=== PATIENT | male | born 1975 | race Caucasian/White ===

== ENCOUNTER 2021-09-03 16:16 | Emergency (ER) | payer OTHER, SELFPAY ==
--- NOTE | ~2021-09-03 | XR_ITS ---
EXAMINATION: XR CHEST CLINICAL INFORMATION: Chest pain COMPARISON: None TECHNIQUE: Frontal view of the chest was obtained. FINDINGS: No significant abnormality is noted involving the heart, lungs, mediastinum, bony thorax or soft tissues. XR/XR chest 1V IMPRESSION: Unremarkable examination.
--- NOTE | ~2021-09-03 | XR_ITS ---
EXAMINATION: XR BILATERAL HIPS WITH AP PELVIS CLINICAL INFORMATION: Pain. COMPARISON: Radiograph of the pelvis dated from 02/10/2016. TECHNIQUE: AP view of the pelvis and single views of each hip were obtained. FINDINGS: Severe bilateral degenerative osteoarthritis with extensive subcortical cystic changes, deformity of the femoral heads and osteophytes. These findings are significantly progressed since 2016. Within a background of advanced osteoarthritis evaluation of subtle fractures is limited. However, no definite acutely displaced fractures are identified. Sacroiliac joints and pubic symphysis are maintained. XR/XR hips GRIFFIN min 3V IMPRESSION: Severe degenerative osteoarthritis in both hips, progressed since 2016 without definite fractures. Although as above, this background limits evaluation of subtle injuries for which correlation with an MR or CT could be obtained if indicated.
--- NOTE | ~2021-09-03 | CT_ITS ---
EXAMINATION: CT ANGIOGRAM OF THE CHEST WITH AND WITHOUT CONTRAST (CT PULMONARY ANGIOGRAM FOR PE) CLINICAL INFORMATION: Reason for Exam cp, sob, r/o pe COMPARISON: 01/23/2016 TECHNIQUE: Prior to contrast administration, noncontrast localization images were obtained. Subsequently, multidetector volumetric imaging was performed from the thoracic inlet to below the diaphragms following the administration of 75 mL Omnipaque 350 intravenous contrast. No contrast reaction reported Sagittal, coronal, and MIP oblique sagittal reformatted images were obtained on the CT workstation, uploaded to PACS, and reviewed. This CT examination was performed using dose optimization techniques as appropriate, variously including the following: *Automated exposure control *Adjustment of mA and/or kV according to patient size (this includes techniques or standardized protocols for targeted exams where dose is matched to indication/reason for exam; i.e. extremities or head) *Use of iterative reconstruction technique Total exam dose-length product 443 mGy-cm FINDINGS: QUALITY OF STUDY/CONTRAST BOLUS: Satisfactory. PULMONARY ARTERIES: No central or segmental pulmonary emboli. THORACIC AORTA: No aneurysm or dissection. LUNG: There is a 1.3 cm mean diameter subpleural opacity within the anterior segment of the right upper lobe inferiorly which may represent pleural parenchymal scarring, subsegmental atelectasis or a small focus of organizing pneumonia given the ring shaped morphology (i.e. atoll sign ). A previously seen nodule within left upper lobe has resolved. Mild diffuse bronchial wall thickening without bronchiectasis. PLEURA: No pleural effusion or pneumothorax. MEDIASTINUM: Normal heart size. No pericardial effusion. No hilar or mediastinal lymphadenopathy. No evidence of septal bowing or right heart strain. CHEST WALL/AXILLA: No axillary or internal mammary lymphadenopathy. OSSEOUS STRUCTURES: No acute or suspicious osseous abnormality. UPPER ABDOMEN: Hepatic steatosis. CT/CT angio chest PE protocol IMPRESSION: * No pulmonary embolism. * Nonspecific 1.3 cm mean diameter ring-shaped subpleural opacity within the anterior segment of the right upper lobe with diagnostic considerations as above. As precaution, consider follow-up CT chest in 3-6 months. * Mild diffuse bronchial wall thickening could reflect mild bronchitis or asthma. * Hepatic steatosis. VTE: negative
[2021-09-03 16:22] VITALS: BP 173/98; PULSE 125; RESP 18; TEMP 36.7; O2SAT 98; BMI 48.6
--- NOTE | 2021-09-03 16:26 | ECG_ITS ---
Test Reason : CHEST PAIN Blood Pressure : / mmHG Vent. Rate : 122 BPM Atrial Rate : 122 BPM P-R Int : 152 ms QRS Dur : 076 ms QT Int : 320 ms P-R-T Axes : 041 -26 101 degrees QTc Int : 456 ms Sinus tachycardia with occasional Premature ventricular complexes Nonspecific T wave abnormality Abnormal ECG When compared with ECG of 24-JAN-2016 01:43, Premature ventricular complexes are now Present Referred By: Generic ED Physician Electronically Signed By:YRIS LOPEZ MD
[2021-09-03 16:48] LABS: MANUAL DIFF FLAG NO
[2021-09-03 16:50] LABS: Basophils Absolute Auto 0.1 X10*3/uL (0.0-0.2); Basophils Percent Auto 0.5 % (0-2); Eosinophils Absolute Auto 0.2 X10*3/uL (0.0-0.4); Eosinophils Percent Auto 1.6 % (0-4); Hematocrit 43.3 % (42.0-52.0); Hemoglobin 15.4 g/dl (14.0-18.0); Imm Gran Abs Auto 0.02 X10*3/uL (0.00-0.03); Imm Gran Pct Auto 0.2 % (0.0-0.4); Lymphocytes Absolute Auto 1.9 X10*3/uL (1.2-4.9); Lymphocytes Percent Auto 20.1 % (20-40); Mean Corpuscular HGB Conc 35.6 g/dl (31.0-36.0); Mean Corpuscular Hemoglobin 29.7 pg (27.0-33.0); Mean Corpuscular Volume 83.4 fL (80.0-98.0); Mean Platelet Volume 11.7 fL (9.4-12.4); Monocytes Absolute Auto 0.5 X10*3/uL (0.1-1.2); Monocytes Percent Auto 4.9 % (2-11); Neutrophils Absolute Auto 6.9 x10*3/uL (2.0-8.3); Neutrophils Percent Auto 72.7 % (45-73); Platelet Count 170 X10*3/uL (160-400); Red Blood Count 5.19 X10*6/uL (4.60-5.80); Red Cell Distribution Width 12.9 % (11.0-16.0); White Blood Count 9.5 X10*3/uL (4.8-10.8)
[2021-09-03 17:04] LABS: COVID-19 Test Negative (Negative)
[2021-09-03 17:06] LABS: Anion Gap 12 (12-20); Blood Urea Nitrogen 15 mg/dL (9-16); Calcium 9.2 mg/dL (8.4-10.2); Carbon Dioxide 27 mmol/L (22-29); Chloride 98 mmol/L (96-108); Creatinine Clr Calc Pharmacy 82.8; Estimated Glomerular Filt Rate 51; Glucose Random 471 mg/dL (60-115); Potassium 4.2 mmol/L (3.3-5.1); Sodium 133 mmol/L (135-145)
[2021-09-03 21:58] LABS: Lipase 50 U/L (8-78)
[2021-09-03 22:09] LABS: B Type Natriuretic Peptide < 10 pg/mL (<100)
--- NOTE | 2021-09-03 22:25 | ED_ITS ---
HPI - Chest Pain General Chief Complaint: Chest Pain Stated Complaint: head ache Time Seen by Provider: 09/03/21 21:31 Source: patient and family Mode of arrival: wheelchair Limitations: no limitations History of Present Illness HPI narrative: 46 yo male with history of hypertension, insulin-dependent diabetes, bilateral hip arthritis, high cholesterol here with reports of chest burning for the last 3 days. Patient reports is constant. It is worsened if he lays flat. Denies vomiting or abdominal pain. He does report nausea. No associated diaphoresis. He has been feeling lightheaded last few days. He denies any volume loss. He has been eating and drinking normally. Does report when he lays flat he feels short of breath. No leg swelling or pain. No fevers, chills, cough. Patient also reporting bilateral chronic hip pain with no known injury or trauma. Patient has underlying arthritis and takes diclofenac and ibuprofen daily for pain. Patient denies any black or bloody stools Related Data Previous Rx's Medication Instructions Recorded diclofenac sodium 50 mg 50 mg PO ONCE #30 tab 08/12/21 tablet,delayed release insulin lispro 100 unit/mL 20 unit (0.2 mL) SUBCUT BID #15 ml 08/12/21 subcutaneous pen (Humalog KwikPen (U-100) Insulin) losartan 50 mg tablet 50 mg PO DAILY #30 tab 08/12/21 metformin 1,000 mg tablet 1,000 mg PO BID #60 tab 08/12/21 pen needle, diabetic 32 gauge x #100 ea 08/12/21 (BD Ultra-Fine Vania Pen Needle) azithromycin 250 mg tablet 250 mg PO DAILY 4 Days #4 tab 09/04/21 Allergies Allergy/AdvReac Type Severity Reaction Status Date / Time No Known Allergies Allergy Verified 09/03/21 16:22 [No Known Allergies*] Review of Systems Review of Systems: Yes all other systems are reviewed and are negative Constitutional: Constitutional: Reports no additional constitutional complaints, Denies body ache(s), Denies chills, Denies fever(s), Denies headache(s) and Denies weakness Eyes: Eyes: Reports no additional eye complaints and Denies change in vision ENT: Reports system reviewed and no additional complaints, except as documented, Denies dizziness, Denies headache(s), Denies nasal congestion, Denies nasal discharge and Denies neck pain Cardiovascular: Cardiovascular: Reports no additional cardiovascular complaints, Reports chest pain, Denies leg edema, Reports lightheadedness and Reports dyspnea (w/ laying flat ) Respiratory: Respiratory: Reports no additional respiratory complaints, Denies cough and Reports dyspnea (w/ laying flat ) Gastrointestinal: Gastrointestinal: Reports no additional gastrointestinal complaints, Denies abdominal pain, Denies diarrhea, Reports nausea and Denies vomiting Genitourinary: Genitourinary: Denies urinary incontinence Musculoskeletal: Musculoskeletal: Reports no additional musculoskeletal compla ints, Denies back pain, Reports arthralgias, Denies joint swelling, Denies neck pain, Denies numbness and Denies tingling Integumentary/Breasts: Skin/Breast: Reports system reviewed and no additional complaints, except as docu and Denies rash Neurologic: Reports system reviewed and no additional complaints, except as documented, Denies dizziness, Denies headache(s), Denies numbness, Denies tingling and Denies weakness PMFSH Past Medical History Attestation statement: The following information was validated with the patient. Source: old records reviewed and nursing notes reviewed Medical History Arthritis of both hips DM type 2 (diabetes mellitus, type 2) Hypertension Long-term insulin use Surgical History No pertinent past surgical history Social History Social History Housing: Apartment Alcohol intake: never Patient Tobacco Use Status: Never used Tobacco Second Hand Smoke Exposure: No Advance Directives: No Advance Directives Information Provided: Yes service: No Current occupational status: disabled Physical Exam Vital Signs: Vital Signs: Last Vital Signs Temp 98.7 F 09/03/21 23:05 Pulse 108 H 09/04/21 00:35 Resp 17 09/04/21 00:35 BP 143/92 H 09/04/21 00:35 Pulse Ox 97 09/04/21 00:35 BMI result Body Mass Index 48.6 Const: General: cooperative, healthy appearing, comfortable and no acute distress Orientation/consciousness: patient oriented x3 Limitations: no l imitations HENMT: Head: Yes normal to inspection Ears: hearing grossly normal bilaterally and TM's normal bilaterally General nose exam: Normal external nose present Face and sinus: Yes normal facial exam Mouth: Normal oral and palatal mucosa present Throat: Yes posterior oropharynx normal and Yes tonsils normal Eyes: General: appearance normal, both eyes and all related structures Pupils: Equal, round and reactive pupils present Neck: Neck: Yes normal visual inspection, Yes full ROM and Yes no lymphadenopathy Chest: Chest palpation & inspection: normal inspection of the chest Resp: Effort & Inspection: normal respiratory effort Auscultation: clear to auscultation bilaterally Cardio: Rate: tachycardic Peripheral pulses: Peripheral pulses 2+ throughou t GI: Inspection: Yes normal to inspection Palpation (GI): Soft to palpation and nontender : General: Yes no CVA tenderness Back/Spine/Pelvis: Back: no CVA tenderness Skin: General skin exam: no rashes or lesions noted Neuro: General: patient oriented x3 Cranial nerves: Yes CN's II-XII intact bilaterally, Yes Equal, round and reactive pupils present, Yes Bilaterally intac t EOM present, Yes Nystagmus not present, Yes Normal facial strength present and Yes Midline tongue present Gait exam (Neuro): Normal gait present Motor exam (neuro): 5/5 motor strength present throughout Sensory Exam: Normal double simultaneous stimulation for sensation Extrem: General: Yes normal to inspection, Yes no pedal edema and Yes no calf tenderness Course Course Course Narrative: 46-year-old male here with multiple complaints. Patient reports 3 days of chest burning, feeling nauseous, lightheaded. Symptoms are worsened with lying flat with shortness of breath lying flat. No abdominal pain, vomiting. On arrival the patient is alert oriented. He is mildly tachycardic with a heart rate of 115-120. His abdomen is soft and nontender. His neurological exam is normal. Will need labs, EKG, chest x-ray, COVID screen Also complaining acute on chronic bilateral hip pain. Requesting x-rays. 2345-troponin times do lab. EKG shows no ischemic changes. Chest x-ray is negative. COVID screen is negative. Reviewed labs. Labs show an elevated D- dimer, elevated creatinine with preserved BUN, elevated glucose with no evidence of DKA. Will check CTA to rule out PE. Patient is having persistent tachycardia so will check orthostatic vital signs. Will give fluids, insulin and reassess 0145-CTA of the chest is negative for PE. It does show it appears to be a right-sided pneumonia. The patient has no tachypnea or hypoxia. Will treat with course of antibiotics, give albuterol MDI for home. Blood sugar trending down. Heart rate now 102. Patient tells me his pain in the chest is improved. X-ray show bilateral hip osteoarthritis. Patient has diclofenac and ibuprofen at home for pain. He can follow-up with his primary care doctor in regards to this additionally Will discharge home with PCP follow-up. Reviewed worrisome signs and symptoms of when to return to the emergency department. Comfortable discharge home. MDM - Chest Pain MDM Narrative Medical decision making narrative: ACS, orthostatic hypotension, PE, viral syndrome Medical Records Data Attestation: I reviewed the patient's medical records. Lab Data Attestation: I reviewed the patient's lab results. Result diagrams: 09/03/21 16:42 09/03/21 16:42 Labs: Lab Results 09/03/21 09/03/21 09/03/21 Range/Units 16:37 16:42 16:42 WBC 9.5 (4.8-10.8) X10*3/uL RBC 5.19 (4.60-5.80) X10*6/uL Hgb 15.4 (14.0-18.0) g/dl Hct 43.3 (42.0-52.0) % MCV 83.4 (80.0-98.0) fL MCH 29.7 (27.0-33.0) pg MCHC 35.6 (31.0-36.0) g/dl RDW 12.9 (11.0-16.0) % Plt Count 170 (160-400) X10*3/uL MPV 11.7 (9.4-12.4) fL Immature Gran % (Auto) 0.2 (0.0-0.4) % Neut % (Auto) 72.7 (45-73) % Lymph % (Auto) 20.1 (20-40) % Churchill % (Auto) 4.9 (2-11) % Eos % (Auto) 1.6 (0-4) % Baso % (Auto) 0.5 (0-2) % Lymph # (Auto) 1.9 (1.2-4.9) X10*3/uL Churchill # (Auto) 0.5 (0.1-1.2) X10*3/uL Eos # (Auto) 0.2 (0.0-0.4) X10*3/uL Baso # (Auto) 0.1 (0.0-0.2) X10*3/uL Abs Immat Gran (auto) 0.02 (0.00-0.03) X10*3/uL Absolute Neuts (auto) 6.9 (2.0-8.3) x10*3/uL Absolute Nucleated RBC 0.000 (0.0-0.012) X10*3/uL Nucleated RBC % (auto) 0.0 (0.0-0.2) /100WBC PT (9.9-13.0) SEC INR (0.9-1.1) D-Dimer High Sensitivty NG/ML VBG pH (7.32-7.43) VBG pCO2 mmHg VBG pO2 mmHg VBG HCO3 (22-26) mmol/L VBG O2 Saturation % VBG Base Excess mmol/L Sodium 133 L (135-145) mmol/L Potassium 4.2 (3.3-5.1) mmol/L Chloride 98 (96-108) mmol/L Carbon Dioxide 27 (22-29) mmol/L Anion Gap 12 (12-20) BUN 15 (9-16) mg/dL Creatinine 1.48 H (0.5-1.4) mg/dL Estim Creat Clear Calc 82.8 Estimated GFR 51 POC Glucose (60-115) mg/dL Random Glucose 471 H* (60-115) mg/dL Calcium 9.2 (8.4-10.2) mg/dL Magnesium (1.6-2.6) mg/dL Total Bilirubin (0.0-1.0) mg/dL Direct Bilirubin (0.0-0.5) mg/dL AST (5-37) U/L ALT (0-40) U/L Alkaline Phosphatase (39-117) U/L Troponin I High Sens (<3.5-35.0) ng/L B-Natriuretic Peptide (<100) pg/mL Total Protein (6.5-8.0) g/dL Albumin (3.5-5.0) g/dL Lipase 50 (8-78) U/L TSH (0.32-4.0) uIU/mL Acetone, Qual (Negative) COVID-19 (ROCHELLE) Negative (Negative) COVID-19 Clin Com See Note 09/03/21 09/03/21 09/03/21 Range/Units 16:42 22:52 23:02 WBC (4.8-10.8) X10*3/uL RBC (4.60-5.80) X10*6/uL Hgb (14.0-18.0) g/dl Hct (42.0-52.0) % MCV (80.0-98.0) fL MCH (27.0-33.0) pg MCHC (31.0-36.0) g/dl RDW (11.0-16.0) % Plt Count (160-400) X10*3/uL MPV (9.4-12.4) fL Immature Gran % (Auto) (0.0-0.4) % Neut % (Auto) (45-73) % Lymph % (Auto) (20-40) % Churchill % (Auto) (2-11) % Eos % (Auto) (0-4) % Baso % (Auto) (0-2) % Lymph # (Auto) (1.2-4.9) X10*3/uL Churchill # (Auto) (0.1-1.2) X10*3/uL Eos # (Auto) (0.0-0.4) X10*3/uL Baso # (Auto) (0.0-0.2) X10*3/uL Abs Immat Gran (auto) (0.00-0.03) X10*3/uL Absolute Neuts (auto) (2.0-8.3) x10*3/uL Absolute Nucleated RBC (0.0-0.012) X10*3/uL Nucleated RBC % (auto) (0.0-0.2) /100WBC PT 12.4 (9.9-13.0) SEC INR 1.1 (0.9-1.1) D-Dimer High Sensitivty 185 NG/ML VBG pH (7.32-7.43) VBG pCO2 mmHg VBG pO2 mmHg VBG HCO3 (22-26) mmol/L VBG O2 Saturation % VBG Base Excess mmol/L Sodium (135-145) mmol/L Potassium (3.3-5.1) mmol/L Chloride (96-108) mmol/L Carbon Dioxide (22-29) mmol/L Anion Gap (12-20) BUN (9-16) mg/dL Creatinine (0.5-1.4) mg/dL Estim Creat Clear Calc Estimated GFR POC Glucose 375 H* (60-115) mg/dL Random Glucose (60-115) mg/dL Calcium (8.4-10.2) mg/dL Magnesium (1.6-2.6) mg/dL Total Bilirubin (0.0-1.0) mg/dL Direct Bilirubin (0.0-0.5) mg/dL AST (5-37) U/L ALT (0-40) U/L Alkaline Phosphatase (39-117) U/L Troponin I High Sens 14.0 (<3.5-35.0) ng/L B-Natriuretic Peptide < 10 (<100) pg/mL Total Protein (6.5-8.0) g/dL Albumin (3.5-5.0) g/dL Lipase (8-78) U/L TSH (0.32-4.0) uIU/mL Acetone, Qual (Negative) COVID-19 ([facility]HELLE) (Negative) COVID-19 Clin Com 09/03/21 09/03/21 09/03/21 Range/Units 23:02 23:02 23:02 WBC (4.8-10.8) X10*3/uL RBC (4.60-5.80) X10*6/uL Hgb (14.0-18.0) g/dl Hct (42.0-52.0) % MCV (80.0-98.0) fL MCH (27.0-33.0) pg MCHC (31.0-36.0) g/dl RDW (11.0-16.0) % Plt Count (160-400) X10*3/uL MPV (9.4-12.4) fL Immature Gran % (Auto) (0.0-0.4) % Neut % (Auto) (45-73) % Lymph % (Auto) (20-40) % Churchill % (Auto) (2-11) % Eos % (Auto) (0-4) % Baso % (Auto) (0-2) % Lymph # (Auto) (1.2-4.9) X10*3/uL Churchill # (Auto) (0.1-1.2) X10*3/uL Eos # (Auto) (0.0-0.4) X10*3/uL Baso # (Auto) (0.0-0.2) X10*3/uL Abs Immat Gran (auto) (0.00-0.03) X10*3/uL Absolute Neuts (auto) (2.0-8.3) x10*3/uL Absolute Nucleated RBC (0.0-0.012) X10*3/uL Nucleated RBC % (auto) (0.0-0.2) /100WBC PT (9.9-13.0) SEC INR (0.9-1.1) D-Dimer High Sensitivty NG/ML VBG pH (7.32-7.43) VBG pCO2 mmHg VBG pO2 mmHg VBG HCO3 (22-26) mmol/L VBG O2 Saturation % VBG Base Excess mmol/L Sodium (135-145) mmol/L Potassium (3.3-5.1) mmol/L Chloride (96-108) mmol/L Carbon Dioxide (22-29) mmol/L Anion Gap (12-20) BUN (9-16) mg/dL Creatinine (0.5-1.4) mg/dL Estim Creat Clear Calc Estimated GFR POC Glucose (60-115) mg/dL Random Glucose (60-115) mg/dL Calcium (8.4-10.2) mg/dL Magnesium 1.9 (1.6-2.6) mg/dL Total Bilirubin 0.6 (0.0-1.0) mg/dL Direct Bilirubin 0.2 (0.0-0.5) mg/dL AST 12 (5-37) U/L ALT 13 (0-40) U/L Alkaline Phosphatase 75 (39-117) U/L Troponin I High Sens 17.6 (<3.5-35.0) ng/L B-Natriuretic Peptide (<100) pg/mL Total Protein 8.2 H (6.5-8.0) g/dL Albumin 3.9 (3.5-5.0) g/dL Lipase (8-78) U/L TSH 3.79 (0.32-4.0) uIU/mL Acetone, Qual Negative (Negative) COVID-19 ([facility]HELLE) (Negative) COVID-19 Clin Com 09/03/21 09/04/21 Range/Units 23:04 00:30 WBC (4.8-10.8) X10*3/uL RBC (4.60-5.80) X10*6/uL Hgb (14.0-18.0) g/dl Hct (42.0-52.0) % MCV (80.0-98.0) fL MCH (27.0-33.0) pg MCHC (31.0-36.0) g/dl RDW (11.0-16.0) % Plt Count (160-400) X10*3/uL MPV (9.4-12.4) fL Immature Gran % (Auto) (0.0-0.4) % Neut % (Auto) (45-73) % Lymph % (Auto) (20-40) % Churchill % (Auto) (2-11) % Eos % (Auto) (0-4) % Baso % (Auto) (0-2) % Lymph # (Auto) (1.2-4.9) X10*3/uL Churchill # (Auto) (0.1-1.2) X10*3/uL Eos # (Auto) (0.0-0.4) X10*3/uL Baso # (Auto) (0.0-0.2) X10*3/uL Abs Immat Gran (auto) (0.00-0.03) X10*3/uL Absolute Neuts (auto) (2.0-8.3) x10*3/uL Absolute Nucleated RBC (0.0-0.012) X10*3/uL Nucleated RBC % (auto) (0.0-0.2) /100WBC PT (9.9-13.0) SEC INR (0.9-1.1) D-Dimer High Sensitivty NG/ML VBG pH 7.35 (7.32-7.43) VBG pCO2 50 mmHg VBG pO2 37 mmHg VBG HCO3 28 H (22-26) mmol/L VBG O2 Saturation 51.0 % VBG Base Excess 1.5 mmol/L Sodium (135-145) mmol/L Potassium (3.3-5.1) mmol/L Chloride (96-108) mmol/L Carbon Dioxide (22-29) mmol/L Anion Gap (12-20) BUN (9-16) mg/dL Creatinine (0.5-1.4) mg/dL Estim Creat Clear Calc Estimated GFR POC Glucose 274 H (60-115) mg/dL Random Glucose (60-115) mg/dL Calcium (8.4-10.2) mg/dL Magnesium (1.6-2.6) mg/dL Total Bilirubin (0.0-1.0) mg/dL Direct Bilirubin (0.0-0.5) mg/dL AST (5-37) U/L ALT (0-40) U/L Alkaline Phosphatase (39-117) U/L Troponin I High Sens (<3.5-35.0) ng/L B-Natriuretic Peptide (<100) pg/mL Total Protein (6.5-8.0) g/dL Albumin (3.5-5.0) g/dL Lipase (8-78) U/L TSH (0.32-4.0) uIU/mL Acetone, Qual (Negative) COVID-19 ([facility]HELLE) (Negative) COVID-19 Clin Com Imaging Data Chest x-ray: Attestation: I personally reviewed and interpreted this imaging study as follows: Radiologist's impression: [place] [id number] XRay Report Signed Patient: Miguel A Aparicio MR#: [id number] : 1975 Acct:[id number] Age/Sex: 46 / M ADM Date: 09/03/21 Loc: .ED Attending Dr: Ordering Physician: Generic ED Physician Date of Service: 09/03/21 Procedure(s): XR chest 1V Accession Number(s): [id number] cc: Generic ED Physician~ EXAMINATION: XR CHEST CLINICAL INFORMATION: Chest pain COMPARISON: None TECHNIQUE: Frontal view of the chest was obtained. FINDINGS: No significant abnormality is noted involving the heart, lungs, mediastinum, bony thorax or soft tissues. XR/XR chest 1V IMPRESSION: Unremarkable examination. ? hips xray: Attestation: I personally reviewed and interpreted this imaging study as follows: Radiologist's impression: FINDINGS: Severe bilateral degenerative osteoarthritis with extensive subcortical cystic changes, deformity of the femoral heads and osteophytes. These findings are significantly progressed since 2016. Within a background of advanced osteoarthritis evaluation of subtle fractures is limited. However, no definite acutely displaced fractures are identified. Sacroiliac joints and pubic symphysis are maintained. XR/XR hips GRIFFIN min 3V IMPRESSION: Severe degenerative osteoarthritis in both hips, progressed since 2016 without definite fractures. Although as above, this background limits evaluation of subtle injuries for which correlation with an MR or CT could be obtained if indicated. CT scan - chest: Attestation: I personally reviewed and interpreted this imaging study as follows: Radiologist's impression: [place] [id number] CT Scan Report Signed Patient: Miguel A Aparicio MR#: [id number] : 1975 Acct:[id number] Age/Sex: 46 / M ADM Date: 09/03/21 Loc: HO.ED Attending Dr: Ordering Physician: Rhoda David NP Date of Service: 09/04/21 Procedure(s): CT angio chest PE protocol Accession Number(s): [id number] cc: Rhoda David NP~ EXAMINATION: CT ANGIOGRAM OF THE CHEST WITH AND WITHOUT CONTRAST (CT PULMONARY ANGIOGRAM FOR PE) CLINICAL INFORMATION: Reason for Exam cp, sob, r/o pe COMPARISON: 01/23/2016? TECHNIQUE: Prior to contrast administration, noncontrast localization images were obtained. ? Subsequently, multidetector volumetric imaging was performed from the thoracic inlet to below the diaphragms following the administration of 75 mL Omnipaque 350 intravenous contrast. No contrast reaction reported Sagittal, coronal, and MIP oblique sagittal reformatted images were obtained on the CT workstation, uploaded to PACS, and reviewed. This CT examination was performed using dose optimization techniques as appropriate, variously including the following: *Automated exposure control *Adjustment of mA and/or kV according to patient size (this includes techniques or standardized protocols for targeted exams where dose is matched to indication/reason for exam; i.e. extremities or head) *Use of iterative reconstruction technique Total exam dose-length product 443 mGy-cm FINDINGS: QUALITY OF STUDY/CONTRAST BOLUS: Satisfactory. PULMONARY ARTERIES: No central or segmental pulmonary emboli.? THORACIC AORTA: No aneurysm or dissection. LUNG: There is a 1.3 cm mean diameter subpleural opacity within the anterior segment of the right upper lobe inferiorly which may represent pleural parenchymal scarring, subsegmental atelectasis or a small focus of organizing pneumonia given the ring shaped morphology (i.e. atoll sign ). A previously seen nodule within left upper lobe has resolved. Mild diffuse bronchial wall thickening without bronchiectasis. PLEURA: No pleural effusion or pneumothorax. MEDIASTINUM: Normal heart size.? No pericardial effusion.? No hilar or mediastinal lymphadenopathy.? No evidence of septal bowing or right heart strain. CHEST WALL/AXILLA: No axillary or internal mammary lymphadenopathy. OSSEOUS STRUCTURES: No acute or suspicious osseous abnormality.? UPPER ABDOMEN: Hepatic steatosis. CT/CT angio chest PE protocol IMPRESSION: *? No pulmonary embolism. *? Nonspecific 1.3 cm mean diameter ring-shaped subpleural opacity within the anterior segment of the right upper lobe with diagnostic considerations as above. As precaution, consider follow-up CT chest in 3-6 months. *? Mild diffuse bronchial wall thickening could reflect mild bronchitis or asthma. *? Hepatic steatosis. ECG Data ECG #1: Attestation: I personally reviewed and interpreted this ECG as follows: ECG interpretation date: 09/03/21 ECG interpretation time: 16:26 Interpretation: Sinus tachycardia with a rate of 122, normal OH, normal QRS, normal QT Discharge Plan Discharge Clinical Impression: Atypical chest pain, Pneumonia, Osteoarthritis of both hips, Hyperglycemia Patient Disposition: Home, Self-Care Instructions: Osteoarthritis (DC), Pneumonia (ED), Diabetic Hyperglycemia (ED), Chest Wall Pain (ED) Additional Instructions: Your CT scan of your chest shows pneumonia After you complete your antibiotics follow-up with your primary care doctor to make sure that the pneumonia has resolved Use the inhaler as needed Increase fluids, rest Your blood sugar was elevated today. This may be from having an infection. Make sure that you follow your blood sugars closely at home and discussed if your blood sugars continue to be elevated with her primary care doctor Your x-rays of your hip show bilateral arthritis. Continue your home medications. Discuss this with her primary care doctor Prescriptions: New azithromycin 250 mg tablet 250 mg PO DAILY 4 Days Qty: 4 0RF Rx Instructions: start on day 2 of therapy No Action losartan 50 mg tablet 50 mg PO DAILY Qty: 30 1RF metformin 1,000 mg tablet 1,000 mg PO BID Qty: 60 1RF (DME) pen needle, diabetic [BD Ultra-Fine Vania Pen Needle] 32 gauge x 5/32 needle See Rx Instructions .Route Qty: 100 0RF Rx Instructions: As directed insulin lispro [Humalog KwikPen Insulin] 100 unit/mL insulin pen 20 unit subcut BID Qty: 15 0RF diclofenac sodium 50 mg tablet,delayed release (DR/EC) 50 mg PO ONCE Qty: 30 0RF Referrals: Miguel Nguyen MD [Primary Care Provider] - 1 week Print Language: Portuguese
[2021-09-03] MEDS: Lidocaine HCl Viscous 2 % 15 ML SOLUTION MUCOUS MEM (22:56)
[2021-09-03] MEDS: Magnesium Hydrox/Alum Hydrox 30 ML ORAL.SUSP PO (22:56)
[2021-09-03] MEDS: 0.9 % Sodium Chloride 1,000 ML 999 ML IV (22:56)
[2021-09-03 22:57] LABS: Glucose, Whole Blood 375 mg/dL (60-115)
[2021-09-03 23:05] VITALS: BP 140/86; PULSE 114; RESP 12; TEMP 37.1; O2SAT 96
--- NOTE | 2021-09-03 23:07 | PC.NURSE ---
IV placed to RAC, labs drawn to lab. NS up and running w/o, site intact. pt medicated as per emar. will continue to monitor pt.
[2021-09-03 23:09] LABS: Venous Blood Gas Refer to POC result
[2021-09-03 23:11] LABS: VBG Base Excess 1.5 mmol/L; VBG HCO3 28 mmol/L (22-26); VBG pCO2 50 mmHg; VBG pH 7.35 (7.32-7.43); VBG pO2 37 mmHg
[2021-09-03 23:16] LABS: INTERNATIONAL NORM RATIO 1.1 (0.9-1.1); Prothrombin Time 12.4 SEC (9.9-13.0)
[2021-09-03 23:18] LABS: D Dimer High Sensitivity 185 NG/ML
[2021-09-03 23:23] LABS: Acetone, serum QL Negative (Negative); Alanine Aminotransferase 13 U/L (0-40); Albumin Level 3.9 g/dL (3.5-5.0); Alkaline Phosphatase 75 U/L (39-117); Aspartate Amino Transferase 12 U/L (5-37); Bilirubin Direct 0.2 mg/dL (0.0-0.5); Bilirubin Total 0.6 mg/dL (0.0-1.0); Magnesium 1.9 mg/dL (1.6-2.6); Total Protein 8.2 g/dL (6.5-8.0)
[2021-09-03 23:30] LABS: Troponin-I High Sensitivity 17.6 ng/L (<3.5-35.0)
[2021-09-03 23:46] LABS: Thyroid Stimulating Hormone 3.79 uIU/mL (0.32-4.0)
[2021-09-03] MEDS: Insulin Regular, Human 100 UNIT/ML 3 ML VIAL IVPUSH (23:53)
--- NOTE | 2021-09-03 23:56 | PC.NURSE ---
pt medicated with insulin as per emar for bs -375
[2021-09-04] VITALS: BP 148/86; PULSE 113
[2021-09-04 00:01] VITALS: BP 137/105; PULSE 113
[2021-09-04 00:03] VITALS: BP 142/94; PULSE 115
[2021-09-04 00:05] VITALS: BP 142/94; PULSE 113; RESP 18; O2SAT 98
--- NOTE | 2021-09-04 00:33 | PC.NURSE ---
BS 274 - PA aware. NS infused w/o difficulty, site intact. VS obtained. pt states my cp is much better . Pt in CT in stretcher in NAD.
[2021-09-04 00:35] VITALS: BP 143/92; PULSE 108; RESP 17; O2SAT 97
[2021-09-04 00:35] LABS: Glucose, Whole Blood 274 mg/dL (60-115)
[2021-09-04] MEDS: iohexoL 350 MG/ML 100 ML INFUS..BTL 75 ML IV (00:54)
[2021-09-04] MEDS: Azithromycin 500 MG TABLET PO (01:59)
[2021-09-04] MEDS: Albuterol Sulfate 90 MCG 8 GM INHALER 2 PUFF INHALE (02:02)
== END 2021-09-04 02:21 | disposition home or self-care (01) ==
PROVIDERS: Nurse Practitioner Family; Student in an Organized Health Care Education/Training Program; Emergency Provider Emergency Medicine; PCP Internal Medicine
DX: J18.9 Pneumonia, unspecified organism (principal); R07.9 Chest pain, unspecified; E11.65 Type 2 diabetes mellitus with hyperglycemia; M16.0 Bilateral primary osteoarthritis of hip; M25.552 Pain in left hip; M25.551 Pain in right hip; R06.02 Shortness of breath; Z20.822 Contact with and (suspected) exposure to COVID-19; Z79.899 Other long term (current) drug therapy; Z79.4 Long term (current) use of insulin
CPT/HCPCS: 36415; 71045; 71275; 73522; 80048; 80076; 82009; 82803; 82947; 83690; 83735; 83880; 84443; 84484; 85025; 85379; 85610; 87635; 93005; 96361; 96374; 99284; Q9967

== ENCOUNTER 2021-09-21 16:37 | Outpatient (REF) | payer OTHER, SELFPAY ==
[2021-09-21 18:21] LABS: Amphetamine Screen Urine Not Detected (Not Detect); Barbiturates, Urine Not Detected (Not Detect); Benzodiazepines Screen Urine Not Detected (Not Detect); Cannabinoid Screen Urine Not Detected (Not Detect); Cocaine Screen Urine Not Detected (Not Detect); Fentanyl, urine Not Detected (Not Detect); Opiate Screen Urine Not Detected (Not Detect); Phencyclidine Screen Urine Not Detected (Not Detect)
[2021-09-28 09:59] LABS: Codeine, Ur NEGATIVE
[2021-09-28 10:00] LABS: Hydrocodone, Ur NEGATIVE; Oxycodone, Ur NEGATIVE
[2021-09-28 10:01] LABS: Hydromorphone, Ur NEGATIVE; Morphine, Ur NEGATIVE
[2021-09-28 10:02] LABS: Norhydrocodone, Ur NEGATIVE; Oxymorphone, Ur NEGATIVE
[2021-09-28 10:03] LABS: Alprazolam, GCMS Urine NEGATIVE; Noroxycodone, Ur NEGATIVE
[2021-09-28 10:04] LABS: Aminoclonazepam, GCMS Urine NEGATIVE; Nordiazepam, GCMS Urine NEGATIVE; Oxazepam, GCMS Urine NEGATIVE
[2021-09-28 10:05] LABS: Alphahydroxymidazolam,GCMS Ur NEGATIVE; Alphahydroxytriazolam, GCMS Ur NEGATIVE; Flurazepam Metabolite,GCMS Ur NEGATIVE; Lorazepam GCMS Urine NEGATIVE; Temazepam, GCMS Urine NEGATIVE
== END 2021-09-21 16:38 | disposition home or self-care (01) ==
LOC: HO.LAB 16:37
PROVIDERS: Visit Provider Nurse Practitioner Acute Care
DX: F11.90 Opioid use, unspecified, uncomplicated (principal)
CPT/HCPCS: 80307; 80346; 80364; 80365

== ENCOUNTER → 2021-11-26 10:35 | Outpatient (BNVA) | payer OTHER, SELFPAY | PROVIDERS: PCP Nurse Practitioner Acute Care; Visit Provider Orthopaedic Surgery | DX: M16.0 Bilateral primary osteoarthritis of hip (principal); E66.01 Morbid (severe) obesity due to excess calories; E11.65 Type 2 diabetes mellitus with hyperglycemia; Z68.42 Body mass index [BMI] 45.0-49.9, adult | CPT/HCPCS: 99202 ==

== ENCOUNTER → 2021-12-29 13:34 | Outpatient (BNVA) | payer OTHER, SELFPAY | PROVIDERS: PCP Nurse Practitioner Acute Care; Visit Provider Nurse Practitioner Family | DX: M16.0 Bilateral primary osteoarthritis of hip (principal); M25.551 Pain in right hip; M25.552 Pain in left hip; G89.29 Other chronic pain | CPT/HCPCS: 99202 ==

== ENCOUNTER 2022-07-21 16:12 | Emergency (ER) | payer OTHER, SELFPAY ==
--- NOTE | 2022-07-21 16:51 | ED.LOWEXIN ---
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 He states the pain has been getting progressively worse over the last several years. He denies any new injury or trauma. He states he was recently at family's house for the holidays and needed to go up and down stairs which exacerbated his pain. He denies any falls or twisting motions, no pops or snaps. He states both of his hips hurt equally and have hurt for many years now. He states his primary care doctor's not giving him referrals physical therapy like he would want. He states his diclofenac is not getting refilled and it was controlling his pain somewhat. He states he tried to get in with pain management but no one called him back. He states orthopedics rescheduled his appointment several times. <CLARISSE Powell - Last Filed: 07/21/22 18:37> MD complaint: hip injury <CLARISSE Powell Last Filed: 07/21/22 18:37> Onset (ago): month(s) <CLARISSE Powell - Last Filed: 07/21/22 18:37> Injury: Bilateral: hip <CLARISSE Powell Last Filed: 07/21/22 18:37> Type of Injury: unknown <CLARISSE Powell Last Filed: 07/21/22 18:37> Severity: similar to previous episodes <CLARISSE Powell - Last Filed: 07/21/22 18:37> Severity scale (1-10): 10 <CLARISSE Powell - Last Filed: 07/21/22 18:37> Relieving factors: nothing <CLARISSE Powell Last Filed: 07/21/22 18:37> Exacerbating factors: weight bearing, movement and palpation <CLARISSE Powell - Last Filed: 07/21/22 18:37> Associated symptoms: able to partially bear weight <CLARISSE Powell - Last Filed: 07/21/22 18:37> Other symptoms: none <CLARISSE Powell - Last Filed: 07/21/22 18:37> Related Data Home Medications: Previous Rx's Medication Instructions Recorded pen needle, diabetic 32 gauge x #100 ea 08/12/21 (BD Ultra-Fine Vania Pen Needle) losartan 50 mg tablet 50 mg PO DAILY #90 tabs 11/23/21 metformin 1,000 mg tablet 1,000 mg PO BID #180 tabs 11/23/21 Shower Chair #1 ea 12/10/21 walker (Ultra-Light Rollator misc) #1 ea 12/10/21 celecoxib 100 mg capsule (Celebrex) 100 mg PO BID #60 caps 12/29/21 cane #1 ea 04/21/22 diclofenac sodium 1 % topical gel 4 g topical QID #100 grams 05/20/22 insulin glargine 100 unit/mL (3 30 unit (0.3 mL) subcut BID #15 mL 06/19/22 mL) subcutaneous pen (Lantus Solostar U-100 Insulin) diclofenac potassium 50 mg tablet 50 mg PO BID PRN pain #30 tabs 06/29/22 cyclobenzaprine 10 mg tablet 10 mg PO Q8H PRN muscle spasm #14 07/21/22 tabs diclofenac sodium 75 mg 75 mg PO BID #60 tabs 07/21/22 tablet,delayed release lidocaine 5 % topical patch 1 patch topical DAILY #30 ea 07/21/22 prednisone 20 mg tablet 40 mg PO DAILY #10 tabs 07/21/22 <CLARISSE Salazar Last Filed: 07/21/22 16:58> Allergies/Adverse Reactions: Allergies Allergy/AdvReac Type Severity Reaction Status Date / Time No Known Allergies Allergy Verified 02/26/22 13:56 [No Known Allergies*] <CLARISSE Salazar - Last Filed: 07/21/22 16:58> Review of Systems Review of Systems: Yes all other systems are reviewed and are negative <CLARISSE Powell - Last Filed: 07/21/22 18:37> [facility] Past Medical History Medical History: Medical History Arthritis of both hips DM type 2 (diabetes mellitus, type 2) Encounter to establish care Hypertension Long-term insulin use <CLARISSE Salazar - Last Filed: 07/21/22 16:58> Surgical History: Surgical History No pertinent past surgical history <CLARISSE Salazar - Last Filed: 07/21/22 16:58> Social History Social History: Social History Housing: Apartment Alcohol intake: never Patient Tobacco Use Status: Never used Tobacco e-Cigarette/Vaping Use: Never Used Second Hand Smoke Exposure: No Advance Directives: No Advance Directives Information Provided: No service: No Current occupational status: disabled Current occupational exposures/hazards: No Cognitive needs: Yes (cane) Hearing needs: No Vision needs: Yes (glasses) <CLARISSE Salazar - Last Filed: 07/21/22 16:58> Physical Exam Vital Signs: Vital Signs: Last Vital Signs Temp 98.3 F 07/21/22 16:52 Pulse 108 H 07/21/22 16:52 Resp 20 07/21/22 16:52 BP 159/96 H 07/21/22 16:52 Pulse Ox 99 07/21/22 16:52 O2 Del Method 07/21/22 16:52 BMI result Body Mass Index 43.4 <CLARISSE Salazar - Last Filed: 07/21/22 16:58> Vital Signs: Last Vital Signs Temp 98.3 F 07/21/22 16:52 Pulse 108 H 07/21/22 16:52 Resp 20 07/21/22 16:52 BP 159/96 H 07/21/22 16:52 Pulse Ox 99 07/21/22 16:52 O2 Del Method 07/21/22 16:52 BMI result Body Mass Index 43.4 <CLARISSE Powell - Last Filed: 07/21/22 18:37> Appearance: Alert. Oriented X3. No acute distress. HEENT: normal inspection CVS: Normal heart rate and rhythm. Pulses normal. Respiratory: No respiratory distress. Skin: Skin warm and dry. Normal skin color. Normal skin turgor. No rashes. Extremities: Normal inspection of bilateral hips, diffuse tenderness bilaterally with no point tenderness. Antalgic gait noted. Normal active range of motion, pain with full extension or full flexion. Neuro: Oriented X 3. No motor deficit. No sensory deficit. <CLARISSE Powell - Last Filed: 07/21/22 18:37> Course Course Course Narrative: RME--47-year-old male with a past medical history of arthritis, diabetes, HTN, presenting to the ED complaining of acute on chronic b/l hip pain x years. Per chart review patient follows with Orthopedics and Pain Management, recommended weight loss prior to bilateral hip replacements. This was brought up to patient however became offended. Patient admits to using diclofenac at present, denies other meds. Denies new or more recent fall/injury or trauma Patient ambulating with limping/painful gait. In wheelchair in the ED. Will send patient back to ED for full eval. <CLARISSE Salazar - Last Filed: 07/21/22 16:58> Reevaluation(s) Reevaluation #1: Chart reviewed. Patient was seen by Physical therapy, pain management and Orthopedics of which he states he has not seen. His BMI is now 43 from 47 in december. stripper cutter machine was used to discuss the importance of ongoing weight loss, diabetes management and following up with Orthopedics. He understands he is recommended to get bilateral hip replacements. Will prescribe NSAID, muscle relaxer, Tylenol and short course of steroids for acute exacerbation of pain. We discussed the importance of dietary modification and management of his diabetes. We discussed the effects of prednisone on his diabetes. He is stable for discharge home. Patient agrees with plan. stripper cutter machine used to discuss all plan at questions. <CLARISSE Powell Last Filed: 07/21/22 18:37> Medical Decision Making Differential Diagnosis Differential Diagnoses: The differential diagnosis associated with the presentation includes <CLARISSE Powell Last Filed: 07/21/22 18:37> Severe osteoarthritis, AVN, occult fracture, muscle spasm, muscle strain, <CLARISSE Powell - Last Filed: 07/21/22 18:37> External Record Review External record reviewed: Office record <CLARISSE Powell - Last Filed: 07/21/22 18:37> outpatient orthopedic recommends that the patient gets bilateral hip replacements, he was recommended to lose 40-50 lb and get his diabetes under control prior to surgery. <CLARISSE Powell Last Filed: 07/21/22 18:37> Tests considered The following testing was considered but not selected: X-ray not performed given no new trauma. He is ambulatory. <CLARISSE Powell Last Filed: 07/21/22 18:37> Prescription Management I considered prescription management with: Pain Medication <CLARISSE Powell Last Filed: 07/21/22 18:37> One dose of oxycodone ordered here, will not start him on narcotics. Referred to pain management. <CLARISSE Powell Last Filed: 07/21/22 18:37> Chronic Conditions Patient?s care impacted by: Diabetes and Other (obesity) <CLARISSE Powell Last Filed: 07/21/22 18:37> Limiting his surgical options <CLARISSE Powell Last Filed: 07/21/22 18:37> Discharge Plan Discharge Clinical Impression: Osteoarthritis of both hips <CLARISSE Salazar Last Filed: 07/21/22 16:58> Patient Disposition: Home, Self-Care <CLARISSE Salazar Last Filed: 07/21/22 16:58> Instructions: Osteoarthritis (ED) <CLARISSE Salazar Last Filed: 07/21/22 16:58> Additional Instructions: Your last x-ray showed severe osteoarthritis in both hips. Take the prescribed medications as directed to help with your pain. Recommend following up with Pain Management, name and number below. Recommend following up with orthopedics for re-evaluation and possible surgical options. Per documentation from the orthopedic doctor in November of last year, they recommended that you lose 40-50 lb and get your diabetes under control. They are recommending bilateral hip replacements. [place] ?ltima radiograf?a mostr? artrosis severa en ambas caderas. [place] los medicamentos recetados seg?n las indicaciones para ayudar con hairston dolor. Recomiende el seguimiento con [place] dolor, nombre y n?pietro a continuaci?n. Recomendar seguimiento con ortopedia para reevaluaci?n y posibles opciones quir?rgicas. Seg?n la documentaci?n del m?dico ortop?dico en mejia del a?o pasado, recomendaron que perdiera entre 40 y 50 libras y controlara hairston diabetes. Est?n recomendando reemplazos de cadera bilaterales. <CLARISSE Salazar - Last Filed: 07/21/22 16:58> Prescriptions: New diclofenac sodium 75 mg tablet,delayed release (DR/EC) 75 mg PO BID Qty: 60 0RF cyclobenzaprine 10 mg tablet 10 mg PO Q8H PRN (Reason: muscle spasm) Qty: 14 0RF lidocaine 5 % adhesive patch,medicated 1 patch topical DAILY Qty: 30 0RF Rx Instructions: leave on most painful area for up to 12 hrs prednisone 20 mg tablet 40 mg PO DAILY Qty: 10 0RF No Action (DME) Ultra-Light Rollator Misc See Rx Instructions .Route Qty: 1 0RF Rx Instructions: As directed (DME) Shower Chair Misc See Rx Instructions .Route Qty: 1 0RF Rx Instructions: As directed (DME) cane Device See Rx Instructions .Route Qty: 1 0RF Rx Instructions: As directed diclofenac sodium 1 % gel 4 g topical QID Qty: 100 0RF insulin glargine [Lantus Solostar U-100 Insulin] 100 unit/mL (3 mL) insulin pen 30 unit subcut BID Qty: 15 3RF diclofenac potassium 50 mg tablet 50 mg PO BID PRN (Reason: pain) Qty: 30 0RF (DME) pen needle, diabetic [BD Ultra-Fine Vania Pen Needle] 32 gauge x 5/32 needle See Rx Instructions .Route Qty: 100 0RF Rx Instructions: As directed metformin 1,000 mg tablet 1,000 mg PO BID Qty: 180 3RF losartan 50 mg tablet 50 mg PO DAILY Qty: 90 3RF celecoxib [Celebrex] 100 mg capsule 100 mg PO BID Qty: 60 3RF <CLARISSE Salazar - Last Filed: 07/21/22 16:58> [place] [facility] [place] Group] [facility] [place]Provider Group] <CLARISSE Salazar - Last Filed: 07/21/22 16:58> Print Language: Guamanian <CLARISSE Salazar - Last Filed: 07/21/22 16:58>
[2022-07-21 16:52] VITALS: BP 159/96; PULSE 108; RESP 20; TEMP 36.8; O2SAT 99; BMI 43.4
[2022-07-21] MEDS: Ibuprofen 600 MG TABLET PO (18:32)
[2022-07-21] MEDS: Acetaminophen 325 MG TABLET 975 MG PO (18:33)
[2022-07-21] MEDS: oxyCODONE HCl Immed Release 5 MG TABLET PO (18:33)
== END 2022-07-21 18:38 | disposition home or self-care (01) ==
PROVIDERS: Emergency Provider Student in an Organized Health Care Education/Training Program
DX: M16.0 Bilateral primary osteoarthritis of hip (principal); E11.9 Type 2 diabetes mellitus without complications; I10 Essential (primary) hypertension; E66.9 Obesity, unspecified; Z68.41 Body mass index [BMI] 40.0-44.9, adult; Z79.4 Long term (current) use of insulin; Z79.899 Other long term (current) drug therapy
CPT/HCPCS: 99283

== ENCOUNTER 2022-09-11 20:32 | Emergency (ER) | payer OTHER, SELFPAY ==
--- NOTE | 2022-09-11 | ECG_ITS ---
Test Reason : cp Blood Pressure : / mmHG Vent. Rate : 119 BPM Atrial Rate : 119 BPM P-R Int : 156 ms QRS Dur : 076 ms QT Int : 310 ms P-R-T Axes : 045 -27 090 degrees QTc Int : 436 ms Sinus tachycardia Poor R wave progression Abnormal ECG When compared with ECG of 03-SEP-2021 16:26, Premature ventricular complexes are no longer Present Referred By: Generic ED Physician Electronically Signed By:YRIS LOPEZ MD
--- NOTE | ~2022-09-11 | XR_ITS ---
EXAMINATION: XR CHEST CLINICAL INFORMATION: Chest pain. COMPARISON: Chest done on 09/03/2021. TECHNIQUE: Frontal view of the chest was obtained. FINDINGS: No significant abnormality is noted involving the heart, lungs, mediastinum, bony thorax or soft tissues. XR/XR chest 1V IMPRESSION: Unremarkable examination. No significant change since 09/03/2021.
[2022-09-11 20:49] VITALS: BP 128/97; PULSE 125; RESP 16; TEMP 36.3; O2SAT 98; BMI 49.4
[2022-09-11 21:00] LABS: Hematocrit 40.8 % (42.0-52.0); Hemoglobin 14.3 g/dl (14.0-18.0); Mean Corpuscular Hemoglobin 29.5 pg (27.0-33.0); Mean Corpuscular Volume 84.1 fL (80.0-98.0); Mean Platelet Volume 11.7 fL (9.4-12.4); Platelet Count 167 X10*3/uL (160-400); Red Blood Count 4.85 X10*6/uL (4.60-5.80); Red Cell Distribution Width 13.7 % (11.0-16.0); White Blood Count 9.3 X10*3/uL (4.8-10.8)
[2022-09-11 21:23] LABS: Alanine Aminotransferase 28 U/L (0-40); Albumin Level 3.9 g/dL (3.5-5.0); Alkaline Phosphatase 75 U/L (39-117); Anion Gap 16 (12-20); Aspartate Amino Transferase 20 U/L (5-37); Bilirubin Total 0.5 mg/dL (0.0-1.0); Blood Urea Nitrogen 24 mg/dL (9-16); Calcium 8.8 mg/dL (8.4-10.2); Carbon Dioxide 25 mmol/L (22-29); Chloride 101 mmol/L (96-108); Creatinine Clr Calc Pharmacy 66.9; Estimated Glomerular Filt Rate 40; Glucose Random 253 mg/dL (60-115); Sodium 138 mmol/L (135-145); Total Protein 7.5 g/dL (6.5-8.0)
[2022-09-11 21:31] LABS: Troponin-I High Sensitivity 15.1 ng/L (<3.5-35.0)
--- NOTE | 2022-09-11 21:33 | ED_ITS ---
HPI - Chest Pain General Chief Complaint: Chest Pain Stated Complaint: dizziness/ hip pain Time Seen by Provider: 09/11/22 21:17 Source: patient Mode of arrival: ambulatory Limitations: no limitations History of Present Illness HPI narrative: 47-year-old male with pmh of DM, HTN, arthrisitis of both hips presents to the ED for multiple complaints. patient presents to the ED for chronic bilateral hip pain, chest pain since yesterday described as pleurisy, painful to touch, and dizziness. Patient denies any leg swelling, calf pain, coughing up blood, recent long travel, recent surgery, hisotry of blood clots, or estrogen use Related Data Previous Rx's Medication Instructions Recorded losartan 50 mg tablet 50 mg PO DAILY #90 tabs 11/23/21 metformin 1,000 mg tablet 1,000 mg PO BID #180 tabs 11/23/21 Shower Chair #1 ea 12/10/21 walker (Ultra-Light Rollator misc) #1 ea 12/10/21 cane #1 ea 04/21/22 diclofenac sodium 1 % topical gel 4 g topical QID #100 grams 05/20/22 cyclobenzaprine 10 mg tablet 10 mg PO Q8H PRN muscle spasm #14 07/21/22 tabs lidocaine 5 % topical patch 1 patch topical DAILY #30 ea 07/21/22 blood pressure kit-extra large #1 ea 08/12/22 blood sugar diagnostic (FreeStyle #100 ea 08/12/22 Lite Strips) blood-glucose meter (FreeStyle #1 ea 08/12/22 Lite Meter kit) diclofenac sodium 75 mg 75 mg PO BID #60 tabs 08/12/22 tablet,delayed release insulin glargine 100 unit/mL (3 30 unit (0.3 mL) subcut BID #15 mL 08/12/22 mL) subcutaneous pen (Lantus Solostar U-100 Insulin) lancets 28 gauge (FreeStyle #100 ea 08/12/22 Lancets) pen needle, diabetic 32 gauge x #100 ea 08/12/22 (BD Ultra-Fine Vania Pen Needle) acetaminophen 325 mg tablet 650 mg PO Q6H PRN pain 7 days #28 09/12/22 (Tylenol) tabs Allergies Allergy/AdvReac Type Severity Reaction Status Date / Time No Known Allergies Allergy Verified 08/12/22 16:49 [No Known Allergies*] Review of Systems Review of Systems: bilateral hip pain, chest pain, dizziness, pleurisy Yes all other systems are reviewed and are negative [facility] Past Medical History Medical History Arthritis of both hips DM type 2 (diabetes mellitus, type 2) Encounter to establish care Hypertension Long-term insulin use Surgical History No pertinent past surgical history Social History Social History Housing: Apartment Alcohol intake: never Patient Tobacco Use Status: Never used Tobacco Smoked in Last 30 Days: No e-Cigarette/Vaping Use: Never Used Second Hand Smoke Exposure: No Use of substances other than those prescribed or required for medical reasons: No Advance Directives: No Advance Directives Information Provided: Yes service: No Current occupational status: disabled Current occupational exposures/hazards: No Cognitive needs: Yes (cane) Hearing needs: No Vision needs: Yes (glasses) Physical Exam Vital Signs: Vital Signs: Last Vital Signs Temp 97.4 F 09/11/22 20:49 Pulse 106 H 09/12/22 00:13 Resp 15 09/11/22 22:21 BP 128/86 09/12/22 00:13 Pulse Ox 96 09/11/22 22:21 O2 Del Method 09/11/22 22:21 BMI result Body Mass Index 49.4 Const: General: cooperative, healthy appearing, comfortable, no acute distress, well developed, alert, awake and Physically active Orientation/consciousness: oriented to person, oriented to place, oriented to time and patient oriented x3 HEENT: Head: Yes normal to inspection, Yes No palpable skull fracture present, Yes normocephalic, Yes atraumatic and No abrasion Eyes: General: appearance normal, both eyes and all related structures Neck: Neck: Yes normal visual inspection, Yes full ROM, Yes no lymphad enopathy, Yes no meningeal signs, Yes trachea midline, Yes supple, No anterior neck swelling and No tender Chest: Chest palpation & inspection: normal inspection of the chest and normal palpation of entire chest wall Chest/axillae images: 1. positive for reproducible chest pain on palpation Resp: Effort & Inspection: normal respiratory effort and able to speak in complete sentences Auscultation: clear to auscultation bilaterally Cardio: Jugular venous distension: no JVD Heart sounds: S1 normal heart sound present and S2 normal heart sound present GI: Inspection: Yes normal to inspection and No abdominal wall ecchymosis Palpation (GI): Soft to palpation, not firm, nontender, no guarding and not rigid : General: No CVA tenderness and Yes no CVA tenderness Back/Spine/Pelvis: Back: no CVA tenderness, No CVA tenderness and No back tenderness Skin: General skin exam: no rashes or lesions noted and elasticity normal Neuro: Other: Negative facial droop. Negative slurred speech. All extremities equal strength 5+. [id number] and rapid hand movement intact. Negative pronator drift. Negative Romberg. Negative for any neuro deficits. NIH score 0 General: oriented to person, oriented to place, oriented to time, patient oriented x3, gait normal, tone normal, moves all extremities, Normal light touch and pain sensation, no meningeal signs, no focal motor deficits, CN's II-XI intact bilate rally, normal sensation to monofilament, decrease sensation to monofilament, absent sensation to monofilament and deep tendon reflexes 2+ bilaterally Extrem: Other: Bilateral lower extremities negative for swelling, pitting edema, calf tenderness, ecchymosis, crepitus, or deformities. Bilateral hips positive for pain on range of motion negative for crepitus or bony tenderness on palpation. Femoral pulses intact. Negative for any external/internal rotation of feet Psych: Appearance: grossly normal, well kempt and not disheveled Course Course Course Narrative: Due to the age we will do cardiac workup and also D-dimer. Will do chest x-ray. Patient has complete range of motion of bilateral lower extremities no internal or external rotation of hips. No need for repeat imaging of x-rays. Not suspect any fracture patient has history of chronic bilateral arthritis is supposed to have hip replacement. EKG chest x-ray ordered. Reevaluation(s) Reevaluation #1: EKG is negative. D-dimer negative. Perc score 1. Chest x-ray negative for pneumonia or cardiomegaly. Two troponins negative. Patient refused repeat chemistry to check for kidney function. Seems as if patient developing chronic kidney disease and patient informed to follow-up with primary care provider. Patient states he has not followed up with his PCP in 3 years for labs. Negative for signs of stroke no need for head CT scan. Patient baseline ambulation with his cane which is normal. Patient refused repeat chemistry to check for kidney function and refuse repeat BNP. No need for x-ray of hips patient has known history of arthritis and supposed to have a scheduled hip replacement in the future. Patient did not have any head trauma and has normal gait at baseline with his cane. Not suspect any fracture. Patient did not have any trauma. Lower extremities negative for any signs of DVT. Time: 00:50 Medications Administered Discontinued Medications Generic Name Dose Route Start Last Admin Trade Name Freq PRN Reason Stop Dose Admin Acetaminophen 650 mg 09/11/22 23:54 09/12/22 00:11 Acetaminophen 325 Mg Tablet PO 09/11/22 23:55 650 mg ONCE ONE Administration Sodium Chloride 1,000 mls @ 999 mls/hr 09/11/22 21:58 09/11/22 22:46 Ns IV 09/11/22 22:58 999 mls/hr .Q1H1M STA Administration Sodium Chloride 1,000 mls @ 999 mls/hr 09/11/22 21:59 09/11/22 22:58 Ns IV 09/11/22 22:59 999 mls/hr .Q1H1M STA Administration Oxycodone HCl 5 mg 09/11/22 23:54 09/12/22 00:11 Oxycodone Hcl Immed Release 5 Mg Tablet PO 09/11/22 23:55 5 mg ONCE ONE Administration Medical Decision Making Medical Decision Making [facility] Narrative: 47-year-old male with history of diabetes, hypertension, bilateral hip arthritis, presents to the ED for multiple complaints. Patient presents to ED for bilateral chronic hip pain due to arthritis, patient also presents to the ED for chest pain with slight pleurisy for 1 day and is reproducible, and also dizziness described as fatigue. Workup was negative. Differential Diagnosis Differential Diagnoses: The differential diagnosis associated with the presentation includes (Vertigo, myocardial infarction, PE, pneumonia,) Admission/Observation Consideration of admission/observation: Escalation of care including admission/observation considered Lab Data [facility] Lab Attestation statement: I reviewed the patient's lab results. 09/11/22 20:54 09/11/22 20:54 Labs: Lab Results 09/11/22 09/11/22 09/11/22 Range/Units 20:54 20:54 20:54 WBC 9.3 (4.8-10.8) X10*3/uL RBC 4.85 (4.60-5.80) X10*6/uL Hgb 14.3 (14.0-18.0) g/dl Hct 40.8 L (42.0-52.0) % MCV 84.1 (80.0-98.0) fL MCH 29.5 (27.0-33.0) pg MCHC 35.0 (31.0-36.0) g/dl RDW 13.7 (11.0-16.0) % Plt Count 167 (160-400) X10*3/uL MPV 11.7 (9.4-12.4) fL Absolute Nucleated RBC 0.000 (0.0-0.012) X10*3/uL Nucleated RBC % (auto) 0.0 (0.0-0.2) /100WBC PT (10.0-13.1) SEC INR (0.9-1.1) APTT (26.0-36.4) SEC D-Dimer High Sensitivty NG/ML Sodium 138 (135-145) mmol/L Potassium 4.0 (3.3-5.1) mmol/L Chloride 101 (96-108) mmol/L Carbon Dioxide 25 (22-29) mmol/L Anion Gap 16 (12-20) BUN 24 H (9-16) mg/dL Creatinine 1.83 H (0.5-1.4) mg/dL Estim Creat Clear Calc 66.9 Estimated GFR 40 Random Glucose 253 H (60-115) mg/dL Calcium 8.8 (8.4-10.2) mg/dL Total Bilirubin 0.5 (0.0-1.0) mg/dL AST 20 (5-37) U/L ALT 28 (0-40) U/L Alkaline Phosphatase 75 (39-117) U/L Troponin I High Sens 15.1 (<3.5-35.0) ng/L B-Natriuretic Peptide Total Protein 7.5 (6.5-8.0) g/dL Albumin 3.9 (3.5-5.0) g/dL 09/11/22 09/11/22 09/11/22 Range/Units 23:25 23:25 23:25 WBC (4.8-10.8) X10*3/uL RBC (4.60-5.80) X10*6/uL Hgb (14.0-18.0) g/dl Hct (42.0-52.0) % MCV (80.0-98.0) fL MCH (27.0-33.0) pg MCHC (31.0-36.0) g/dl RDW (11.0-16.0) % Plt Count (160-400) X10*3/uL MPV (9.4-12.4) fL Absolute Nucleated RBC (0.0-0.012) X10*3/uL Nucleated RBC % (auto) (0.0-0.2) /100WBC PT 10.6 (10.0-13.1) SEC INR 0.9 (0.9-1.1) APTT 27.1 (26.0-36.4) SEC D-Dimer High Sensitivty 177 NG/ML Sodium (135-145) mmol/L Potassium (3.3-5.1) mmol/L Chloride (96-108) mmol/L Carbon Dioxide (22-29) mmol/L Anion Gap (12-20) BUN (9-16) mg/dL Creatinine (0.5-1.4) mg/dL Estim Creat Clear Calc Estimated GFR Random Glucose (60-115) mg/dL Calcium (8.4-10.2) mg/dL Total Bilirubin (0.0-1.0) mg/dL AST (5-37) U/L ALT (0-40) U/L Alkaline Phosphatase (39-117) U/L Troponin I High Sens 12.7 (<3.5-35.0) ng/L B-Natriuretic Peptide TNP Total Protein (6.5-8.0) g/dL Albumin (3.5-5.0) g/dL Independent Interpretation I performed an independent interpretation of an: EKG and Plain X-Ray Interpretation: Sinsy tachycardia with PVC> Ventrate 122. DE 152, QRS 76, QTC 456. negative STEMI Discharge Plan Discharge Clinical Impression: Bilateral hip joint arthritis, Chest pain, atypical, Dizziness, Costal chondrit is Patient Disposition: Home, Self-Care Instructions: Chest Pain (ED), Chronic Kidney Disease (ED), Dizziness (ED), Chest Wall Pain (ED), Arthritis (ED) Additional Instructions: Enamorado an?lisis de gregory y electrocardiograma resultaron negativos para un ataque al coraz?n. Enamorado radiograf?a de t?rax result? negativa para signos de insuficiencia card?zane o neumon?a. Enamorado an?lisis de gregory muestra que est? desarrollando angelica enfermedad renal cr?nicole. Dolor tor?cico reproducible muy probablemente debido a la inflamaci?n del cart?josé miguel de la pared tor?cica. Enamorado dolor de cadera debido a la artritis cr?nicole. Necesita seguimiento con enamorado proveedor de atenci?n primaria para el seguimiento. Regrese al servicio de urgencias de inmediato por cualquier dificultad para hablar, ca?da facial, par?lisis de las extremidades, p?rdida de la visi?n, dolor en el pecho, dificultad para respirar, hinchaz?n de las piernas, dolor en la pantorrilla, tos con gregory, fiebre, escalofr?os, aumento de la frecuencia urinaria, gregory en la orina, mareos, o cualquier otro s?ntoma preocupante. Prescriptions: New acetaminophen [Tylenol] 325 mg tablet 650 mg PO Q6H PRN (Reason: pain) 7 Days Qty: 28 0RF No Action (DME) Ultra-Light Rollator Misc See Rx Instructions .Route Qty: 1 0RF Rx Instructions: As directed (DME) Shower Chair Misc See Rx Instructions .Route Qty: 1 0RF Rx Instructions: As directed (DME) cane Device See Rx Instructions .Route Qty: 1 0RF Rx Instructions: As directed diclofenac sodium 1 % gel 4 g topical QID Qty: 100 0RF cyclobenzaprine 10 mg tablet 10 mg PO Q8H PRN (Reason: muscle spasm) Qty: 14 0RF lidocaine 5 % adhesive patch,medicated 1 patch topical DAILY Qty: 30 0RF Rx Instructions: leave on most painful area for up to 12 hrs insulin glargine [Lantus Solostar U-100 Insulin] 100 unit/mL (3 mL) insulin pen 30 unit subcut BID Qty: 15 3RF (DME) lancets [FreeStyle Lancets] 28 gauge misc See Rx Instructions .MEDSUPPLY Qty: 100 11RF Rx Instructions: 2x day (DME) blood-glucose meter [FreeStyle Lite Meter] Kit See Rx Instructions .MEDSUPPLY Qty: 1 0RF Rx Instructions: 2x day (DME) FreeStyle Lite Strips Strip See Rx Instructions .MEDSUPPLY Qty: 100 11RF Rx Instructions: 2x day (DME) pen needle, diabetic [BD Ultra-Fine Vania Pen Needle] 32 gauge x 5/32 needle See Rx Instructions .Route Qty: 100 11RF Rx Instructions: As directed diclofenac sodium 75 mg tablet,delayed release (DR/EC) 75 mg PO BID Qty: 60 0RF (DME) blood pressure kit-extra large Kit See Rx Instructions .Route Qty: 1 0RF Rx Instructions: As directed metformin 1,000 mg tablet 1,000 mg PO BID Qty: 180 3RF losartan 50 mg tablet 50 mg PO DAILY Qty: 90 3RF Stand Alone Forms: Work/School Release Interventions: ED Discharge Assessment Last Done: 09/12/22 01:27 Discharge Date/Time: 09/12/22 01:28 Print Language: Latvian
[2022-09-11 22:21] VITALS: BP 133/85; PULSE 115; RESP 15; O2SAT 96
[2022-09-11] MEDS: 0.9 % Sodium Chloride 1,000 ML 999 ML IV ×2 (22:46→22:58)
[2022-09-11 23:41] LABS: INTERNATIONAL NORM RATIO 0.9 (0.9-1.1); Prothrombin Time 10.6 SEC (10.0-13.1)
[2022-09-11 23:43] LABS: D Dimer High Sensitivity 177 NG/ML; Partial Thromboplastin Time 27.1 SEC (26.0-36.4)
[2022-09-11 23:55] LABS: Troponin-I High Sensitivity 12.7 ng/L (<3.5-35.0)
--- NOTE | 2022-09-11 23:56 | PC.NURSE ---
Pt a&o, no sob, pt complaining of chest discomfort, provider aware. Will medicated per order. Pt on bedside monitor. Will continue montior.
[2022-09-12] MEDS: oxyCODONE HCl Immed Release 5 MG TABLET PO (00:11)
[2022-09-12] MEDS: Acetaminophen 325 MG TABLET 650 MG PO (00:11)
[2022-09-12 00:13] VITALS: BP 128/86; PULSE 106
--- NOTE | 2022-09-12 00:14 | PC.NURSE ---
Medicated per mar for pain. will continue to monitor
--- NOTE | 2022-09-12 00:52 | PC.NURSE ---
Lab called, BMP was unable to be analyzed. Pt refusing CMP drawn, provider CLARISSE Carlson. Plan is for pt to be discharged home. pt currently is resting in bed, no sob or chest pain at this time.
--- NOTE | 2022-09-12 00:53 | MHC.EDTECH ---
this pct went in to draw patients labs and patient stated he didn't want anymore labs drawn, patient states the needles hurt too much. RN AWARE.
--- NOTE | 2022-09-12 01:24 | PC.NURSE ---
Reviewed discharge instructions. pt verbalized understanding.
== END 2022-09-12 01:28 | disposition home or self-care (01) ==
PROVIDERS: Physician Assistant; Emergency Provider Emergency Medicine Emergency Medical Services; PCP Internal Medicine
DX: R07.89 Other chest pain (principal); M94.0 Chondrocostal junction syndrome [Tietze]; R42 Dizziness and giddiness; M16.0 Bilateral primary osteoarthritis of hip; R00.0 Tachycardia, unspecified; E11.9 Type 2 diabetes mellitus without complications; I10 Essential (primary) hypertension; Z79.899 Other long term (current) drug therapy; Z79.4 Long term (current) use of insulin
CPT/HCPCS: 36415; 71045; 80053; 83880; 84484; 85027; 85379; 85610; 85730; 93005; 99283; 99285

== ENCOUNTER 2022-10-05 08:15 | Outpatient (REF) | payer OTHER, SELFPAY | END 2022-10-05 08:16 | disposition home or self-care (01) | LOC: HO.LAB 08:15 | PROVIDERS: Visit Provider Internal Medicine | DX: Z13.89 Encounter for screening for other disorder (principal) ==

== ENCOUNTER 2023-04-01 16:25 | Outpatient (AMB) | payer OTHER, SELFPAY ==
--- NOTE | 2023-04-01 16:28 | A.OFFPC_ITS ---
Vital Signs 04/01/23 16:29 04/01/23 17:10 Height 5 ft 6 in Weight 275 lb BMI 44.4 BP 142/98 H Blood Pressure Location Lt brachial Position Sitting Pulse 120 H 102 H Pulse Source Pulse Oximeter Palpation Temp Source Skin Pulse Oximetry (%) 98 Oxygen Delivery Method Room Air Intake Visit Reasons: Hip Pain/DM Animal Caretaker Required: Yes Animal Caretaker Language: Liberian Allergies No Known Allergies [No Known Allergies*] Allergy (Verified 04/01/23 16:46) Medication List - Last Reconciled 04/01/23 by ZABRINA Joseph acetaminophen (Tylenol) 650 mg (2 x 325 mg) PO Q6H PRN 7 days blood pressure kit-extra large As directed blood sugar diagnostic (FreeStyle Lite Strips) 2x day blood-glucose meter (FreeStyle Lite Meter kit) 2x day cane As directed cyclobenzaprine 10 mg PO Q8H PRN diclofenac sodium 75 mg PO BID insulin glargine (Lantus Solostar U-100 Insulin) 30 units (0.3 mL) subcut BID lancets (FreeStyle Lancets) 2x day losartan 50 mg PO DAILY metformin 1,000 mg PO BID pen needle, diabetic (BD Ultra-Fine Vania Pen Needle) As directed Shower Chair As directed walker (Ultra-Light Rollator misc) As directed Tobacco use date assessed: 04/01/23 Dental Screening Dental Screen Date: 04/01/23 Did you have a dental visit in the last 12 months?: No Did you have a dental problem in the last 6 months where you did not have access to dental care?: No HPI Hip Pain/DM HPI Details Patient is a 48-year-old male who presents today for a routine follow- up.? Medical history significant for arthritis of both hips, morbid obesity, uncontrolled diabetes type 2, and hypertension. Patient reports that he has ran out on his blood pressure medication 4 days ago and pharmacy would not give him medication. He reports compliance with other medications and insulin. Patient was encouraged to complete his blood work. Patient did not see ophthalmology for diabetic eye exam, will follow-up on this referral. Reports blood sugars at home between 230 and 275. Patient denies shortness of breath or chest pain.? Patient is a Liberian-speaking and Letitia was helping with interpretation. ? [facility] Medical History Encounter to establish care Arthritis of both hips Long-term insulin use DM type 2 (diabetes mellitus, type 2) Hypertension Surgical History No pertinent past surgical history Social History Housing: Apartment Alcohol intake: never Patient Tobacco Use Status: Never used Tobacco e-Cigarette/Vaping Use: Never Used Second Hand Smoke Exposure: No service: No Current occupational status: disabled Current occupational exposures/hazards: No Cognitive needs: Yes (cane) Hearing needs: No Vision needs: Yes (glasses) Questionnaire Thrive Questionnaire Date Thrive assessed: 02/26/22 AUDIT C Alcohol Use Questionnaire (AUDIT-C) 1. How often do you have a drink containing alcohol?: Never 3. How often do you have six or more drinks on one occasion?: Never Total Score: 0 Score Reviewed/Action Taken: No RYANNE-7 AMB Questionnaire RYANNE-7 Date RYANNE - 7 assessed: 08/12/22 Source: Developed by Drs. Gilberto Camp, Cheyenne Howe, Gumaro Ruelas and colleagues, with an educational patito from [employer]. Review of Systems Const Denies body aches, Denies chills, Denies fever(s) and Denies headache(s) Eyes Denies change in vision ENT Denies dizziness, Denies otalgia, Denies headache(s), Denies nasal discharge, Denies sinus pain and Denies sore throat Card Denies chest pain, Denies edema, Denies lightheadedness and Denies dyspnea Resp Denies chest congestion, Denies cough and Denies dyspnea GI Denies abdominal pain, Denies constipation, Denies diarrhea, Denies nausea and Denies vomiting Denies difficulty urinating and Denies dysuria Musc Details: Neuropathy in hands and feet Denies myalgias, Reports arthralgias and Denies joint swelling Skin/Breast Denies lesions and Denies rash Neuro Denies dizziness and Denies headache(s) Physical exam (Primary Care) Vital Signs: Last Vital Signs Pulse 102 H 04/01/23 17:10 BP 142/98 H 04/01/23 16:29 Pulse Ox 98 09/15/23 16:29 Oxygen Delivery Method Room Air 04/01/23 16:29 BMI result Body Mass Index 44.4 Tobacco/Smoking Status: Tobacco use Status Tobacco use date assessed 04/01/23 04/01/23 16:29 Patient Tobacco Use Status Never used Tobacco 04/01/23 16:29 e-Cigarette/Vaping Use Never Used 04/01/23 16:29 Thrive Assessment: Date of Thrive Assessment Date Thrive assessed 02/26/22 04/01/23 16:29 Const General: cooperative and no acute distress Orientation/consciousness: patient oriented x3 HENMT Head: Yes normocephalic and Yes atraumatic Face and sinus: Yes sinuses nontender Mouth: oropharynx normal and moist mucous membranes Throat: Yes posterior oropharynx normal Eyes General: appearance normal, both eyes and all related structures Pupils: Equal, round and reactive pupils present EOM: EOMs intact bilaterally Neck Neck: Yes normal visual inspection, Yes full ROM and Yes no lymphadenopathy Thyroid: Thyroid normal Resp Effort & Inspection: normal respiratory effort and able to speak in complete sentences Auscultation: clear to auscultation bilaterally, no crackles, no rales, no rhonchi and no wheezes Cardio Rate: regular rate Rhythm: regular rhythm Heart sounds: S1 normal heart sound present and S2 normal heart sound present GI Auscultation: normal bowel sounds Skin General skin exam: no rashes or lesions noted Neuro General: patient oriented x3 Cranial nerves: Yes Equal, round and reactive pupils present Extrem General: Yes full ROM and No edema Results AMB Hemoglobin A1c AMB Hemoglobin A1c 9.2 % Last Edit by DEE Kong on 04/01/23 16:45 Results Reviewed Results Reviewed: Laboratory Last Values Hgb A1c (Clinic) 9.2 % (4.0-6.0) H 04/01/23 16:28 Assessment and Plan Assessment & Plan (1) Bilateral hip pain: Code(s): M25.551 - Pain in right hip; M25.552 - Pain in left hip Plan: Orthopedics referral for an evaluation and treatment Continue diclofenac 75 mg b.i.d. p.r.n. and cyclobenzaprine p.r.n.-educated about drowsiness (2) Uncontrolled type 2 diabetes mellitus: Code(s): E11.65 - Type 2 diabetes mellitus with hyperglycemia Qualifiers: Glycemic state: with hyperglycemia Qualified Code(s): E11.65 - Type 2 diabetes mellitus with hyperglycemia Plan: A1c 9.2 today, previous A1c 13.3 Continue metformin 1000 mg b.i.d. Increase Lantus to 34 units b.i.d. Low-carbohydrate diet Continue to monitor blood sugars at home Ophthalmology referral - will follow-up on this Patient was encouraged to complete his blood work (3) Hypertension: Code(s): I10 - Essential (primary) hypertension Qualifiers: Hypertension type: primary hypertension Qualified Code(s): I10 - Essential (primary) hypertension Plan: Losartan 50 mg daily - patient out of medication for the past 4 days, refill sent Low-sodium diet and exercise as tolerated Goal BP equal or less than 140/90 (4) Morbid obesity with BMI of 40.0-44.9, adult: Code(s): E66.01 - Morbid (severe) obesity due to excess calories; Z68.41 - Body mass index [BMI] 40.0-44.9, adult Plan: Healthy food choices and exercise as tolerated Patient congratulated on weight loss Plan Follow-up in 3 months or sooner as needed Orders: Orders AMB Hemoglobin A1c 04/01/23 E11.65 - Type 2 diabetes mellitus with hyperglycemia Referrals Orthopedics Referral M25.551 - Pain in right hip, M25.552 - Pain in left hip Medications: Changed From insulin glargine (Lantus Solostar U-100 Insulin) 30 units (0.3 mL) subcut BID 15 mL 3RF E11.65 - Type 2 diabetes mellitus with hyperglycemia To insulin glargine (Lantus Solostar U-100 Insulin) 34 units (0.34 mL) subcut BID 15 mL 3RF E11.65 - Type 2 diabetes mellitus with hyperglycemia Refilled lancets (FreeStyle Lancets) 2x day 100 ea 11RF E11.9 - Type 2 diabetes mellitus without complications, Z79.4 - joint terminal attack controller (current) use of insulin blood sugar diagnostic (FreeStyle Lite Strips) 2x day 100 ea 11RF E11.9 - Type 2 diabetes mellitus without complications, Z79.4 - joint terminal attack controller (current) use of insulin cyclobenzaprine 10 mg PO Q8H PRN 30 tabs 0RF muscle spasm M25.551 - Pain in right hip, M25.552 - Pain in left hip diclofenac sodium 75 mg PO BID 60 tabs 0RF metformin 1,000 mg PO BID 180 tabs 3RF E11.9 - Type 2 diabetes mellitus without complications acetaminophen (Tylenol) 650 mg (2 x 325 mg) PO Q6H 7 days PRN 28 tabs 0RF pain losartan 50 mg PO DAILY 90 tabs 3RF I10 - Essential (primary) hypertension pen needle, diabetic (BD Ultra-Fine Vania Pen Needle) As directed 100 ea 11RF Z79.4 - joint terminal attack controller (current) use of insulin Coding Level of Care Code Est Pt Level 4 (54316) Diagnoses Bilateral hip pain M25.551; M25.552 Uncontrolled type 2 diabetes mellitus with hyperglycemia E11.65 Glycemic state: with hyperglycemia Primary hypertension I10 Hypertension type: primary hypertension Morbid obesity with BMI of 40.0-44.9, adult E66.01; Z68.41
[2023-04-01 16:29] VITALS: BP 142/98; PULSE 120; O2SAT 98; BMI 44.4
[2023-04-01 17:10] VITALS: PULSE 102
== END 2023-04-01 17:18 | disposition home or self-care (01) ==
PROVIDERS: PCP Internal Medicine; Visit Provider Nurse Practitioner Family
DX: E11.65 Type 2 diabetes mellitus with hyperglycemia (principal); I10 Essential (primary) hypertension; E66.01 Morbid (severe) obesity due to excess calories; Z68.41 Body mass index [BMI] 40.0-44.9, adult; M25.551 Pain in right hip; M25.552 Pain in left hip
CPT/HCPCS: 83036; 99214

== ENCOUNTER 2023-04-18 13:50 | Outpatient (AMB) | payer OTHER, SELFPAY ==
[2023-04-18 13:54] VITALS: BMI 43.7
--- NOTE | 2023-04-18 13:54 | MHC.OFFVIS ---
Intake Vital Signs 04/18/23 13:54 Height 5 ft 6 in Weight 271 lb BMI 43.7 Intake Visit Reasons: Bilateral Hip OA Intake Note: Miguel A is a 48 year old male who presents today as a new patient with complaints of bilateral hip pain. At his last visit ANALILIA was discussed but his diabetes must be better controlled prior to surgery. 04/01/23 A1C 9.2 Allergies No Known Allergies [No Known Allergies*] Allergy (Verified 04/01/23 16:46) HPI Bilateral Hip OA HPI Details Miguel A is a 48 year old diabetic man here to discuss his bilateral hip OA. His hip pain began ~10 years ago and it is constant. He walks with extreme difficulty and uses a cane. This has been ongoing for years. He is losing weight and has lost >50 lbs over the past year, mostly through portion control. He would like to discuss surgery. [facility] Medical History Encounter to establish care Arthritis of both hips Long-term insulin use DM type 2 (diabetes mellitus, type 2) Hypertension Surgical History No pertinent past surgical history Social History Housing: Apartment Alcohol intake: never Patient Tobacco Use Status: Never used Tobacco e-Cigarette/Vaping Use: Never Used Second Hand Smoke Exposure: No service: No Current occupational status: disabled Current occupational exposures/hazards: No Cognitive needs: Yes (cane) Hearing needs: No Vision needs: Yes (glasses) Review of Systems Const All systems reviewed & are unremarkable except as noted in HPI and below Physical Exam Vital Signs: BMI result Body Mass Index 43.7 Const General: no acute distress, alert and awake Orientation/consciousness: patient oriented x3 HEENT Head: Yes normocephalic and Yes atraumatic Eyes EOM: EOMs intact bilaterally Resp Effort & Inspection: normal respiratory effort and able to speak in complete sentences Cardio Jugular venous distension: no JVD Skin General skin exam: turgor normal Rashes: no rashes Neuro General: patient oriented x3 Extrem Other: Bilateral hips: Antalgic gait min rotation bilateral hips Psych Appearance: grossly normal Affect: normal affect Attitude: cooperative Results Reviewed Results Reviewed: I personally reviewed relevant radiographs. 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 He has constant pain bilaterally and has difficulty with daily activity. He has difficulty ambulating and has to use a cane. He manages his pain with Voltaren gel and Nabumetone. He has been working on losing weight and managing his Diabetes since his last appointment, and has brought his BMI down to 43.7. His HgA1c is 9.2% on 04/01/23. I discussed his diagnosis and treatment options. He needs arthroplasty but is still working on weight loss and glycemic control. He is committed to losing weight. I will heave our nurse navigator reach out and see if we can be of assistance. His goal is to have surgery in November which I think is reasonable but his HgA1c need to start coming down and I wonder if would benefit from more aggressive medical management. (2) Uncontrolled type 2 diabetes mellitus: Code(s): E11.65 - Type 2 diabetes mellitus with hyperglycemia Qualifiers: Glycemic state: with hyperglycemia Qualified Code(s): E11.65 - Type 2 diabetes mellitus with hyperglycemia Plan: His most recent HgA1c was 9.2% on 04/01/23 (3) BMI 40.0-44.9, adult: Code(s): Z68.41 - Body mass index [BMI] 40.0-44.9, adult Plan: Current BMI today is 43.7. Plan Scribed for Jose Hines MD by Isidro Thapa, medical office manager, on 04/18/23 at 2:15 PM, EST. Medications: Refilled diclofenac sodium 75 mg PO BID 60 tabs 0RF Coding Level of Care Code Est Pt Level 4 (18766) Diagnoses Arthritis of both hips M16.0 Uncontrolled type 2 diabetes mellitus with hyperglycemia E11.65 Glycemic state: with hyperglycemia BMI 40.0-44.9, adult Z68.41
== END 2023-04-18 14:18 | disposition home or self-care (01) ==
PROVIDERS: PCP Internal Medicine; Visit Provider Orthopaedic Surgery
DX: M16.0 Bilateral primary osteoarthritis of hip (principal)
CPT/HCPCS: 99214

== ENCOUNTER → 2023-04-18 13:50 | Outpatient (BNVA) | payer OTHER, SELFPAY | PROVIDERS: PCP Internal Medicine; Visit Provider Orthopaedic Surgery | DX: M16.0 Bilateral primary osteoarthritis of hip (principal); E11.65 Type 2 diabetes mellitus with hyperglycemia; Z68.41 Body mass index [BMI] 40.0-44.9, adult | CPT/HCPCS: 99212 ==

== ENCOUNTER 2023-07-21 12:56 | Outpatient (AMB) | payer OTHER, SELFPAY ==
--- NOTE | 2023-07-21 13:37 | MHC.OFFVIS ---
Intake Intake Visit Reasons: ov- Bilateral Hip OA Intake Note: Miguel A is a 48 year old male who presents today as a new patient with complaints of bilateral hip pain. He is here today to discuss ANALILIA, but he has struggled with high A1C. Last A1C in system is from march and was 9.2 Allergies No Known Allergies [No Known Allergies*] Allergy (Verified 04/01/23 16:46) HPI ov- Bilateral Hip OA HPI Details Miguel A is a 48 year old diabetic man here to discuss his bilateral hip OA. He walks with extreme difficulty, constant pain, and uses a cane. This has been ongoing for many years. He continues to work on weight management and controlling his Diabetes as he hopes to undergo a ANALILIA soon. He has been losing weight buyt his last Hgb A1c was 9.2 in March. [facility] Medical History Encounter to establish care Arthritis of both hips Long-term insulin use DM type 2 (diabetes mellitus, type 2) Hypertension Surgical History No pertinent past surgical history Social History Housing: Apartment Alcohol intake: never Patient Tobacco Use Status: Never used Tobacco e-Cigarette/Vaping Use: Never Used Second Hand Smoke Exposure: No service: No Current occupational status: disabled Current occupational exposures/hazards: No Cognitive needs: Yes (cane) Hearing needs: No Vision needs: Yes (glasses) Review of Systems Const All systems reviewed & are unremarkable except as noted in HPI and below Physical Exam Const General: no acute distress, alert and awake Orientation/consciousness: patient oriented x3 HEENT Head: Yes normocephalic and Yes atraumatic Eyes EOM: EOMs intact bilaterally Resp Effort & Inspection: normal respiratory effort and able to speak in complete sentences Cardio Jugular venous distension: no JVD Skin General skin exam: turgor normal Rashes: no rashes Neuro General: patient oriented x3 Extrem Other: severe gait antalgia R.L Minimal rotation and flexion to 70 deg on right Psych Appearance: grossly normal Affect: normal affect Attitude: cooperative Assessment & Plan Assessment & Plan (1) Arthritis of both hips: Code(s): M16.0 - Bilateral primary osteoarthritis of hip Plan: Severe OA bilateral hips but right > left. There is proximal migration and joint destruction. He is only 48 and his BMI and HgbA1c are bnoth heading in the right direction. I recommend ANALILIA on the the right. Our goal will be 4-5 months unless his HgBA1c is < 8 now. We will check this and work with our nurse navigator to begin the pre operative clearance process. I discussed the surgery with Miguel A and I discussed the risks benefits and alternatives including but not limited to the risk of pain, infection, stiffness, need for further surgery as well as potential medical complications such as blood clots, pulmonary embolism and cardiac complications. He expressed understanding. (2) DM type 2 (diabetes mellitus, type 2): Code(s): E11.9 - Type 2 diabetes mellitus without complications Plan Scribed for Jose Hines MD by Isidro Thapa, medical reviewer, on 07/21/23 at 2:00 PM, EST. Orders: Orders AMB Hemoglobin A1c Today Z13.9 - Encounter for screening, unspecified Coding Level of Care Code Est Pt Level 4 (38192) Diagnoses Arthritis of both hips M16.0 DM type 2 (diabetes mellitus, type 2) E11.9
== END 2023-07-21 15:08 | disposition home or self-care (01) ==
PROVIDERS: PCP Internal Medicine; Visit Provider Orthopaedic Surgery
DX: M16.0 Bilateral primary osteoarthritis of hip (principal); E11.9 Type 2 diabetes mellitus without complications
CPT/HCPCS: 99214

== ENCOUNTER → 2023-07-21 12:56 | Outpatient (BNVA) | payer OTHER, SELFPAY | PROVIDERS: PCP Internal Medicine; Visit Provider Orthopaedic Surgery | DX: M16.0 Bilateral primary osteoarthritis of hip (principal); E11.9 Type 2 diabetes mellitus without complications | CPT/HCPCS: 99212 ==

== ENCOUNTER 2023-07-30 16:53 | Emergency (ER) | payer OTHER, SELFPAY ==
--- NOTE | ~2023-07-30 | XR_ITS ---
EXAMINATION: XR CHEST CLINICAL INFORMATION: Chest pain COMPARISON: Chest radiograph 09/11/2022. TECHNIQUE: 2 views of the chest were obtained. FINDINGS: Clear lungs. No pleural effusion or pneumothorax. Cardiomediastinal silhouette is unchanged. XR/XR chest 2V IMPRESSION: No acute cardiopulmonary abnormality.
--- NOTE | 2023-07-30 17:20 | ED_ITS ---
HPI - General Adult General Chief complaint: Chest Pain Stated complaint: Feels dizzy, achy body, lft leg rash Related Data Previous Rx's Medication Instructions Recorded Shower Chair #1 ea 12/10/21 walker (Ultra-Light Rollator misc) #1 ea 12/10/21 cane #1 ea 04/21/22 blood pressure kit-extra large #1 ea 08/12/22 blood-glucose meter (FreeStyle #1 ea 08/12/22 Lite Meter kit) acetaminophen 325 mg tablet 650 mg (2 x 325 mg) PO Q6H PRN 04/01/23 (Tylenol) pain 7 days #28 tabs blood sugar diagnostic (FreeStyle #100 ea 04/01/23 Lite Strips) cyclobenzaprine 10 mg tablet 10 mg PO Q8H PRN muscle spasm #30 04/01/23 tabs lancets 28 gauge (FreeStyle #100 ea 04/01/23 Lancets) losartan 50 mg tablet 50 mg PO DAILY #90 tabs 04/01/23 metformin 1,000 mg tablet 1,000 mg PO BID #180 tabs 04/01/23 pen needle, diabetic 32 gauge x #100 ea 04/01/23/32 (BD Ultra-Fine Vania Pen Needle) insulin glargine 100 unit/mL (3 34 unit (0.34 mL) subcut BID #15 mL 06/29/23 mL) subcutaneous pen (Lantus Solostar U-100 Insulin) diclofenac sodium 75 mg 75 mg PO BID PRN pain 30 days #60 07/20/23 tablet,delayed release tabs Allergies Allergy/AdvReac Type Severity Reaction Status Date / Time No Known Allergies Allergy Verified 07/30/23 17:20 [No Known Allergies*] [facility] Past Medical History Onset Date is defined in the Problem List Problems that require an onset date and time if occurred within 24 hrs of arrival to the ED Aortic Dissection and Rupture; Neurologic impairment; Cardiopulmonary Arrest; Endotracheal Intubation; Insertion or Replacement of Mechanical Circulatory Assist Device Medical History Encounter to establish care Arthritis of both hips Long-term insulin use DM type 2 (diabetes mellitus, type 2) Hypertension Surgical History No pertinent past surgical history Social History Social History Housing: Apartment Alcohol intake: never Patient Tobacco Use Status: Never used Tobacco e-Cigarette/Vaping Use: Never Used Second Hand Smoke Exposure: No Advance Directives: No Advance Directives Information Provided: No service: No Current occupational status: disabled Current occupational exposures/hazards: No Cognitive needs: Yes (cane) Hearing needs: No Vision needs: Yes (glasses) Physical Exam ED Vital Signs: BMI result Body Mass Index 48.3 Course Course Course Narrative: This is an RME: Additional HPI, ROS, PE not included below will be deferred to primary provider. This is a 48 year old male, with a history of morbid obesity, chronic severe osteoarthritis of the bilateral hips, uncontrolled diabetes, hypertension who presents to the ER for evaluation of chest pain, dizziness, and left groin rash x 3 days. Unable to fully visualize rash in triage. Plan: Labs, EKG, CXR Reevaluation(s) Reevaluation #1: Patient left prior to completing treatment Medical Decision Making Lab Data 07/30/23 17:36 07/30/23 17:36 Labs: Lab Results 07/30/23 Range/Units 17:36 WBC 12.4 H (4.8-10.8) X10*3/uL RBC 5.12 (4.60-5.80) X10*6/uL Hgb 14.6 (14.0-18.0) g/dl Hct 42.9 (42.0-52.0) % MCV 83.8 (80.0-98.0) fL MCH 28.5 (27.0-33.0) pg MCHC 34.0 (31.0-36.0) g/dl RDW 12.3 (11.0-16.0) % Plt Count 169 (160-400) X10*3/uL MPV 12.0 (9.4-12.4) fL Immature Gran % (Auto) 0.3 (0.0-0.4) % Neut % (Auto) 77.2 H (45-73) % Lymph % (Auto) 14.7 L (20-40) % [place] % (Auto) 4.5 (2-11) % Eos % (Auto) 2.9 (0-4) % Baso % (Auto) 0.4 (0-2) % Lymph # (Auto) 1.8 (1.2-4.9) X10*3/uL [place] # (Auto) 0.6 (0.1-1.2) X10*3/uL Eos # (Auto) 0.4 (0.0-0.4) X10*3/uL Baso # (Auto) 0.1 (0.0-0.2) X10*3/uL Abs Immat Gran (auto) 0.04 H (0.00-0.03) X10*3/uL Absolute Neuts (auto) 9.6 H (2.0-8.3) x10*3/uL Absolute Nucleated RBC 0.000 (0.0-0.012) X10*3/uL Nucleated RBC % (auto) 0.0 (0.0-0.2) /100WBC Sodium 138 (135-145) mmol/L Potassium 4.8 (3.3-5.1) mmol/L Chloride 103 (96-108) mmol/L Carbon Dioxide 26 (22-29) mmol/L Anion Gap 14 (12-20) BUN 14 (9-16) mg/dL Creatinine 1.45 H (0.5-1.4) mg/dL Estim Creat Clear Calc 82.4 Estimated GFR 52 Random Glucose 387 H* (60-115) mg/dL Calcium 9.6 D (8.4-10.2) mg/dL Magnesium 1.7 (1.6-2.6) mg/dL Total Bilirubin 0.3 (0.0-1.0) mg/dL AST 12 (5-37) U/L ALT 16 (0-40) U/L Alkaline Phosphatase 85 (39-117) U/L Troponin I High Sens 12.6 (<3.5-35.0) ng/L Total Protein 8.6 H (6.5-8.0) g/dL Albumin 3.6 (3.5-5.0) g/dL Discharge Plan Discharge Clinical Impression: Chest pain Patient Disposition: Left W/O Completing Treatment Prescriptions: No Action (DME) Ultra-Light Rollator Misc See Rx Instructions .Route Qty: 1 0RF Rx Instructions: As directed (DME) Shower Chair Misc See Rx Instructions .Route Qty: 1 0RF Rx Instructions: As directed (DME) cane Device See Rx Instructions .Route Qty: 1 0RF Rx Instructions: As directed insulin glargine [Lantus Solostar U-100 Insulin] 100 unit/mL (3 mL) insulin pen 34 unit subcut BID Qty: 15 3RF diclofenac sodium 75 mg tablet,delayed release (DR/EC) 75 mg PO BID PRN (Reason: pain) 30 Days Qty: 60 0RF Rx Instructions: Take with food and only as needed for pain (DME) blood-glucose meter [FreeStyle Lite Meter] Kit See Rx Instructions .MEDSUPPLY Qty: 1 0RF Rx Instructions: 2x day (DME) blood pressure kit-extra large Kit See Rx Instructions .Route Qty: 1 0RF Rx Instructions: As directed (DME) lancets [FreeStyle Lancets] 28 gauge misc See Rx Instructions .MEDSUPPLY Qty: 100 11RF Rx Instructions: 2x day cyclobenzaprine 10 mg tablet 10 mg PO Q8H PRN (Reason: muscle spasm) Qty: 30 0RF (DME) FreeStyle Lite Strips Strip See Rx Instructions .MEDSUPPLY Qty: 100 11RF Rx Instructions: 2x day acetaminophen [Tylenol] 325 mg tablet 650 mg PO Q6H PRN (Reason: pain) 7 Days Qty: 28 0RF losartan 50 mg tablet 50 mg PO DAILY Qty: 90 3RF metformin 1,000 mg tablet 1,000 mg PO BID Qty: 180 3RF (DME) pen needle, diabetic [BD Ultra-Fine Vania Pen Needle] 32 gauge x 5/32 needle See Rx Instructions .Route Qty: 100 11RF Rx Instructions: As directed Discharge Date/Time: 07/30/23 22:20
[2023-07-30 17:21] VITALS: BP 164/110; PULSE 126; RESP 18; TEMP 37.1; O2SAT 96; BMI 48.3
--- NOTE | 2023-07-30 17:24 | ECG_ITS ---
Test Reason : CP Blood Pressure : / mmHG Vent. Rate : 121 BPM Atrial Rate : 121 BPM P-R Int : 156 ms QRS Dur : 088 ms QT Int : 326 ms P-R-T Axes : 044 -33 087 degrees QTc Int : 462 ms Sinus tachycardia Left axis deviation Abnormal ECG When compared with ECG of 11-SEP-2022 20:44, No significant change was found Referred By: Cindy Aguilar Electronically Signed By:YRIS LOPEZ MD
[2023-07-30 17:41] LABS: MANUAL DIFF FLAG NO
[2023-07-30 17:43] LABS: Basophils Absolute Auto 0.1 X10*3/uL (0.0-0.2); Basophils Percent Auto 0.4 % (0-2); Eosinophils Absolute Auto 0.4 X10*3/uL (0.0-0.4); Eosinophils Percent Auto 2.9 % (0-4); Hematocrit 42.9 % (42.0-52.0); Hemoglobin 14.6 g/dl (14.0-18.0); Imm Gran Abs Auto 0.04 X10*3/uL (0.00-0.03); Imm Gran Pct Auto 0.3 % (0.0-0.4); Lymphocytes Absolute Auto 1.8 X10*3/uL (1.2-4.9); Lymphocytes Percent Auto 14.7 % (20-40); Mean Corpuscular Hemoglobin 28.5 pg (27.0-33.0); Mean Corpuscular Volume 83.8 fL (80.0-98.0); Monocytes Absolute Auto 0.6 X10*3/uL (0.1-1.2); Monocytes Percent Auto 4.5 % (2-11); Neutrophils Absolute Auto 9.6 x10*3/uL (2.0-8.3); Neutrophils Percent Auto 77.2 % (45-73); Platelet Count 169 X10*3/uL (160-400); Red Blood Count 5.12 X10*6/uL (4.60-5.80); Red Cell Distribution Width 12.3 % (11.0-16.0); White Blood Count 12.4 X10*3/uL (4.8-10.8)
[2023-07-30 18:00] LABS: Alanine Aminotransferase 16 U/L (0-40); Albumin Level 3.6 g/dL (3.5-5.0); Alkaline Phosphatase 85 U/L (39-117); Anion Gap 14 (12-20); Aspartate Amino Transferase 12 U/L (5-37); Bilirubin Total 0.3 mg/dL (0.0-1.0); Blood Urea Nitrogen 14 mg/dL (9-16); Calcium 9.6 mg/dL (8.4-10.2); Carbon Dioxide 26 mmol/L (22-29); Chloride 103 mmol/L (96-108); Creatinine Clr Calc Pharmacy 82.4; Estimated Glomerular Filt Rate 52; Glucose Random 387 mg/dL (60-115); Magnesium 1.7 mg/dL (1.6-2.6); Potassium 4.8 mmol/L (3.3-5.1); Sodium 138 mmol/L (135-145); Total Protein 8.6 g/dL (6.5-8.0)
[2023-07-30 18:06] LABS: Troponin-I High Sensitivity 12.6 ng/L (<3.5-35.0)
--- NOTE | 2023-07-30 22:19 | PC.NURSE ---
Pt not visualized in ED WR when called.
== END 2023-07-30 22:20 | disposition left against medical advice (07) ==
PROVIDERS: Physician Assistant Medical; Emergency Provider Emergency Medicine; PCP Internal Medicine
DX: R07.9 Chest pain, unspecified (principal); E11.9 Type 2 diabetes mellitus without complications; I10 Essential (primary) hypertension; Z79.4 Long term (current) use of insulin; Z79.899 Other long term (current) drug therapy
CPT/HCPCS: 36415; 71046; 80053; 83735; 84484; 85025; 93005; 99283

== ENCOUNTER → 2023-07-30 17:24 | Outpatient (BNV) | payer OTHER, SELFPAY | PROVIDERS: Emergency Provider Emergency Medicine; PCP Internal Medicine; Visit Provider Internal Medicine Cardiovascular Disease | DX: R07.9 Chest pain, unspecified (principal) | CPT/HCPCS: 93010 ==

== ENCOUNTER 2023-11-04 21:28 | Inpatient (IN) | payer OTHER, SELFPAY ==
[2023-11-04 22:06] VITALS: BP 96/79; PULSE 118; RESP 18; TEMP 36.8; O2SAT 99; BMI 48.3
--- NOTE | 2023-11-04 22:34 | MHC.EDTECH ---
Patient brought to triage area,labs obtained and sent to lab.
[2023-11-04 22:36] LABS: MANUAL DIFF FLAG NO
[2023-11-04 22:38] LABS: Basophils Absolute Auto 0.1 X10*3/uL (0.0-0.2); Basophils Percent Auto 0.5 % (0-2); Eosinophils Absolute Auto 0.3 X10*3/uL (0.0-0.4); Eosinophils Percent Auto 3.3 % (0-4); Hematocrit 39.4 % (42.0-52.0); Hemoglobin 13.8 g/dl (14.0-18.0); Imm Gran Abs Auto 0.03 X10*3/uL (0.00-0.03); Imm Gran Pct Auto 0.3 % (0.0-0.4); Lymphocytes Absolute Auto 1.9 X10*3/uL (1.2-4.9); Lymphocytes Percent Auto 20.3 % (20-40); Mean Corpuscular Hemoglobin 29.7 pg (27.0-33.0); Mean Corpuscular Volume 84.9 fL (80.0-98.0); Mean Platelet Volume 11.7 fL (9.4-12.4); Monocytes Absolute Auto 0.5 X10*3/uL (0.1-1.2); Monocytes Percent Auto 5.6 % (2-11); Neutrophils Absolute Auto 6.6 x10*3/uL (2.0-8.3); Platelet Count 180 X10*3/uL (160-400); Red Blood Count 4.64 X10*6/uL (4.60-5.80); Red Cell Distribution Width 13.3 % (11.0-16.0); White Blood Count 9.5 X10*3/uL (4.8-10.8)
[2023-11-04 22:58] LABS: Alanine Aminotransferase 19 U/L (0-40); Albumin Level 3.8 g/dL (3.5-5.0); Alkaline Phosphatase 89 U/L (39-117); Anion Gap 14 (12-20); Aspartate Amino Transferase 13 U/L (5-37); Bilirubin Total 0.3 mg/dL (0.0-1.0); Blood Urea Nitrogen 19 mg/dL (9-16); Calcium 9.2 mg/dL (8.4-10.2); Carbon Dioxide 27 mmol/L (22-29); Chloride 100 mmol/L (96-108); Creatinine Clr Calc Pharmacy 73.7; Estimated Glomerular Filt Rate 46; Glucose Random 445 mg/dL (60-115); Potassium 4.8 mmol/L (3.3-5.1); Sodium 136 mmol/L (135-145); Total Protein 8.7 g/dL (6.5-8.0)
--- NOTE | 2023-11-04 23:54 | ED_ITS ---
HPI - Wound/Laceration General Chief Complaint: Wound/Laceration Stated Complaint: rash up leg, bleeding Time Seen by Provider: 11/04/23 23:53 Source: patient Mode of arrival: ambulatory Limitations: no limitations History of Present Illness HPI narrative: 48 yo [place]an speaking male with history of morbid obesity, poorly controlled DM on insulin, HTN, chronic hip pain due to arthritis who presents to the ER for evaluation of bilateral lower extremity wounds that have been worsening for the last one week. Patient states he had several raised small, subcentimeter lesions on his lower legs that were itchy. He scratched them and they became much larger. They traveled proximally. He used topical alcohol to the areas and the skin turned black. He was using [place]pano soap that he thought would kill all bacteria. He was very afraid of infection, and went to seek help from his mother. His mother has been performing wound care with iodine, antiseptic washes, triamcinolone cream. He reports the pain in his bilateral legs associated with the wounds is about a 9/10. Denies any purulent drainage from the wounds. They ooze a clear liquid. He is a poorly-controlled diabetic, his insulin . He adamantly denies any intravenous drug use. He denies any recent travel. No lesions anywhere else on his body. No fever or chills. Onset (ago): week(s) (1) Extremity Location: left: thigh and knee and bilateral: lower leg and ankle Place: home Associated symptoms: pain Related Data Previous Rx's ?Medication ?Instructions ?Recorded Shower Chair #1 ea 12/10/21 walker (Ultra-Light Rollator [facility] [place]) #1 ea 12/10/21 cane #1 ea 04/21/22 blood pressure kit-extra large #1 08/12/22 blood-glucose meter (FreeStyle #1 ea 08/12/22 Lite Meter kit) acetaminophen 325 mg tablet 650 mg (2 x 325 mg) PO Q6H PRN 04/01/23 (Tylenol) pain 7 days #28 tabs blood sugar diagnostic (FreeStyle #100 ea 04/01/23 Lite Strips) cyclobenzaprine 10 mg tablet 10 mg PO Q8H PRN muscle spasm #30 04/01/23 tabs lancets 28 gauge (FreeStyle #100 ea 04/01/23 Lancets) losartan 50 mg tablet 50 mg PO DAILY #90 tabs 04/01/23 metformin 1,000 mg tablet 1,000 mg PO BID #180 tabs 04/01/23 insulin glargine 100 unit/mL (3 34 unit (0.34 mL) subcut BID #15 mL 06/29/23 mL) subcutaneous pen (Lantus Solostar U-100 Insulin) diclofenac sodium 75 mg 75 mg PO BID PRN pain 30 days #60 07/20/23 tablet,delayed release tabs pen needle, diabetic 32 gauge x #100 ea 08/30/23 (BD Ultra-Fine Vania Pen Needle) Allergies Allergy/AdvReac Type Severity Reaction Status Date / Time No Known Allergies Allergy Verified 11/04/23 22:13 [No Known Allergies*] Review of Systems 2 Review of Systems: Yes all other systems are reviewed and are negative [facility] Past Medical History Medical History Encounter to establish care Arthritis of both hips Long-term insulin use DM type 2 (diabetes mellitus, type 2) Hypertension Surgical History No pertinent past surgical history Social History Social History Housing: Apartment Alcohol intake: never Patient Tobacco Use Status: Never used Tobacco e-Cigarette/Vaping Use: Never Used Second Hand Smoke Exposure: No Advance Directives: No Advance Directives Information Provided: Yes service: No Current occupational status: disabled Current occupational exposures/hazards: No Cognitive needs: Yes (cane) Hearing needs: No Vision needs: Yes (glasses) Physical Exam 2 Vital Signs: Vital Signs: Last Vital Signs Temp 98.1 F 11/05/23 00:28 Pulse 124 H 11/05/23 00:28 Resp 16 11/05/23 00:28 BP 151/96 H 11/05/23 00:28 Pulse Ox 98 11/05/23 00:28 O2 Del Method Room Air 11/05/23 00:28 BMI result Body Mass Index 48.3 Appearance: Alert. Oriented X3. No acute distress. Head: normocephalic, atraumatic. Eyes: Pupils equal, round and reactive to light. ENT: Pharynx normal. No tonsillar swelling or exudate. Neck: Normal inspection. Neck supple. CVS: Normal heart rate and rhythm. Pulses normal. Respiratory: No respiratory distress. Breath sounds normal. Abdomen: Obese Soft and nontender. +BS x4 Skin: Skin warm and dry. Normal skin color. Normal skin turgor. No rashes. Extremities: multiple well demarkated irregularly shaped wounds with black eschar and erythematous base to the bilateral shins. purpura type rash to the left inguinal area and medial knee. see photos Neuro/psych: Oriented X 3. No motor deficit. No sensory deficit. CN II-XII intact. Normal speech and cognition. Medications Administered Generic Name Dose Route Start Last Admin Trade Name Freq PRN Reason Stop Dose Admin Sodium Chloride 1,000 mls @ 999 mls/hr 11/05/23 01:00 11/05/23 01:21 Ns IVCONT 11/05/23 02:00 999 mls/hr .Q1H1M CONNIE Administration Medical Decision Making Medical Decision Making [facility] Narrative: 48-year-old morbidly obese male with poorly controlled diabetes presents to the ER for evaluation of a painful purpuric type rash with blackened eschar on bilateral lower extremities. Examination is consistent with vasculitis. Patient has significant hyperglycemia with glucose 445. Has chronic kidney disease. He has no anion gap metabolic acidosis. He is tachycardic on arrival, most likely due to pain. He is afebrile. The wounds do not appear to be infected. No purulent discharge or drainage. Case d/w Dr. Marina and Dr. Pop. Dr. Mason consulted. Will plan to admit the patient for further management, pain control, possible biopsy. Differential Diagnosis Differential Diagnoses: The differential diagnosis associated with the presentation includes Vasculitis, infected diabetic wounds, DIC, erythema nodosum, thrombotic thrombocytopenic purpura Admission/Observation Consideration of admission/observation: Escalation of care including admission/observation considered Consult Healthcare Provider Management of the patient was discussed with: Hospitalist and [employer] Machine Operator Dr. Mason gen surgery - recommending topical steroids Lab Data [facility] Lab Attestation statement: I reviewed the patient's lab results. CKD, hyperglycemia 11/04/23 22:31 11/04/23 22:31 Labs: Lab Results 11/04/23 Range/Units 22:31 WBC 9.5 (4.8-10.8) X10*3/uL RBC 4.64 (4.60-5.80) X10*6/uL Hgb 13.8 L (14.0-18.0) g/dl Hct 39.4 L (42.0-52.0) % MCV 84.9 (80.0-98.0) fL MCH 29.7 (27.0-33.0) pg MCHC 35.0 (31.0-36.0) g/dl RDW 13.3 (11.0-16.0) % Plt Count 180 (160-400) X10*3/uL MPV 11.7 (9.4-12.4) fL Immature Gran % (Auto) 0.3 (0.0-0.4) % Neut % (Auto) 70.0 (45-73) % Lymph % (Auto) 20.3 (20-40) % [place] % (Auto) 5.6 (2-11) % Eos % (Auto) 3.3 (0-4) % Baso % (Auto) 0.5 (0-2) % Lymph # (Auto) 1.9 (1.2-4.9) X10*3/uL [place] # (Auto) 0.5 (0.1-1.2) X10*3/uL Eos # (Auto) 0.3 (0.0-0.4) X10*3/uL Baso # (Auto) 0.1 (0.0-0.2) X10*3/uL Abs Immat Gran (auto) 0.03 (0.00-0.03) X10*3/uL Absolute Neuts (auto) 6.6 (2.0-8.3) x10*3/uL Absolute Nucleated RBC 0.000 (0.0-0.012) X10*3/uL Nucleated RBC % (auto) 0.0 (0.0-0.2) /100WBC ESR 45 H (0-15) MM/HR Sodium 136 (135-145) mmol/L Potassium 4.8 (3.3-5.1) mmol/L Chloride 100 (96-108) mmol/L Carbon Dioxide 27 (22-29) mmol/L Anion Gap 14 (12-20) BUN 19 H (9-16) mg/dL Creatinine 1.62 H (0.5-1.4) mg/dL Estim Creat Clear Calc 73.7 Estimated GFR 46 Random Glucose 445 H* (60-115) mg/dL Calcium 9.2 (8.4-10.2) mg/dL Total Bilirubin 0.3 (0.0-1.0) mg/dL AST 13 (5-37) U/L ALT 19 (0-40) U/L Alkaline Phosphatase 89 (39-117) U/L C-Reactive Protein 2.69 H (< or = 0.50) mg/dL Total Protein 8.7 H (6.5-8.0) g/dL Albumin 3.8 (3.5-5.0) g/dL Independent Interpretation I performed an independent interpretation of an: EKG Interpretation: Sinus tachycardia, ventricular rate 119 beats per minute, normal TN interval, normal QTC, no ST segment elevations or depressions. Independent Historian Clinical information obtained from an independent historian. History obtained from or confirmed by: Parent External Record Review External record reviewed: Office record, Outpatient record, Prior outpatient labs and Prior outpatient radiology Tests considered The following testing was considered but not selected: Ultrasound lower extremity Dopplers considered however low suspicion for DVT Prescription Management I considered prescription management with: Pain Medication and Antibiotic Chronic Conditions Patient?s care impacted by: Diabetes and Hypertension Social Determinants Patient?s care significantly limited by Social Determinants of Health including: Other Social Determinant of Health Critical Care Time Critical Care Time Critical Care Time: Yes Total Critical Care Time: 38 Attestation: I have personally provided critical care time exclusive of time spent on separately billable procedures. Time includes review of lab data, radiology results, discussion with consultants, and monitoring for potential decompensation. Intervention performed as documented. Discharge Plan Discharge Clinical Impression: Vasculitis, Wounds, multiple open, lower extremity, Uncontrolled type 2 diabetes mellitus Patient Disposition: Admitted As Inpatient Print Language: Zimbabwean
[2023-11-05] VITALS (9 sets, daily range): BP systolic 126–161; BP diastolic 79–100; PULSE 107–124; RESP 16–23; TEMP 36.2–36.9; O2SAT 95–98
[2023-11-05 00:24] LABS: C Reactive Protein 2.69 mg/dL (< or = 0.50)
--- NOTE | 2023-11-05 00:45 | ECG_ITS ---
Test Reason : TACHYCARDIA Blood Pressure : / mmHG Vent. Rate : 119 BPM Atrial Rate : 119 BPM P-R Int : 158 ms QRS Dur : 082 ms QT Int : 330 ms P-R-T Axes : 057 -22 062 degrees QTc Int : 464 ms Sinus tachycardia Nonspecific T wave abnormality Abnormal ECG When compared with ECG of 30-JUL-2023 17:31, No significant change was found Referred By: Yashira Oden Electronically Signed By:DIRK SOTO
[2023-11-05 01:04] LABS: Erythrocyte Sedimentation Rate 45 MM/HR (0-15)
[2023-11-05] MEDS: 0.9 % Sodium Chloride 1,000 ML 999 ML IVCONT (01:21)
[2023-11-05] MEDS: Morphine Sulfate 4 MG/ML CARTRIDGE IVPUSH ×2 (02:17→06:21)
[2023-11-05 05:54] LABS: Amphetamine Screen Urine Not Detected (Not Detect); Barbiturates, Urine Not Detected (Not Detect); Benzodiazepines Screen Urine Not Detected (Not Detect); Buprenorphine Scr Not Detected (Not Detect); Cannabinoid Screen Urine Not Detected (Not Detect); Cocaine Screen Urine Not Detected (Not Detect); Fentanyl, urine Not Detected (Not Detect); Methadone Screen, Urine Not Detected (Not Detect); Opiate Screen Urine Not Detected (Not Detect); Oxycodone Screen Urine Not Detected (Not Detect); Phencyclidine Screen Urine Not Detected (Not Detect)
--- NOTE | 2023-11-05 06:07 | PC.NURSE ---
pt requesting pain meds for 10 out of 10 bilateral lower extremity pain. explained that I would let the MD know in order to obtain an order. this RN notified the MD, within a 2min after asking MD, pt rang again requesting meds. states I've been asking for over 30min what is taking so long attempted to speak to patient however he continued to yell at this RN. RN left the room, pt rang again, nurse charge rn answered the call saavedra. pt made statements that he has been asking for a prolonged period of time for meds, that all he can hear is people talking, and not doing their job. nurse charge rn attempting to de-escalate the situation.
--- NOTE | 2023-11-05 09:27 | PHA.MEDREC ---
Pharmacy Consult ? Medication Reconciliation Pharmacy has completed the medication reconciliation. Utilized receiving tank operator services. Per patient, stopped taking atorvastatin because it gave them blurry vision. Pt has yet to take alternative agent.
--- NOTE | 2023-11-05 10:02 | PC.NURSE ---
Dr. Rodas is at the pt's bedside at this time. Will follow up.
--- NOTE | 2023-11-05 10:50 | P.HPHOSP_ITS ---
History of Present Illness Date of Service: 11/05/23 Chief Complaint: Leg wounds A 48 years old male with PMH of morbid obesity, Type 2 DM on Insulin, HTN among others who presents to the hospital complaining of worsening bilateral LE wounds for almost 1 week. He reports that he noticed small raised reddish lesions on his legs that were itchy forcing him to scratching them but they continued to get larger in size and increasing in number moving proximally. He tried local measures as anti- fungal cream, alcohol swaps, steroid cream with continous worsening of the lesion and increasing pain. denies any drainage or bleeding. he noticed the wounds are turning blackish with neves edges. no fever, chills, No chest pain, palpitations, SOB, nausea, vomiting, diarrhea or urinary symptoms. In ED found to have elevated CRP and ESR. discussed with surgical team who were willing to do skin biopsy for the area for concerns over possible vasculitis. Review of Systems 2 Review of Systems: No fever, chills or weakness No chest pain, palpitation No shortness of breath or coughing No abdominal pain, nausea or vomiting No urinary symptoms multiple lower extremities open wounds PMFSH Medical History Encounter to establish care Arthritis of both hips Long-term insulin use DM type 2 (diabetes mellitus, type 2) Hypertension Surgical History No pertinent past surgical history Social History Housing: Apartment Alcohol intake: never Patient Tobacco Use Status: Never used Tobacco e-Cigarette/Vaping Use: Never Used Second Hand Smoke Exposure: No Advance Directives: No Advance Directives Information Provided: Yes Nutrition Risks: No Nutritional Risk service: No Current occupational status: disabled Current occupational exposures/hazards: No Cognitive needs: Yes (cane) Hearing needs: No Vision needs: Yes (glasses) Meds Allergies Allergy/AdvReac Type Severity Reaction Status Date / Time No Known Allergies Allergy Verified 11/04/23 22:13 [No Known Allergies*] Active Medications: Current Medications Acetaminophen (Acetaminophen 325 Mg Tablet) 650 mg PO Q6H PRN PRN Reason: Pain, Mild (Pain Scale 1-3) Enoxaparin Sodium (Enoxaparin Sodium 40 Mg/0.4 Ml Syringe) 40 mg SUBCUT Q24H [facility] Insulin Glargine (Insulin Glargine,Hum.Rec.Anlog 100 Unit/Ml 10 Ml Vial) 50 unit SUBCUT BID [facility] Insulin Human Lispro (Insulin Lispro 100 Unit/Ml 3 Ml Vial) 0 unit SUBCUT QIDACHS [facility]; Protocol Losartan Potassium (Losartan Potassium 50 Mg Tablet) 50 mg PO DAILY [facility]; Protocol Magnesium Hydroxide (Milk Of Magnesia 30 Ml Oral.Susp) 30 ml PO DAILY PRN PRN Reason: Constipation Metformin HCl (Metformin Hcl 1,000 Mg Tablet) 1,000 mg PO BID [facility] Methylprednisolone Sodium Succinate (Methylprednisolone Sod Succ 40 Mg/Ml Vial) 40 mg IVPUSH Q12H [facility] Morphine Sulfate (Morphine Sulfate 4 Mg/Ml Cartridge) 2 mg IVPUSH Q4H PRN; Protocol PRN Reason: Pain, Severe (Pain Scale 7-10) Ondansetron HCl (Ondansetron Hcl 4 Mg/2 Ml Vial) 4 mg IVPUSH Q8H PRN PRN Reason: Nausea and Vomiting Sodium Chloride (0.9 % Sodium Chloride Flush 3 Ml Syringe) 3 ml IVFLUSH QSHIFT [facility] Home Medications ?Medication ?Instructions ?Recorded ?Confirmed ?Last Taken ?Type insulin glargine 100 unit/mL (3 35 unit subcut BID 11/05/23 11/05/23 11/04/23 History mL) subcutaneous pen (Lantus Solostar U-100 Insulin) Physical Exam 2 Vital Signs and Narrative: Vital Signs: Last Vital Signs Temp 97.8 F 11/05/23 05:24 Pulse 108 H 11/05/23 08:31 Resp 16 11/05/23 08:31 BP 133/79 11/05/23 08:31 Pulse Ox 95 11/05/23 08:31 O2 Del Method Room Air 11/05/23 08:31 BMI result Body Mass Index 48.3 Const: Other: Constitutional : Awake, interactive, not in distress Neck : Normal inspection, Supple Cardiovascular : RRR, no JVP, no lower extremity edema Respiratory : good bilateral air entry, no crackles, wheezes or rhonchi Gastrointestinal: soft, lax, Normal bowel sounds, Non tender Skin : Warm, Dry, multiple wounds ranging from 0.5 - 5 cm in diameter more in RLE than left. ischar surface with greyish edges and tenderness on touch. no significant or continous erythema Neurological : Alert & oriented x3, No focal deficit Results Labs 11/04/23 22:31 11/04/23 22:31 Labs: Laboratory Results - last 24 hr 11/04/23 11/05/23 22:31 05:33 MCV 84.9 MCH 29.7 MCHC 35.0 RDW 13.3 Plt Count 180 MPV 11.7 Immature Gran % (Auto) 0.3 Neut % (Auto) 70.0 Lymph % (Auto) 20.3 [place]ink % (Auto) 5.6 Eos % (Auto) 3.3 Baso % (Auto) 0.5 Lymph # (Auto) 1.9 [place] # (Auto) 0.5 Eos # (Auto) 0.3 Baso # (Auto) 0.1 Abs Immat Gran (auto) 0.03 Absolute Neuts (auto) 6.6 Absolute Nucleated RBC 0.000 Nucleated RBC % (auto) 0.0 ESR 45 H Anion Gap 14 Estim Creat Clear Calc 73.7 Estimated GFR 46 Random Glucose 445 H* Calcium 9.2 Total Bilirubin 0.3 AST 13 ALT 19 Alkaline Phosphatase 89 C-Reactive Protein 2.69 H Total Protein 8.7 H Albumin 3.8 Urine Opiates Screen Not Detected Ur Buprenorphine Scrn Not Detected Ur Oxycodone Screen Not Detected Urine Methadone Screen Not Detected Urine Fentanyl Screen Not Detected Ur Barbiturates Screen Not Detected Ur Phencyclidine Scrn Not Detected Ur Amphetamines Screen Not Detected U Benzodiazepines Scrn Not Detected Urine Cocaine Screen Not Detected U Marijuana (THC) Screen Not Detected Assessment and Plan (1) Wounds, multiple open, lower extremity: Qualifiers: Encounter type: initial encounter Laterality: unspecified laterality Q ualified Code(s): S81.809A - Unspecified open wound, unspecified lower leg, initial encounter Status: Acute (2) Morbid obesity with BMI of 40.0-44.9, adult: Status: Acute Plan A 48 years old male with PMH of morbid obesity, Type 2 DM on Insulin, HTN among others who presents to the hospital complaining of worsening bilateral LE wounds for almost 1 week. Multiple open wounds in LEs 2/2 suspected Vasculitis Not septic Worsening, increasing in size and number surgery for skin biopsy Send SARAH, ANCA, C3,C4, Igs, RF, CCP Start Steroids Wound care assessment High total protein:Albumin ration check Immunofixation and serum electropheresis Hyperglycemia 2/2 DM II Increase Lantus to 40 units BID continue Metformin SSI HTN Continue Losartan DVT PPx Lovenox The patient will need inpatient stay for at least 2 nights for monitoring and treatment of multiple wounds with concern of vasculitis pending biopsy result and clinical improvement Quality Stroke Does the patient have a stroke diagnosis?: No VTE Prior VTE?: No VTE Risk Level:: Medical - moderate - high VTE Device Contraindication: Treatment Not Indicated VTE Drug Contraindication: N/A - Med Ordered
--- NOTE | 2023-11-05 11:00 | PC.NURSE ---
Addendum entered by Anthnoy Henry RN 11/05/23 11:09: Dr. Vicente aware. Original Note: Phlebotomy went to the pt's room to draw the labs that were ordered by the hospitalist, the pt refused to have his labs done I was poked five times today already .
[2023-11-05 11:09] LABS: Glucose, Whole Blood 319 mg/dL (60-115)
[2023-11-05 11:09] LABS: Rheumatoid Factor < 13.0 IU/mL (<15.0)
[2023-11-05] MEDS: Insulin Glargine,Hum.rec.anlog 100 UNIT/ML 10 ML VIAL 50 UNIT SUBCUT ×2 (12:10→20:34)
[2023-11-05] MEDS: methylPREDNISolone Sod Succ 40 MG/ML VIAL IVPUSH ×2 (12:11→23:27)
[2023-11-05] MEDS: Losartan Potassium 50 MG TABLET PO (12:11)
[2023-11-05] MEDS: Lidocaine HCl 2%/Epi 1:100,000 20 ML VIAL INFILTRATI (13:15)
[2023-11-05 13:20] LABS: Glucose, Whole Blood 393 mg/dL (60-115)
[2023-11-05] MEDS: Insulin Lispro 100 UNIT/ML 3 ML VIAL SUBCUT ×3 (13:23→18:09)
[2023-11-05] MEDS: Morphine Sulfate 4 MG/ML CARTRIDGE 2 MG IVPUSH ×2 (15:27→20:39)
[2023-11-05] MEDS: 0.9 % Sodium Chloride Flush 3 ML SYRINGE IVFLUSH ×2 (15:33→20:23)
--- NOTE | 2023-11-05 16:30 | PC.NURSE ---
LATE ENTRY: 1300. DR. LÓPEZ AT BEDSIDE. R LEG WOUND BIOPSY DONE AND SENT TO PATHOLOGY.
[2023-11-05 16:53] LABS: Appearance Urine Clear; Color Urine Yellow; Glucose Urine UA >=1000 mg/dL (Negative); Leukocyte Esterase Urine Negative (Negative); Nitrite Urine Negative (Negative); PH 5.5 (5.0-9.0); UMIC TRIGGER UA YES; Urine Blood Negative (Negative); Urine Ketones Negative (Negative); Urine Protein Negative (Neg-Trace)
[2023-11-05 16:55] LABS: Bacteria Urine None Seen (None Seen); Hyaline Casts Urine 0-2 /LPF (0-2); RBC Urine 0-2 /HPF (0-2); Squamous Epithelial Cell Urine 0-2 /HPF (0-2); WBC Urine 0-5 /HPF (0-5)
--- NOTE | 2023-11-05 17:26 | PM.CNGS ---
History of Present Illness Consult details Consult date: 11/05/23 Narrative: Pt has bilateral lower leg skin lesions that are painful - has had them for several months but worse now so coming into hospital. Has been using topical steroids without much help PMFSH Past Medical History Medical History Encounter to establish care Arthritis of both hips Long-term insulin use DM type 2 (diabetes mellitus, type 2) Hypertension Surgical History Surgical History No pertinent past surgical history Social History Social History Housing: Apartment Alcohol intake: never Patient Tobacco Use Status: Never used Tobacco e-Cigarette/Vaping Use: Never Used Second Hand Smoke Exposure: No Advance Directives: No Advance Directives Information Provided: Yes Nutrition Risks: No Nutritional Risk service: No Current occupational status: disabled Current occupational exposures/hazards: No Cognitive needs: Yes (cane) Hearing needs: No Vision needs: Yes (glasses) Meds Allergies Allergy/AdvReac Type Severity Reaction Status Date / Time No Known Allergies Allergy Verified 11/04/23 22:13 [No Known Allergies*] Active Medications: Current Medications Acetaminophen (Acetaminophen 325 Mg Tablet) 650 mg PO Q6H PRN PRN Reason: Pain, Mild (Pain Scale 1-3) Enoxaparin Sodium (Enoxaparin Sodium 40 Mg/0.4 Ml Syringe) 40 mg SUBCUT Q24H [facility] Insulin Glargine (Insulin Glargine,Hum.Rec.Anlog 100 Unit/Ml 10 Ml Vial) 50 unit SUBCUT BID [facility] Last Admin: 11/05/23 12:10 Dose: 50 unit Insulin Human Lispro (Insulin Lispro 100 Unit/Ml 3 Ml Vial) 0 unit SUBCUT QIDACHS [facility]; Protocol Last Admin: 11/05/23 13:23 Dose: 10 unit Losartan Potassium (Losartan Potassium 50 Mg Tablet) 50 mg PO DAILY [facility]; Protocol Last Admin: 11/05/23 12:11 Dose: 50 mg Magnesium Hydroxide (Milk Of Magnesia 30 Ml Oral.Susp) 30 ml PO DAILY PRN PRN Reason: Constipation Metformin HCl (Metformin Hcl 1,000 Mg Tablet) 1,000 mg PO BID [facility] Methylprednisolone Sodium Succinate (Methylprednisolone Sod Succ 40 Mg/Ml Vial) 40 mg IVPUSH Q12H [facility] Last Admin: 11/05/23 12:11 Dose: 40 mg Morphine Sulfate (Morphine Sulfate 4 Mg/Ml Cartridge) 2 mg IVPUSH Q4H PRN; Protocol PRN Reason: Pain, Severe (Pain Scale 7-10) Last Admin: 11/05/23 15:27 Dose: 2 mg Ondansetron HCl (Ondansetron Hcl 4 Mg/2 Ml Vial) 4 mg IVPUSH Q8H PRN PRN Reason: Nausea and Vomiting Sodium Chloride (0.9 % Sodium Chloride Flush 3 Ml Syringe) 3 ml IVFLUSH QSHIFT [facility] Last Admin: 11/05/23 15:33 Dose: 3 ml Home Medications ?Medication ?Instructions ?Recorded ?Confirmed ?Last Taken ?Type insulin glargine 100 unit/mL (3 35 unit subcut BID 11/05/23 11/05/23 11/04/23 History mL) subcutaneous pen (Lantus Solostar U-100 Insulin) Physical Exam Vital Signs: Vital Signs: Last Vital Signs Temp 98.4 F 11/05/23 14:00 Pulse 116 H 11/05/23 14:00 Resp 23 H 11/05/23 14:00 BP 137/100 H 11/05/23 14:00 Pulse Ox 96 11/05/23 14:00 O2 Del Method Room Air 11/05/23 14:00 BMI result Body Mass Index 48.3 Skin: Other: bilateral lower legs with dark ulcerated lesions with central aspects covered with dry eschar but just surrounding is a ring of ischemic compromised skin and then his skin - patches on anterior lower legs legs with some edema but not too bad Results Labs 11/04/23 22:31 11/04/23 22:31 Labs: Abnormal lab results 11/04/23 11/05/23 11/05/23 Range/Units 22:31 11:05 13:16 Hgb 13.8 L (14.0-18.0) g/dl Hct 39.4 L (42.0-52.0) % ESR 45 H (0-15) MM/HR BUN 19 H (9-16) mg/dL Creatinine 1.62 H (0.5-1.4) mg/dL POC Glucose 319 H 393 H* (60-115) mg/dL Random Glucose 445 H* (60-115) mg/dL C-Reactive Protein 2.69 H (< or = 0.50) mg/dL Total Protein 8.7 H (6.5-8.0) g/dL Urine Glucose (UA) (Negative) mg/dL 11/05/23 Range/Units 16:46 Hgb (14.0-18.0) g/dl Hct (42.0-52.0) % ESR (0-15) MM/HR BUN (9-16) mg/dL Creatinine (0.5-1.4) mg/dL POC Glucose (60-115) mg/dL Random Glucose (60-115) mg/dL C-Reactive Protein (< or = 0.50) mg/dL Total Protein (6.5-8.0) g/dL Urine Glucose (UA) >=1000 H (Negative) mg/dL Short CBC 11/04/23 Range/Units 22:31 WBC 9.5 (4.8-10.8) X10*3/uL Hgb 13.8 L (14.0-18.0) g/dl Hct 39.4 L (42.0-52.0) % Plt Count 180 (160-400) X10*3/uL BMP 11/04/23 22:31 Sodium 136 Potassium 4.8 Chloride 100 Carbon Dioxide 27 BUN 19 H Creatinine 1.62 H Calcium 9.2 Liver Function 11/04/23 Range/Units 22:31 Total Bilirubin 0.3 (0.0-1.0) mg/dL AST 13 (5-37) U/L ALT 19 (0-40) U/L Alkaline Phosphatase 89 (39-117) U/L Albumin 3.8 (3.5-5.0) g/dL Urine 11/05/23 Range/Units 16:46 Urine Color Yellow Urine Appearance Clear Urine pH 5.5 (5.0-9.0) Ur Specific [place] 1.020 (1.005-1.025) Urine Protein Negative (Neg-Trace) mg/dL Urine Glucose (UA) >=1000 H (Negative) mg/dL All other labs normal. Assessment and Plan (1) Vasculitis: Status: Acute Plan 48 yo male with signifiant lower leg wounds - ?vasculitis - med team will treat with iv steroids - will do skin bx for pathology right lower leg was prepped with betadine on one of the areas and pt consent obtained the area numbed with 2% lido with epi and then a small piece of the skin near the normal skin and ulcerated skin removed for path and placed in formalin pt tolerated it well and area dressed with gauze Procedures Date of Service Date of Service: 11/05/23
[2023-11-05 17:27] LABS: Glucose, Whole Blood 568 mg/dL (60-115)
[2023-11-05] MEDS: Insulin Lispro 100 UNIT/ML 3 ML VIAL 10 UNIT SUBCUT ×2 (18:09→23:26)
[2023-11-05] MEDS: Losartan Potassium 25 MG TABLET PO (18:10)
[2023-11-05] MEDS: Enoxaparin Sodium 40 MG/0.4 ML SYRINGE SUBCUT (18:10)
[2023-11-05] MEDS: cefTRIAXone sodium 1 GM in 0.9 % Sodium Chloride 50 ML IV (18:34)
[2023-11-05 20:11] LABS: Glucose, Whole Blood 465 mg/dL (60-115)
[2023-11-05] MEDS: metFORMIN HCl 1,000 MG TABLET 1000 MG PO (20:22)
[2023-11-05 22:59] LABS: Glucose, Whole Blood 438 mg/dL (60-115)
--- NOTE | 2023-11-06 01:21 | PC.NURSE ---
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 Agustin was notified, Lispro SS adjusted with additional 8 units to be given, Lantus 50units and Metformin, as per MD all to be given and POC to rechecked at 2300, pt was updated, pt refused to take his Lispro at this time, Dr. Agustin was made aware. At 2300 POC= 438, Dr. Agustin made aware, Lispro 10 untis ordered , pt complied this time, and Lispro was given.
[2023-11-06 03:43] VITALS: BP 129/73; PULSE 114; RESP 20; TEMP 36.2; O2SAT 96
[2023-11-06 07:08] LABS: Glucose, Whole Blood 462 mg/dL (60-115)
[2023-11-06 07:11] VITALS: BP 140/77; PULSE 115; RESP 22; TEMP 36.2; O2SAT 98
[2023-11-06 07:38] VITALS: BP 140/77
[2023-11-06] MEDS: Losartan Potassium 25 MG TABLET 75 MG PO (07:38)
[2023-11-06] MEDS: 0.9 % Sodium Chloride Flush 3 ML SYRINGE IVFLUSH ×2 (07:39→17:02)
[2023-11-06] MEDS: metFORMIN HCl 1,000 MG TABLET 1000 MG PO ×2 (07:39→21:09)
[2023-11-06] MEDS: Insulin Lispro 100 UNIT/ML 3 ML VIAL SUBCUT ×3 (07:39→17:02)
[2023-11-06] MEDS: Insulin Glargine,Hum.rec.anlog 100 UNIT/ML 10 ML VIAL 50 UNIT SUBCUT ×2 (07:41→22:56)
[2023-11-06] MEDS: Morphine Sulfate 4 MG/ML CARTRIDGE 2 MG IVPUSH ×5 (07:48→22:57)
--- NOTE | 2023-11-06 09:58 | P.PNIM_ITS ---
Subjective Subjective Date of Service: 11/06/23 Interval History: seen and evaluated this morning feels little better but still reporting pain in LEs Glu elevated as he refused last night Lantus dose pending biopsy result Review of Systems multiple lower extremities open wounds Review of Systems: Yes all other systems are reviewed and are negative Physical Exam 2 Vital Signs: Vital Signs: Last Vital Signs Temp 97.1 F 11/06/23 07:11 Pulse 115 H 11/06/23 07:11 Resp 22 H 11/06/23 07:11 BP 140/77 H 11/06/23 07:38 Pulse Ox 98 11/06/23 07:11 O2 Del Method Room Air 11/06/23 07:11 BMI result Body Mass Index 48.3 Const: Other: Constitutional : Awake, interactive, not in distress Neck : Normal inspection, Supple Cardiovascular : RRR, no JVP, no lower extremity edema Respiratory : good bilateral air entry, no crackles, wheezes or rhonchi Gastrointestinal: soft, lax, Normal bowel sounds, Non tender Skin : Warm, Dry, multiple wounds ranging from 0.5 - 5 cm in diameter more in RLE than left blakish surface with greyish edges and tenderness on touch. no significant or continous erythema Neurological : Alert & oriented x3, No focal deficit Objective Data Active Medications Acetaminophen (Acetaminophen 325 Mg Tablet) 650 mg PO Q6H PRN PRN Reason: Pain, Mild (Pain Scale 1-3) Enoxaparin Sodium (Enoxaparin Sodium 40 Mg/0.4 Ml Syringe) 40 mg SUBCUT Q24H [facility] Last Admin: 11/05/23 18:10 Dose: 40 mg Documented By: LINO Ceftriaxone Sodium 1 gm/ (Sodium Chloride) 50 mls @ 100 mls/hr IV Q24H [facility] Last Infusion: 11/05/23 19:19 Dose: Infused Documented By: CASTILNu Insulin Glargine (Insulin Glargine,Hum.Rec.Anlog 100 Unit/Ml 10 Ml Vial) 50 unit SUBCUT BID [facility] Last Admin: 11/06/23 07:41 Dose: 50 unit Documented By: LINO Insulin Human Lispro (Insulin Lispro 100 Unit/Ml 3 Ml Vial) 0 unit SUBCUT QIDACHS [facility]; Protocol Last Admin: 11/06/23 07:39 Dose: 12 unit Documented By: LINO Losartan Potassium (Losartan Potassium 25 Mg Tablet) 75 mg PO DAILY [facility]; Protocol Last Admin: 11/06/23 07:38 Dose: 75 mg Documented By: LINO Magnesium Hydroxide (Milk Of Magnesia 30 Ml Oral.Susp) 30 ml PO DAILY PRN PRN Reason: Constipation Metformin HCl (Metformin Hcl 1,000 Mg Tablet) 1,000 mg PO BID [facility] Last Admin: 11/06/23 07:39 Dose: 1,000 mg Documented By: LINO Methylprednisolone Sodium Succinate (Methylprednisolone Sod Succ 40 Mg/Ml Vial) 40 mg IVPUSH Q12H [facility] Last Admin: 11/05/23 23:27 Dose: 40 mg Documented By: CASTILM Morphine Sulfate (Morphine Sulfate 4 Mg/Ml Cartridge) 2 mg IVPUSH Q4H PRN; Protocol PRN Reason: Pain, Severe (Pain Scale 7-10) Last Admin: 11/06/23 07:48 Dose: 2 mg Documented By: LINO Ondansetron HCl (Ondansetron Hcl 4 Mg/2 Ml Vial) 4 mg IVPUSH Q8H PRN PRN Reason: Nausea and Vomiting Sodium Chloride (0.9 % Sodium Chloride Flush 3 Ml Syringe) 3 ml IVFLUSH QSHIFT [facility] Last Admin: 11/06/23 07:39 Dose: 3 ml Documented By: LINO Labs 11/04/23 22:31 11/04/23 22:31 Labs: Laboratory Results - last 24 hr 11/05/23 11/05/23 11/05/23 09:37 11:05 13:16 POC Glucose 319 H 393 H* Urine Color Urine Appearance Urine pH Ur Specific [place] Urine Protein Urine Glucose (UA) Urine Ketones Urine Blood Urine Nitrite Ur Leukocyte Esterase Urine RBC Urine WBC Ur Squamous Epith Cells Urine Bacteria Hyaline Casts Rheumatoid Factor < 13.0 11/05/23 11/05/23 11/05/23 16:46 17:23 19:49 POC Glucose 568 H* 465 H* Urine Color Yellow Urine Appearance Clear Urine pH 5.5 Ur Specific [place] 1.020 Urine Protein Negative Urine Glucose (UA) >=1000 H Urine Ketones Negative Urine Blood Negative Urine Nitrite Negative Ur Leukocyte Esterase Negative Urine RBC 0-2 Urine WBC 0-5 Ur Squamous Epith Cells 0-2 Urine Bacteria None Seen Hyaline Casts 0-2 Rheumatoid Factor 11/05/23 11/06/23 22:55 07:05 POC Glucose 438 H* 462 H* Urine Color Urine Appearance Urine pH Ur Specific [place] Urine Protein Urine Glucose (UA) Urine Ketones Urine Blood Urine Nitrite Ur Leukocyte Esterase Urine RBC Urine WBC Ur Squamous Epith Cells Urine Bacteria Hyaline Casts Rheumatoid Factor Assessment and Plan (1) Wounds, multiple open, lower extremity: Status: Acute (2) Vasculitis: Status: Acute (3) BMI 40.0-44.9, adult: Status: Acute (4) Uncontrolled type 2 diabetes mellitus: Status: Acute Plan A 48 years old male with PMH of morbid obesity, Type 2 DM on Insulin, HTN among others who presents to the hospital complaining of worsening bilateral LE wounds for almost 1 week. Multiple open wounds in LEs 2/2 suspected Vasculitis Worsening, increasing in size and number surgery did skin biopsy, pending result Pending SARAH, ANCA, C3,C4, Igs, RF, CCP Continue IV Steroids Empirical Ceftriaxone Pending ID eval Wound care assessment High total protein:Albumin ration check Immunofixation and serum electropheresis Hyperglycemia 2/2 DM II Increase Lantus to 50 units BID continue Metformin SSI HTN Continue Losartan Morbid obesity advised weight loss DVT PPx Lovenox The patient will need inpatient stay for overnight for monitoring and treatment of multiple wounds with concern of vasculitis pending biopsy result and clinical improvement Quality Stroke Does the patient have a stroke diagnosis?: No VTE Prior VTE?: No VTE Risk Level:: Medical - moderate - high VTE Device Contraindication: Treatment Not Indicated VTE Drug Contraindication: N/A - Med Ordered
[2023-11-06 11:04] LABS: Glucose, Whole Blood 501 mg/dL (60-115)
[2023-11-06] MEDS: methylPREDNISolone Sod Succ 40 MG/ML VIAL IVPUSH ×2 (12:12→22:57)
[2023-11-06] MEDS: Insulin Lispro 100 UNIT/ML 3 ML VIAL 10 UNIT SUBCUT (12:12)
[2023-11-06 15:17] VITALS: BP 133/85; PULSE 116; RESP 18; TEMP 36.4; O2SAT 97
[2023-11-06 16:20] LABS: Glucose, Whole Blood 314 mg/dL (60-115)
[2023-11-06 17:00] LABS: Hematocrit 40.3 % (42.0-52.0); Hemoglobin 13.9 g/dl (14.0-18.0); Mean Corpuscular HGB Conc 34.5 g/dl (31.0-36.0); Mean Corpuscular Hemoglobin 29.7 pg (27.0-33.0); Mean Corpuscular Volume 86.1 fL (80.0-98.0); Mean Platelet Volume 12.1 fL (9.4-12.4); Platelet Count 207 X10*3/uL (160-400); Red Blood Count 4.68 X10*6/uL (4.60-5.80); Red Cell Distribution Width 13.2 % (11.0-16.0); White Blood Count 18.4 X10*3/uL (4.8-10.8)
[2023-11-06 17:06] LABS: Anion Gap 14 (12-20); Blood Urea Nitrogen 36 mg/dL (9-16); Calcium 9.5 mg/dL (8.4-10.2); Carbon Dioxide 25 mmol/L (22-29); Chloride 101 mmol/L (96-108); Creatinine Clr Calc Pharmacy 58.8; Estimated Glomerular Filt Rate 35; Glucose Random 358 mg/dL (60-115); Potassium 5.2 mmol/L (3.3-5.1); Sodium 135 mmol/L (135-145)
[2023-11-06] MEDS: cefTRIAXone sodium 1 GM in 0.9 % Sodium Chloride 50 ML IV (19:19)
[2023-11-06 19:26] VITALS: BP 139/92; PULSE 118; RESP 20; TEMP 36.4; O2SAT 96
[2023-11-06 20:28] LABS: Glucose, Whole Blood 447 mg/dL (60-115)
[2023-11-06 22:44] LABS: Glucose, Whole Blood 363 mg/dL (60-115)
--- NOTE | 2023-11-07 01:06 | PC.NURSE ---
Pt was seen at start of the shift, pt c/o 10/10 leg pain, and too early to give prn Moprhine , Dr. Agustin made aware, said to give Morphine early, pt had relief after. At 2039, AXI=[id number], Dr. Agustin was notified, and said to give LIspro according to sliding scale, with the Lantus and Metformin, pt took Metformin, refused LAntus and Lispro at this time and prefer to take it at 2229, POC rechecked at [id number], Lantus and Lispro was offered, pt refused Lispro and took Lantus , Dr. Agustin was notified.
[2023-11-07 03:42] VITALS: BP 126/71; PULSE 114; RESP 18; TEMP 36.4; O2SAT 95
[2023-11-07] MEDS: Morphine Sulfate 4 MG/ML CARTRIDGE 2 MG IVPUSH ×4 (03:51→20:05)
[2023-11-07 07:14] VITALS: BP 134/78; PULSE 104; RESP 20; TEMP 36.2; O2SAT 96
[2023-11-07 07:19] LABS: Glucose, Whole Blood 396 mg/dL (60-115)
[2023-11-07] MEDS: metFORMIN HCl 1,000 MG TABLET 1000 MG PO ×2 (08:04→20:00)
[2023-11-07] MEDS: Losartan Potassium 25 MG TABLET 75 MG PO (08:04)
[2023-11-07] MEDS: 0.9 % Sodium Chloride Flush 3 ML SYRINGE IVFLUSH (08:05)
[2023-11-07] MEDS: Insulin Glargine,Hum.rec.anlog 100 UNIT/ML 10 ML VIAL 50 UNIT SUBCUT ×2 (08:09→20:00)
--- NOTE | 2023-11-07 08:32 | PC.NURSE ---
Security called at this time, allegedly pt was threatening to stab staff with needles over the weekend. Saying in French that he was going to tie staff to the bed.
--- NOTE | 2023-11-07 08:57 | PC.NURSE ---
In to see patient this morning at 8am to give him his medications. This nurse was accompanied by NAKUL Manriquez to be machine maintenance repairer. Pt blood sugar was 396. Orders were for Lispro insulin 12 units, Lantus insulin 50 units and metformin 1000mg. Pt would only take the metformin and lantus. Pt refused to take short acting Lispro. He said via local announcer that he would take the Lispro at 9am. This nurse went back into room at 9am with local announcer, and pt did allow nurse to give him his 12 units of Lispro.
[2023-11-07] MEDS: Insulin Lispro 100 UNIT/ML 3 ML VIAL SUBCUT ×5 (09:12→20:01)
--- NOTE | 2023-11-07 09:51 | MHC.CM.PN ---
Patient lives in apartment alone. Patient's mother assists w/ ADL's and sometimes stays w/ patient. Ambulates w/ cane. No services. PCP Jose C Campbell Patient completed HCP naming mother Maryellen Valles as HCP. [phone] DP: Pending ID consult. ? home w/ IV abx vs home w/ family support. Will need shuttle. CM will continue to follow.
[2023-11-07] MEDS: methylPREDNISolone Sod Succ 40 MG/ML VIAL IVPUSH ×2 (10:54→20:00)
[2023-11-07 11:10] LABS: Glucose, Whole Blood 433 mg/dL (60-115)
--- NOTE | 2023-11-07 12:20 | P.PNIM_ITS ---
Subjective Subjective Date of Service: 11/07/23 Interval History: seen and evaluated this morning improving pain in LEs. No new lesions Glu elevated as he refused last night Lantus dose pending biopsy result Review of Systems Review of Systems: Yes all other systems are reviewed and are negative Physical Exam 2 Vital Signs: Vital Signs: Last Vital Signs Temp 97.2 F 11/07/23 07:14 Pulse 104 H 11/07/23 07:14 Resp 20 11/07/23 07:14 BP 134/78 11/07/23 07:14 Pulse Ox 96 11/07/23 07:14 O2 Del Method Room Air 11/07/23 07:14 BMI result Body Mass Index 48.3 Const: Other: Constitutional : Awake, interactive, not in distress Neck : Normal inspection, Supple Cardiovascular : RRR, no JVP, no lower extremity edema Respiratory : good bilateral air entry, no crackles, wheezes or rhonchi Gastrointestinal: soft, lax, Normal bowel sounds, Non tender Skin : Warm, Dry, multiple wounds ranging from 0.5 - 5 cm in diameter more in RLE than left blakish surface with greyish edges and tenderness on touch. no significant or continous erythema Neurological : Alert & oriented x3, No focal deficit Objective Data Active Medications Acetaminophen (Acetaminophen 325 Mg Tablet) 650 mg PO Q6H PRN PRN Reason: Pain, Mild (Pain Scale 1-3) Enoxaparin Sodium (Enoxaparin Sodium 40 Mg/0.4 Ml Syringe) 40 mg SUBCUT Q24H COUNTS INCLUDE 234 BEDS AT THE [facility] Last Admin: 11/06/23 17:32 Dose: Not Given Documented By: LINO Non-Admin Reason: Pt refused Ceftriaxone Sodium 1 gm/ (Sodium Chloride) 50 mls @ 100 mls/hr IV Q24H COUNTS INCLUDE 234 BEDS AT THE [facility] Last Infusion: 11/06/23 20:05 Dose: Infused Documented By: CASTILNu Insulin Glargine (Insulin Glargine,Hum.Rec.Anlog 100 Unit/Ml 10 Ml Vial) 50 unit SUBCUT BID COUNTS INCLUDE 234 BEDS AT THE [facility] Last Admin: 11/07/23 08:09 Dose: 50 unit Documented By: MIGDALIA Insulin Human Lispro (Insulin Lispro 100 Unit/Ml 3 Ml Vial) 0 unit SUBCUT QIDACHS COUNTS INCLUDE 234 BEDS AT THE [facility]; Protocol Last Admin: 11/07/23 11:35 Dose: 12 unit Documented By: MIGDALIA Losartan Potassium (Losartan Potassium 25 Mg Tablet) 75 mg PO DAILY COUNTS INCLUDE 234 BEDS AT THE [facility]; Protocol Last Admin: 11/07/23 08:04 Dose: 75 mg Documented By: MIGDALIA Magnesium Hydroxide (Milk Of Magnesia 30 Ml Oral.Susp) 30 ml PO DAILY PRN PRN Reason: Constipation Metformin HCl (Metformin Hcl 1,000 Mg Tablet) 1,000 mg PO BID COUNTS INCLUDE 234 BEDS AT THE [facility] Last Admin: 11/07/23 08:04 Dose: 1,000 mg Documented By: MIGDALIA Methylprednisolone Sodium Succinate (Methylprednisolone Sod Succ 40 Mg/Ml Vial) 40 mg IVPUSH Q12H COUNTS INCLUDE 234 BEDS AT THE [facility] Last Admin: 11/07/23 10:54 Dose: 40 mg Documented By: MIGDALIA Morphine Sulfate (Morphine Sulfate 4 Mg/Ml Cartridge) 2 mg IVPUSH Q4H PRN; Protocol PRN Reason: Pain, Severe (Pain Scale 7-10) Last Admin: 11/07/23 08:15 Dose: 2 mg Documented By: MIGDALIA Ondansetron HCl (Ondansetron Hcl 4 Mg/2 Ml Vial) 4 mg IVPUSH Q8H PRN PRN Reason: Nausea and Vomiting Sodium Chloride (0.9 % Sodium Chloride Flush 3 Ml Syringe) 3 ml IVFLUSH QSHIFT COUNTS INCLUDE 234 BEDS AT THE [facility] Last Admin: 11/07/23 08:05 Dose: 3 ml Documented By: MIGDALIA Labs 11/06/23 16:21 11/06/23 16:21 Labs: Laboratory Results - last 24 hr 11/06/23 11/06/23 11/06/23 16:04 16:21 20:12 MCV 86.1 MCH 29.7 MCHC 34.5 RDW 13.2 Plt Count 207 MPV 12.1 Absolute Nucleated RBC 0.000 Nucleated RBC % (auto) 0.0 Anion Gap 14 Estim Creat Clear Calc 58.8 Estimated GFR 35 POC Glucose 314 H 447 H* Random Glucose 358 H* Calcium 9.5 11/06/23 11/07/23 11/07/23 22:40 07:16 11:01 MCV MCH MCHC RDW Plt Count MPV Absolute Nucleated RBC Nucleated RBC % (auto) Anion Gap Estim Creat Clear Calc Estimated GFR POC Glucose 363 H* 396 H* 433 H* Random Glucose Calcium Assessment and Plan (1) Wounds, multiple open, lower extremity: Status: Acute (2) Vasculitis: Status: Acute (3) BMI 40.0-44.9, adult: Status: Acute (4) Uncontrolled type 2 diabetes mellitus: Status: Acute Plan A 48 years old male with PMH of morbid obesity, Type 2 DM on Insulin, HTN among others who presents to the hospital complaining of worsening bilateral LE wounds for almost 1 week. Multiple open wounds in LEs 2/2 suspected Vasculitis Worsening, increasing in size and number surgery did skin biopsy, pending result Pending SARAH, ANCA, C3,C4, Igs, RF, CCP Continue IV Steroids Continue IV Ceftriaxone Pending ID eval Wound care assessment High total protein:Albumin ration check Immunofixation and serum electropheresis Hyperglycemia 2/2 DM II Increase Lantus to 50 units BID continue Metformin SSI HTN Continue Losartan Morbid obesity advised weight loss DVT PPx Lovenox The patient will need inpatient stay for overnight for monitoring and treatment of multiple wounds with concern of vasculitis pending biopsy result and clinical improvement Quality Stroke Does the patient have a stroke diagnosis?: No VTE Prior VTE?: No VTE Risk Level:: Medical - moderate - high VTE Device Contraindication: Treatment Not Indicated VTE Drug Contraindication: N/A - Med Ordered
--- NOTE | 2023-11-07 14:20 | HO.WOUND ---
Wound Consult: Initial 48yr old? male admitted to [facility] [place] [facility] on 11/05/23 - See progress notes and H&P for detailed history.? Wound consult placed for bilateral lower leg wounds.? Patient agreeable to assessment and photo documentation.? Patient has been seen by Dr Alejanrde / General Surgery and skin biopsy is pending results. Will defer to Dr. Alejandre once biopsy resulted. The Etiology remains unclear - concern for vasculitis vs PG. Topical treatment will remain moist topical care to prevent pathergy. Right knee - Small red maroon crusted dry macular papular clusters Right Leg Left Leg Etiology: ?Unknown Etiology Defer to Biopsy results - lesions ?Present on Admission Measurements: various lesions in size - largest measuring 6cm x 10cm patient reports wounds started at small red blisters and then coalesced into larger areas Wound Bed: violaceous light purple silver moist boarders with central dry necrotic eschar Drainage / Odor: serosang drainage from edge of some lesions - no odor noted Edges: ? irregular Tara wound: prink erythema, swelling throughout lower legs - +PP? No Induration, Fluctuance or Warmth noted Pain: pt reports pain in legs and numbness in toes bilateral feet he reports numbness is baseline Goals of Treatment: ? Moist dressing pending biopsy results Recommendations: 1. Provide adequate and supplemental nutrition.? 2. When applicable maintain blood glucose levels per Providers order. 3. Bilateral Lower Legs - Elevate Lower Legs - Cover with xeroform gauze, ABD Pad, gauze wrap. Do not attempt to debride wound bed at this time. Change Daily. Re-consult wound care Nurse for wound deterioration or wound changes.
[2023-11-07 14:59] LABS: Anti Nuclear Antibody Screen NEGATIVE (NEGATIVE)
[2023-11-07 15:06] VITALS: BP 110/74; PULSE 98; RESP 20; TEMP 36.2; O2SAT 96
[2023-11-07 16:09] LABS: Glucose, Whole Blood 280 mg/dL (60-115)
--- NOTE | 2023-11-07 16:21 | P.CNID_ITS ---
History of Present Illness Data of Consult Service Date: 11/07/23 Requesting physician: Myesha Vicente Primary Care Provider: Jose C Campbell MD [facility] Reason for consult: rash He presents with redness from feet up leg with bleeding. He has LE wounds increased in size. He has blood sugar 450. He has no fever or chills or leukocytosis. Symptoms present worsening last day. Review of Systems 2 Review of Systems: Yes all other systems are reviewed and are negative PMFSH Past Medical History Medical History Encounter to establish care Arthritis of both hips Long-term insulin use DM type 2 (diabetes mellitus, type 2) Hypertension Family History Family history: reviewed and not pertinent Surgical History Surgical History No pertinent past surgical history Social History Social History Household Members: None Housing: Apartment Do you presently have visiting nurse or other home services: No Alcohol intake: never Patient Tobacco Use Status: Never used Tobacco e-Cigarette/Vaping Use: Never Used Second Hand Smoke Exposure: No service: No Current occupational status: disabled Current occupational exposures/hazards: No Cognitive needs: Yes (cane) Hearing needs: No Vision needs: Yes (glasses) Meds Allergies Allergy/AdvReac Type Severity Reaction Status Date / Time No Known Allergies Allergy Verified 11/04/23 22:13 [No Known Allergies*] Active Medications: Current Medications Acetaminophen (Acetaminophen 325 Mg Tablet) 650 mg PO Q6H PRN PRN Reason: Pain, Mild (Pain Scale 1-3) Enoxaparin Sodium (Enoxaparin Sodium 40 Mg/0.4 Ml Syringe) 40 mg SUBCUT Q24H [facility] Last Admin: 11/07/23 16:16 Dose: Not Given Ceftriaxone Sodium 1 gm/ (Sodium Chloride) 50 mls @ 100 mls/hr IV Q24H [facility] Last Infusion: 11/06/23 20:05 Dose: Infused Insulin Glargine (Insulin Glargine,Hum.Rec.Anlog 100 Unit/Ml 10 Ml Vial) 50 unit SUBCUT BID [facility] Last Admin: 11/07/23 08:09 Dose: 50 unit Insulin Human Lispro (Insulin Lispro 100 Unit/Ml 3 Ml Vial) 0 unit SUBCUT QIDACHS [facility]; Protocol Last Admin: 11/07/23 16:17 Dose: 8 unit Losartan Potassium (Losartan Potassium 25 Mg Tablet) 75 mg PO DAILY [facility]; Protocol Last Admin: 11/07/23 08:04 Dose: 75 mg Magnesium Hydroxide (Milk Of Magnesia 30 Ml Oral.Susp) 30 ml PO DAILY PRN PRN Reason: Constipation Metformin HCl (Metformin Hcl 1,000 Mg Tablet) 1,000 mg PO BID [facility] Last Admin: 11/07/23 08:04 Dose: 1,000 mg Methylprednisolone Sodium Succinate (Methylprednisolone Sod Succ 40 Mg/Ml Vial) 40 mg IVPUSH Q12H [facility] Last Admin: 11/07/23 10:54 Dose: 40 mg Morphine Sulfate (Morphine Sulfate 4 Mg/Ml Cartridge) 2 mg IVPUSH Q4H PRN; Protocol PRN Reason: Pain, Severe (Pain Scale 7-10) Last Admin: 11/07/23 13:13 Dose: 2 mg Ondansetron HCl (Ondansetron Hcl 4 Mg/2 Ml Vial) 4 mg IVPUSH Q8H PRN PRN Reason: Nausea and Vomiting Sodium Chloride (0.9 % Sodium Chloride Flush 3 Ml Syringe) 3 ml IVFLUSH QSHIFT [facility] Last Admin: 11/07/23 16:18 Dose: Not Given Home Medications ?Medication ?Instructions ?Recorded ?Confirmed ?Last Taken ?Type insulin glargine 100 unit/mL (3 35 unit subcut BID 11/05/23 11/05/23 11/04/23 History mL) subcutaneous pen (Lantus Solostar U-100 Insulin) Physical Exam 2 Vital Signs: Vital Signs: Last Vital Signs Temp 97.1 F 11/07/23 15:06 Pulse 98 11/07/23 15:06 Resp 20 11/07/23 15:06 BP 110/74 11/07/23 15:06 Pulse Ox 96 11/07/23 15:06 O2 Del Method Room Air 11/07/23 15:06 BMI result Body Mass Index 48.3 Const: General: cooperative HEENT: Head: Yes normal to inspection Face and sinus: Yes normal facial exam Mouth: Normal oral and palatal mucosa present Teeth and gingiva: d entition normal Eyes: General: appearance normal, both eyes and all related structures P upils: Equal, round and reactive pupils present Resp: Effort & Inspection: normal respiratory effort Cardio: Rate: regular rate Rhythm: regular rhythm GI: Palpation (GI): Soft to palpation and nontender : General: Yes no CVA tenderness Back/Spine/Pelvis: Back: no CVA tenderness Skin: General skin exam: no rashes or lesions noted Neuro: General: moves all extremities Cranial nerves: Yes Equal, round and reactive pupils present Extrem: Other: purpuric areas up legs General: Yes normal to inspection Psych: Appearance: grossly normal Results Labs 11/06/23 16:21 11/06/23 16:21 Labs: Short CBC 11/06/23 Range/Units 16:21 WBC 18.4 H (4.8-10.8) X10*3/uL Hgb 13.9 L (14.0-18.0) g/dl Hct 40.3 L (42.0-52.0) % Plt Count 207 (160-400) X10*3/uL BMP 11/06/23 16:21 Sodium 135 Potassium 5.2 H Chloride 101 Carbon Dioxide 25 BUN 36 H Creatinine 2.03 H Calcium 9.5 Assessment and Plan (1) Vasculitis: Status: Acute Probably noninfectious vasculitis bu awaiting final blood cultures. Await biopsy. Continue Ceftriaxone for now. If bacterial cultures negative start high dose steroids pending pathology report monitoring blood sugar of course.
[2023-11-07 17:53] LABS: Cyclic Citrullinated Peptide <16 UNITS
[2023-11-07] MEDS: cefTRIAXone sodium 1 GM in 0.9 % Sodium Chloride 50 ML IV (17:55)
[2023-11-07 19:50] VITALS: BP 138/95; RESP 18; TEMP 36.6; O2SAT 97
[2023-11-07 19:57] LABS: Glucose, Whole Blood 390 mg/dL (60-115)
[2023-11-08] MEDS: 0.9 % Sodium Chloride Flush 3 ML SYRINGE IVFLUSH ×3 (00:27→17:21)
[2023-11-08] MEDS: Morphine Sulfate 4 MG/ML CARTRIDGE 2 MG IVPUSH ×3 (00:29→17:23)
[2023-11-08 03:17] VITALS: BP 123/76; PULSE 98; RESP 18; TEMP 36.5; O2SAT 98
[2023-11-08 07:50] VITALS: BP 142/97
[2023-11-08 07:50] LABS: Glucose, Whole Blood 330 mg/dL (60-115)
[2023-11-08] MEDS: Losartan Potassium 25 MG TABLET 75 MG PO (07:50)
[2023-11-08] MEDS: metFORMIN HCl 1,000 MG TABLET 1000 MG PO ×2 (07:50→21:50)
[2023-11-08 07:51] VITALS: BP 142/97; PULSE 110; RESP 20; TEMP 36.6; O2SAT 98
[2023-11-08] MEDS: Insulin Lispro 100 UNIT/ML 3 ML VIAL SUBCUT ×4 (07:51→21:48)
[2023-11-08 07:55] VITALS: RESP 18
[2023-11-08] MEDS: Insulin Glargine,Hum.rec.anlog 100 UNIT/ML 10 ML VIAL 50 UNIT SUBCUT ×2 (07:59→21:49)
[2023-11-08 08:03] LABS: Hematocrit 43.5 % (42.0-52.0); Hemoglobin 14.7 g/dl (14.0-18.0); Mean Corpuscular HGB Conc 33.8 g/dl (31.0-36.0); Mean Corpuscular Hemoglobin 29.5 pg (27.0-33.0); Mean Corpuscular Volume 87.2 fL (80.0-98.0); Mean Platelet Volume 11.5 fL (9.4-12.4); Platelet Count 238 X10*3/uL (160-400); Red Blood Count 4.99 X10*6/uL (4.60-5.80); Red Cell Distribution Width 13.4 % (11.0-16.0); White Blood Count 17.5 X10*3/uL (4.8-10.8)
[2023-11-08 08:19] LABS: Anion Gap 13 (12-20); Blood Urea Nitrogen 34 mg/dL (9-16); Calcium 9.5 mg/dL (8.4-10.2); Carbon Dioxide 27 mmol/L (22-29); Chloride 101 mmol/L (96-108); Creatinine Clr Calc Pharmacy 74.6; Estimated Glomerular Filt Rate 47; Glucose Random 343 mg/dL (60-115); Potassium 4.7 mmol/L (3.3-5.1); Sodium 136 mmol/L (135-145)
[2023-11-08 08:24] LABS: Estimated Average Glucose 278 mg/dL; Hemoglobin A1c % 11.3 % (<6.0)
--- NOTE | 2023-11-08 11:06 | HO.PM.IMPN ---
Subjective Subjective Date of Service: 11/08/23 Interval History: seen and evaluated this morning improving pain in LEs. covered with dressing reporting pain but no fever pending biopsy result Review of Systems multiple lower extremities open wounds Physical Exam Vital Signs: Vital Signs: Last Vital Signs Temp 97.8 F 11/08/23 07:51 Pulse 110 H 11/08/23 07:51 Resp 18 11/08/23 07:55 BP 142/97 H 11/08/23 07:51 Pulse Ox 98 11/08/23 07:51 O2 Del Method Room Air 11/08/23 07:51 O2 Flow Rate 113 11/07/23 19:50 BMI result Body Mass Index 48.3 Const: Other: Constitutional : Awake, interactive, not in distress Neck : Normal inspection, Supple Cardiovascular : RRR, no JVP, no lower extremity edema Respiratory : good bilateral air entry, no crackles, wheezes or rhonchi Gastrointestinal: soft, lax, Normal bowel sounds, Non tender Skin : Warm, Dry, multiple wounds ranging from 0.5 - 5 cm in diameter more in RLE than left blakish surface with greyish edges and tenderness on touch. no significant or continous erythema Neurological : Alert & oriented x3, No focal deficit Objective Data Active Medications Acetaminophen (Acetaminophen 325 Mg Tablet) 650 mg PO Q6H PRN PRN Reason: Pain, Mild (Pain Scale 1-3) Enoxaparin Sodium (Enoxaparin Sodium 40 Mg/0.4 Ml Syringe) 40 mg SUBCUT Q24H [facility] Last Admin: 11/07/23 16:16 Dose: Not Given Documented By: SUMMER Non-Admin Reason: Patient Refused Ceftriaxone Sodium 1 gm/ (Sodium Chloride) 50 mls @ 100 mls/hr IV Q24H [facility] Last Infusion: 11/07/23 18:53 Dose: Infused Documented By: SUMMER Insulin Glargine (Insulin Glargine,Hum.Rec.Anlog 100 Unit/Ml 10 Ml Vial) 50 unit SUBCUT BID [facility] Last Admin: 11/08/23 07:59 Dose: 50 unit Documented By: PEYTON Insulin Human Lispro (Insulin Lispro 100 Unit/Ml 3 Ml Vial) 0 unit SUBCUT QIDACHS [facility]; Protocol Last Admin: 11/08/23 07:51 Dose: 10 unit Documented By: PEYTON Losartan Potassium (Losartan Potassium 25 Mg Tablet) 75 mg PO DAILY [facility]; Protocol Last Admin: 11/08/23 07:50 Dose: 75 mg Documented By: PEYTON Magnesium Hydroxide (Milk Of Magnesia 30 Ml Oral.Susp) 30 ml PO DAILY PRN PRN Reason: Constipation Metformin HCl (Metformin Hcl 1,000 Mg Tablet) 1,000 mg PO BID [facility] Last Admin: 11/08/23 07:50 Dose: 1,000 mg Documented By: PEYTON Methylprednisolone Sodium Succinate (Methylprednisolone Sod Succ 40 Mg/Ml Vial) 40 mg IVPUSH Q12H [facility] Last Admin: 11/07/23 20:00 Dose: 40 mg Documented By: SUMMER Morphine Sulfate (Morphine Sulfate 4 Mg/Ml Cartridge) 2 mg IVPUSH Q4H PRN; Protocol PRN Reason: Pain, Severe (Pain Scale 7-10) Last Admin: 11/08/23 07:55 Dose: 2 mg Documented By: PEYTON Ondansetron HCl (Ondansetron Hcl 4 Mg/2 Ml Vial) 4 mg IVPUSH Q8H PRN PRN Reason: Nausea and Vomiting Sodium Chloride (0.9 % Sodium Chloride Flush 3 Ml Syringe) 3 ml IVFLUSH QSHIFT [facility] Last Admin: 11/08/23 07:50 Dose: 3 ml Documented By: PEYTON Labs 11/08/23 07:55 11/08/23 07:55 Labs: Laboratory Results - last 24 hr 11/05/23 11/07/23 11/07/23 09:38 11:01 16:00 MCV MCH MCHC RDW Plt Count MPV Absolute Nucleated RBC Nucleated RBC % (auto) Anion Gap Estim Creat Clear Calc Estimated GFR POC Glucose 433 H* 280 H Random Glucose Estimat Average Glucose Hemoglobin A1c % Calcium Cycl Citrul Peptide IgG <16 SARAH Screen NEGATIVE 11/07/23 11/08/23 11/08/23 19:52 07:46 07:55 MCV 87.2 MCH 29.5 MCHC 33.8 RDW 13.4 Plt Count 238 MPV 11.5 Absolute Nucleated RBC 0.000 Nucleated RBC % (auto) 0.0 Anion Gap 13 Estim Creat Clear Calc 74.6 Estimated GFR 47 POC Glucose 390 H* 330 H Random Glucose 343 H Estimat Average Glucose 278 Hemoglobin A1c % 11.3 H Calcium 9.5 Cycl Citrul Peptide IgG SARAH Screen Assessment and Plan (1) Wounds, multiple open, lower extremity: Status: Acute (2) Vasculitis: Status: Acute (3) Uncontrolled type 2 diabetes mellitus: Status: Acute Plan A 48 years old male with PMH of morbid obesity, Type 2 DM on Insulin, HTN among others who presents to the hospital complaining of worsening bilateral LE wounds for almost 1 week. Multiple open wounds in LEs 2/2 suspected Vasculitis Worsening, increasing in size and number surgery did skin biopsy, pending result Pending SARAH, ANCA, C3,C4, Igs, RF, CCP Continue IV Steroids Continue IV Ceftriaxone ID eval appreciated Wound care assessment High total protein:Albumin ration Pending Immunofixation and serum electropheresis Hyperglycemia 2/2 DM II HbA1c of 11.3 Increased Lantus to 50 units BID continue Metformin SSI CKD3 stable, Cr around 1.6 HTN Continue Losartan Morbid obesity advised weight loss DVT PPx Lovenox The patient will need inpatient stay for overnight for monitoring and treatment of multiple wounds with concern of vasculitis pending biopsy result and clinical improvement Quality Stroke Does the patient have a stroke diagnosis?: No VTE Prior VTE?: No VTE Risk Level:: Medical - moderate - high VTE Device Contraindication: Treatment Not Indicated VTE Drug Contraindication: N/A - Med Ordered
[2023-11-08] MEDS: methylPREDNISolone Sod Succ 40 MG/ML VIAL IVPUSH ×2 (11:14→21:45)
[2023-11-08 11:20] LABS: Glucose, Whole Blood 296 mg/dL (60-115)
--- NOTE | 2023-11-08 11:36 | P.CDIM_ITS ---
PROVIDER RESPONSE TEXT: To clarify, the appropriate diagnosis supported by the clinical indicators: CKD, please provide stage QUERY TEXT: PHYSICIAN'S DOCUMENTATION REQUEST Date of Query: 11/07/2023 07:55 AM EDT Patient Name: Miguel A Aparicio Admit Date: 11/05/2023 Dear Myesha Vicente, A review of the medical record indicates additional documentation may be needed. Please review below and update the documentation accordingly. Clinical Indicators: ED 11/03 - Patient has Chronic kidney disease CR: 1.62 2.03 GFR: 46 35 BUN: 19 36 Please clarify which of the following accurately represents the patient's renal status: Acute renal failure on Chronic Kidney Disease (CKD) Stage 1, 2, 3a, 3b etc CKD, please provide stage Other (explain) Clinically unable to determine (explain) Thank you, Isabel Cao, CCS, CDIS Use of terms such as suspected, likely, concern for, or probable (associated with a specific diagnosi s that is being evaluated, monitored, or treated as if it exists) are acceptable and can be coded in the inpatient se tting, when documented at the time of discharge. Please use your independent medical judgment in providing your response. THIS QUERY IS PART OF THE PERMANENT MEDICAL RECORD
--- NOTE | 2023-11-08 11:36 | P.CDIM_ITS ---
PROVIDER RESPONSE TEXT: To clarify, the appropriate diagnosis supported by the clinical indicators: Hyperkalemia: resolved QUERY TEXT: PHYSICIAN'S DOCUMENTATION REQUEST Date of Query: 11/08/2023 06:44 AM EDT Patient Name: Miguel A Aparicio Admit Date: 11/05/2023 Dear Myesha Vicente, A review of the medical record indicates additional documentation may be needed. Please review below and update the documentation accordingly. Clinical Indicators: LABS: 11/05 - potassium 5.2 H Based on the above, is there a diagnosis that correlates with the above lab findings: Hyperkalemia resolved, possible, suspected Labs indicate a diagnosis of (please specify) Other (explain) Clinically unable to determine (explain) Thank you, Isabel Cao, CCS, CDIS Use of terms such as suspected, likely, concern for, or probable (associated with a specific diagnosi s that is being evaluated, monitored, or treated as if it exists) are acceptable and can be coded in the inpatient se tting, when documented at the time of discharge. Please use your independent medical judgment in providing your response. THIS QUERY IS PART OF THE PERMANENT MEDICAL RECORD
[2023-11-08 16:00] VITALS: BP 135/80; PULSE 110; RESP 18; TEMP 36.4; O2SAT 97
[2023-11-08 16:03] LABS: Glucose, Whole Blood 256 mg/dL (60-115)
--- NOTE | 2023-11-08 17:09 | HO.WOUND ---
Wound Consult: Follow up 48yr old? male admitted to [facility] on 11/05/23 - See progress notes and H&P for detailed history.? Wound consult follow up for bilateral lower leg wounds - results still pending on skin biopsy.? Patient agreeable to assessment. The Etiology remains unclear - concern for vasculitis vs PG. Topical treatment will remain moist topical care to prevent pathergy. Etiology: ?Unknown Etiology Defer to Biopsy results - lesions ?Present on Admission Measurements: various lesions in size - largest measuring 6cm x 10cm patient reports wounds started at small red blisters and then coalesced into larger areas Wound Bed: violaceous light purple silver moist boarders with central dry necrotic eschar Drainage / Odor: serosang drainage from edge of some lesions - no odor noted Edges: ? irregular Tara wound: prink erythema, swelling throughout lower legs - +PP? No Induration, Fluctuance or Warmth noted Pain: pt reports improved comfort in legs Goals of Treatment: ? Moist dressing pending biopsy results No new topical recommendations made at this time. Recommendations: 1. Provide adequate and supplemental nutrition.? 2. When applicable maintain blood glucose levels per Providers order. 3. Bilateral Lower Legs - Elevate Lower Legs - Cover with xeroform gauze, ABD Pad, gauze wrap. Do not attempt to debride wound bed at this time. Change Daily. Re-consult wound care Nurse for wound deterioration or wound changes.
[2023-11-08] MEDS: Enoxaparin Sodium 40 MG/0.4 ML SYRINGE SUBCUT (17:14)
[2023-11-08 20:00] VITALS: BP 152/84; PULSE 123; RESP 20; TEMP 36; O2SAT 97
[2023-11-08 20:54] LABS: Myeloperoxidase Antibody <1.0 AI; Proteinase 3 PR3 Antibodies <1.0 AI
[2023-11-08 21:09] LABS: Glucose, Whole Blood 539 mg/dL (60-115)
--- NOTE | 2023-11-08 21:10 | PC.NURSE ---
BS 539,Dr. Agustin notified,patient is eating food from home
--- NOTE | 2023-11-08 21:17 | PC.NURSE ---
Patient is using bathroom for long time ,unable to administer antibiotic on time
[2023-11-08 21:24] LABS: Prot Elec - Albumin 4.1 g/dL (3.8-4.8); Prot Elec - Alpha1 0.3 g/dL (0.2-0.3); Prot Elec - Alpha2 0.7 g/dL (0.5-0.9); Prot Elec - Beta 1 0.6 g/dL (0.4-0.6); Prot Elec - Beta 2 0.8 g/dL (0.2-0.5); Prot Elec - Gamma 1.9 g/dL (0.8-1.7); Prot Elec - Total Protein 8.5 g/dL (6.1-8.1)
--- NOTE | 2023-11-08 21:26 | PC.NURSE ---
Patient refused BMP lab draw,Dr. Agustin notified
[2023-11-08] MEDS: cefTRIAXone sodium 1 GM in 0.9 % Sodium Chloride 50 ML IV (21:47)
--- NOTE | 2023-11-08 22:26 | PM.EVENT ---
Event Note Date of Service: 11/09/23 Event Note: I addressed this conversation in Mongolian which is Mr. Aparicio's resighini language. 9:40 PM - contacted by to notify that patient's BG is 539 and that he has scheduled Lantus 50 units, insulin lispro 12 unit per sliding scale and metformin. BMP stat to assess for acidosis and confirm degree of hyperglycemia but patient irefused this. I went to patient's room and spoke with him about the importance of obtaining blood workup to assess for acidosis and degree of hyperglycemia. He stated that he refused because his arm hurts (pointing the left antecubital fossa) and he was asking for a break. He was told that he is free to refuse treatment (couple of nights he was refusing extra insulin) or blood workup. I informed him about the consequences of not allowing us to assess for any complication of uncontrolled diabetes in the setting of IV steroids such as DKA. I also told him the importance of receiving additional insulin as needed for better glucose control as this could interfere with adequate healing of his wounds (lower extremities). He became upset and accused me about threatening him that if he does not get blood workup something bad is going to happened to him when I was simply telling him the consequences of refusing further investigation with blood workup. He also invalidated my advice because I am not a specialist and accusing the nurses of being liars. I tried to express my concern about his uncontrolled diabetes since admission. I will go ahead and order insulin with meals as well (of course if he agrees with it). Time Spent With Patient Time: Total time managing care of this patient today ____ minutes.
[2023-11-09] MEDS: 0.9 % Sodium Chloride Flush 3 ML SYRINGE IVFLUSH ×2 (00:46→07:58)
[2023-11-09] MEDS: Morphine Sulfate 4 MG/ML CARTRIDGE 2 MG IVPUSH ×2 (00:51→10:38)
[2023-11-09 03:51] VITALS: BP 117/67; PULSE 134; RESP 18; TEMP 35.6; O2SAT 97
[2023-11-09 07:18] VITALS: BP 140/82; PULSE 108; RESP 18; TEMP 36; O2SAT 97
[2023-11-09 07:44] LABS: Glucose, Whole Blood 364 mg/dL (60-115)
[2023-11-09] MEDS: metFORMIN HCl 1,000 MG TABLET 1000 MG PO (07:56)
[2023-11-09] MEDS: Losartan Potassium 25 MG TABLET 75 MG PO (07:56)
[2023-11-09] MEDS: Insulin Glargine,Hum.rec.anlog 100 UNIT/ML 10 ML VIAL 50 UNIT SUBCUT (07:58)
[2023-11-09] MEDS: Insulin Lispro 100 UNIT/ML 3 ML VIAL SUBCUT ×2 (07:59→11:50)
[2023-11-09] MEDS: Insulin Lispro 100 UNIT/ML 3 ML VIAL 7 UNIT SUBCUT ×2 (07:59→11:50)
[2023-11-09] MEDS: methylPREDNISolone Sod Succ 40 MG/ML VIAL IVPUSH (10:39)
[2023-11-09 11:15] LABS: Glucose, Whole Blood 237 mg/dL (60-115)
--- NOTE | 2023-11-09 12:28 | HO.WOUND ---
Wound Consult: Follow up 48yr old? male admitted to [facility] on 11/05/23 - See progress notes and H&P for detailed history.? Wound consult follow up for bilateral lower leg wounds - results for skin biopsy reveal Vasculitis per my conversation with Dr. Vicente. Discussed case with Dr. Mason as well given vasculitis diagnosis best treatment is to attempt to dry out the eschar and keep stable. Will switch topical treatment to Betadine daily and dry gauze wrap. Follow up with wound clinic outpatient. survey interviewer present for entire consultation today discharge instructions supplied things he can do to aid in healing - lower leg elevation, tight blood sugar control, taking medications as prescribed and proper wound care followup. Etiology: ?Vasculitis lesions ?Present on Admission Measurements: various lesions in size - largest measuring 6cm x 10cm patient reports wounds started at small red blisters and then coalesced into larger areas Wound Bed: violaceous light purple silver moist boarders with central dry necrotic eschar Drainage / Odor: small amount of serosang drainage from edge of some lesions - no odor noted Edges: ? irregular Tara wound: pink erythema, less swelling throughout lower legs - +PP? No Induration, Fluctuance or Warmth noted Pain: pt reports improved comfort in legs Goals of Treatment: ? Betadine to keep dry and stable Recommendations: 1. Provide adequate and supplemental nutrition.? 2. When applicable maintain blood glucose levels per Providers order. 3. Bilateral Lower Legs - Elevate Lower Legs - [place] with Betadine Daily, allow to dry cover with dry gauze and wrap. Do not attempt to debride wound bed at this time. Change Daily. Recommend follow up out patient Wound Clinic at [address] [place] [id number] and to call for an appointment at time of discharge. [phone].? Re-consult wound care Nurse for wound deterioration or wound changes.
--- NOTE | 2023-11-09 12:38 | MHC.CM.PN ---
Per MD patient is medically cleared for dc. Referred to [facility], per patient preference, for SN - wound care and disease management. Per [facility] - they are waiting to hear if PCP office will sign orders as patient did not show to last appt and the last provider he saw is no longer with the practice. aware. CM also faxed referral to Wound Clinic. CM reviewed with patient, who is aware the [facility] will provide services only if PCP office agrees to sign orders. Patient is being sent home w/ wound care supplies and patient's friend has been taught and will assist w/ daily dressing changes. Patient will follow up with Wound Clinic and PCP. Patient's friend to provide transportation home at 2pm. RN and aware.
--- NOTE | 2023-11-09 12:46 | PM.DS ---
DS: Providers Provider Date of Service: 11/09/23 Date of admission: 11/05/23 10:39 Primary care physician: Jose C Campbell MD Consults: 11/05/23 01:48 Consult to General Surgery Stat Consulting Provider: [facility] Reason for consultation: vasculitis 11/05/23 10:42 Consult to Wound Care Routine Reason for consultation: Bilateral LE wounds 11/05/23 17:46 Consult to Wound Care Routine Reason for consultation: wounds to [place] LE 11/06/23 07:46 Consult to Infectious Diseases Routine Consulting Provider: [facility] Infectious Disease Reason for consultation: Lower extremities enlarging wounds for eval and rec. DS: Diagnosis Discharge Diagnosis (1) Wounds, multiple open, lower extremity: Status: Acute (2) Vasculitis: Status: Acute (3) Uncontrolled type 2 diabetes mellitus: Status: Acute DS: Summary Hospital Course Hospital Course: Admission note A 48 years old male with PMH of morbid obesity, Type 2 DM on Insulin, HTN among others who presents to the hospital complaining of worsening bilateral LE wounds for almost 1 week. He reports that he noticed small raised reddish lesions on his legs that were itchy forcing him to scratching them but they continued to get larger in size and increasing in number moving proximally. He tried local measures as anti-fungal cream, alcohol swaps, steroid cream with continous worsening of the lesion and increasing pain. denies any drainage or bleeding. he noticed the wounds are turning blackish with neves edges. no fever, chills, No chest pain, palpitations, SOB, nausea, vomiting, diarrhea or urinary symptoms. In ED found to have elevated CRP and ESR. discussed with surgical team who were willing to do skin biopsy for the area for concerns over possible vasculitis. Hospital course Multiple open wounds in LEs secondary to likely Vasculitis based on wound biopsy. The patient was admitted and started on IV Steroids along with empirical Ceftriaxone as he was seen by ID who did not feel the wounds were infected so antibiotics discontinued prior to discharge. surgery did skin biopsy, the result showed be available below and pending update after some additional testing is done. Negative SARAH, ANCA, RF, CCP but still pending complement level and Igs Wound care assessment was done and recommendations for discharge below. Noticed to have High total protein:Albumin ration was investigated Pending Immunofixation as serum electropheresis showed mild elevated in Globulin which could be a result of infection itself as no protein noticed in urine analysis. results to follow. He will be discharged on tapering dose of steroids. follow with wound clinic and Primary care for rest of work up to come back For Hyperglycemia secondary to uncontrolled DM II with HbA1c of 11.3. He was very challenging as he refused insulin on many occasions with Glu level up to 500s on occasions but overall better controlled during the daytime. Increased Lantus to 50 units BID at home. To give SSI and start Jardiance along with MEtformon 1 gm bid. He was advised to lose weight and follow strict diabetic diet. Discharge Plan Topical Wound Care Recommendations: 1. Provide adequate and supplemental nutrition.? 2. When applicable maintain blood glucose levels per Providers order. 3. Bilateral Lower Legs - Elevate Lower Legs - [place] with Betadine Daily, allow to dry cover with dry gauze and wrap. Do not attempt to debride wound bed at this time. Change Daily. Recommend follow up out patient Wound Clinic at [address] [place] [address] and to call for an appointment at time of discharge. [phone].? Time Attestation Discharge Coordination Time (in mins): 42 Quality: Safe Use of Opioids Does Pt have an Active Cancer Diagnosis on the Problem List?: No Quality: Stroke Does the patient have a stroke diagnosis?: No Physical Exam Vital Signs: Vital Signs: Last Vital Signs Temp 96.8 F 11/09/23 07:18 Pulse 108 H 11/09/23 07:18 Resp 18 11/09/23 07:18 BP 140/82 H 11/09/23 07:18 Pulse Ox 97 11/09/23 07:18 O2 Del Method Room Air 11/09/23 07:18 O2 Flow Rate 113 11/07/23 19:50 BMI result Body Mass Index 48.3 Const: Other: Constitutional : Awake, interactive, not in distress Neck : Normal inspection, Supple Cardiovascular : RRR, no JVP, no lower extremity edema Respiratory : good bilateral air entry, no crackles, wheezes or rhonchi Gastrointestinal: soft, lax, Normal bowel sounds, Non tender Skin : Warm, Dry, multiple wounds ranging from 0.5 - 5 cm in diameter more in RLE than left with greyish edges and less tenderness on touch. covered with dressing. Neurological : Alert & oriented x3, No focal deficit DS: Data Data Completed and Pending Completed studies during hospitalization [Text1]: Pending at discharge 11/07/23 10:11 Surgical [PTH] Stat Labs on day of discharge: Laboratory Results - last 24 hr 11/05/23 11/06/23 11/08/23 09:38 16:21 15:59 POC Glucose 256 H Total Protein (PEP) 8.5 H Albumin (PEP) 4.1 Anvbc-9-Istbbaqhk 0.3 Vfenv-4-Ravxxjpeq 0.7 Ufxz-7-Sfenakrg 0.6 Hoox-1-Ypqsgzwz 0.8 H Gamma Globulins 1.9 H Abnorm Protein Band 1 SEE NOTE PEP Interpretation SEE NOTE SARAH Titer TNP SARAH Titer 2 TNP SARAH Titer 3 TNP SARAH Pattern TNP SARAH Pattern 2 TNP SARAH Pattern 3 TNP Proteinase 3 (PR3) Ab <1.0 Myeloperoxidase Ab <1.0 11/08/23 11/09/23 11/09/23 21:04 07:21 11:11 POC Glucose 539 H* 364 H* 237 H Total Protein (PEP) Albumin (PEP) Nmesi-4-Purnaqtvm Bpjaa-4-Emtwurtto Aaqi-9-Mqebozjp Bgeo-9-Nrgpdqjn Gamma Globulins Abnorm Protein Band 1 PEP Interpretation SARAH Titer SARAH Titer 2 SARAH Titer 3 SARAH Pattern SARAH Pattern 2 SARAH Pattern 3 Proteinase 3 (PR3) Ab Myeloperoxidase Ab Imaging Chest x-ray: My impression: Skin, right leg, excision: Ulcerated skin with marked dermal acute and chronic inflammation involving vessels and extravasated red blood cells. See description and comment. Comment: There are some vascular fibrinoid changes along with eosinophils; however, in the setting of ulcer it is impossible to determine if these are primary (e.g. vasculitis) or secondary/reactive changes. Nevertheless, recommend correlating with serologic studies to rule out polyarteritis nodosa or other immune-mediated processes. If calciphylaxis is a clinical consideration, consider a deeper biopsy with subcutaneous adipose tissue. Additional levels are pending as well as a PAS stain to rule out fungi - results will be addended Discharge Plan Discharge Anticipated Discharge Date/Time: 11/09/23 11:21 Patient Disposition: Home Health Service Discharge Diagnosis: Vasculitis lower extremities Uncontrolled diabetes Referrals: [facility] [Other] - 1 Week (Please call the wound clinic to schedule an appointment) [facility] - 3-5 Days ([facility] will call you to schedule an appointment, if your PCP agrees to sign orders. Please follow up with the wound clinic either way.) Jose C Campbell MD [Primary Care Provider] - 1 Week Discharge Medications: New losartan 25 mg Tablet 75 mg PO DAILY Qty: 90 2RF Protocol: Hold for SBP< HOLD for SBP < : 90 prednisone 20 mg tablet See Taper PO DAILY Qty: 40 0RF Taper: Prednisone 40 mg daily for 7 Days and 0 Hour 30 mg daily for 7 Days and 0 Hour 20 mg daily for 7 Days and 0 Hour 10 mg daily for 7 Days and 0 Hour Jardiance 25 mg tablet 25 mg PO QAM Qty: 90 0RF insulin lispro [Humalog KwikPen Insulin] 100 unit/mL insulin pen 1 sliding scale dose subcut USEASDIRECTD Qty: 15 2RF alcohol swabs Pads, Medicated 1 pad topical QIDACHS Qty: 100 2RF (DME) blood-glucose meter [FreeStyle Lite Meter] Kit See Rx Instructions .ROUTE .MEDSUPPLY Qty: 1 0RF Rx Instructions: As directed (DME) FreeStyle Lite Strips Strip See Rx Instructions .ROUTE .MEDSUPPLY Qty: 100 0RF Rx Instructions: QID (DME) pen needle, diabetic [Pen Needle] 31 gauge x 5/16 needle See Rx Instructions .ROUTE .MEDSUPPLY Qty: 1200 0RF Rx Instructions: As directed Continued (DME) Ultra-Light Rollator Misc See Rx Instructions .Route Qty: 1 0RF Rx Instructions: As directed (DME) Shower Chair Misc See Rx Instructions .Route Qty: 1 0RF Rx Instructions: As directed (DME) cane Device See Rx Instructions .Route Qty: 1 0RF Rx Instructions: As directed (DME) pen needle, diabetic [BD Ultra-Fine Vania Pen Needle] 32 gauge x 5/32 needle See Rx Instructions .Route Qty: 100 11RF Rx Instructions: As directed (DME) blood-glucose meter [FreeStyle Lite Meter] Kit See Rx Instructions .MEDSUPPLY Qty: 1 0RF Rx Instructions: 2x day (DME) blood pressure kit-extra large Kit See Rx Instructions .Route Qty: 1 0RF Rx Instructions: As directed (DME) lancets [FreeStyle Lancets] 28 gauge misc See Rx Instructions .MEDSUPPLY Qty: 100 11RF Rx Instructions: 2x day (DME) FreeStyle Lite Strips Strip See Rx Instructions .MEDSUPPLY Qty: 100 11RF Rx Instructions: 2x day metformin 1,000 mg tablet 1,000 mg PO BID Qty: 180 3RF Changed insulin glargine [Lantus Solostar U-100 Insulin] 100 unit/mL (3 mL) insulin pen 50 unit subcut BID Qty: 15 0RF Discontinued losartan 50 mg tablet 50 mg PO DAILY Qty: 90 3RF Discharge Orders: Discharge Order (Routine); Ordered 11/09/23 Ordered By: Myesha Vicente Diet: Diabetic diet Activity on Discharge: As tolerated Stand Alone Forms: Patient Portal Discharge page Print Language: Algerian Activity Restrictions/Additional Instructions: Topical Wound Care Recommendations: 1. Provide adequate and supplemental nutrition.? 2. When applicable maintain blood glucose levels per Providers order. 3. Bilateral Lower Legs - Elevate Lower Legs - [place] with Betadine Daily, allow to dry cover with dry gauze and wrap. Do not attempt to debride wound bed at this time. Change Daily. Recommend follow up out patient Wound Clinic at [address] [place] [id number] and to call for an appointment at time of discharge. [phone].? Care Plan Goals: Read below Health Concerns: Read below Plan of Treatment: Read below Assessment: Take Prednisone tapering dose starting with 40 mg daily and lower it by 10 mg every week Increase Lantus to 50 units twice daily for now Start short acting meal time insulin Follow with wound care as scheduled
--- NOTE | 2023-11-09 12:47 | W.MHC.F2F ---
Service Date Service Date: 11/09/23 Encounter Date of encounter: 11/09/23 Reasons for Services Signs and symptoms assessed: Vasculitis lower extremities Uncontrolled diabetes Reason for long-term: wound care, monitoring of unstable blood sugar, medication treatment and teach disease management Homebound: Leaving the home is medically contraindicated at this time without the asist of a device and/or another person due th the listed conditions above and below. Reason homebound: unable to drive Certification: Based on the above findings, I certify that this patient is confined to the home and needs intermittent long-term care, physical therapy and/or speech therapy, or continues to need occupational therapy. The patient is under my care, and I have initiated the establishment of the plan of care. The patient will be followed by a physician who will periodically review the plan of care. Time Spent With Patient Time: Total time managing care of this patient today ____ minutes.
[2023-11-09 16:19] LABS: Complement C3 105 mg/dL (82-185)
[2023-11-11 11:09] LABS: IgA 1007 mg/dL (47-310); IgG 2121 mg/dL (600-1640); IgM 97 mg/dL (50-300)
== END 2023-11-09 14:47 | disposition home health service (06) | DRG 346 ==
LOC: HO.ED 11-05 01:00 → HO.EDOVER 11-05 10:47 → HO.S3 11-05 15:43
PROVIDERS: Physician Assistant; Admitting Provider Student in an Organized Health Care Education/Training Program; Emergency Provider Emergency Medicine Emergency Medical Services; PCP Internal Medicine; Visit Provider Student in an Organized Health Care Education/Training Program
DX: I77.6 Arteritis, unspecified (principal); E11.22 Type 2 diabetes mellitus with diabetic chronic kidney disease; I12.9 Hypertensive chronic kidney disease with stage 1 through stage 4 chronic kidney disease, or unspecified chronic kidney disease; N18.30 Chronic kidney disease, stage 3 unspecified; E87.5 Hyperkalemia; E11.65 Type 2 diabetes mellitus with hyperglycemia; E66.01 Morbid (severe) obesity due to excess calories; Z71.3 Dietary counseling and surveillance; Z68.42 Body mass index [BMI] 45.0-49.9, adult; Z79.4 Long term (current) use of insulin; Z79.84 Long term (current) use of oral hypoglycemic drugs; Z79.899 Other long term (current) drug therapy
CPT/HCPCS: 36415; 80048; 80053; 80307; 81001; 82784; 82947; 83036; 84165; 85025; 85027; 85652; 86021; 86038; 86140; 86160; 86200; 86334; 86431; 88304; 88305; 88312; 93005; 99285; J0696; J1650; J2270; J2919

== ENCOUNTER → 2023-11-05 00:45 | Outpatient (BNV) | payer OTHER, SELFPAY | PROVIDERS: Admitting Provider Student in an Organized Health Care Education/Training Program; Emergency Provider Emergency Medicine Emergency Medical Services; PCP Internal Medicine; Visit Provider Internal Medicine | DX: R00.0 Tachycardia, unspecified (principal) | CPT/HCPCS: 93010 ==

== ENCOUNTER → 2023-11-05 10:39 | Outpatient (BNV) | payer OTHER, SELFPAY | PROVIDERS: Admitting Provider Student in an Organized Health Care Education/Training Program; Emergency Provider Emergency Medicine Emergency Medical Services; PCP Internal Medicine; Visit Provider Student in an Organized Health Care Education/Training Program | DX: I77.6 Arteritis, unspecified (principal); E11.622 Type 2 diabetes mellitus with other skin ulcer; L97.229 Non-pressure chronic ulcer of left calf with unspecified severity | CPT/HCPCS: 99223; 99232; 99239; 99499; G0180 ==

== ENCOUNTER → 2023-11-05 10:39 | Outpatient (BNV) | payer OTHER, SELFPAY | PROVIDERS: Admitting Provider Student in an Organized Health Care Education/Training Program; Emergency Provider Emergency Medicine Emergency Medical Services; PCP Internal Medicine; Visit Provider Surgery | DX: L95.9 Vasculitis limited to the skin, unspecified (principal) | CPT/HCPCS: 11102; 99222 ==

== ENCOUNTER → 2023-11-05 10:39 | Outpatient (BNV) | payer OTHER, SELFPAY | PROVIDERS: Admitting Provider Student in an Organized Health Care Education/Training Program; Emergency Provider Emergency Medicine Emergency Medical Services; PCP Internal Medicine; Visit Provider Internal Medicine | DX: I77.6 Arteritis, unspecified (principal) | CPT/HCPCS: 99222 ==

== ENCOUNTER 2023-12-01 09:21 | Outpatient (AMB) | payer OTHER, SELFPAY ==
--- NOTE | 2023-12-01 09:21 | A.OFFPC_ITS ---
Vital Signs 12/01/23 09:22 Height 5 ft 6 in Weight 286 lb BMI 46.2 BP 130/92 H Blood Pressure Location Lt brachial Position Sitting Pulse 75 Pulse Source Pulse Oximeter Pulse Oximetry (%) 98 Oxygen Delivery Method Room Air [place] [facility] [place] Intake Note: Patient is here for hospital discharge follow up. [place] was [place] [facility] [place] Barrel Scraper Required: Yes Barrel Scraper Language: Icelandic Allergies No Known Allergies [No Known Allergies*] Allergy (Verified 12/04/23 22:31) Medication List - Last Reconciled 12/04/23 by Jose C Campbell MD alcohol swabs 1 pad topical QIDACHS blood pressure kit-extra large As directed blood sugar diagnostic (FreeStyle Lite Strips) QID blood sugar diagnostic (FreeStyle Lite Strips) 2x day blood-glucose meter (FreeStyle Lite Meter kit) As directed blood-glucose meter (FreeStyle Lite Meter kit) 2x day cane As directed empagliflozin (Jardiance) 25 mg PO QAM insulin glargine (Lantus Solostar U-100 Insulin) 50 units (0.5 mL) subcut BID insulin lispro (Humalog KwikPen (U-100) Insulin) 1 sliding scale dose subcut USEASDIRECTD lancets (FreeStyle Lancets) 2x day losartan 75 mg See Protocol PO DAILY metformin 1,000 mg PO BID oxycodone 5 mg PO Q8H PRN pen needle, diabetic (Pen Needle) As directed pen needle, diabetic (BD Ultra-Fine Vania Pen Needle) As directed Shower Chair As directed walker (Ultra-Light Rollator misc) As directed Tobacco use date assessed: 12/01/23 Dental Screening Dental Screen Date: 04/01/23 [place] [facility] [place] HPI Details Patient comes in today for his [facility] follow-up visit He was [place] [facility] [place] few days last month when he presented to the ER with worsening bilateral lower extremity wounds He had wound biopsy done which revealed findings consistent with vasculitis He was started then on IV steroids along with empirical IV antibiotic treatment with ceftriaxone but after being evaluated by Infectious Disease, the antibiotics were discontinued He was referred to and evaluated by Wound Care and he was advised to continue following-up with with wound clinic regularly for continuing management of his lower extremity wounds but he has not seen anyone for his lower extremity wounds yet since his discharge home other than visiting nurses, who he states is currently managing his wounds He was discharged home about 3 weeks ago and he is still presently finishing up his oral prednisone taper He was advised to continue with his current medications, including his diabetes meds and was emphasized that he needs to get his diabetes under better control to help with his wound healing States that he feels okay otherwise He denies any headaches or dizziness Denies any fever Denies any chest pains, no shortness of breath No nausea / vomiting, no abdominal pain No change in bowel habits noted He needs his Lantus Rx refilled PFSH Medical History (Updated 12/04/23 @ 23:36 by Jose C Campbell MD) Chronic kidney disease (CKD), stage III (moderate) BMI 40.0-44.9, adult Morbid obesity with BMI of 40.0-44.9, adult Uncontrolled type 2 diabetes mellitus Encounter to establish care Arthritis of both hips Long-term insulin use DM type 2 (diabetes mellitus, type 2) Hypertension Surgical History No pertinent past surgical history Social History Household Members: None Housing: Apartment Do you presently have visiting nurse or other home services: No Alcohol intake: never Patient Tobacco Use Status: Never used Tobacco e-Cigarette/Vaping Use: Never Used Second Hand Smoke Exposure: No service: No Current occupational status: disabled Current occupational exposures/hazards: No Cognitive needs: Yes (cane) Hearing needs: No Vision needs: Yes (glasses) Questionnaire Thrive Questionnaire Date Thrive assessed: 11/07/23 AUDIT C Alcohol Use Questionnaire (AUDIT-C) 1. How often do you have a drink containing alcohol?: Never 3. How often do you have six or more drinks on one occasion?: Never Total Score: 0 Score Reviewed/Action Taken: Yes RYANNE-7 AMB Questionnaire RYANNE-7 Date RYANNE - 7 assessed: 08/12/22 Source: Developed by Drs. Gilberto Camp, Cheyenne Howe, Gumaro Ruelas and colleagues, with an educational patito from [email or web address]. Review of Systems Const Denies chills, Denies fatigue, Denies fever(s) and Denies headache(s) ENT Denies dysphagia, Denies dizziness, Denies otalgia, Denies headache(s), Denies neck pain, Denies odynophagia and Denies sore throat Card Denies chest pain, Denies palpitations and Denies dyspnea Resp Denies cough and Denies dyspnea GI Denies abdominal pain, Denies constipation, Denies dysphagia, Denies heartburn, Denies diarrhea, Denies nausea, Denies odynophagia and Denies vomiting Denies dysuria, Reports nocturia and Reports urinary frequency Musc Denies neck pain Skin/Breast Details: (+) multiple open wounds over his lower extremities bilaterally Neuro Denies dizziness and Denies headache(s) Endo Denies fatigue and Denies palpitations Physical exam (Primary Care) Vital Signs: Last Vital Signs Pulse 75 12/01/23 09:22 BP 130/92 H 12/01/23 09:22 Pulse Ox 98 12/01/23 09:22 Oxygen Delivery Method Room Air 12/01/23 09:22 BMI result Body Mass Index 46.2 Tobacco/Smoking Status: Tobacco use Status Tobacco use date assessed 12/01/23 12/01/23 09:23 Patient Tobacco Use Status Never used Tobacco 12/01/23 09:23 e-Cigarette/Vaping Use Never Used 12/01/23 09:23 Thrive Assessment: Date of Thrive Assessment Date Thrive assessed 11/07/23 12/01/23 09:23 Const General: no acute distress and alert HENMT Ears: TM's normal bilaterally and EAC's normal Throat: Yes posterior oropharynx normal and Yes tonsils normal (no TP congestion) Neck Neck: Yes no lymphadenopathy and Yes supple Thyroid: Thyroid normal Resp Auscultation: clear to auscultation bilaterally, no rales and no wheezes Cardio Rate: regular rate Rhythm: regular rhythm Heart sounds: no murmurs GI Palpation (GI): Soft to palpation and nontender Auscultation: normal bowel sounds General: Yes no CVA tenderness Back/Spine/Pelvis Back: no CVA tenderness Skin Other: (+) multiple open wounds over both lower legs Extrem General: Yes no clubbing, cyanosis or edema Assessment and Plan Assessment & Plan (1) Uncontrolled diabetes mellitus with hyperglycemia, with long-term current use of insulin: Code(s): E11.65 - Type 2 diabetes mellitus with hyperglycemia; Z79.4 - detention (current) use of insulin Plan: Patient's HgbA1c was most recently at 11.3% when checked a few weeks ago on 11/08/2023 - goal is <7.0% Reinforced diabetic diet Continue Lantus 50 units SQ BID, Humalog Kwikpen 2 to 10 units TID with meals per sliding scale, Metformin 1000 mg BID and Jardiance 25 mg Q AM Will refer him for diabetes teaching and nutritional counseling and also to endocrinology for further evaluation and management (2) Chronic kidney disease (CKD), stage III (moderate): Code(s): N18.30 - Chronic kidney disease, stage 3 unspecified Qualifiers: Chronic kidney disease stage 3 subtype: stage 3a (GFR 45-59) Qualified Code(s): N18.31 - Chronic kidney disease, stage 3a Plan: Patient is advised that he is currently in stage 3 CKD and should try to get his diabetes under control TADEO to help slow down the decline of his renal function He is currently on Losartan 50 mg QD and Jardiance 25 mg QD Will refer him as well to nephrology for further evaluation and management (3) Hypertension: Code(s): I10 - Essential (primary) hypertension Qualifiers: Hypertension type: primary hypertension Qualified Code(s): I10 - Essential (primary) hypertension Plan: Reinforced low-sodium diet - goal is systolic BP of at least 120 to 130 mm or less Continue Losartan 75 mg QD (4) Hyperproteinemia: Code(s): E88.09 - Other disorders of plasma-protein metabolism, not elsewhere classified Plan: His recent labs showed findings of significantly elevated IgG and IgA levels; serum electrophoresis showed (+) elevation of beta-2 globulins Serum immunofixation though revealed no monoclonal proteins detected Will refer him to hematology for further evaluation and management (5) 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: Code(s): L95.9 - Vasculitis limited to the skin, unspecified Plan: Continue oral Prednisone taper He is being referred to nephrology for further evaluation and management of his vasculitis (6) Bilateral leg ulcer: Code(s): L97.919 - Non-pressure chronic ulcer of unspecified part of right lower leg with unspecified severity; L97.929 - Non-pressure chronic ulcer of unspecified part of left lower leg with unspecified severity Qualifiers: Non-pressure ulcer stage: unspecified non-pressure ulcer stage Qualified Code(s): L97.919 - Non-pressure chronic ulcer of unspecified part of right lower leg with unspecified severity; L97.929 - Non-pressure chronic ulcer of unspecified part of left lower leg with unspecified severity Plan: Is most likely due to his vasculitis Will refer him to the wound clinic for continuing management of his bilateral lower extremity ulcers (7) Morbid obesity with BMI of 45.0-49.9, adult: Code(s): E66.01 - Morbid (severe) obesity due to excess calories; Z68.42 - Body mass ind ex [BMI] 45.0-49.9, adult Plan: Reinforced diet; exercise and weight loss are unrealistic due to patient's multiple comorbidities Plan Follow up in 2 months Orders: Orders Complete Blood Count Auto Diff 2 Months D64.9 - Anemia, unspecified Lipid Panel 2 Months E78.00 - Pure hypercholesterolemia, unspecified Comprehensive [place]. Panel Fast 2 Months E78.00 - Pure hypercholesterolemia, unspecified TSH reflex Free T4 2 Months E78.00 - Pure hypercholesterolemia, unspecified Vitamin D 25-OH Total 2 Months E55.9 - Vitamin D deficiency, unspecified Vitamin B12 and Folate 2 Months E53.8 - Deficiency of other specified B group vitamins Microalbumin, Random (w Creat) 2 Months E11.9 - Type 2 diabetes mellitus without complications UA CC w/rflx Micro + Cult 2 Months R30.0 - Dysuria Hemoglobin A1c 2 Months E11.9 - Type 2 diabetes mellitus without complications Referrals Hematology & Oncology Referral L95.9 - Vasculitis limited to the skin, unspecified, R77.1 - Abnormality of globulin Wound Care Referral L95.9 - Vasculitis limited to the skin, unspecified, L97.919 - Non-pressure chronic ulcer of unspecified part of right lower leg with unspecified severity, L97.929 - Non-pressure chronic ulcer of unspecified part of left lower leg with unspecified severity Nephrology Referral E11.65 - Type 2 diabetes mellitus with hyperglycemia, L95.9 - Vasculitis limited to the skin, unspecified, N18.31 - Chronic kidney disease, stage 3a, Z79.4 - detention (current) use of insulin Diabetes Education Referral E11.65 - Type 2 diabetes mellitus with hyperglycemia, N18.30 - Chronic kidney disease, stage 3 unspecified Endocrinology Referral E11.65 - Type 2 diabetes mellitus with hyperglycemia, L95.9 - Vasculitis limited to the skin, unspecified, N18.30 - Chronic kidney disease, stage 3 unspecified Medications: Refilled insulin glargine (Lantus Solostar U-100 Insulin) 50 units (0.5 mL) subcut BID 15 mL 3RF Coding Level of Care Code Est Pt Level 4 (79672) Diagnoses Uncontrolled diabetes mellitus with hyperglycemia, with long-term current use of insulin E11.65; Z79.4 Stage 3a chronic kidney disease N18.31 Chronic kidney disease stage 3 subtype: stage 3a (GFR 45-59) Primary hypertension I10 Hypertension type: primary hypertension Hyperproteinemia E88.09 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 L95.9 Ulcers of both lower extremities, unspecified ulcer stage L97.919; L97.929 Non-pressure ulcer stage: unspecified non-pressure ulcer stage Morbid obesity with BMI of 45.0-49.9, adult E66.01; Z68.42
[2023-12-01 09:22] VITALS: BP 130/92; PULSE 75; O2SAT 98; BMI 46.2
== END 2023-12-01 10:22 | disposition home or self-care (01) ==
LOC: HO.HMGH 09:21
PROVIDERS: PCP Internal Medicine; Visit Provider Internal Medicine
DX: I12.9 Hypertensive chronic kidney disease with stage 1 through stage 4 chronic kidney disease, or unspecified chronic kidney disease (principal); E11.65 Type 2 diabetes mellitus with hyperglycemia; Z79.4 Long term (current) use of insulin; N18.31 Chronic kidney disease, stage 3a; L97.919 Non-pressure chronic ulcer of unspecified part of right lower leg with unspecified severity; L97.929 Non-pressure chronic ulcer of unspecified part of left lower leg with unspecified severity; E66.01 Morbid (severe) obesity due to excess calories; Z68.42 Body mass index [BMI] 45.0-49.9, adult; E88.09 Other disorders of plasma-protein metabolism, not elsewhere classified; L95.9 Vasculitis limited to the skin, unspecified
CPT/HCPCS: 99214

== ENCOUNTER 2023-12-29 13:34 | Outpatient (AMB) | payer OTHER, SELFPAY ==
--- NOTE | 2023-12-29 14:24 | MHC.AMDMED ---
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: Yes Bridge Ironworker Helper Name: [facility] [place] Information Interpreted: non-clinical & clinical Accompanied by: Spouse Allergies No Known Allergies [No Known Allergies*] Allergy (Verified 12/04/23 22:31) HPI Comprehensive Diabetes Asmnt Most Recent Diabetes Results: Creatinine 1.60 mg/dL (0.5-1.4) H 11/08/23 Blood Urea Nitrogen 34 mg/dL (9-16) H 11/08/23 Sodium 136 mmol/L (135-145) 11/08/23 Potassium 4.7 mmol/L (3.3-5.1) 11/08/23 Chloride 101 mmol/L (96-108) 11/08/23 Carbon Dioxide 27 mmol/L (22-29) 11/08/23 Calcium 9.5 mg/dL (8.4-10.2) 11/08/23 AST 13 U/L (5-37) 11/04/23 ALT 19 U/L (0-40) 11/04/23 Total Protein 8.7 g/dL (6.5-8.0) H 11/04/23 Albumin 3.8 g/dL (3.5-5.0) 11/04/23 [facility] Medical History (Updated 12/04/23 @ 23:36 by Jose C Campbell MD) Chronic kidney disease (CKD), stage III (moderate) BMI 40.0-44.9, adult Morbid obesity with BMI of 40.0-44.9, adult Uncontrolled type 2 diabetes mellitus Encounter to establish care Arthritis of both hips Long-term insulin use DM type 2 (diabetes mellitus, type 2) Hypertension Surgical History No pertinent past surgical history Social History Household Members: None Housing: Apartment Do you presently have visiting nurse or other home services: No Alcohol intake: never Patient Tobacco Use Status: Never used Tobacco e-Cigarette/Vaping Use: Never Used Second Hand Smoke Exposure: No service: No Current occupational status: disabled Current occupational exposures/hazards: No Cognitive needs: Yes (cane) Hearing needs: No Vision needs: Yes (glasses) Assessment & Plan Assessment & Plan (1) Uncontrolled diabetes mellitus with hyperglycemia, with long-term current use of insulin: Code(s): E11.65 - Type 2 diabetes mellitus with hyperglycemia; Z79.4 - retirement (current) use of insulin Plan: Learning objectives: The patient was provided with verbal and written education on the following topics as outlined below. The patient met all learning objectives and was able to verbalize understanding and provide teach back of education topics discussed . The patient was provided with the opportunity to ask questions and all questions were answered. Patient Assessment Assess patient education level/literacy/barriers, patient stated he does not have his glasses so he cannot read any of the handouts. 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 List of eye doctors in the area given to patient. Recommended patient contact eye doctor to set up appointment, if he needs referral for appointment he can request one from Dr. Gaona at visit or he can request 1 from his PCP. Hand outs given to his spouse. Patient questions/concerns patient's last A1c on 11/08/2023 11.3%, patient has recently been hospitalized for vasculitis and nonhealing ulcers bilateral. Patient has had diabetes for approximately 5 years. At today's visit patient requested prescription for sensors, explained to patient he needs to be seen by provider before prescriptions can be written because in order to get approval from insurance for sensors we need visit note. Patient did have schedule appointment with Dr. Gaona on 12/15/2023 however patient did not show up for that appointment. During visit patient was argumentative, denying the hyperglycemia causes thirst, frequent urination or poor healing. Patient also denies he received Jardiance 25 mg or Humalog from his pharmacy, during visit called patient's pharmacy explained to pharmacist that he did not receive the last 3 shipment of his medications. Asked pharmacy to know for stacker driver that they need to get a a signature when they leave medications. Pharmacist agreed to note patient's account. Agreed to send new medication for 12/30/2023. Patient requested prescription for meter and strips to be sent to pharmacy, patient denied needing lancets What is Diabetes? Pathophysiology How the body produces and uses insulin Identify type of DM Risk factors Signs of Diabetes Brief overview of Diabetes Management Monitoring blood sugar Following a meal plan Regular exercise Maintaining a healthy weight Taking medication as needed Members of the care team (PCP, RN, MA, RD, CDE, real estate representative) Blood glucose monitoring When/how often to test Target blood sugar ranges Patient is not currently testing blood sugar Introduction to Nutrition Importance of healthy diet in managing DM Diet is personalized to individual preference Review patient?s regular diet/food preferences Who prepares meals/does food shopping/ Dining out?/ Barriers? How diet effects glucose Eating 3 balanced meals a day with small, healthy snacks between meals Review food groups Carbohydrates: What is a carbohydrate/Which food/food groups are considered carbohydrates Effect of carbohydrates on blood glucose Portion sizes Reading food labels Basic carb counting (if applicable per nursing assessment) Plate method Meal planning Recommendations: Follow plate method, consistent carbs and read nutritional labels. Smart Goal: Patient will reschedule appointment for Dr. Gaona Educational Materials: The patient was provided with the following written educational materials: Planning Healthy Meals Handout Patient Response to instructions: Comprehension of Instructions: poor Readiness to make changes: pre-contemplation How confident they feel about making changes: Poor Portions of this note were created using voice recognition software, please excuse any words or phrases that may have been misinterpreted. Patient Instructions: Incluir actividad diaria regular. ADA recomienda 30 minutos de ejercicio 5 d?as a la semana. P?rdida de peso, hable con el PCP o el cardi?logo antes de comenzar un nuevo plan. Mida el nivel de az?car en la gregory seg?n las indicaciones; Ayuno y comida m?s jesica de 2hpp. Observe las tendencias en los resultados. Utilice los resultados y eval?e c?mo los alimentos, la actividad f?norma y los medicamentos afectan los resultados de az?car en la gregory. Lleve el gluc?metro o CGM a la pr?xima visita. Conocer los medicamentos para la diabetes, enamorado acci?n, los efectos secundarios, la eficacia, la toxicidad, la dosis prescrita, el momento y la frecuencia de administraci?n apropiados, el efecto de las dosis olvidadas y retrasadas y las instrucciones de almacenamiento, viaje y seguridad. T?cnicas de resoluci?n de problemas para el seguimiento de episodios de hipo/hiperglucemia y tratamientos. Reducir los comportamientos de reducci?n de riesgos, dejar de fumar, ex?menes regulares de ojos, pies y dentales. Coding Level of Care Code Est Pt Level 1 (21502) Diagnoses Uncontrolled diabetes mellitus with hyperglycemia, with long-term current use of insulin E11.65; Z79.4
== END 2023-12-29 14:31 | disposition home or self-care (01) ==
LOC: HO.ENCR 13:34
PROVIDERS: PCP Internal Medicine; Visit Provider Registered Nurse Diabetes Educator
DX: E11.65 Type 2 diabetes mellitus with hyperglycemia (principal); Z79.4 Long term (current) use of insulin

== ENCOUNTER → 2023-12-29 13:34 | Outpatient (BNVA) | payer OTHER, SELFPAY | PROVIDERS: PCP Internal Medicine; Visit Provider Registered Nurse Diabetes Educator | DX: E11.65 Type 2 diabetes mellitus with hyperglycemia (principal); Z79.4 Long term (current) use of insulin | CPT/HCPCS: 99211 ==

== ENCOUNTER 2024-01-04 14:15 | Outpatient (RCR) | payer MEDICAID, OTHER, SELFPAY | END 2024-03-09 10:16 | disposition admitted as inpatient to this hospital (09) | LOC: HO.WCC 14:15 | PROVIDERS: PCP Internal Medicine; Visit Provider Surgery | DX: E11.621 Type 2 diabetes mellitus with foot ulcer (principal); L97.513 Non-pressure chronic ulcer of other part of right foot with necrosis of muscle; L97.313 Non-pressure chronic ulcer of right ankle with necrosis of muscle; L97.322 Non-pressure chronic ulcer of left ankle with fat layer exposed; L97.822 Non-pressure chronic ulcer of other part of left lower leg with fat layer exposed; E11.51 Type 2 diabetes mellitus with diabetic peripheral angiopathy without gangrene; E11.65 Type 2 diabetes mellitus with hyperglycemia; E11.22 Type 2 diabetes mellitus with diabetic chronic kidney disease; I12.9 Hypertensive chronic kidney disease with stage 1 through stage 4 chronic kidney disease, or unspecified chronic kidney disease; N18.30 Chronic kidney disease, stage 3 unspecified; L95.8 Other vasculitis limited to the skin | CPT/HCPCS: 11042; 11045; 99214; 99215 ==

== ENCOUNTER 2024-01-05 13:06 | Outpatient (AMB) | payer OTHER, SELFPAY ==
--- NOTE | 2024-01-05 13:06 | MHC.PC.OV ---
Vital Signs 01/05/24 13:12 Height 5 ft 6 in Weight 294 lb 1.546 oz BMI 47.5 BP 102/80 Blood Pressure Location Rt brachial Position Sitting Pulse 133 H Pulse Source Pulse Oximeter Temp Source Skin Pulse Oximetry (%) 100 Oxygen Delivery Method Room Air Intake Visit Reasons: [facility] Allergies No Known Allergies [No Known Allergies*] Allergy (Verified 01/05/24 13:41) Medication List - Last Reconciled 01/05/24 by Jose C Campbell MD alcohol swabs 1 pad topical QIDACHS blood pressure kit-extra large As directed blood sugar diagnostic (FreeStyle Lite Strips) QID blood sugar diagnostic (FreeStyle Lite Strips) 2x day blood-glucose meter (FreeStyle Lite Meter kit) 2x day blood-glucose meter (FreeStyle Lite Meter kit) As directed cane As directed empagliflozin (Jardiance) 25 mg PO QAM insulin glargine (Lantus Solostar U-100 Insulin) 50 units (0.5 mL) subcut BID insulin lispro (Humalog KwikPen (U-100) Insulin) 1 sliding scale dose subcut USEASDIRECTD lancets (FreeStyle Lancets) 2x day losartan 75 mg See Protocol PO DAILY metformin 1,000 mg PO BID oxycodone 5 mg PO Q8H PRN pen needle, diabetic (Pen Needle) As directed pen needle, diabetic (BD Ultra-Fine Vania Pen Needle) As directed Shower Chair As directed walker (Ultra-Light Rollator misc) As directed Tobacco use date assessed: 01/05/24 Dental Screening Dental Screen Date: 01/05/24 HPI [facility] HPI Details Patient comes in today for HDF follow up visit He supposedly went to the ER at [facility] a couple of weeks ago for his painful leg ulcers States that they did the full work up there and were able to diagnose the reason for his painful leg ulcers but advised him to speak with his PCP about getting some Rx for pain when he asked for Rx He was also seen by the wound clinic last month after his visit here and was told the same thing when he asked for something for pain He is currently very upset and was adamant that I did not do anything at all to help him when I saw him last month, which was his very first visit with me as I have never seen him in the past States that his plan was paying me to help him but all I did then was ask him some questions and sent him home and did not even bother to order any labs on him at the time or open up his bandages to look at his wound We pointed out to him that we made out a few referral to several specialists for him at his last visit based on what information was available to us (he likely has some form of vasculitis that was causing his ulcers) but it looks like he never showed up for any of his appointments other than the wound clinic (even though the nephrology appointment was marked confirmed and was scheduled twice; his endocrinology appointment was also rescheduled from 12/15/2023 to 01/17/2024) I have explained to him that as his wounds appear to be well-wrapped at the time and I was sending him to the wound clinic for an urgent referral anyway, I see no point in opening up his bandages then as we are also going to have a hard time redressing his wounds since we likely do not have some of the appropriate dressing materials here in the office as we are not a wound clinic or a surgical clinic He is now questioning why he even needed to see a kidney doctor when his main problem is his painful leg ulcers Patient continued with his tirade in Kiswahili and we had a medical certification specialist in the room to help translate for us and even the medical certification specialist had a hard time getting any word in as patient kept on ranting - the main issue is that he is supposedly in a lot of pain and that nobody will give him any medication to help with his pain I offered to send him for some labs if he agrees to them as I have not yet received any of his report from [facility] but patient refused - states that he is not a rabbit and does not need to keep getting poked and tested on States that [facility] already figured out the cause of his problem so he does not see why he needs to go and get some more labs done for me I asked him then what it is he expects me to do for him to help him at this time but he just kept on with his ranting and tirade and finally started pointing his finger in my face and calling me mentiroso (liar) repeatedly I then stood up and advised patient that in this case, I can no longer in good conscience work with him objectively in helping take care of his health and it would be in everybody's best interest for him to start looking for another PCP, and then left the room We did not even get past this stage so no physical exam was done during today's visit and patient refused offer for any labs or work ups Instructions were placed in his chart for the office to reschedule his next appointment with another PCP, likely someone else NOT in the same practice, as I am not willing to see him as a patient any longer after what just transpired [facility] Medical History Chronic kidney disease (CKD), stage III (moderate) BMI 40.0-44.9, adult Morbid obesity with BMI of 40.0-44.9, adult Uncontrolled type 2 diabetes mellitus Encounter to establish care Arthritis of both hips Long-term insulin use DM type 2 (diabetes mellitus, type 2) Hypertension Surgical History No pertinent past surgical history Social History Household Members: None Housing: Apartment Do you presently have visiting nurse or other home services: No Alcohol intake: never Patient Tobacco Use Status: Never used Tobacco e-Cigarette/Vaping Use: Never Used Second Hand Smoke Exposure: No service: No Current occupational status: disabled Current occupational exposures/hazards: No Cognitive needs: Yes (cane) Hearing needs: No Vision needs: Yes (glasses) Questionnaire Thrive Questionnaire Date Thrive assessed: 11/07/23 AUDIT C Alcohol Use Questionnaire (AUDIT-C) 1. How often do you have a drink containing alcohol?: Never 3. How often do you have six or more drinks on one occasion?: Never Total Score: 0 Score Reviewed/Action Taken: Yes RYANNE-7 AMB Questionnaire RYANNE-7 Date RYANNE - 7 assessed: 08/12/22 Source: Developed by Drs. Gilberto Camp, Cheyenne Howe, Gumaro Ruelas and colleagues, with an educational patito from [employer]. Physical exam (Primary Care) Vital Signs: Last Vital Signs Pulse 133 H 01/05/24 13:12 BP 102/80 01/05/24 13:12 Pulse Ox 100 01/05/24 13:12 Oxygen Delivery Method Room Air 01/05/24 13:12 BMI result Body Mass Index 47.5 Tobacco/Smoking Status: Tobacco use Status Tobacco use date assessed 01/05/24 01/05/24 13:15 Patient Tobacco Use Status Never used Tobacco 01/05/24 13:09 e-Cigarette/Vaping Use Never Used 01/05/24 13:09 Thrive Assessment: Date of Thrive Assessment Date Thrive assessed 11/07/23 01/05/24 13:09 Assessment and Plan Assessment & Plan (1) Uncontrolled diabetes mellitus with hyperglycemia, with long-term current use of insulin: Code(s): E11.65 - Type 2 diabetes mellitus with hyperglycemia; Z79.4 - custodial (current) use of insulin Plan: Patient's HgbA1c was at 11.3% when last checked on 11/08/2023 - goal is <7.0% Continue Lantus 50 units SQ BID, Humalog Kwikpen 2 to 10 units TID with meals per sliding scale, Metformin 1000 mg BID and Jardiance 25 mg Q AM He was referred for diabetes teaching and nutritional counseling and also to endocrinology for further evaluation and management (2) Chronic kidney disease (CKD), stage III (moderate): Code(s): N18.30 - Chronic kidney disease, stage 3 unspecified Qualifiers: Chronic kidney disease stage 3 subtype: stage 3a (GFR 45-59) Qualified Code(s): N18.31 - Chronic kidney disease, stage 3a Plan: He was advised that he is currently in stage 3 CKD and should try to get his diabetes under control TADEO to help slow down the decline of his renal function He is currently on Losartan 50 mg QD and Jardiance 25 mg QD He was referred to nephrology for further evaluation and management and appears to have been scheduled twice but he never showed up for any of his appointments (3) Hypertension: Code(s): I10 - Essential (primary) hypertension Qualifiers: Hypertension type: primary hypertension Qualified Code(s): I10 - Essential (primary) hypertension Plan: Continue Losartan 75 mg QD (4) Hyperproteinemia: Code(s): E88.09 - Other disorders of plasma-protein metabolism, not elsewhere classified Plan: His recent labs showed findings of significantly elevated IgG and IgA levels; serum electrophoresis showed (+) elevation of beta-2 globulins Serum immunofixation though revealed no monoclonal proteins detected He was referred to hematology for further evaluation and management but has not been scheduled for appointment yet (5) 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: Code(s): L95.9 - Vasculitis limited to the skin, unspecified Plan: S/P oral Prednisone taper recently He was referred to nephrology for further evaluation and management of his vasculitis but he never showed up for the 2 appointments that he was scheduled on (6) Bilateral leg ulcer: Code(s): L97.919 - Non-pressure chronic ulcer of unspecified part of right lower leg with unspecified severity; L97.929 - Non-pressure chronic ulcer of unspecified part of left lower leg with unspecified severity Qualifiers: Non-pressure ulcer stage: unspecified non-pressure ulcer stage Qualified Code(s): L97.919 - Non-pressure chronic ulcer of unspecified part of right lower leg with unspecified severity; L97.929 - Non-pressure chronic ulcer of unspecified part of left lower leg with unspecified severity Plan: Are most likely due to his vasculitis Follow up with the wound clinic as scheduled for continuing management of his bilateral lower extremity ulcers Plan Patient is instructed to find another PCP as I am not willing to continue seeing him as a patient Orders: Orders Immunofixation Pnl, Serum Today L95.9 - Vasculitis limited to the skin, unspecified, S81.809A - Unspecified open wound, unspecified lower leg, initial encounter SARAH Reflex Titer and Pattern Today S81.809A - Unspecified open wound, unspecified lower leg, initial encounter Rheumatoid Factor Today S81.809A - Unspecified open wound, unspecified lower leg, initial encounter C Reactive Protein Today S81.809A - Unspecified open wound, unspecified lower leg, initial encounter Erythrocyte Sedimentation Rate Today M79.7 - Fibromyalgia, S81.809A - Unspecified open wound, unspecified lower leg, initial encounter Coding Level of Care Code Est Pt Level 3 (65935) Diagnoses Uncontrolled diabetes mellitus with hyperglycemia, with long-term current use of insulin E11.65; Z79.4 Stage 3a chronic kidney disease N18.31 Chronic kidney disease stage 3 subtype: stage 3a (GFR 45-59) Primary hypertension I10 Hypertension type: primary hypertension Hyperproteinemia E88.09 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 L95.9 Ulcers of both lower extremities, unspecified ulcer stage L97.919; L97.929 Non-pressure ulcer stage: unspecified non-pressure ulcer stage
[2024-01-05 13:12] VITALS: BP 102/80; PULSE 133; O2SAT 100; BMI 47.5
== END 2024-01-05 14:02 | disposition home or self-care (01) ==
LOC: HO.HMGH 13:06
PROVIDERS: PCP Internal Medicine; Visit Provider Internal Medicine
DX: I12.9 Hypertensive chronic kidney disease with stage 1 through stage 4 chronic kidney disease, or unspecified chronic kidney disease (principal); E11.65 Type 2 diabetes mellitus with hyperglycemia; Z79.4 Long term (current) use of insulin; N18.31 Chronic kidney disease, stage 3a; L97.919 Non-pressure chronic ulcer of unspecified part of right lower leg with unspecified severity; L97.929 Non-pressure chronic ulcer of unspecified part of left lower leg with unspecified severity; E88.09 Other disorders of plasma-protein metabolism, not elsewhere classified; L95.9 Vasculitis limited to the skin, unspecified
CPT/HCPCS: 99213

== ENCOUNTER 2024-02-15 17:21 | Inpatient (IN) | payer MEDICAID, SELFPAY ==
--- NOTE | ~2024-02-15 | XR_ITS ---
EXAMINATION: XR tibia fibula RT 2V, XR foot RT min 3V, XR ankle RT min 3V, XR tibia fibula LT 2V INDICATION: overlying ulcer wounds COMPARISON: No pertinent prior studies are currently available for comparison. TECHNIQUE: 2 views of the left tibia and fibula, 2 views of the right tibia and fibula, 3 views of the right ankle, 3 views of the right foot obtained FINDINGS: Left tibia and fibula: Bones are normal anatomic alignment with no acute fracture or dislocation seen. No bony destructive lesions or periosteal reaction. There is a suggestion of soft tissue swelling and possible soft tissue gas anterior to the distal woody but no obvious tibiotalar joint effusion. Right tibia and fibula, right ankle, and right foot: Mild degenerative changes in the knee. No acute fracture dislocation seen in the knee or tibia. No bony destructive lesions or periosteal reaction. Diffuse soft tissue swelling about the distal calf and ankle with probable skin ulceration along the lateral distal calf but the underlying bony structures are grossly unremarkable. No radiopaque foreign body. Additional soft tissue defects seen along the dorsal lateral aspect of the forefoot near the fourth and fifth MTP joint spaces. There is a subtle lucency along the proximal aspect of the fifth proximal phalanx and focal osteomyelitis cannot be excluded with this appearance no radiopaque foreign body. No acute fracture or dislocation in the ankle or foot. XR/XR tibia fibula RT 2V IMPRESSION: Multiple soft tissue defects along the lateral aspect of the right forefoot. There is a subtle lucency along the proximal aspect of the fifth proximal phalanx. Osteomyelitis cannot be excluded. No radiopaque foreign body. No acute fracture or dislocation. Soft tissue swelling about the distal calf and ankle with possible soft tissue gas anterior to the distal woody as well.
--- NOTE | ~2024-02-15 | MR_ITS ---
EXAMINATION: MR FOOT WITHOUT CONTRAST, RIGHT CLINICAL INFORMATION: Osteomyelitis. Soft tissue ulceration. COMPARISON: Right foot and ankle radiographs dated 02/15/2024. TECHNIQUE: Multisequence MR imaging of the right foot was obtained without contrast. Localizer images as well as sagittal STIR and sagittal T1, axial STIR, and coronal STIR images were obtained. Examination was terminated prematurely due to patient discomfort. FINDINGS: Large soft tissue defect/ulceration along the dorsal aspect of the lateral forefoot at the level of the fifth metatarsal diaphysis measuring up to 3.2 x 3.1 cm with prominent adjacent skin thickening and subcutaneous edema. There is a complex fluid collection which extends within the distal subcutaneous tissues with prominent soft tissue gas. This area measures approximately 5.0 x 3.1 x 2.8 cm and is consistent with abscess formation. Increased T2 and decreased T1 marrow signal throughout the adjacent fifth metatarsal extending to the fifth metatarsophalangeal articular surface. Prominent increased T2 and decreased T1 signal within the base of the fifth proximal phalanx with associated erosions and bony remodeling. Fifth metatarsophalangeal joint effusion with surrounding edema. Findings are consistent with acute osteomyelitis and septic arthritis. Mild increased T2 signal with normal T1 signal in the adjacent fourth metatarsal head and base of the fourth proximal phalanx. Findings may be reactive or represent very early osteomyelitis. No additional joint effusion. No metatarsal stress reaction or fracture. Diffuse edema and atrophy throughout the intrinsic musculature of the foot, which can be seen in diabetic patients. No transverse tendon tear or tendon retraction. Intact Lisfranc ligament. Prominent dorsal subcutaneous edema without additional abscess formation. MR/MR foot RT wo con IMPRESSION: 1. Large soft tissue defect/ulceration along the dorsal lateral aspect of the forefoot at the level of the fifth metatarsal diaphysis. Prominent soft tissue gas with an associated abscess formation measuring up to 5.0 cm in greatest dimension. 2. Osteomyelitis throughout the fifth metatarsal extending to the fifth metatarsophalangeal articular surface as well as the base of the fifth proximal phalanx. Fifth metatarsophalangeal joint effusion with surrounding soft tissue edema, consistent with septic arthritis. 3. Mild marrow edema within the adjacent fourth metatarsal head and base of the fourth proximal phalanx, which may be reactive or represent very early osteomyelitis. 4. Diffuse edema and atrophy throughout the intrinsic musculature of the foot, which can be seen in diabetic patients. Prominent dorsal subcutaneous edema without additional abscess formation.
--- NOTE | ~2024-02-15 | XR_ITS ---
EXAMINATION: XR tibia fibula RT 2V, XR foot RT min 3V, XR ankle RT min 3V, XR tibia fibula LT 2V INDICATION: overlying ulcer wounds COMPARISON: No pertinent prior studies are currently available for comparison. TECHNIQUE: 2 views of the left tibia and fibula, 2 views of the right tibia and fibula, 3 views of the right ankle, 3 views of the right foot obtained FINDINGS: Left tibia and fibula: Bones are normal anatomic alignment with no acute fracture or dislocation seen. No bony destructive lesions or periosteal reaction. There is a suggestion of soft tissue swelling and possible soft tissue gas anterior to the distal woody but no obvious tibiotalar joint effusion. Right tibia and fibula, right ankle, and right foot: Mild degenerative changes in the knee. No acute fracture dislocation seen in the knee or tibia. No bony destructive lesions or periosteal reaction. Diffuse soft tissue swelling about the distal calf and ankle with probable skin ulceration along the lateral distal calf but the underlying bony structures are grossly unremarkable. No radiopaque foreign body. Additional soft tissue defects seen along the dorsal lateral aspect of the forefoot near the fourth and fifth MTP joint spaces. There is a subtle lucency along the proximal aspect of the fifth proximal phalanx and focal osteomyelitis cannot be excluded with this appearance no radiopaque foreign body. No acute fracture or dislocation in the ankle or foot. XR/XR ankle RT min 3V IMPRESSION: Multiple soft tissue defects along the lateral aspect of the right forefoot. There is a subtle lucency along the proximal aspect of the fifth proximal phalanx. Osteomyelitis cannot be excluded. No radiopaque foreign body. No acute fracture or dislocation. Soft tissue swelling about the distal calf and ankle with possible soft tissue gas anterior to the distal woody as well.
--- NOTE | ~2024-02-15 | XR_ITS ---
EXAMINATION: XR tibia fibula RT 2V, XR foot RT min 3V, XR ankle RT min 3V, XR tibia fibula LT 2V INDICATION: overlying ulcer wounds COMPARISON: No pertinent prior studies are currently available for comparison. TECHNIQUE: 2 views of the left tibia and fibula, 2 views of the right tibia and fibula, 3 views of the right ankle, 3 views of the right foot obtained FINDINGS: Left tibia and fibula: Bones are normal anatomic alignment with no acute fracture or dislocation seen. No bony destructive lesions or periosteal reaction. There is a suggestion of soft tissue swelling and possible soft tissue gas anterior to the distal woody but no obvious tibiotalar joint effusion. Right tibia and fibula, right ankle, and right foot: Mild degenerative changes in the knee. No acute fracture dislocation seen in the knee or tibia. No bony destructive lesions or periosteal reaction. Diffuse soft tissue swelling about the distal calf and ankle with probable skin ulceration along the lateral distal calf but the underlying bony structures are grossly unremarkable. No radiopaque foreign body. Additional soft tissue defects seen along the dorsal lateral aspect of the forefoot near the fourth and fifth MTP joint spaces. There is a subtle lucency along the proximal aspect of the fifth proximal phalanx and focal osteomyelitis cannot be excluded with this appearance no radiopaque foreign body. No acute fracture or dislocation in the ankle or foot. XR/XR tibia fibula LT 2V IMPRESSION: Multiple soft tissue defects along the lateral aspect of the right forefoot. There is a subtle lucency along the proximal aspect of the fifth proximal phalanx. Osteomyelitis cannot be excluded. No radiopaque foreign body. No acute fracture or dislocation. Soft tissue swelling about the distal calf and ankle with possible soft tissue gas anterior to the distal woody as well.
[2024-02-15 17:26] VITALS: BP 119/79; PULSE 134; RESP 16; TEMP 37.2; O2SAT 95; BMI 47.1
--- NOTE | 2024-02-15 17:26 | ED.LOWEXIN ---
HPI - Extremity Injury (Lower) General Chief Complaint: Skin/Abscess/Foreign Body Stated Complaint: ? rash bilat legs Time Seen by Provider: 02/15/24 20:26 Related Data Home Medications ?Medication ?Instructions ?Recorded ?Confirmed amlodipine 10 mg tablet 10 mg PO DAILY 02/16/24 aspirin 81 mg tablet,delayed 81 mg PO DAILY 02/16/24 release atorvastatin 80 mg tablet 80 mg PO DAILY 02/16/24 losartan 50 mg tablet 50 mg PO DAILY 02/16/24 sennosides 8.6 mg-docusate sodium 2 tab PO DAILY PRN Constipation 02/16/24 50 mg tablet (Stool Softener-Laxative) Previous Rx's ?Medication ?Instructions ?Recorded metformin 1,000 mg tablet 1,000 mg PO BID #180 tabs 04/01/23 insulin lispro 100 unit/mL 1 sliding scale dose subcut 11/09/23 subcutaneous pen (Humalog KwikPen USEASDIRECTD #15 mL (U-100) Insulin) insulin glargine 100 unit/mL (3 50 unit (0.5 mL) subcut BID #15 mL 01/31/24 mL) subcutaneous pen (Lantus Solostar U-100 Insulin) Allergies Allergy/AdvReac Type Severity Reaction Status Date / Time No Known Allergies Allergy Verified 02/15/24 17:38 [No Known Allergies*] [facility] Past Medical History Medical History Chronic kidney disease (CKD), stage III (moderate) BMI 40.0-44.9, adult Morbid obesity with BMI of 40.0-44.9, adult Uncontrolled type 2 diabetes mellitus Encounter to establish care Arthritis of both hips Long-term insulin use DM type 2 (diabetes mellitus, type 2) Hypertension Surgical History No pertinent past surgical history Social History Social History Household Members: None Housing: Apartment Do you presently have visiting nurse or other home services: No Alcohol intake: never Patient Tobacco Use Status: Never used Tobacco Smoked in Last 30 Days: No e-Cigarette/Vaping Use: Never Used Second Hand Smoke Exposure: No Use of substances other than those prescribed or required for medical reasons: No Advance Directives: No Advance Directives Information Provided: No Nutrition Risks: No Nutritional Risk service: No Current occupational status: disabled Current occupational exposures/hazards: No Cognitive needs: Yes (cane) Hearing needs: No Vision needs: Yes (glasses) Physical Exam Vital Signs: Vital Signs: Last Vital Signs Temp 98.4 F 02/16/24 06:08 Pulse 118 H 02/16/24 06:08 Resp 19 02/16/24 06:12 BP 139/87 02/16/24 06:08 Pulse Ox 95 02/16/24 06:08 O2 Del Method Room Air 02/16/24 06:08 BMI result Body Mass Index 47.1 Course Course Course Narrative: This is a Rapid Medical Examination (RME) performed by Yaya Greene PA-C in triage. Full HPI, ROS, assessment and treatment plan per primary provider in the Main ED. 49 yo male hx of morbid obesity, poorly controlled DM on insulin, stage 3 CKD, HTN, vasculitis here w/ b/l LE ulcers/ wounds x4 months, worsening x2 weeks. reports increased drainage from the wounds. does not check blood sugars at home. Follows w/ wound clinic. saw them on Tuesday (6 days ago). reports subjective fevers. + multiple open areas of ulceration noted to anterior aspect of left and right shins. malodorous. one ulcer noted to dorsal right foot. Plan: labs, lactic, blood cultures, imaging Reevaluation(s) Reevaluation #1: This is a duplicate note. Please see Dr. Costello's completed note for patient's visit on 02/15/24. Medications Administered Generic Name Dose Route Start Last Admin Trade Name Freq PRN Reason Stop Dose Admin Enoxaparin Sodium 40 mg 02/15/24 23:00 02/15/24 23:01 Enoxaparin Sodium 40 Mg/0.4 Ml Syringe SUBCUT 40 mg Q24H CONNIE Administration Piperacillin Sod/Tazobactam 50 mls @ 100 mls/hr 02/16/24 04:00 02/16/24 04:30 Sod 3.375 gm/ Sodium Chloride IV Infused Q6H CONNIE Infusion Insulin Human Lispro 0 unit 02/16/24 07:30 02/16/24 07:22 Insulin Lispro 100 Unit/Ml 3 Ml Vial SUBCUT 8 unit QIDACHS CONNIE Administration Protocol Morphine Sulfate 2 mg 02/16/24 01:50 02/16/24 06:12 Morphine Sulfate 2 Mg/Ml Cartridge IVPUSH 2 mg Q4H PRN Administration Pain, Severe (Pain Scale 7-10) Protocol Sodium Chloride 3 ml 02/16/24 00:00 02/15/24 23:03 0.9 % Sodium Chloride Flush 3 Ml Syringe IVFLUSH 3 ml QSHIFT [facility] Administration Discontinued Medications Generic Name Dose Route Start Last Admin Trade Name Jacob PRN Reason Stop Dose Admin Sodium Chloride 1,000 mls @ 999 mls/hr 02/15/24 20:26 02/15/24 22:11 Ns IV 02/15/24 21:26 Infused .Q1H1M ONE Infusion Vancomycin HCl 2,000 mg in 500 mls @ 250 mls/hr 02/15/24 21:44 02/16/24 01:03 Vancomycin/Ns IV 02/15/24 23:43 Infused ONCE ONE Infusion Piperacillin Sod/Tazobactam 50 mls @ 100 mls/hr 02/15/24 21:44 02/15/24 22:46 Sod 3.375 gm/ Sodium Chloride IV 02/15/24 22:13 Infused ONCE ONE Infusion Lactated Ringer's 1,000 mls @ 999 mls/hr 02/15/24 22:45 02/16/24 00:15 Lr IV 02/15/24 23:45 Infused .Q1H1M [facility] Infusion Insulin Glargine 30 unit 02/15/24 22:39 02/15/24 23:01 Insulin Glargine,Hum.Rec.Anlog 100 Unit/Ml 10 Ml Vial SUBCUT 02/15/24 22:40 30 unit ONCE ONE Administration Insulin Human Regular 10 unit 02/15/24 20:26 02/15/24 20:39 Insulin Regular, Human 100 Unit/Ml 10 Ml Vial IVPUSH 02/15/24 20:27 10 unit ONCE ONE Administration Insulin Human Regular 10 unit 02/15/24 21:47 02/15/24 21:59 Insulin Regular, Human 100 Unit/Ml 10 Ml Vial IVPUSH 02/15/24 21:48 10 unit ONCE ONE Administration Insulin Human Regular 10 unit 02/16/24 05:42 02/16/24 06:05 Insulin Regular, Human 100 Unit/Ml 10 Ml Vial IVPUSH 02/16/24 05:43 10 unit ONCE ONE Administration Morphine Sulfate 1 mg 02/15/24 22:26 02/15/24 22:48 Morphine Sulfate 2 Mg/Ml Cartridge IVPUSH 02/15/24 22:27 1 mg ONCE ONE Administration Protocol Medical Decision Making Lab Data 02/16/24 04:25 02/16/24 04:25 Labs: Lab Results 02/15/24 02/15/24 02/15/24 Range/Units 18:12 19:55 20:15 WBC 11.6 H (4.8-10.8) X10*3/uL RBC 4.31 L (4.60-5.80) X10*6/uL Hgb 11.3 L D (14.0-18.0) g/dl Hct 33.6 L D (42.0-52.0) % MCV 78.0 L (80.0-98.0) fL MCH 26.2 L (27.0-33.0) pg MCHC 33.6 (31.0-36.0) g/dl RDW 13.4 (11.0-16.0) % Plt Count 277 (160-400) X10*3/uL MPV 10.9 (9.4-12.4) fL Immature Gran % (Auto) 0.3 (0.0-0.4) % Neut % (Auto) 86.1 H (45-73) % Lymph % (Auto) 6.9 L (20-40) % [place] % (Auto) 6.0 (2-11) % Eos % (Auto) 0.4 (0-4) % Baso % (Auto) 0.3 (0-2) % Lymph # (Auto) 0.8 L (1.2-4.9) X10*3/uL [place] # (Auto) 0.7 (0.1-1.2) X10*3/uL Eos # (Auto) 0.1 (0.0-0.4) X10*3/uL Baso # (Auto) 0.0 (0.0-0.2) X10*3/uL Abs Immat Gran (auto) 0.04 H (0.00-0.03) X10*3/uL Absolute Neuts (auto) 10.0 H (2.0-8.3) x10*3/uL Absolute Nucleated RBC 0.000 (0.0-0.012) X10*3/uL Nucleated RBC % (auto) 0.0 (0.0-0.2) /100WBC VBG pH (7.32-7.43) VBG pCO2 mmHg VBG pO2 mmHg VBG HCO3 (22-26) mmol/L VBG O2 Saturation % VBG Base Excess mmol/L Sodium 126 L (135-145) mmol/L Potassium 4.3 (3.3-5.1) mmol/L Chloride 91 L (96-108) mmol/L Carbon Dioxide 25 (22-29) mmol/L Anion Gap 14 (12-20) BUN 17 H (9-16) mg/dL Creatinine 1.56 H (0.5-1.4) mg/dL Estim Creat Clear Calc 74.7 Estimated GFR 48 POC Glucose > 600 H* (60-115) mg/dL Random Glucose 779 H* (60-115) mg/dL Osmolality 318 H (281-305) mosm/kg Lactic Acid 1.8 (0.5-2.0) mmol/L Calcium 9.2 (8.4-10.2) mg/dL Magnesium 1.8 (1.6-2.6) mg/dL Total Bilirubin 0.3 (0.0-1.0) mg/dL AST 8 (5-37) U/L ALT 6 (0-40) U/L Alkaline Phosphatase 107 (39-117) U/L Total Protein 9.2 H (6.5-8.0) g/dL Albumin 3.0 L (3.5-5.0) g/dL Beta-Hydroxybutyrate 0.10 (0.02-0.27) mmol/L 02/15/24 02/15/24 Range/Units 20:17 21:41 WBC (4.8-10.8) X10*3/uL RBC (4.60-5.80) X10*6/uL Hgb (14.0-18.0) g/dl Hct (42.0-52.0) % MCV (80.0-98.0) fL MCH (27.0-33.0) pg MCHC (31.0-36.0) g/dl RDW (11.0-16.0) % Plt Count (160-400) X10*3/uL MPV (9.4-12.4) fL Immature Gran % (Auto) (0.0-0.4) % Neut % (Auto) (45-73) % Lymph % (Auto) (20-40) % [place] % (Auto) (2-11) % Eos % (Auto) (0-4) % Baso % (Auto) (0-2) % Lymph # (Auto) (1.2-4.9) X10*3/uL [place] # (Auto) (0.1-1.2) X10*3/uL Eos # (Auto) (0.0-0.4) X10*3/uL Baso # (Auto) (0.0-0.2) X10*3/uL Abs Immat Gran (auto) (0.00-0.03) X10*3/uL Absolute Neuts (auto) (2.0-8.3) x10*3/uL Absolute Nucleated RBC (0.0-0.012) X10*3/uL Nucleated RBC % (auto) (0.0-0.2) /100WBC VBG pH 7.38 (7.32-7.43) VBG pCO2 46 mmHg VBG pO2 43 mmHg VBG HCO3 28 H (22-26) mmol/L VBG O2 Saturation 67.0 % VBG Base Excess 2.6 mmol/L Sodium (135-145) mmol/L Potassium (3.3-5.1) mmol/L Chloride (96-108) mmol/L Carbon Dioxide (22-29) mmol/L Anion Gap (12-20) BUN (9-16) mg/dL Creatinine (0.5-1.4) mg/dL Estim Creat Clear Calc Estimated GFR POC Glucose 500 H* (60-115) mg/dL Random Glucose (60-115) mg/dL Osmolality (281-305) mosm/kg Lactic Acid (0.5-2.0) mmol/L Calcium (8.4-10.2) mg/dL Magnesium (1.6-2.6) mg/dL Total Bilirubin (0.0-1.0) mg/dL AST (5-37) U/L ALT (0-40) U/L Alkaline Phosphatase (39-117) U/L Total Protein (6.5-8.0) g/dL Albumin (3.5-5.0) g/dL Beta-Hydroxybutyrate (0.02-0.27) mmol/L Discharge Plan Discharge Clinical Impression: Cellulitis, Infected ulcer of skin, Hyperglycemia due to type 2 diabetes mellitus Patient Disposition: Admitted As Inpatient Interventions: Admission Worksheet (ED) Last Done: 02/16/24 07:09
[2024-02-15 18:17] LABS: MANUAL DIFF FLAG NO
[2024-02-15 18:19] LABS: Basophils Percent Auto 0.3 % (0-2); Eosinophils Absolute Auto 0.1 X10*3/uL (0.0-0.4); Eosinophils Percent Auto 0.4 % (0-4); Hematocrit 33.6 % (42.0-52.0); Hemoglobin 11.3 g/dl (14.0-18.0); Imm Gran Abs Auto 0.04 X10*3/uL (0.00-0.03); Imm Gran Pct Auto 0.3 % (0.0-0.4); Lymphocytes Absolute Auto 0.8 X10*3/uL (1.2-4.9); Lymphocytes Percent Auto 6.9 % (20-40); Mean Corpuscular HGB Conc 33.6 g/dl (31.0-36.0); Mean Corpuscular Hemoglobin 26.2 pg (27.0-33.0); Mean Platelet Volume 10.9 fL (9.4-12.4); Monocytes Absolute Auto 0.7 X10*3/uL (0.1-1.2); Neutrophils Percent Auto 86.1 % (45-73); Platelet Count 277 X10*3/uL (160-400); Red Blood Count 4.31 X10*6/uL (4.60-5.80); Red Cell Distribution Width 13.4 % (11.0-16.0); White Blood Count 11.6 X10*3/uL (4.8-10.8)
[2024-02-15 18:38] LABS: Lactic Acid 1.8 mmol/L (0.5-2.0)
[2024-02-15 18:45] LABS: Alanine Aminotransferase 6 U/L (0-40); Alkaline Phosphatase 107 U/L (39-117); Anion Gap 14 (12-20); Aspartate Amino Transferase 8 U/L (5-37); Bilirubin Total 0.3 mg/dL (0.0-1.0); Blood Urea Nitrogen 17 mg/dL (9-16); Calcium 9.2 mg/dL (8.4-10.2); Carbon Dioxide 25 mmol/L (22-29); Chloride 91 mmol/L (96-108); Creatinine Clr Calc Pharmacy 74.7; Estimated Glomerular Filt Rate 48; Glucose Random 779 mg/dL (60-115); Magnesium 1.8 mg/dL (1.6-2.6); Potassium 4.3 mmol/L (3.3-5.1); Sodium 126 mmol/L (135-145); Total Protein 9.2 g/dL (6.5-8.0)
[2024-02-15 20:05] VITALS: BP 132/81; PULSE 126; RESP 20; TEMP 37.2; O2SAT 96
[2024-02-15 20:11] LABS: Glucose, Whole Blood > 600 mg/dL (60-115)
[2024-02-15 20:24] LABS: VBG Base Excess 2.6 mmol/L; VBG HCO3 28 mmol/L (22-26); VBG pCO2 46 mmHg; VBG pH 7.38 (7.32-7.43); VBG pO2 43 mmHg
[2024-02-15 20:25] LABS: Venous Blood Gas Refer to POC result
[2024-02-15] MEDS: 0.9 % Sodium Chloride 1,000 ML 999 ML IV (20:35)
[2024-02-15] MEDS: Insulin Regular, Human 100 UNIT/ML 10 ML VIAL 10 UNIT IVPUSH ×2 (20:39→21:59)
[2024-02-15 20:57] LABS: Osmolality, Serum 318 mosm/kg (281-305)
[2024-02-15 21:44] LABS: Glucose, Whole Blood 500 mg/dL (60-115)
--- NOTE | 2024-02-15 21:52 | ED_ITS ---
HPI - General Adult General Chief complaint: Skin/Abscess/Foreign Body Stated complaint: ? rash bilat legs Time Seen by Provider: 02/15/24 20:26 Source: patient Mode of arrival: ambulatory Limitations: no limitations History of Present Illness ED Provider: Dr. Liana Marina HPI narrative: Patient comes to the emergency room complaining of bilateral skin ulcers. Patient states that he has had issues with his legs bilaterally for months, has been seen in multiple hospitals, has had venous surgeries at [facility], was here in October for the same. Patient went to a wound clinic, they asked him to come to the emergency room. Patient states that he has a new blister in the lateral aspect of his right foot, seems to be filled with air, when he presses on it, bubbles and pus squirt out with a foul smell. Patient denies fever or chills Related Data Previous Rx's ?Medication ?Instructions ?Recorded Shower Chair #1 ea 12/10/21 walker (Ultra-Light Rollator misc) #1 ea 12/10/21 cane #1 ea 04/21/22 blood pressure kit-extra large #1 ea 08/12/22 blood-glucose meter (FreeStyle #1 ea 08/12/22 Lite Meter kit) lancets 28 gauge (FreeStyle #100 ea 04/01/23 Lancets) metformin 1,000 mg tablet 1,000 mg PO BID #180 tabs 04/01/23 pen needle, diabetic 32 gauge x #100 ea 08/30/23 (BD Ultra-Fine Vania Pen Needle) alcohol swabs 1 pad topical QIDACHS #100 ea 11/09/23 empagliflozin 25 mg tablet 25 mg PO QAM #90 tabs 11/09/23 (Jardiance) insulin lispro 100 unit/mL 1 sliding scale dose subcut 11/09/23 subcutaneous pen (Humalog KwikPen USEASDIRECTD #15 mL (U-100) Insulin) losartan 25 mg tablet 75 mg PO DAILY #90 tabs 11/09/23 oxycodone 5 mg capsule 5 mg PO Q8H PRN pain (scale score 11/09/23 7-10) #15 caps pen needle, diabetic 31 gauge x #1,200 ea 11/09/2311/30 (Pen Needle) blood sugar diagnostic (FreeStyle #100 ea 12/29/23 Lite Strips) blood sugar diagnostic (FreeStyle #100 12/29/23 Lite Strips) blood-glucose meter (FreeStyle #1 01/02/24 Lite Meter kit) insulin glargine 100 unit/mL (3 50 unit (0.5 mL) subcut BID #15 mL 01/31/24 mL) subcutaneous pen (Lantus Solostar U-100 Insulin) Allergies Allergy/AdvReac Type Severity Reaction Status Date / Time No Known Allergies Allergy Verified 02/15/24 17:38 [No Known Allergies*] Review of Systems 2 Review of Systems: Constitutional : No Weight loss, No Fever, No Chills, No Night Sweats, No Fatigue, No Malaise ENT/Mouth : No Hearing loss, No Ear Pain, No Nasal Congestion, No Sinus Pain, No Hoarseness, No sore throat, No Rhinorrhea, No Swallowing Difficulty Eyes: No Eye Pain, No Swelling, No Redness, No Foreign Body, No Discharge, No Vision Changes Cardiovascular : No Chest Pain, No SOB, No Dyspnea on Exertion, No Orthopnea, No Edema, No Palpitations Respiratory : No Cough, No Sputum, No Wheezing, No Smoke Exposure, No Dyspnea Gastrointestinal : No Nausea, No Vomiting, No Diarrhea, No Constipation, No abdominal Pain, No Hematochezia, No Melena Genitourinary : no irregular bleeding, No Dysuria, No Urinary Frequency, No Hematuria, No Urinary Incontinence, No Urgency, No Flank Pain, No Urinary Flow Changes, No Hesitancy Musculoskeletal : No joint pain, No Myalgias, No Joint Swelling Skin : Complaining of acute on chronic wounds in the feet, now infected Neuro : No Weakness, No Numbness, No Paresthesias, No Loss of Consciousness, No Dizziness, No Headache Psych : No Anxiety/Panic, No Depression, No SI/HI/AH/VH, No Social Issues, Heme/Lymph: No Bruising, No Bleeding,No Lymphadenopathy Endocrine : No Polyuria, No Polydipsia, No Temperature Intolerance PMFSH Past Medical History Medical History Chronic kidney disease (CKD), stage III (moderate) BMI 40.0-44.9, adult Morbid obesity with BMI of 40.0-44.9, adult Uncontrolled type 2 diabetes mellitus Encounter to establish care Arthritis of both hips Long-term insulin use DM type 2 (diabetes mellitus, type 2) Hypertension Surgical History No pertinent past surgical history Social History Social History Household Members: None Housing: Apartment Do you presently have visiting nurse or other home services: No Alcohol intake: never Patient Tobacco Use Status: Never used Tobacco Smoked in Last 30 Days: No e-Cigarette/Vaping Use: Never Used Second Hand Smoke Exposure: No Use of substances other than those prescribed or required for medical reasons: No Advance Directives: No Advance Directives Information Provided: No service: No Current occupational status: disabled Current occupational exposures/hazards: No Cognitive needs: Yes (cane) Hearing needs: No Vision needs: Yes (glasses) Physical Exam ED Vital Signs: Vital Signs - 24 hr 02/15/24 17:26 02/15/24 20:05 Temperature 98.9 F 99.0 F Pulse Rate 134 H 126 H Respiratory Rate 16 20 Blood Pressure 119/79 132/81 Pulse Oximetry 95 96 Oxygen Delivery Method Room Air Room Air BMI result Body Mass Index 47.1 Const Other: Appearance: Alert. Oriented X3. No acute distress. Eyes: Pupils equal, round and reactive to light. ENT: Pharynx normal. Neck: Normal inspection. Neck supple. No lymph nodes noted. No crepitus CVS: Normal heart rate and rhythm. Pulses normal. Normal S1 and S2 Respiratory: No respiratory distress. Breath sounds normal. No Wheezing. No rales Abdomen: Soft and nontender. No rigidity. No distention. Skin: Skin warm and dry. See extremities below. Extremities: In the bilateral lower extremities, patient has a care chronic ulcers, the lateral aspect of the right foot seems to be infected, has a elevation of the skin, when pressed, squirts out gas , pus and bubbles, foul- smelling. Neuro: Oriented X 3. No motor deficit. No sensory deficit. Moving all extremities. No slurred speech. CN 2 through 12 grossly intact Psych: calm, cooperative, normal affect Medications Administered Discontinued Medications Generic Name Dose Route Start Last Admin Trade Name Freq PRN Reason Stop Dose Admin Sodium Chloride 1,000 mls @ 999 mls/hr 02/15/24 20:26 02/15/24 20:35 Ns IV 02/15/24 21:26 999 mls/hr .Q1H1M ONE Administration Insulin Human Regular 10 unit 02/15/24 20:26 02/15/24 20:39 Insulin Regular, Human 100 Unit/Ml 10 Ml Vial IVPUSH 02/15/24 20:27 10 unit ONCE ONE Administration Medical Decision Making Medical Decision Making [facility] Narrative: Interpretation of labs: White blood cell count elevated 11.6, slightly anemic than before, now hemoglobin 11.3. When patient came in, patient's sodium was 126. However, glucose was 779. Patient's creatinine 1.56, chronic. -patient received IV fluids and 10 units of insulin, glucose improved to 318. Patient received another L of saline, 10 more units, vancomycin and Zosyn -my interpretation of x-ray of the foot: There is a large gas bubble present under the skin. Unclear if the bone is affected. -patient does not have fever, patient has a normal blood pressure, lactic acid normal. At this time sepsis is not suspected. -I discussed the patient with Dr. Bonilla, patient being admitted - Differential Diagnosis Differential Diagnoses: The differential diagnosis associated with the presentation includes (Uncontrolled diabetes, hyperglycemia, diabetic foot ulcer, osteomyelitis) Admission/Observation Consideration of admission/observation: Escalation of care including admission/observation considered Consult Healthcare Provider Management of the patient was discussed with: Hospitalist Lab Data [facility] Lab Attestation statement: I reviewed the patient's lab results. 02/15/24 18:12 02/15/24 18:12 Labs: Lab Results 02/15/24 02/15/24 02/15/24 Range/Units 18:12 19:55 20:15 WBC 11.6 H (4.8-10.8) X10*3/uL RBC 4.31 L (4.60-5.80) X10*6/uL Hgb 11.3 L D (14.0-18.0) g/dl Hct 33.6 L D (42.0-52.0) % MCV 78.0 L (80.0-98.0) fL MCH 26.2 L (27.0-33.0) pg MCHC 33.6 (31.0-36.0) g/dl RDW 13.4 (11.0-16.0) % Plt Count 277 (160-400) X10*3/uL MPV 10.9 (9.4-12.4) fL Immature Gran % (Auto) 0.3 (0.0-0.4) % Neut % (Auto) 86.1 H (45-73) % Lymph % (Auto) 6.9 L (20-40) % [place] % (Auto) 6.0 (2-11) % Eos % (Auto) 0.4 (0-4) % Baso % (Auto) 0.3 (0-2) % Lymph # (Auto) 0.8 L (1.2-4.9) X10*3/uL [place] # (Auto) 0.7 (0.1-1.2) X10*3/uL Eos # (Auto) 0.1 (0.0-0.4) X10*3/uL Baso # (Auto) 0.0 (0.0-0.2) X10*3/uL Abs Immat Gran (auto) 0.04 H (0.00-0.03) X10*3/uL Absolute Neuts (auto) 10.0 H (2.0-8.3) x10*3/uL Absolute Nucleated RBC 0.000 (0.0-0.012) X10*3/uL Nucleated RBC % (auto) 0.0 (0.0-0.2) /100WBC VBG pH (7.32-7.43) VBG pCO2 mmHg VBG pO2 mmHg VBG HCO3 (22-26) mmol/L VBG O2 Saturation % VBG Base Excess mmol/L Sodium 126 L (135-145) mmol/L Potassium 4.3 (3.3-5.1) mmol/L Chloride 91 L (96-108) mmol/L Carbon Dioxide 25 (22-29) mmol/L Anion Gap 14 (12-20) BUN 17 H (9-16) mg/dL Creatinine 1.56 H (0.5-1.4) mg/dL Estim Creat Clear Calc 74.7 Estimated GFR 48 POC Glucose > 600 H* (60-115) mg/dL Random Glucose 779 H* (60-115) mg/dL Osmolality 318 H (281-305) mosm/kg Lactic Acid 1.8 (0.5-2.0) mmol/L Calcium 9.2 (8.4-10.2) mg/dL Magnesium 1.8 (1.6-2.6) mg/dL Total Bilirubin 0.3 (0.0-1.0) mg/dL AST 8 (5-37) U/L ALT 6 (0-40) U/L Alkaline Phosphatase 107 (39-117) U/L Total Protein 9.2 H (6.5-8.0) g/dL Albumin 3.0 L (3.5-5.0) g/dL Beta-Hydroxybutyrate 0.10 (0.02-0.27) mmol/L 02/15/24 02/15/24 Range/Units 20:17 21:41 WBC (4.8-10.8) X10*3/uL RBC (4.60-5.80) X10*6/uL Hgb (14.0-18.0) g/dl Hct (42.0-52.0) % MCV (80.0-98.0) fL MCH (27.0-33.0) pg MCHC (31.0-36.0) g/dl RDW (11.0-16.0) % Plt Count (160-400) X10*3/uL MPV (9.4-12.4) fL Immature Gran % (Auto) (0.0-0.4) % Neut % (Auto) (45-73) % Lymph % (Auto) (20-40) % [place] % (Auto) (2-11) % Eos % (Auto) (0-4) % Baso % (Auto) (0-2) % Lymph # (Auto) (1.2-4.9) X10*3/uL [place] # (Auto) (0.1-1.2) X10*3/uL Eos # (Auto) (0.0-0.4) X10*3/uL Baso # (Auto) (0.0-0.2) X10*3/uL Abs Immat Gran (auto) (0.00-0.03) X10*3/uL Absolute Neuts (auto) (2.0-8.3) x10*3/uL Absolute Nucleated RBC (0.0-0.012) X10*3/uL Nucleated RBC % (auto) (0.0-0.2) /100WBC VBG pH 7.38 (7.32-7.43) VBG pCO2 46 mmHg VBG pO2 43 mmHg VBG HCO3 28 H (22-26) mmol/L VBG O2 Saturation 67.0 % VBG Base Excess 2.6 mmol/L Sodium (135-145) mmol/L Potassium (3.3-5.1) mmol/L Chloride (96-108) mmol/L Carbon Dioxide (22-29) mmol/L Anion Gap (12-20) BUN (9-16) mg/dL Creatinine (0.5-1.4) mg/dL Estim Creat Clear Calc Estimated GFR POC Glucose 500 H* (60-115) mg/dL Random Glucose (60-115) mg/dL Osmolality (281-305) mosm/kg Lactic Acid (0.5-2.0) mmol/L Calcium (8.4-10.2) mg/dL Magnesium (1.6-2.6) mg/dL Total Bilirubin (0.0-1.0) mg/dL AST (5-37) U/L ALT (0-40) U/L Alkaline Phosphatase (39-117) U/L Total Protein (6.5-8.0) g/dL Albumin (3.5-5.0) g/dL Beta-Hydroxybutyrate (0.02-0.27) mmol/L Independent Interpretation I performed an independent interpretation of an: Plain X-Ray Radiology Impression Discussion of test interpretation with radiology: I have reviewed the radiologist's reading. Radiologist Impression: IMPRESSION: Multiple soft tissue defects along the lateral aspect of the right forefoot. There is a subtle lucency along the proximal aspect of the fifth proximal phalanx. Osteomyelitis cannot be excluded. No radiopaque foreign body. No acute fracture or dislocation. Soft tissue swelling about the distal calf and ankle with possible soft tissue gas anterior to the distal woody as well. Independent Historian Clinical information obtained from an independent historian. History obtained from or confirmed by: Spouse Critical Care Time Critical Care Time Critical Care Time: Yes Total Critical Care Time: 60 Attestation: I have personally provided critical care time. Time includes review of lab data, radiology results, discussion with consultants, and monitoring for potential decompensation. Intervention performed as documented. Discharge Plan Discharge Clinical Impression: Cellulitis, Infected ulcer of skin, Hyperglycemia due to type 2 diabetes mellitus Patient Disposition: Admitted As Inpatient Prescriptions: No Action (DME) Ultra-Light Rollator Misc See Rx Instructions .Route Qty: 1 0RF Rx Instructions: As directed (DME) Shower Chair Misc See Rx Instructions .Route Qty: 1 0RF Rx Instructions: As directed (DME) cane Device See Rx Instructions .Route Qty: 1 0RF Rx Instructions: As directed (DME) pen needle, diabetic [BD Ultra-Fine Vania Pen Needle] 32 gauge x 5/32 needle See Rx Instructions .Route Qty: 100 11RF Rx Instructions: As directed (DME) FreeStyle Lite Strips Strip See Rx Instructions .ROUTE .MEDSUPPLY Qty: 100 0RF Rx Instructions: QID (DME) FreeStyle Lite Strips Strip See Rx Instructions .MEDSUPPLY Qty: 100 11RF Rx Instructions: 2x day (DME) blood-glucose meter [FreeStyle Lite Meter] Kit See Rx Instructions .ROUTE .MEDSUPPLY Qty: 1 0RF Rx Instructions: As directed insulin glargine [Lantus Solostar U-100 Insulin] 100 unit/mL (3 mL) insulin pen 50 unit subcut BID Qty: 15 2RF losartan 25 mg Tablet 75 mg PO DAILY Qty: 90 2RF Protocol: Hold for SBP< HOLD for SBP < : 90 Jardiance 25 mg tablet 25 mg PO QAM Qty: 90 0RF insulin lispro [Humalog KwikPen Insulin] 100 unit/mL insulin pen 1 sliding scale dose subcut USEASDIRECTD Qty: 15 2RF alcohol swabs Pads, Medicated 1 pad topical QIDACHS Qty: 100 2RF (DME) pen needle, diabetic [Pen Needle] 31 gauge x 5/16 needle See Rx Instructions .ROUTE .MEDSUPPLY Qty: 1200 0RF Rx Instructions: As directed oxycodone 5 mg capsule 5 mg PO Q8H PRN (Reason: pain (scale score 7-10)) Qty: 15 0RF Rx Instructions: Partial Fill upon patient request. (DME) blood-glucose meter [FreeStyle Lite Meter] Kit See Rx Instructions .MEDSUPPLY Qty: 1 0RF Rx Instructions: 2x day (DME) blood pressure kit-extra large Kit See Rx Instructions .Route Qty: 1 0RF Rx Instructions: As directed (DME) lancets [FreeStyle Lancets] 28 gauge misc See Rx Instructions .MEDSUPPLY Qty: 100 11RF Rx Instructions: 2x day metformin 1,000 mg tablet 1,000 mg PO BID Qty: 180 3RF Print Language: Palestinian
[2024-02-15] MEDS: Piperacillin Sodium/Tazobactam 3.375 GM in 0.9 % Sodium Chloride 50 ML IV (22:01)
[2024-02-15 22:14] VITALS: BP 104/74; PULSE 120; RESP 20; TEMP 36.8; O2SAT 98
--- NOTE | 2024-02-15 22:14 | P.HPHOSP_ITS ---
History of Present Illness Date of Service: 02/15/24 Chief Complaint: Foot infection This is a 49-year-old male with pertinent history of insulin-dependent diabetes mellitus, obesity, hypertension, chronic kidney disease stage 3 presents to the emergency department for concerns of foot infection. Patient states he has had skin ulcers for months now. He noticed increase in foul-smelling drainage from his right leg that started 2 days prior to presentation. No fever, chills, chest discomfort, palpitations, shortness of breath, abdominal pain, changes in urinary or bowel habits. Patient went to a wound clinic who sent the patient to the ER. Patient states that he has had troubles with pharmacy and has not been compliant with his insulin. The last time he took his insulin was about a week ago. In the emergency department, patient was found to be hyperglycemic and given IV fluids and IV insulin. Also initiated on broad-spectrum empiric IV antibiotics for diabetic foot infection. Review of Systems 2 Constitutional: Constitutional: Reports fatigue, Reports malaise and Reports weakness Cardiovascular: Cardiovascular: Reports no additional cardiovascular complaints Respiratory: Respiratory: Reports no additional respiratory complaints Gastrointestinal: Gastrointestinal: Reports no additional gastrointestinal complaints Genitourinary: Genitourinary: Reports no additional male genitourinary complaints Neurologic: Reports weakness Endocrine: Endocrine: Reports fatigue [facility] Medical History Chronic kidney disease (CKD), stage III (moderate) BMI 40.0-44.9, adult Morbid obesity with BMI of 40.0-44.9, adult Uncontrolled type 2 diabetes mellitus Encounter to establish care Arthritis of both hips Long-term insulin use DM type 2 (diabetes mellitus, type 2) Hypertension Surgical History No pertinent past surgical history Social History Household Members: None Housing: Apartment Do you presently have visiting nurse or other home services: No Alcohol intake: never Patient Tobacco Use Status: Never used Tobacco Smoked in Last 30 Days: No e-Cigarette/Vaping Use: Never Used Second Hand Smoke Exposure: No Use of substances other than those prescribed or required for medical reasons: No Advance Directives: No Advance Directives Information Provided: No service: No Current occupational status: disabled Current occupational exposures/hazards: No Cognitive needs: Yes (cane) Hearing needs: No Vision needs: Yes (glasses) Meds Allergies Allergy/AdvReac Type Severity Reaction Status Date / Time No Known Allergies Allergy Verified 02/15/24 17:38 [No Known Allergies*] Active Medications: Current Medications Vancomycin HCl (Vancomycin/Ns) 2,000 mg in 500 mls @ 250 mls/hr IV ONCE ONE Stop: 02/15/24 23:43 Physical Exam 2 Vital Signs and Narrative: Vital Signs: Last Vital Signs Temp 99.0 F 02/15/24 20:05 Pulse 126 H 02/15/24 20:05 Resp 20 02/15/24 20:05 BP 132/81 02/15/24 20:05 Pulse Ox 96 02/15/24 20:05 O2 Del Method Room Air 02/15/24 20:05 BMI result Body Mass Index 47.1 Middle-aged male lying in bed in no distress Neck supple, no JVD Tachycardic with regular rhythm, S1-S2 heard Regular breath sounds bilaterally, no wheezing or crackles appreciated Abdomen soft nontender, no guarding, no rigidity Patient is awake, alert and oriented to self, place, time and person ; no focal motor deficit Psych: Normal mood Right lower extremity with ulcers as pictured below ; lateral aspect of right foot with foul-smelling pus, erythema, warmth Skin: Other: Results Labs 02/15/24 18:12 02/15/24 18:12 Labs: Laboratory Results - last 24 hr 02/15/24 02/15/24 02/15/24 18:12 19:55 20:15 MCV 78.0 L MCH 26.2 L MCHC 33.6 RDW 13.4 Plt Count 277 MPV 10.9 Immature Gran % (Auto) 0.3 Neut % (Auto) 86.1 H Lymph % (Auto) 6.9 L [place] % (Auto) 6.0 Eos % (Auto) 0.4 Baso % (Auto) 0.3 Lymph # (Auto) 0.8 L [place] # (Auto) 0.7 Eos # (Auto) 0.1 Baso # (Auto) 0.0 Abs Immat Gran (auto) 0.04 H Absolute Neuts (auto) 10.0 H Absolute Nucleated RBC 0.000 Nucleated RBC % (auto) 0.0 VBG pH VBG pCO2 VBG pO2 VBG HCO3 VBG O2 Saturation VBG Base Excess Anion Gap 14 Estim Creat Clear Calc 74.7 Estimated GFR 48 POC Glucose > 600 H* Random Glucose 779 H* Osmolality 318 H Lactic Acid 1.8 Calcium 9.2 Magnesium 1.8 Total Bilirubin 0.3 AST 8 ALT 6 Alkaline Phosphatase 107 Total Protein 9.2 H Albumin 3.0 L Beta-Hydroxybutyrate 0.10 02/15/24 02/15/24 20:17 21:41 MCV MCH MCHC RDW Plt Count MPV Immature Gran % (Auto) Neut % (Auto) Lymph % (Auto) [place] % (Auto) Eos % (Auto) Baso % (Auto) Lymph # (Auto) [place] # (Auto) Eos # (Auto) Baso # (Auto) Abs Immat Gran (auto) Absolute Neuts (auto) Absolute Nucleated RBC Nucleated RBC % (auto) VBG pH 7.38 VBG pCO2 46 VBG pO2 43 VBG HCO3 28 H VBG O2 Saturation 67.0 VBG Base Excess 2.6 Anion Gap Estim Creat Clear Calc Estimated GFR POC Glucose 500 H* Random Glucose Osmolality Lactic Acid Calcium Magnesium Total Bilirubin AST ALT Alkaline Phosphatase Total Protein Albumin Beta-Hydroxybutyrate Imaging Radiologist's Impressions: Impressions Ankle X-Ray 02/15/24 18:06 IMPRESSION: Multiple soft tissue defects along the lateral aspect of the right forefoot. There is a subtle lucency along the proximal aspect of the fifth proximal phalanx. Osteomyelitis cannot be excluded. No radiopaque foreign body. No acute fracture or dislocation. Soft tissue swelling about the distal calf and ankle with possible soft tissue gas anterior to the distal woody as well. Foot X-Ray 02/15/24 18:06 IMPRESSION: Multiple soft tissue defects along the lateral aspect of the right forefoot. There is a subtle lucency along the proximal aspect of the fifth proximal phalanx. Osteomyelitis cannot be excluded. No radiopaque foreign body. No acute fracture or dislocation. Soft tissue swelling about the distal calf and ankle with possible soft tissue gas anterior to the distal woody as well. Tibia/Fibula X-Ray 02/15/24 18:06 IMPRESSION: Multiple soft tissue defects along the lateral aspect of the right forefoot. There is a subtle lucency along the proximal aspect of the fifth proximal phalanx. Osteomyelitis cannot be excluded. No radiopaque foreign body. No acute fracture or dislocation. Soft tissue swelling about the distal calf and ankle with possible soft tissue gas anterior to the distal woody as well. Tibia/Fibula X-Ray 02/15/24 18:06 IMPRESSION: Multiple soft tissue defects along the lateral aspect of the right forefoot. There is a subtle lucency along the proximal aspect of the fifth proximal phalanx. Osteomyelitis cannot be excluded. No radiopaque foreign body. No acute fracture or dislocation. Soft tissue swelling about the distal calf and ankle with possible soft tissue gas anterior to the distal woody as well. Assessment and Plan (1) Cellulitis: Status: Acute (2) Infected ulcer of skin: Status: Acute (3) Hyperglycemia due to type 2 diabetes mellitus: Status: Acute Plan This is a 49-year-old male with pertinent history of insulin-dependent diabetes mellitus, obesity, hypertension, chronic kidney disease stage 3 presents to the emergency department for concerns of foot infection. #. Right diabetic foot infection with cellulitis and infected skin ulcers: Will admit patient and initiate empiric IV antibiotics. Monitor for improvement. Consulting Wound Care. X-ray concerning for osteomyelitis. Will obtain MRI to delineate further anatomy. Outpatient follow-up for chronic skin ulcers #. Uncontrolled insulin-dependent diabetes mellitus with hyperglycemia: Due to noncompliance with insulin. Given IV insulin and IV fluids in the ER. Initiating basal plus insulin regimen #. Pseudo hyponatremia due to hyperglycemia #. Obesity: Counseled regarding diet and exercise #. Hypertension: Continue home antihypertensives #. CKD stage 3: Creatinine at baseline Med rec pending DVT prophylaxis: Lovenox Full code Admit as inpatient and will require two night minimum hospital stay for IV antibiotics, monitoring of blood glucose (as above), which is not possible in a lesser acute setting. Quality Stroke Does the patient have a stroke diagnosis?: No VTE Prior VTE?: No VTE Risk Level:: Medical - moderate - high VTE Device Contraindication: Treatment Not Indicated VTE Drug Contraindication: N/A - Med Ordered
[2024-02-15 22:47] VITALS: BP 115/87; PULSE 123; RESP 16; O2SAT 97
[2024-02-15 22:47] LABS: Glucose, Whole Blood 385 mg/dL (60-115)
[2024-02-15] MEDS: vancomycin/NS 2,000 MG/500 ML PLAST..BAG 250 MG IV (22:47)
[2024-02-15 22:48] VITALS: RESP 16
[2024-02-15] MEDS: Morphine Sulfate 2 MG/ML CARTRIDGE 1 MG IVPUSH (22:48)
[2024-02-15] MEDS: Lactated Ringers 1,000 ML 999 ML IV (22:58)
[2024-02-15] MEDS: Enoxaparin Sodium 40 MG/0.4 ML SYRINGE SUBCUT (23:01)
[2024-02-15] MEDS: Insulin Glargine,Hum.rec.anlog 100 UNIT/ML 10 ML VIAL 30 UNIT SUBCUT (23:01)
[2024-02-15] MEDS: 0.9 % Sodium Chloride Flush 3 ML SYRINGE IVFLUSH (23:03)
[2024-02-16] VITALS (11 sets, daily range): BP systolic 123–149; BP diastolic 76–101; PULSE 113–127; RESP 16–24; TEMP 36.9–37.7; O2SAT 95–97
--- NOTE | 2024-02-16 | ECG_ITS ---
Test Reason : TACHY Blood Pressure : / mmHG Vent. Rate : 123 BPM Atrial Rate : 123 BPM P-R Int : 156 ms QRS Dur : 086 ms QT Int : 320 ms P-R-T Axes : 061 -19 104 degrees QTc Int : 458 ms Sinus tachycardia Nonspecific T wave abnormality Abnormal ECG When compared with ECG of 05-NOV-2023 01:05, No significant change was found Referred By: Jordyn Maldonado Electronically Signed By:Rick Bansal
[2024-02-16] MEDS: Morphine Sulfate 2 MG/ML CARTRIDGE IVPUSH ×6 (02:00→23:51)
[2024-02-16] MEDS: Piperacillin Sodium/Tazobactam 3.375 GM in 0.9 % Sodium Chloride 50 ML IV ×4 (03:45→21:36)
--- NOTE | 2024-02-16 04:09 | PC.NURSE ---
MRI screening form completed and faxed.
[2024-02-16 04:56] LABS: MANUAL DIFF FLAG NO
[2024-02-16 04:58] LABS: Basophils Percent Auto 0.3 % (0-2); Eosinophils Absolute Auto 0.1 X10*3/uL (0.0-0.4); Eosinophils Percent Auto 1.2 % (0-4); Hematocrit 28.9 % (42.0-52.0); Hemoglobin 9.7 g/dl (14.0-18.0); Imm Gran Abs Auto 0.05 X10*3/uL (0.00-0.03); Imm Gran Pct Auto 0.5 % (0.0-0.4); Lymphocytes Absolute Auto 1.3 X10*3/uL (1.2-4.9); Lymphocytes Percent Auto 12.5 % (20-40); Mean Corpuscular HGB Conc 33.6 g/dl (31.0-36.0); Mean Corpuscular Hemoglobin 26.1 pg (27.0-33.0); Mean Corpuscular Volume 77.7 fL (80.0-98.0); Mean Platelet Volume 10.9 fL (9.4-12.4); Monocytes Absolute Auto 0.9 X10*3/uL (0.1-1.2); Monocytes Percent Auto 8.9 % (2-11); Neutrophils Absolute Auto 8.1 x10*3/uL (2.0-8.3); Neutrophils Percent Auto 76.6 % (45-73); Platelet Count 248 X10*3/uL (160-400); Red Blood Count 3.72 X10*6/uL (4.60-5.80); Red Cell Distribution Width 13.4 % (11.0-16.0); White Blood Count 10.5 X10*3/uL (4.8-10.8)
[2024-02-16 05:23] LABS: Anion Gap 12 (12-20); Blood Urea Nitrogen 15 mg/dL (9-16); Calcium 8.8 mg/dL (8.4-10.2); Carbon Dioxide 26 mmol/L (22-29); Chloride 98 mmol/L (96-108); Creatinine Clr Calc Pharmacy 95.5; Estimated Glomerular Filt Rate > 60; Glucose Random 402 mg/dL (60-115); Potassium 3.6 mmol/L (3.3-5.1); Sodium 132 mmol/L (135-145)
[2024-02-16] MEDS: Insulin Regular, Human 100 UNIT/ML 10 ML VIAL 10 UNIT IVPUSH (06:05)
--- NOTE | 2024-02-16 06:43 | PHA.PROG ---
Admission Date/Time: February 15, 2024 22:13 Indication: skin and skin structure Weight in k.449 kg Adjusted body weight in Kg: [place] body weight in Kg: Obesity Dosing Indication % IBW: BMI 47.1 Serum Creatinine - Last 168 Hours 02/15/24 02/16/24 18:12 04:25 Creatinine 1.56 H 1.22 Estimated CrCl and GFR - Last 168 Hours 02/15/24 02/16/24 18:12 04:25 Estim Creat Clear Calc 74.7 95.5 Estimated GFR 48 > 60 Vancomycin Loading Dose: 2000 x1 Current Vancomycin Dosing Regimen: 1000mg Q12H Vancomycin Monitoring using AUC goal of 400 - 600 range with trough as surrogate marker: 484 Date and Time for next Vancomycin Level to be drawn: 02/16 @0900 Pharmacist Comments on Vancomycin Plan: renal function stabilizing, BMI is 47.1, watching for dose dumping after a couple doses.. predicted trough: 15.1. Vancomycin dosing will take advantage of [employer] as a clinical decision support tool that uses Bayesian modeling to calculate individual patient's pharmacokinetic parameters and forecast the patient's drug concentration time course with the target goal AUC 24 range of 400 - 600 mg/L/hr.
[2024-02-16 07:08] LABS: Glucose, Whole Blood 303 mg/dL (60-115)
[2024-02-16] MEDS: Insulin Lispro 100 UNIT/ML 3 ML VIAL SUBCUT ×4 (07:22→20:26)
[2024-02-16 07:47] LABS: C Reactive Protein 28.09 mg/dL (< or = 0.50)
[2024-02-16 08:34] LABS: Erythrocyte Sedimentation Rate 105 MM/HR (0-15)
--- NOTE | 2024-02-16 09:08 | PHA.MEDREC ---
Pharmacy Consult ? Medication Reconciliation Pharmacy has completed the medication reconciliation. Spoke to patient through [employer] service ([employer]) to confirm med list. Patient states he no longer takes Atorvastatin 80 mg daily , because it makes his eyes close and Sennosides docusate sodium 2 tablets Daily prn. Patient also states he is on Metformin 1,000 mg bid , however last claim date is 08-04-23 X 90 days, Insulin Galargine 100 units/ml is 50 units bid. Patient states his Humalog kwikPen is 36 units, however claims states per sliding scale utd. call [facility] they confirmed that the directions state per sliding scale utd. Will notify the DR!
[2024-02-16] MEDS: 0.9 % Sodium Chloride Flush 3 ML SYRINGE IVFLUSH ×2 (10:30→23:52)
--- NOTE | 2024-02-16 10:50 | PC.NURSE ---
Pt resting in bed quietly, a/ox4, respirations even and unlabored, no increased WOB/SOB, no cp/dizziness, pt medicated per SEP for pain, IV abx started, pt ate 50% of breakfast tray, call saavedra within reach, all needs met at this time, pt aware of plan of care.
[2024-02-16] MEDS: vancomycin HCL 1,000 MG in 0.9 % Sodium Chloride 250 ML 270 MG IV ×2 (11:09→22:22)
--- NOTE | 2024-02-16 11:41 | P.CONGS_ITS ---
History of Present Illness Consult details Consult date: 02/16/24 Narrative: Patient is a 49-year-old male with a plethora of comorbidities who has had a longstanding history of bilateral lower leg/foot ulcers. View was evaluate earlier in October of this year by Dr. Prieto/wound care for similar leg lesions. Patient apparently has been noncompliant with [facility]. Patient also has been noncompliant regarding his diabetes/insulin use. Chart was reviewed and patient evaluated PMFSH Past Medical History Medical History Chronic kidney disease (CKD), stage III (moderate) BMI 40.0-44.9, adult Morbid obesity with BMI of 40.0-44.9, adult Uncontrolled type 2 diabetes mellitus Encounter to establish care Arthritis of both hips Long-term insulin use DM type 2 (diabetes mellitus, type 2) Hypertension Surgical History Surgical History No pertinent past surgical history Social History Social History Household Members: None Housing: Apartment Do you presently have visiting nurse or other home services: No Alcohol intake: never Patient Tobacco Use Status: Never used Tobacco Smoked in Last 30 Days: No e-Cigarette/Vaping Use: Never Used Second Hand Smoke Exposure: No Use of substances other than those prescribed or required for medical reasons: No Advance Directives: No Advance Directives Information Provided: No Nutrition Risks: No Nutritional Risk service: No Current occupational status: disabled Current occupational exposures/hazards: No Cognitive needs: Yes (cane) Hearing needs: No Vision needs: Yes (glasses) Meds Allergies Allergy/AdvReac Type Severity Reaction Status Date / Time No Known Allergies Allergy Verified 02/15/24 17:38 [No Known Allergies*] Active Medications: Current Medications Acetaminophen (Acetaminophen 325 Mg Tablet) 650 mg PO Q6H PRN PRN Reason: Pain, Mild (Pain Scale 1-3), fever or headache Amlodipine Besylate (Amlodipine Besylate 10 Mg Tablet) 10 mg PO DAILY CONNIE; Protocol Calcium Carbonate (Calcium Carbonate 750 Mg Tab.Chew) 750 mg PO Q4H PRN PRN Reason: Heartburn Enoxaparin Sodium (Enoxaparin Sodium 40 Mg/0.4 Ml Syringe) 40 mg SUBCUT Q24H [facility] Last Admin: 02/15/24 23:01 Dose: 40 mg Glucose (Glucose Gel 15 Gm Gel..Gram.) 15 gm PO Q15M PRN; Protocol PRN Reason: per Hypoglycemia Standing Ord. Dextrose (D10) 250 mls @ 750 mls/hr IV Q15M PRN; Protocol PRN Reason: per Hypoglycemia Standing Ord. Piperacillin Sod/Tazobactam (Sod 3.375 gm/ Sodium Chloride) 50 mls @ 100 mls/hr IV Q6H [facility] Last Infusion: 02/16/24 11:07 Dose: Infused Vancomycin HCl 1,000 mg/ (Sodium Chloride) 270 mls @ 270 mls/hr IV Q12H [facility] Last Admin: 02/16/24 11:09 Dose: 270 mls/hr Insulin Glargine (Insulin Glargine,Hum.Rec.Anlog 100 Unit/Ml 10 Ml Vial) 30 unit SUBCUT BID [facility] Insulin Human Lispro (Insulin Lispro 100 Unit/Ml 3 Ml Vial) 0 unit SUBCUT QIDACHS [facility]; Protocol Last Admin: 02/16/24 07:22 Dose: 8 unit Magnesium Hydroxide (Milk Of Magnesia 30 Ml Oral.Susp) 30 ml PO DAILY PRN PRN Reason: Constipation Melatonin (Melatonin 3 Mg Tablet) 6 mg PO BEDTIME PRN PRN Reason: Insomnia Morphine Sulfate (Morphine Sulfate 2 Mg/Ml Cartridge) 2 mg IVPUSH Q4H PRN; Protocol PRN Reason: Pain, Severe (Pain Scale 7-10) Last Admin: 02/16/24 10:30 Dose: 2 mg Ondansetron HCl (Ondansetron Hcl 4 Mg/2 Ml Vial) 4 mg IVPUSH Q8H PRN PRN Reason: Nausea and Vomiting Pharmacy Consult (Consult Rx Vancomycin Dosing) 1 each MISCELLANE DAILY PRN PRN Reason: Consult order Sodium Chloride (0.9 % Sodium Chloride Flush 3 Ml Syringe) 3 ml IVFLUSH QSHIFT [facility] Last Admin: 02/16/24 10:30 Dose: 3 ml Home Medications ?Medication ?Instructions ?Recorded ?Confirmed ?Last Taken ?Type amlodipine 10 mg tablet 10 mg PO DAILY 02/16/24 02/16/24 Unknown History aspirin 81 mg tablet,delayed 81 mg PO DAILY 02/16/24 02/16/24 Unknown History release losartan 50 mg tablet 50 mg PO DAILY 02/16/24 02/16/24 Unknown History Physical Exam 2 Vital Signs: Vital Signs: Last Vital Signs Temp 99.9 F 02/16/24 08:32 Pulse 127 H 02/16/24 08:32 Resp 24 H 02/16/24 08:32 BP 139/86 02/16/24 08:32 Pulse Ox 95 02/16/24 08:32 O2 Del Method Room Air 02/16/24 08:32 BMI result Body Mass Index 47.1 Extrem: Other: Bilateral foot/lower ankle multiple wounds of varying sizes and degree of granulation/infection along with surrounding cellulitic changes. Moderate edema of bilateral lower extremities. I think I was able to palpate dorsalis pedis pulses bilaterally. Please refer to hospitalist's photos were regarding these wounds. Lower Extremities are grossly neurovascularly intact Results Labs 02/16/24 04:25 02/16/24 04:25 Labs: Abnormal lab results 02/15/24 02/15/24 02/15/24 Range/Units 18:12 19:55 20:15 WBC 11.6 H (4.8-10.8) X10*3/uL RBC 4.31 L (4.60-5.80) X10*6/uL Hgb 11.3 L D (14.0-18.0) g/dl Hct 33.6 L D (42.0-52.0) % MCV 78.0 L (80.0-98.0) fL MCH 26.2 L (27.0-33.0) pg Immature Gran % (Auto) (0.0-0.4) % Neut % (Auto) 86.1 H (45-73) % Lymph % (Auto) 6.9 L (20-40) % Lymph # (Auto) 0.8 L (1.2-4.9) X10*3/uL Abs Immat Gran (auto) 0.04 H (0.00-0.03) X10*3/uL Absolute Neuts (auto) 10.0 H (2.0-8.3) x10*3/uL ESR (0-15) MM/HR VBG HCO3 (22-26) mmol/L Sodium 126 L (135-145) mmol/L Chloride 91 L (96-108) mmol/L BUN 17 H (9-16) mg/dL Creatinine 1.56 H (0.5-1.4) mg/dL POC Glucose > 600 H* (60-115) mg/dL Random Glucose 779 H* (60-115) mg/dL Osmolality 318 H (281-305) mosm/kg C-Reactive Protein (< or = 0.50) mg/dL Total Protein 9.2 H (6.5-8.0) g/dL Albumin 3.0 L (3.5-5.0) g/dL 02/15/24 02/15/24 02/15/24 Range/Units 20:17 21:41 22:43 WBC (4.8-10.8) X10*3/uL RBC (4.60-5.80) X10*6/uL Hgb (14.0-18.0) g/dl Hct (42.0-52.0) % MCV (80.0-98.0) fL MCH (27.0-33.0) pg Immature Gran % (Auto) (0.0-0.4) % Neut % (Auto) (45-73) % Lymph % (Auto) (20-40) % Lymph # (Auto) (1.2-4.9) X10*3/uL Abs Immat Gran (auto) (0.00-0.03) X10*3/uL Absolute Neuts (auto) (2.0-8.3) x10*3/uL ESR (0-15) MM/HR VBG HCO3 28 H (22-26) mmol/L Sodium (135-145) mmol/L Chloride (96-108) mmol/L BUN (9-16) mg/dL Creatinine (0.5-1.4) mg/dL POC Glucose 500 H* 385 H* (60-115) mg/dL Random Glucose (60-115) mg/dL Osmolality (281-305) mosm/kg C-Reactive Protein (< or = 0.50) mg/dL Total Protein (6.5-8.0) g/dL Albumin (3.5-5.0) g/dL 02/16/24 02/16/24 Range/Units 04:25 07:04 WBC (4.8-10.8) X10*3/uL RBC 3.72 L (4.60-5.80) X10*6/uL Hgb 9.7 L (14.0-18.0) g/dl Hct 28.9 L (42.0-52.0) % MCV 77.7 L (80.0-98.0) fL MCH 26.1 L (27.0-33.0) pg Immature Gran % (Auto) 0.5 H (0.0-0.4) % Neut % (Auto) 76.6 H (45-73) % Lymph % (Auto) 12.5 L (20-40) % Lymph # (Auto) (1.2-4.9) X10*3/uL Abs Immat Gran (auto) 0.05 H (0.00-0.03) X10*3/uL Absolute Neuts (auto) (2.0-8.3) x10*3/uL ESR 105 H (0-15) MM/HR VBG HCO3 (22-26) mmol/L Sodium 132 L (135-145) mmol/L Chloride (96-108) mmol/L BUN (9-16) mg/dL Creatinine (0.5-1.4) mg/dL POC Glucose 303 H (60-115) mg/dL Random Glucose 402 H* (60-115) mg/dL Osmolality (281-305) mosm/kg C-Reactive Protein 28.09 H (< or = 0.50) mg/dL Total Protein (6.5-8.0) g/dL Albumin (3.5-5.0) g/dL Short CBC 02/15/24 02/16/24 Range/Units 18:12 04:25 WBC 11.6 H 10.5 (4.8-10.8) X10*3/uL Hgb 11.3 L D 9.7 L (14.0-18.0) g/dl Hct 33.6 L D 28.9 L (42.0-52.0) % Plt Count 277 248 (160-400) X10*3/uL BMP 02/15/24 02/16/24 18:12 04:25 Sodium 126 L 132 L Potassium 4.3 3.6 Chloride 91 L 98 Carbon Dioxide 25 26 BUN 17 H 15 Creatinine 1.56 H 1.22 Calcium 9.2 8.8 Liver Function 02/15/24 Range/Units 18:12 Total Bilirubin 0.3 (0.0-1.0) mg/dL AST 8 (5-37) U/L ALT 6 (0-40) U/L Alkaline Phosphatase 107 (39-117) U/L Albumin 3.0 L (3.5-5.0) g/dL All other labs normal. Assessment and Plan (1) Infected ulcer of skin: Status: Acute (2) Hyperglycemia due to type 2 diabetes mellitus: Status: Acute (3) Cellulitis: Status: Acute Plan Patient was currently on IV antibiotics, wound care consult has been obtained, x-ray and MRI to rule osteomyelitis pending. Weight wound care recommendations along with elevation extremities, and dressing changes. Further interventions studies will be directed by the results of the above-mentioned radiographic studies and the patient's clinical course. To follow Procedures Date of Service Date of Service: 02/16/24
[2024-02-16 12:03] LABS: Glucose, Whole Blood 324 mg/dL (60-115)
--- NOTE | 2024-02-16 12:07 | MHC.EDTECH ---
pt vital signs taken, pt asked to remove breakfast tray, call saavedra within reach.
--- NOTE | 2024-02-16 13:38 | P.PNIM_ITS ---
Subjective Subjective Date of Service: 02/16/24 Interval History: Seen and examined this morning Follow-up for bilateral lower extremity wounds History obtained with the assistance of a sharples machine operator Patient reports pain in the right lower extremity, no fever, no chills Review of Systems Review of Systems: Yes all other systems are reviewed and are negative Constitutional Constitutional: Denies chills and Denies fever(s) Physical Exam 2 Vital Signs: Vital Signs: Last Vital Signs Temp 98.5 F 02/16/24 11:59 Pulse 120 H 02/16/24 11:59 Resp 16 02/16/24 11:59 BP 135/83 02/16/24 11:59 Pulse Ox 95 02/16/24 11:59 O2 Del Method Room Air 02/16/24 11:59 BMI result Body Mass Index 47.1 Const: Other: someone argumentative General: alert and awake Nutritional Appearance: obese O rientation/consciousness: patient oriented x3 Resp: Effort & Inspection: normal respiratory effort, able to speak in complete sentences, no respiratory distress and no use of accessory muscles Cardio: Rate: tachycardic GI: Palpation (GI): Soft to palpation Skin: Other: no change from admission H&P photos; nontender Neuro: General: patient oriented x3, moves all extremities and CN's II-XI intact bilaterally Objective Data Active Medications Acetaminophen (Acetaminophen 325 Mg Tablet) 650 mg PO Q6H PRN PRN Reason: Pain, Mild (Pain Scale 1-3), fever or headache Amlodipine Besylate (Amlodipine Besylate 10 Mg Tablet) 10 mg PO DAILY CONNIE; Protocol Calcium Carbonate (Calcium Carbonate 750 Mg Tab.Chew) 750 mg PO Q4H PRN PRN Reason: Heartburn Enoxaparin Sodium (Enoxaparin Sodium 40 Mg/0.4 Ml Syringe) 40 mg SUBCUT Q24H [facility] Last Admin: 02/15/24 23:01 Dose: 40 mg Documented By: TANISHA Glucose (Glucose Gel 15 Gm Gel..Gram.) 15 gm PO Q15M PRN; Protocol PRN Reason: per Hypoglycemia Standing Ord. Dextrose (D10) 250 mls @ 750 mls/hr IV Q15M PRN; Protocol PRN Reason: per Hypoglycemia Standing Ord. Piperacillin Sod/Tazobactam (Sod 3.375 gm/ Sodium Chloride) 50 mls @ 100 mls/hr IV Q6H CONNIE Last Infusion: 02/16/24 11:07 Dose: Infused Documented By: LUIS Vancomycin HCl 1,000 mg/ (Sodium Chloride) 270 mls @ 270 mls/hr IV Q12H [facility] Last Infusion: 02/16/24 12:16 Dose: Infused Documented By: LUIS Insulin Glargine (Insulin Glargine,Hum.Rec.Anlog 100 Unit/Ml 10 Ml Vial) 30 unit SUBCUT BID [facility] Insulin Human Lispro (Insulin Lispro 100 Unit/Ml 3 Ml Vial) 0 unit SUBCUT QIDACHS [facility]; Protocol Last Admin: 02/16/24 12:04 Dose: 8 unit Documented By: LUIS Magnesium Hydroxide (Milk Of Magnesia 30 Ml Oral.Susp) 30 ml PO DAILY PRN PRN Reason: Constipation Melatonin (Melatonin 3 Mg Tablet) 6 mg PO BEDTIME PRN PRN Reason: Insomnia Morphine Sulfate (Morphine Sulfate 2 Mg/Ml Cartridge) 2 mg IVPUSH Q4H PRN; Protocol PRN Reason: Pain, Severe (Pain Scale 7-10) Last Admin: 02/16/24 10:30 Dose: 2 mg Documented By: LUIS Ondansetron HCl (Ondansetron Hcl 4 Mg/2 Ml Vial) 4 mg IVPUSH Q8H PRN PRN Reason: Nausea and Vomiting Pharmacy Consult (Consult Rx Vancomycin Dosing) 1 each MISCELLANE DAILY PRN PRN Reason: Consult order Sodium Chloride (0.9 % Sodium Chloride Flush 3 Ml Syringe) 3 ml IVFLUSH QSHIFT [facility] Last Admin: 02/16/24 10:30 Dose: 3 ml Documented By: LUIS Labs 02/16/24 04:25 02/16/24 04:25 Labs: Laboratory Results - last 24 hr 02/15/24 02/15/24 02/15/24 18:12 19:55 20:15 MCV 78.0 L MCH 26.2 L MCHC 33.6 RDW 13.4 Plt Count 277 MPV 10.9 Immature Gran % (Auto) 0.3 Neut % (Auto) 86.1 H Lymph % (Auto) 6.9 L [place]eker % (Auto) 6.0 Eos % (Auto) 0.4 Baso % (Auto) 0.3 Lymph # (Auto) 0.8 L [place] # (Auto) 0.7 Eos # (Auto) 0.1 Baso # (Auto) 0.0 Abs Immat Gran (auto) 0.04 H Absolute Neuts (auto) 10.0 H Absolute Nucleated RBC 0.000 Nucleated RBC % (auto) 0.0 ESR VBG pH VBG pCO2 VBG pO2 VBG HCO3 VBG O2 Saturation VBG Base Excess Anion Gap 14 Estim Creat Clear Calc 74.7 Estimated GFR 48 POC Glucose > 600 H* Random Glucose 779 H* Osmolality 318 H Lactic Acid 1.8 Calcium 9.2 Magnesium 1.8 Total Bilirubin 0.3 AST 8 ALT 6 Alkaline Phosphatase 107 C-Reactive Protein Total Protein 9.2 H Albumin 3.0 L Beta-Hydroxybutyrate 0.10 02/15/24 02/15/24 02/15/24 20:17 21:41 22:43 MCV MCH MCHC RDW Plt Count MPV Immature Gran % (Auto) Neut % (Auto) Lymph % (Auto) Meeker % (Auto) Eos % (Auto) Baso % (Auto) Lymph # (Auto) Meeker # (Auto) Eos # (Auto) Baso # (Auto) Abs Immat Gran (auto) Absolute Neuts (auto) Absolute Nucleated RBC Nucleated RBC % (auto) ESR VBG pH 7.38 VBG pCO2 46 VBG pO2 43 VBG HCO3 28 H VBG O2 Saturation 67.0 VBG Base Excess 2.6 Anion Gap Estim Creat Clear Calc Estimated GFR POC Glucose 500 H* 385 H* Random Glucose Osmolality Lactic Acid Calcium Magnesium Total Bilirubin AST ALT Alkaline Phosphatase C-Reactive Protein Total Protein Albumin Beta-Hydroxybutyrate 02/16/24 02/16/24 02/16/24 04:25 07:04 11:57 MCV 77.7 L MCH 26.1 L MCHC 33.6 RDW 13.4 Plt Count 248 MPV 10.9 Immature Gran % (Auto) 0.5 H Neut % (Auto) 76.6 H Lymph % (Auto) 12.5 L Meeker % (Auto) 8.9 Eos % (Auto) 1.2 Baso % (Auto) 0.3 Lymph # (Auto) 1.3 Meeker # (Auto) 0.9 Eos # (Auto) 0.1 Baso # (Auto) 0.0 Abs Immat Gran (auto) 0.05 H Absolute Neuts (auto) 8.1 Absolute Nucleated RBC 0.000 Nucleated RBC % (auto) 0.0 ESR 105 H VBG pH VBG pCO2 VBG pO2 VBG HCO3 VBG O2 Saturation VBG Base Excess Anion Gap 12 Estim Creat Clear Calc 95.5 Estimated GFR > 60 POC Glucose 303 H 324 H Random Glucose 402 H* Osmolality Lactic Acid Calcium 8.8 Magnesium Total Bilirubin AST ALT Alkaline Phosphatase C-Reactive Protein 28.09 H Total Protein Albumin Beta-Hydroxybutyrate Assessment and Plan (1) Hyperglycemia due to type 2 diabetes mellitus: Status: Acute (2) Infected ulcer of skin: Status: Acute (3) Cellulitis: Status: Acute Plan This is a 49-year-old male with pertinent history of insulin-dependent diabetes mellitus, obesity, hypertension, chronic kidney disease stage 3 presents to the emergency department for concerns of foot infection. Right diabetic foot infection with cellulitis and infected non pressure ulcers admission in october, biopsy obtained - vascular fibrinoid changes along with eosinophils but unable to determine if primary due to vasculitis or secondary/reactive changes Has been following in wound care clinic- has refused debridement per wound care notes and does not appear to be compliant with other recommended interventions per PCP notes it appears that he did not follow up with specialists he was referred to, does not appear to have been seen by rheumatology will add inflammatory markers continue empiric antibiotics with IV vancomycin, Zosyn started 02/14 Wound Care consult general surgery consult pending ID consult pending X-ray concerning for osteomyelitis - MRI pending delineate further anatomy #. Uncontrolled insulin-dependent diabetes mellitus with hyperglycemia: Due to noncompliance with insulin. Given IV insulin and IV fluids in the ER. Resume Lantus 40 BID and uptitrate prn (home dose 50 bid) hold metformin SSI, POCs ADA diet Hba1c pending # acute on chronic micorcytic anemia check iron studies above transfusion threshold follow CBC #. Pseudo hyponatremia due to hyperglycemia #. Morbid Obesity: BMI 47.1 Counseled regarding diet and exercise #. Hypertension: Continue home antihypertensives, losartan, Norvasc #. CKD stage 3: Creatinine at baseline DVT prophylaxis: Lovenox Full code Admit as inpatient and will require two night minimum hospital stay for IV antibiotics, monitoring of blood glucose (as above), which is not possible in a lesser acute setting. Quality Stroke Does the patient have a stroke diagnosis?: No VTE Prior VTE?: No VTE Risk Level:: Medical - moderate - high VTE Device Contraindication: Treatment Not Indicated VTE Drug Contraindication: N/A - Med Ordered
[2024-02-16 14:42] LABS: Iron 12 mcg/dL (45-160); Percent Iron Saturation 8 % (15-50); Total Iron Binding Capacity 152 mcg/dL (228-428); Unsaturated Iron Binding 140 ug/dL
[2024-02-16 15:00] LABS: Hemoglobin A1c % > 14.0 % (<6.0)
--- NOTE | 2024-02-16 15:02 | MHC.EDTECH ---
pt stated he needs to use the bathroom, and he asked for commode, I asked if he can stand and walk he ststed no. I bring commode to the room, pt asked for wipes. I delivered wipes.
[2024-02-16 15:03] LABS: Ferritin 456 ng/mL (20-250)
--- NOTE | 2024-02-16 15:08 | MHC.EDTECH ---
went to pt room to check if he is done using commode, pt speak to me in amharic and stated he needs machine quilt stuffer. It does not look like pt used commode.
--- NOTE | 2024-02-16 16:03 | MHC.EDTECH ---
went to the pt room with system designer, pt does not need to use commode right now, pt will call if he needs to use it, call saavedra within reach.
--- NOTE | 2024-02-16 16:43 | MHC.EDTECH ---
this tech performed POC glucose check pt tolerated well, pt sleeping. call saavedra within reach, no questions or requests.
[2024-02-16 16:45] LABS: Glucose, Whole Blood 319 mg/dL (60-115)
--- NOTE | 2024-02-16 16:53 | MHC.EDTECH ---
when I went to check pt glucose/ blood sugar, I asked pt to confirm his name and , pt pointed on his wrist band, I explained that this is our protocol and I need to confirm verbally, pt confirmed, matched with wrist band, curtain was wide open while I was in the room with pt, no visitors present at the moment, call saavedra within reach.
--- NOTE | 2024-02-16 17:45 | MHC.EDTECH ---
This tech went to pt room to ask pt to sign belonging list- could not sign sooner because pt was in MRI when list was done- found pt with visitor eating take out food and drinking large coke. Nurse notified.
--- NOTE | 2024-02-16 17:49 | MHC.EDTECH ---
Addendum entered by Fallon Boo CMA 02/16/24 18:06: nepalese fries, fried chicken. grape soda, orange juice Original Note: This tech noticed pt is eating nepalese fried and fried chiken, drinking grape sode, and orange juise and large coke (large to go cup) on ice.
--- NOTE | 2024-02-16 18:06 | MHC.EDTECH ---
This tech gave pt tray with dinner, pt asked to close his curtain, call saavedra within reach.
--- NOTE | 2024-02-16 19:48 | MHC.EDTECH ---
This tech answered patient call saavedra with Christel Lehman. I asked patient how I could help him. He said something in haitian only and then stated pain in malian. I asked where he stated his feet. I informed him that I would call for an pattern layout worker. Christel Lehman called for pattern layout worker.
[2024-02-16 20:18] LABS: Glucose, Whole Blood 301 mg/dL (60-115)
--- NOTE | 2024-02-16 20:18 | MHC.EDTECH ---
This tech went to check pt blood glucose- per order, pt refused to give his name and , speaking Pashto only as of now, call saavedra within reach, pt mom was rubbing his feet with [place].
[2024-02-16] MEDS: Insulin Glargine,Hum.rec.anlog 100 UNIT/ML 10 ML VIAL 40 UNIT SUBCUT (20:26)
--- NOTE | 2024-02-16 21:09 | PC.NURSE ---
report given to BARBARA Ballesteros in overflow. this RN explained to pt and mom that they would be moving to overflow, both verbalized understanding and in agreeance.
[2024-02-16] MEDS: Enoxaparin Sodium 40 MG/0.4 ML SYRINGE SUBCUT (22:21)
[2024-02-17] VITALS (15 sets, daily range): BP systolic 121–151; BP diastolic 77–98; PULSE 112–123; RESP 16–22; TEMP 36.3–37.3; O2SAT 94–100
--- NOTE | 2024-02-17 04:10 | PC.NURSE ---
Assumed care of patient at 22:00. Patient is alert and oriented x3. He complains of moderate to severe pain in lower legs d/t edema and multiple open wounds. Patient was medicated with Morphine 2 mg IVP at ED. 18 G IV line in L AC is patent. Patient medicated per SEP. Patient has been using a urinal independently, at ED, urinal placed within patient's reach. Patient instructed to maintain NPO after midnight. Patient verbalized understanding. Call saavedra given to patient. Patient's mother at bedside. Plan of care ongoing.
[2024-02-17] MEDS: Piperacillin Sodium/Tazobactam 3.375 GM in 0.9 % Sodium Chloride 50 ML IV ×4 (05:05→23:17)
[2024-02-17] MEDS: Morphine Sulfate 2 MG/ML CARTRIDGE IVPUSH ×2 (05:07→09:13)
[2024-02-17 05:39] LABS: Hematocrit 30.7 % (42.0-52.0); Hemoglobin 10.1 g/dl (14.0-18.0); Mean Corpuscular HGB Conc 32.9 g/dl (31.0-36.0); Mean Corpuscular Hemoglobin 26.1 pg (27.0-33.0); Mean Corpuscular Volume 79.3 fL (80.0-98.0); Mean Platelet Volume 10.8 fL (9.4-12.4); Platelet Count 289 X10*3/uL (160-400); Red Blood Count 3.87 X10*6/uL (4.60-5.80); Red Cell Distribution Width 13.5 % (11.0-16.0); White Blood Count 11.6 X10*3/uL (4.8-10.8)
[2024-02-17 05:52] LABS: Creatinine Clr Calc Pharmacy 93.2; Estimated Glomerular Filt Rate > 60
[2024-02-17 07:25] LABS: Glucose, Whole Blood 258 mg/dL (60-115)
--- NOTE | 2024-02-17 07:46 | PC.NURSE ---
Reached out to provider to clarify NPO status and to see if pt. could get a diet order, because pt. is getting increasingly agitated about wanting breakfast.
--- NOTE | 2024-02-17 07:57 | PC.NURSE ---
Per CLARISSE Ng, give dose of Lispro although pt. is NPO.
[2024-02-17] MEDS: Insulin Lispro 100 UNIT/ML 3 ML VIAL SUBCUT ×3 (08:02→20:52)
--- NOTE | 2024-02-17 08:08 | P.PNIM_ITS ---
Subjective Subjective Date of Service: 02/17/24 Interval History: Seen and examined this morning Follow-up for bilateral lower extremity wounds History obtained with the assistance of a ecommerce analyst Patient reports pain in the right lower extremity, no fever, no chills. Remains tachycardic with elevated wbc Review of Systems Review of Systems: Yes all other systems are reviewed and are negative Constitutional Constitutional: Denies chills and Denies fever(s) Physical Exam 2 Vital Signs: Vital Signs: Last Vital Signs Temp 98.6 F 02/17/24 05:32 Pulse 122 H 02/17/24 05:32 Resp 22 H 02/17/24 05:32 BP 151/98 H 02/17/24 05:32 Pulse Ox 95 02/17/24 05:32 O2 Del Method Room Air 02/17/24 05:32 BMI result Body Mass Index 47.1 Constitutional - Awake and Alert, No apparent distress Eyes - PERRLA, EOMI Cardiovascular - S1S2, RRR, No edema Respiratory - Normal lung expansion, Normal respiratory effort, No respiratory distress, CTA bilaterally Gastrointestinal - NT / ND; +BS; No rebound or guarding Extremities - no calf tenderness bilaterally, no swelling Skin - Warm/Dry. BLE wounds similar in appearance to discharge photos, unchagnes Neurological - Alert & oriented x3 Psychological - Appropriate affect Objective Data Active Medications Acetaminophen (Acetaminophen 325 Mg Tablet) 650 mg PO Q6H PRN PRN Reason: Pain, Mild (Pain Scale 1-3), fever or headache Amlodipine Besylate (Amlodipine Besylate 10 Mg Tablet) 10 mg PO DAILY CONNIE; Protocol Calcium Carbonate (Calcium Carbonate 750 Mg Tab.Chew) 750 mg PO Q4H PRN PRN Reason: Heartburn Enoxaparin Sodium (Enoxaparin Sodium 40 Mg/0.4 Ml Syringe) 40 mg SUBCUT Q24H [facility] Last Admin: 02/16/24 22:21 Dose: 40 mg Documented By: ROMINA Glucose (Glucose Gel 15 Gm Gel..Gram.) 15 gm PO Q15M PRN; Protocol PRN Reason: per Hypoglycemia Standing Ord. Dextrose (D10) 250 mls @ 750 mls/hr IV Q15M PRN; Protocol PRN Reason: per Hypoglycemia Standing Ord. Piperacillin Sod/Tazobactam (Sod 3.375 gm/ Sodium Chloride) 50 mls @ 100 mls/hr IV Q6H [facility] Last Infusion: 02/17/24 05:50 Dose: Infused Documented By: ROMINA Vancomycin HCl 1,000 mg/ (Sodium Chloride) 270 mls @ 270 mls/hr IV Q12H [facility] Last Infusion: 02/16/24 23:30 Dose: Infused Documented By: ROMINA Insulin Glargine (Insulin Glargine,Hum.Rec.Anlog 100 Unit/Ml 10 Ml Vial) 40 unit SUBCUT BID [facility] Last Admin: 02/16/24 20:26 Dose: 40 unit Documented By: BRIGITTE Insulin Human Lispro (Insulin Lispro 100 Unit/Ml 3 Ml Vial) 0 unit SUBCUT QIDACHS [facility]; Protocol Last Admin: 02/17/24 08:02 Dose: 6 unit Documented By: ALPHONSO Losartan Potassium (Losartan Potassium 50 Mg Tablet) 50 mg PO DAILY [facility]; Protocol Magnesium Hydroxide (Milk Of Magnesia 30 Ml Oral.Susp) 30 ml PO DAILY PRN PRN Reason: Constipation Melatonin (Melatonin 3 Mg Tablet) 6 mg PO BEDTIME PRN PRN Reason: Insomnia Morphine Sulfate (Morphine Sulfate 2 Mg/Ml Cartridge) 2 mg IVPUSH Q4H PRN; Protocol PRN Reason: Pain, Severe (Pain Scale 7-10) Last Admin: 02/17/24 05:07 Dose: 2 mg Documented By: ROMINA Ondansetron HCl (Ondansetron Hcl 4 Mg/2 Ml Vial) 4 mg IVPUSH Q8H PRN PRN Reason: Nausea and Vomiting Pharmacy Consult (Consult Rx Vancomycin Dosing) 1 each MISCELLANE DAILY PRN PRN Reason: Consult order Sodium Chloride (0.9 % Sodium Chloride Flush 3 Ml Syringe) 3 ml IVFLUSH QSHIFT [facility] Last Admin: 02/16/24 23:52 Dose: 3 ml Documented By: ROMINA Labs 02/17/24 05:00 02/17/24 05:00 Labs: Laboratory Results - last 24 hr 02/16/24 02/16/24 02/16/24 04:25 11:57 16:42 MCV MCH MCHC RDW Plt Count MPV Absolute Nucleated RBC Nucleated RBC % (auto) ESR 105 H Estim Creat Clear Calc Estimated GFR POC Glucose 324 H 319 H Estimat Average Glucose TNP Hemoglobin A1c % > 14.0 H Iron 12 L TIBC 152 L % Saturation 8 L Unsat Iron Binding 140 Ferritin 456 H 02/16/24 02/17/24 02/17/24 20:15 05:00 07:18 MCV 79.3 L MCH 26.1 L MCHC 32.9 RDW 13.5 Plt Count 289 MPV 10.8 Absolute Nucleated RBC 0.000 Nucleated RBC % (auto) 0.0 ESR Estim Creat Clear Calc 93.2 Estimated GFR > 60 POC Glucose 301 H 258 H Estimat Average Glucose Hemoglobin A1c % Iron TIBC % Saturation Unsat Iron Binding Ferritin Microbiology Microbiology Results: Microbiology 02/15/24 18:21 Blood Culture - Preliminary Blood - Venous No growth after 24 hours. 02/15/24 18:12 Blood Culture - Preliminary Blood - Venous Prelim: GPC Gram Stain only Assessment and Plan (1) Hyperglycemia due to type 2 diabetes mellitus: Status: Acute (2) Infected ulcer of skin: Status: Acute (3) Cellulitis: Status: Acute Plan This is a 49-year-old male with pertinent history of insulin-dependent diabetes mellitus, obesity, hypertension, chronic kidney disease stage 3 presents to the emergency department for concerns of foot infection. Right diabetic foot infection with cellulitis and infected non pressure ulcers admission in october, biopsy obtained - vascular fibrinoid changes along with eosinophils but unable to determine if primary due to vasculitis or secondary/reactive changes Has been following in wound care clinic- has refused debridement per wound care notes and does not appear to be compliant with other recommended interventions per PCP notes it appears that he did not follow up with specialists he was referred to, does not appear to have been seen by rheumatology MRI right foot shows large soft tissue defect/ulceration along the dorsal lateral aspect of the forefoot at the level of the 5th metatarsal diaphysis with prominent soft tissue gas and an associated abscess formation measuring 5.0 cm in greatest dimension. There is also osteomyelitis throughout the 5th metatarsal extending to the 5th metatarsophalangeal articular surface as well as the base of the 5th proximal phalanx. There is a 5th metatarsophalangeal joint effusion with surrounding soft tissue edema consistent with septic arthritis. Mild marrow edema within the adjacent 4th metatarsal head and base of the 4th proximal phalanx possibly early osteomyelitis. There is also diffuse edema and atrophy throughout the intrinsic musculature of the foot CRP 28.09, ESR 105 continue empiric antibiotics with IV vancomycin, Zosyn started 02/14 Wound Care consult pending. ID consult pending Plan for debridement tody 02/16 per general surgery. Currently NPO # strep viridans bacteremia blood culture positive x1. Repeat pending on antibiotics as above echocardiogram ordered ID consult #Acute septic arthritis R foot as above #Uncontrolled insulin-dependent diabetes mellitus with hyperglycemia: Due to noncompliance with insulin. Given IV insulin and IV fluids in the ER. Increase Lantus to 50units bidaily hold metformin SSI, POCs ADA diet Hgb A1c >14.0 # acute on chronic micorcytic anemia check iron studies above transfusion threshold follow CBC #Pseudo hyponatremia due to hyperglycemia #Morbid Obesity: BMI 47.1 Counseled regarding diet and exercise # Hypertension: Continue home antihypertensives, losartan, Norvasc # CKD stage 3 -Creatinine at baseline DVT prophylaxis: Lovenox Full code Pt requires ongoing inpt stay due to diabetic foot infection, osteomyelitis, septic arthritis, and strep viridens bacteremia requiring iv abx, repeat blood cultures, and expert consultation Quality Stroke Does the patient have a stroke diagnosis?: No VTE Prior VTE?: No VTE Risk Level:: Medical - moderate - high VTE Device Contraindication: Treatment Not Indicated VTE Drug Contraindication: N/A - Med Ordered
--- NOTE | 2024-02-17 08:10 | PC.NURSE ---
Per CLARISSE Ng: Pt. is going to the OR at appx. 15:00 today, 02/16. May have small sips and PO meds. up until 13:00.
--- NOTE | 2024-02-17 09:07 | PC.NURSE ---
Executive Compensation Analyst at bedside
[2024-02-17] MEDS: Insulin Glargine,Hum.rec.anlog 100 UNIT/ML 10 ML VIAL 40 UNIT SUBCUT (09:16)
[2024-02-17] MEDS: amLODIPine Besylate 10 MG TABLET PO (09:16)
[2024-02-17] MEDS: Losartan Potassium 50 MG TABLET PO (09:18)
--- NOTE | 2024-02-17 09:18 | PC.NURSE ---
Pt. medicated per SEP.
--- NOTE | 2024-02-17 09:18 | PC.NURSE ---
Pt. tachycardic to 112. Provider CLARISSE Ng notified.
--- NOTE | 2024-02-17 09:34 | PC.NURSE ---
Player Development Executive called and requested to bedside again for CLARISSE Ng.
--- NOTE | 2024-02-17 10:11 | PC.NURSE ---
Per Pharmacist, do not hang Vanco. yet. Awaiting Vanco. level.
--- NOTE | 2024-02-17 11:23 | PC.NURSE ---
Addendum entered by Kyra Pendleton RN 02/17/24 11:42: Pt will not allow this RN to assess wounds. Pt has gauze wraps on bilateral shins. Additionally, pt refuses to use walker, is placing both hands on his mothers shoulders and walking to the bathroom. All safety measures in place. All interactions are with staff speaking Sammarinese or with Smith from house registry rn services. Original Note: Pt arrived to unit from ED overflow in bed. At this time patient A&Ox4. Dry Wall Sprayer Smith at bedside. Pt refusing to answer all admission questions thoroughly states i've gone through all this before . Pt refuses to allow this RN to take inventory of patient belongings, states he has wallet and air pods in his possession, these items were not seen by this RN. Pt dose have phone at bedside and a black bag. Using house registry rn services, education was provided to pt on reason for vanco blood work which was ordered for 0900 but not yet obtained. Pt agrees to have phlebotomy to come to the bedside to draw his levels. Pt is aware of debridment scheduled for today and NPO status, informed Smith with house registry rn services he has no questions regarding procedure.
[2024-02-17 11:45] LABS: Glucose, Whole Blood 241 mg/dL (60-115)
[2024-02-17 12:18] LABS: Vancomycin Random 11.9 mcg/mL (15-20)
--- NOTE | 2024-02-17 12:24 | HE.PHANOTE ---
RE: VANCO DOSING Trough of 11.9 was scheduled for 0900 but wasn't drawn until 1152 due to patient refusing and being transferred to the floor, retimed dose of 1000 mg q12h to start @1300. Next random is scheduled for 02/18/24 @1100.
[2024-02-17] MEDS: vancomycin HCL 1,000 MG in 0.9 % Sodium Chloride 250 ML 270 MG IV (12:41)
[2024-02-17 13:57] LABS: Glucose, Whole Blood 221 mg/dL (60-115)
--- NOTE | 2024-02-17 14:24 | MHC.SHP ---
Pre-Procedural Eval Section A - 24 Hr Update-Section A only Date of Service: 02/17/24 The patient is an INPATIENT: Yes Changes since office visit: No Cold of Flu in the past 2 weeks, No New Medical Problems, No Changes in Medication and No Patient answered all questions The patient has been examined within 24 hours of the surgical procedure. The History & Physical has been completed within 30 days and I have reviewed it.: Yes Section B - Complete if H&P > 30 days Chief Complaint: Foot infection Details of Present Illness: Bilateral lower extremity feet debridement for multiple wounds Allergies: Allergies Allergy/AdvReac Type Severity Reaction Status Date / Time No Known Allergies Allergy Verified 02/15/24 17:38 [No Known Allergies*] Plan I have reviewed the history and physical and performed a pertinent physical examination on my patient. No changes have occurred unless specified. Time Spent With Patient Time: Total time managing care of this patient today ____ minutes.
--- NOTE | 2024-02-17 14:25 | P.CONAN_ITS ---
HPI - Anesthesia Eval Consult details Narrative: 49 yo M presenting for bilateral lower extremity debridement. PMF Active Problems Active Problems: All Active Problems Hyperglycemia due to type 2 diabetes mellitus (Acute) Infected ulcer of skin (Acute) Cellulitis (Acute) Hyperproteinemia (Acute) Uncontrolled diabetes mellitus with hyperglycemia, with long-term current use of insulin (Acute) Uncontrolled diabetes mellitus with hyperglycemia (Acute) Chronic kidney disease (CKD), stage III (moderate) (Acute) 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 (Acute) Bilateral leg ulcer (Acute) Hyperglobulinemia (Acute) CKD stage 2 due to type 2 diabetes mellitus (Acute) Wounds, multiple open, lower extremity (Acute) Vasculitis (Acute) Cellulitis (Acute) Bilateral hip pain (Acute) Morbid obesity with BMI of 45.0-49.9, adult (Acute) Obesity (BMI 30-39.9) (Acute) Annual physical exam (Acute) Visual changes (Acute) Hypertension (Acute) Arthritis of both hips (Acute) Long-term insulin use (Acute) DM type 2 (diabetes mellitus, type 2) (Acute) Past Medical History Medical History Chronic kidney disease (CKD), stage III (moderate) BMI 40.0-44.9, adult Morbid obesity with BMI of 40.0-44.9, adult Uncontrolled type 2 diabetes mellitus Encounter to establish care Arthritis of both hips Long-term insulin use DM type 2 (diabetes mellitus, type 2) Hypertension Family History Family history of problems with anesthesia: No Surgical History Surgical History No pertinent past surgical history History of Problems with Anesthesia: No Social History Social History Household Members: Other Housing: Apartment Do you presently have visiting nurse or other home services: No Alcohol intake: never Patient Tobacco Use Status: Never used Tobacco e-Cigarette/Vaping Use: Never Used Second Hand Smoke Exposure: No service: No Current occupational status: disabled Current occupational exposures/hazards: No Cognitive needs: Yes (cane) Hearing needs: No Vision needs: Yes (glasses) Meds Allergies Allergy/AdvReac Type Severity Reaction Status Date / Time No Known Allergies Allergy Verified 02/15/24 17:38 [No Known Allergies*] Active Medications: Current Medications Acetaminophen (Acetaminophen 325 Mg Tablet) 650 mg PO Q6H PRN PRN Reason: Pain, Mild (Pain Scale 1-3), fever or headache Amlodipine Besylate (Amlodipine Besylate 10 Mg Tablet) 10 mg PO DAILY [facility]; Protocol Last Admin: 02/17/24 09:16 Dose: 10 mg Calcium Carbonate (Calcium Carbonate 750 Mg Tab.Chew) 750 mg PO Q4H PRN PRN Reason: Heartburn Enoxaparin Sodium (Enoxaparin Sodium 40 Mg/0.4 Ml Syringe) 40 mg SUBCUT Q24H [facility] Last Admin: 02/16/24 22:21 Dose: 40 mg Glucose (Glucose Gel 15 Gm Gel..Gram.) 15 gm PO Q15M PRN; Protocol PRN Reason: per Hypoglycemia Standing Ord. Dextrose (D10) 250 mls @ 750 mls/hr IV Q15M PRN; Protocol PRN Reason: per Hypoglycemia Standing Ord. Piperacillin Sod/Tazobactam (Sod 3.375 gm/ Sodium Chloride) 50 mls @ 100 mls/hr IV Q6H [facility] Last Infusion: 02/17/24 11:00 Dose: Infused Vancomycin HCl 1,000 mg/ (Sodium Chloride) 270 mls @ 270 mls/hr IV Q12H [facility] Last Infusion: 02/17/24 14:03 Dose: 270 mls/hr Insulin Glargine (Insulin Glargine,Hum.Rec.Anlog 100 Unit/Ml 10 Ml Vial) 40 unit SUBCUT BID [facility] Last Admin: 02/17/24 09:16 Dose: 40 unit Insulin Human Lispro (Insulin Lispro 100 Unit/Ml 3 Ml Vial) 0 unit SUBCUT QIDACHS [facility]; Protocol Last Admin: 02/17/24 12:44 Dose: Not Given Losartan Potassium (Losartan Potassium 50 Mg Tablet) 50 mg PO DAILY [facility]; Protocol Last Admin: 02/17/24 09:18 Dose: 50 mg Magnesium Hydroxide (Milk Of Magnesia 30 Ml Oral.Susp) 30 ml PO DAILY PRN PRN Reason: Constipation Melatonin (Melatonin 3 Mg Tablet) 6 mg PO BEDTIME PRN PRN Reason: Insomnia Morphine Sulfate (Morphine Sulfate 2 Mg/Ml Cartridge) 2 mg IVPUSH Q4H PRN; Protocol PRN Reason: Pain, Severe (Pain Scale 7-10) Last Admin: 02/17/24 09:13 Dose: 2 mg Ondansetron HCl (Ondansetron Hcl 4 Mg/2 Ml Vial) 4 mg IVPUSH Q8H PRN PRN Reason: Nausea and Vomiting Pharmacy Consult (Consult Rx Vancomycin Dosing) 1 each MISCELLANE DAILY PRN PRN Reason: Consult order Sodium Chloride (0.9 % Sodium Chloride Flush 3 Ml Syringe) 3 ml IVFLUSH QSHIFT [facility] Last Admin: 02/17/24 09:25 Dose: Not Given Home Medications ?Medication ?Instructions ?Recorded ?Confirmed ?Last Taken ?Type amlodipine 10 mg tablet 10 mg PO DAILY 02/16/24 02/16/24 Unknown History aspirin 81 mg tablet,delayed 81 mg PO DAILY 02/16/24 02/16/24 Unknown History release losartan 50 mg tablet 50 mg PO DAILY 02/16/24 02/16/24 Unknown History Exam Exam Date and Time: February 17, 2024 1415 Height,Weight and Vital Signs: Height 5 ft 6 in Weight 132.449 kg Last Vital Signs Temp 98.2 F 02/17/24 13:59 Pulse 123 H 02/17/24 13:59 Resp 18 02/17/24 13:59 BP 131/87 02/17/24 13:59 Pulse Ox 95 02/17/24 13:59 O2 Del Method Room Air 02/17/24 13:59 Pertinent Lab Results Pertinent Lab Results: Laboratory Tests 02/15/24 02/15/24 02/15/24 18:12 19:55 20:15 WBC 11.6 H RBC 4.31 L Hgb 11.3 L D Hct 33.6 L D MCV 78.0 L MCH 26.2 L MCHC 33.6 RDW 13.4 Plt Count 277 MPV 10.9 Immature Gran % (Auto) 0.3 Neut % (Auto) 86.1 H Lymph % (Auto) 6.9 L Nobles % (Auto) 6.0 Eos % (Auto) 0.4 Baso % (Auto) 0.3 Lymph # (Auto) 0.8 L Nobles # (Auto) 0.7 Eos # (Auto) 0.1 Baso # (Auto) 0.0 Abs Immat Gran (auto) 0.04 H Absolute Neuts (auto) 10.0 H Absolute Nucleated RBC 0.000 Nucleated RBC % (auto) 0.0 ESR VBG pH VBG pCO2 VBG pO2 VBG HCO3 VBG O2 Saturation VBG Base Excess Sodium 126 L Potassium 4.3 Chloride 91 L Carbon Dioxide 25 Anion Gap 14 BUN 17 H Creatinine 1.56 H Estim Creat Clear Calc 74.7 Estimated GFR 48 POC Glucose > 600 H* Random Glucose 779 H* Estimat Average Glucose Hemoglobin A1c % Osmolality 318 H Lactic Acid 1.8 Calcium 9.2 Magnesium 1.8 Iron TIBC % Saturation Unsat Iron Binding Ferritin Total Bilirubin 0.3 AST 8 ALT 6 Alkaline Phosphatase 107 C-Reactive Protein Total Protein 9.2 H Albumin 3.0 L Beta-Hydroxybutyrate 0.10 Random Vancomycin 02/15/24 02/15/24 02/15/24 20:17 21:41 22:43 WBC RBC Hgb Hct MCV MCH MCHC RDW Plt Count MPV Immature Gran % (Auto) Neut % (Auto) Lymph % (Auto) Nobles % (Auto) Eos % (Auto) Baso % (Auto) Lymph # (Auto) Nobles # (Auto) Eos # (Auto) Baso # (Auto) Abs Immat Gran (auto) Absolute Neuts (auto) Absolute Nucleated RBC Nucleated RBC % (auto) ESR VBG pH 7.38 VBG pCO2 46 VBG pO2 43 VBG HCO3 28 H VBG O2 Saturation 67.0 VBG Base Excess 2.6 Sodium Potassium Chloride Carbon Dioxide Anion Gap BUN Creatinine Estim Creat Clear Calc Estimated GFR POC Glucose 500 H* 385 H* Random Glucose Estimat Average Glucose Hemoglobin A1c % Osmolality Lactic Acid Calcium Magnesium Iron TIBC % Saturation Unsat Iron Binding Ferritin Total Bilirubin AST ALT Alkaline Phosphatase C-Reactive Protein Total Protein Albumin Beta-Hydroxybutyrate Random Vancomycin 02/16/24 02/16/24 02/16/24 04:25 07:04 11:57 WBC 10.5 RBC 3.72 L Hgb 9.7 L Hct 28.9 L MCV 77.7 L MCH 26.1 L MCHC 33.6 RDW 13.4 Plt Count 248 MPV 10.9 Immature Gran % (Auto) 0.5 H Neut % (Auto) 76.6 H Lymph % (Auto) 12.5 L Nobles % (Auto) 8.9 Eos % (Auto) 1.2 Baso % (Auto) 0.3 Lymph # (Auto) 1.3 Nobles # (Auto) 0.9 Eos # (Auto) 0.1 Baso # (Auto) 0.0 Abs Immat Gran (auto) 0.05 H Absolute Neuts (auto) 8.1 Absolute Nucleated RBC 0.000 Nucleated RBC % (auto) 0.0 ESR 105 H VBG pH VBG pCO2 VBG pO2 VBG HCO3 VBG O2 Saturation VBG Base Excess Sodium 132 L Potassium 3.6 Chloride 98 Carbon Dioxide 26 Anion Gap 12 BUN 15 Creatinine 1.22 Estim Creat Clear Calc 95.5 Estimated GFR > 60 POC Glucose 303 H 324 H Random Glucose 402 H* Estimat Average Glucose TNP Hemoglobin A1c % > 14.0 H Osmolality Lactic Acid Calcium 8.8 Magnesium Iron 12 L TIBC 152 L % Saturation 8 L Unsat Iron Binding 140 Ferritin 456 H Total Bilirubin AST ALT Alkaline Phosphatase C-Reactive Protein 28.09 H Total Protein Albumin Beta-Hydroxybutyrate Random Vancomycin 02/16/24 02/16/24 02/17/24 16:42 20:15 05:00 WBC 11.6 H RBC 3.87 L Hgb 10.1 L Hct 30.7 L MCV 79.3 L MCH 26.1 L MCHC 32.9 RDW 13.5 Plt Count 289 MPV 10.8 Immature Gran % (Auto) Neut % (Auto) Lymph % (Auto) Nobles % (Auto) Eos % (Auto) Baso % (Auto) Lymph # (Auto) Nobles # (Auto) Eos # (Auto) Baso # (Auto) Abs Immat Gran (auto) Absolute Neuts (auto) Absolute Nucleated RBC 0.000 Nucleated RBC % (auto) 0.0 ESR VBG pH VBG pCO2 VBG pO2 VBG HCO3 VBG O2 Saturation VBG Base Excess Sodium Potassium Chloride Carbon Dioxide Anion Gap BUN Creatinine 1.25 Estim Creat Clear Calc 93.2 Estimated GFR > 60 POC Glucose 319 H 301 H Random Glucose Estimat Average Glucose Hemoglobin A1c % Osmolality Lactic Acid Calcium Magnesium Iron TIBC % Saturation Unsat Iron Binding Ferritin Total Bilirubin AST ALT Alkaline Phosphatase C-Reactive Protein Total Protein Albumin Beta-Hydroxybutyrate Random Vancomycin 02/17/24 02/17/24 02/17/24 07:18 11:11 11:52 WBC RBC Hgb Hct MCV MCH MCHC RDW Plt Count MPV Immature Gran % (Auto) Neut % (Auto) Lymph % (Auto) Nobles % (Auto) Eos % (Auto) Baso % (Auto) Lymph # (Auto) Nobles # (Auto) Eos # (Auto) Baso # (Auto) Abs Immat Gran (auto) Absolute Neuts (auto) Absolute Nucleated RBC Nucleated RBC % (auto) ESR VBG pH VBG pCO2 VBG pO2 VBG HCO3 VBG O2 Saturation VBG Base Excess Sodium Potassium Chloride Carbon Dioxide Anion Gap BUN Creatinine Estim Creat Clear Calc Estimated GFR POC Glucose 258 H 241 H Random Glucose Estimat Average Glucose Hemoglobin A1c % Osmolality Lactic Acid Calcium Magnesium Iron TIBC % Saturation Unsat Iron Binding Ferritin Total Bilirubin AST ALT Alkaline Phosphatase C-Reactive Protein Total Protein Albumin Beta-Hydroxybutyrate Random Vancomycin 11.9 L 02/17/24 13:51 WBC RBC Hgb Hct MCV MCH MCHC RDW Plt Count MPV Immature Gran % (Auto) Neut % (Auto) Lymph % (Auto) Nobles % (Auto) Eos % (Auto) Baso % (Auto) Lymph # (Auto) Nobles # (Auto) Eos # (Auto) Baso # (Auto) Abs Immat Gran (auto) Absolute Neuts (auto) Absolute Nucleated RBC Nucleated RBC % (auto) ESR VBG pH VBG pCO2 VBG pO2 VBG HCO3 VBG O2 Saturation VBG Base Excess Sodium Potassium Chloride Carbon Dioxide Anion Gap BUN Creatinine Estim Creat Clear Calc Estimated GFR POC Glucose 221 H Random Glucose Estimat Average Glucose Hemoglobin A1c % Osmolality Lactic Acid Calcium Magnesium Iron TIBC % Saturation Unsat Iron Binding Ferritin Total Bilirubin AST ALT Alkaline Phosphatase C-Reactive Protein Total Protein Albumin Beta-Hydroxybutyrate Random Vancomycin Airway Mallampati Class: IV (large neck circumference) TM Dist: >3cm Neck ROM: Full Loose/Missing/Broken Teeth: No (patient denies any loose or broken teeth) Heart: S1S2 Lungs: CTAB Assessment and Plan Assessment Anesthesia Assessment: Anesthesia Plan Discussed and Chart Reviewed Final Anesthetic Review Family History of Problems with Anesthesia: No History of Problems with Anesthesia: No NPO: Yes ASA Class: III Final Preanesthetic Review: No Changes in Pt Med Stat, Meds/Allgs Chart Reviewed, Consent Obtained/Reviewed (postdoctoral research fellow at bedside for translation) and Anes Risks/Benef Reviewed Patient Risk: Intermediate Procedure Risk: Low Anesthetic Plan Anesthetic Plan: GA and Agree w/ Assess. and Plan Disposition: Standard PACU
--- NOTE | 2024-02-17 14:34 | CA_ITS ---
Transthoracic Echocardiogram Patient (Last, First, Middle): Miguel A Aparicio, Gender: Male Date of : 1975 Age: 49 Procedure Date: 02/17/2024 Procedure Type: Transthoracic Echocardiogram Location: S3W Height: 167.64 cm Weight: 132.45 kg BSA: 2.35 m2 Heart Rate: 119 bpm BP: 131 / 87 mmHg [employer] Nurse: SB Referring MD: Joellen ROBB Symptoms: strep viridens bacteremia Study Quality: Technically Difficult ECG Rhythm: Tachycardia Conclusions: - Normal left ventricular cavity size. There is normal left ventricular wall thickness. The left ventricular systolic function is borderline reduced. The visually estimated ejection fraction is between 45-50%. - Poor 2-D valve assessment. Technically difficult study. - There is mild dilatation of the sinuses of Valsalva measuring 3.60 cm and mild dilatation of the ascending aorta measuring 3.40 cm. Findings Procedure Information Contrast agent, definity, is being given per protocol without apparent complications. The quality of the study was technically difficult. The study quality is limited by patients body habitus and an uncooperative patient. Left Ventricle Normal left ventricular cavity size. There is normal left ventricular wall thickness. The left ventricular systolic function is borderline reduced. The visually estimated ejection fraction is between 45-50%. There is no evidence of regional wall motion abnormalities. Diastolic function is indeterminate on the basis of available data. Right Ventricle The right ventricle was not well visualized. Atria The left atrium is normal in size. Aortic Valve The aortic valve was not well visualized. There is no aortic valve stenosis. There is no aortic valve regurgitation. Mitral Valve Likely normal mitral valve structure and function. There is no mitral valve regurgitation. There is no mitral valve stenosis. Pulmonic Valve The pulmonic valve was not well visualized. Great Vessels There is mild dilatation of the sinuses of Valsalva measuring 3.60 cm and mild dilatation of the ascending aorta measuring 3.40 cm. The visualized portions of the pulmonary artery and branches are normal. Venous The inferior vena cava is normal in size and collapses greater than 50% with inspiration. Pericardium/Pleural There is no evidence of pericardial effusion. Prior Study Comparison No prior study available for comparison. Measurements 2D Linear Measurements IVSd: 0.96 0.6-0.9/0.6-1.0 cm LVIDd: 5.11 3.9-5.3/4.2-5.9 cm LVIDd Index: 2.17 2.4-3.2/2.2-3.1 cm/m2 LVIDs: 4.22 2.0-3.6 cm LVPWd: 0.98 0.7-1.1 cm LA Diam: 3.90 2.7-3.8/3.0-4.0 cm LAIDs Index: 1.66 1.5-2.3 cm/m2 LV Mass: 225.03 67-162/88-224 g LV Mass Index: 95.76 43-95/49-115 g/m2 LVOT Diam: 2.60 3.0+(-)1.3 cm 2D Systolic Function EF 4C: 39.10 >55% EF 2C: 36.90 >55% EF BiP: 41.70 >55% Aortic Valve AoV Pk Dallin: 1.09 AoV Pk Grad: 5.00 PATRICK: 4.80 LVOT LVOT Pk Dallni: 0.98 LVOT Mn Dallin: 0.62 LVOT VTI: 0.16 LVOT Pk Grad: 4.00 LVOT Mn Grad: 2.00 LVOT Diam: 2.60 LVOT Area: 5.31 Right Ventricle TVS' Dallin: 13.40 Tricuspid Valve RA Press: 3.00 Great Vessels Aorta Sinus of Valsalva: 3.60 2.0-3.5 cm Ao Asc: 3.40 2.1-3.4 cm Pulmonary Valve PV Pk Dallin: 0.67 Peak PV Grad: 2.00 Updated in Other Vendor System with Status of Final Rick Bansal MD electronically signed on 02/18/2024 11:22:29 AM with status of Final
--- NOTE | 2024-02-17 14:36 | PC.NURSE ---
report given to Luis Silvestre and aware that Dr. Padilla is aware need to to 24 h or progress note mentioning procedure. Luis Silvestre remessaged Dr. Padilla
--- NOTE | 2024-02-17 15:07 | W.PM.OPN ---
Operative Note Operative Note Date of Service: 02/17/24 Narrative: Preoperative diagnosis: [] Bilateral multiple wounds/abscesses Postop diagnosis: [] The same Procedure [] debridement washing of bilateral lower extremity foot wounds, I&D of right lateral forefoot abscess Surgeon: [] Randy Collar Band Creaser: [] Abiilo Type of Anesthesia: [] General Indication for surgery: [] Patient presents with multiple bilateral lower extremity wounds. The distal right lateral forefoot had an abscess this measured approximately 4 x 4 cm.. Just proximal to this was another draining wound with necrotic base and this measured approximately 4 x 4 cm.. The anterior lateral right woody had a large area rough 15 x 10 cm of desquamating skin and open wound with necrotic skin and soft tissue. Left foot just beyond the ankle had large ulcer ,The area measured roughly 3 x 2 cm eschar and necrotic surrounding tissue. The forefoot had open draining wound which measured approximately 4 x 4 cm., which undermined distally several cm and also had exposed extensor tendons. Findings: [] Patient brought to the operating room, placed on operative table supine position, after adequate general anesthesia was induced, bilateral lower extremities and feet were prepped and draped in usual sterile fashion. The right lower extremity had its superficial wound debrided of skin and soft tissue and then wash with a scrub brush. The proximal forefoot wound was debrided of necrotic tissue of soft tissue and skin. At base was granulating tissue. The distal right lateral forefoot had an abscess which measured approximately 4 x 4 cm which was incised and drained. Cultures were obtained. Copious amounts permanent serial was retrieved. Wound was irrigated, secured for hemostasis and packed. The left foot wounds were debrided of necrotic skin and soft tissue for the proximal wound and similarly for the distal wound. Probing of the distal wound demonstrated extension into the ankle area with exposed tendons. All wounds were irrigated, secured hemostasis, and dressings applied followed by Kerlix wraps. Sponge, needle, and instrument counts reported correct. Patient tolerated the procedure well and emerged from anesthesia stable condition. EBL minimal
[2024-02-17 16:33] LABS: Glucose, Whole Blood 236 mg/dL (60-115)
[2024-02-17] MEDS: Morphine Sulfate 4 MG/ML CARTRIDGE IVPUSH ×2 (16:42→20:49)
[2024-02-17] MEDS: 0.9 % Sodium Chloride Flush 3 ML SYRINGE IVFLUSH ×2 (16:43→20:55)
[2024-02-17] MEDS: oxyCODONE HCl Immed Release 5 MG TABLET PO (18:04)
[2024-02-17 20:34] LABS: Glucose, Whole Blood 478 mg/dL (60-115)
[2024-02-17] MEDS: Insulin Glargine,Hum.rec.anlog 100 UNIT/ML 10 ML VIAL 50 UNIT SUBCUT (20:53)
[2024-02-17] MEDS: HYDROmorphone HCl 2 MG TABLET 1 MG PO (23:09)
[2024-02-17] MEDS: Enoxaparin Sodium 40 MG/0.4 ML SYRINGE SUBCUT (23:10)
[2024-02-18] MEDS: Throat Lozenge, Medicated LOZENGE 1 LOZENGE MUCOUS MEM (01:00)
[2024-02-18] MEDS: vancomycin HCL 1,000 MG in 0.9 % Sodium Chloride 250 ML 270 MG IV (01:04)
[2024-02-18] MEDS: Morphine Sulfate 4 MG/ML CARTRIDGE IVPUSH (02:08)
[2024-02-18 04:00] VITALS: BP 111/68; PULSE 96; RESP 20; TEMP 36.3; O2SAT 95
[2024-02-18] MEDS: Piperacillin Sodium/Tazobactam 3.375 GM in 0.9 % Sodium Chloride 50 ML IV (05:11)
--- NOTE | 2024-02-18 06:46 | PC.NURSE ---
02/17/24: Pt's bedtime POC 478. MD Bonilla made brooks of the pt's critical POC. Pt been noncompliant with diabetic diet. 10 units of insulin was given per sliding scale, no new orders were given. CONNIE bedtime Lantus was given to pt as well, see MAR. Will continue to monitor.
[2024-02-18 06:49] LABS: Creatinine Clr Calc Pharmacy 62.3; Estimated Glomerular Filt Rate 39
[2024-02-18 07:09] VITALS: BP 113/79; PULSE 100; RESP 14; TEMP 36.6; O2SAT 96
--- NOTE | 2024-02-18 07:28 | HO.PM.IMPN ---
Subjective Subjective Date of Service: 02/18/24 Interval History: Seen and examined this morning Follow-up for bilateral lower extremity wounds History obtained with the assistance of a straight cutter Patient reports pain in the right lower extremity reported 10/10, sitting up comfortable appearing eating breakfast in bed with mother at bedside. Reporting uncontrolled pain (on IV morphine give additional 1mg dilaudid po last night), s/p decridement wounds RLE. no fever, no chills. Tachycardia improving Review of Systems Review of Systems: Yes all other systems are reviewed and are negative Constitutional Constitutional: Denies chills and Denies fever(s) Physical Exam Vital Signs: Vital Signs: Last Vital Signs Temp 97.9 F 02/18/24 07:09 Pulse 100 02/18/24 07:09 Resp 14 02/18/24 07:09 BP 113/79 02/18/24 07:09 Pulse Ox 96 02/18/24 07:09 O2 Del Method Room Air 02/18/24 07:09 O2 Flow Rate 2 02/17/24 15:48 BMI result Body Mass Index 47.1 Constitutional - Awake and Alert, No apparent distress Eyes - PERRLA, EOMI Cardiovascular - S1S2, RRR, No edema Respiratory - Normal lung expansion, Normal respiratory effort, No respiratory distress, CTA bilaterally Gastrointestinal - NT / ND; +BS; No rebound or guarding Extremities - no calf tenderness bilaterally, no swelling Skin - Warm/Dry. post op dressing in place Neurological - Alert & oriented x3 Psychological - Appropriate affect Objective Data Active Medications Acetaminophen (Acetaminophen 325 Mg Tablet) 650 mg PO Q6H PRN PRN Reason: Pain, Mild (Pain Scale 1-3), fever or headache Amlodipine Besylate (Amlodipine Besylate 10 Mg Tablet) 10 mg PO DAILY [facility]; Protocol Last Admin: 02/17/24 09:16 Dose: 10 mg Documented By: ALPHONSO Benzocaine (Throat Lozenge, Medicated Lozenge) 1 lozenge MUCOUS MEM Q2H PRN PRN Reason: Sore Throat Last Admin: 02/18/24 01:00 Dose: 1 lozenge Documented By: MIKE Calcium Carbonate (Calcium Carbonate 750 Mg Tab.Chew) 750 mg PO Q4H PRN PRN Reason: Heartburn Enoxaparin Sodium (Enoxaparin Sodium 40 Mg/0.4 Ml Syringe) 40 mg SUBCUT Q24H [facility] Last Admin: 02/17/24 23:10 Dose: 40 mg Documented By: MIKE Glucose (Glucose Gel 15 Gm Gel..Gram.) 15 gm PO Q15M PRN; Protocol PRN Reason: per Hypoglycemia Standing Ord. Dextrose (D10) 250 mls @ 750 mls/hr IV Q15M PRN; Protocol PRN Reason: per Hypoglycemia Standing Ord. Piperacillin Sod/Tazobactam (Sod 3.375 gm/ Sodium Chloride) 50 mls @ 100 mls/hr IV Q6H [facility] Last Infusion: 02/18/24 05:49 Dose: Infused Documented By: MIKE Vancomycin HCl 1,000 mg/ (Sodium Chloride) 270 mls @ 270 mls/hr IV Q12H [facility] Last Infusion: 02/18/24 02:08 Dose: Infused Documented By: MIKE Insulin Glargine (Insulin Glargine,Hum.Rec.Anlog 100 Unit/Ml 10 Ml Vial) 50 unit SUBCUT BID [facility] Last Admin: 02/17/24 20:53 Dose: 50 unit Documented By: MIKE Insulin Human Lispro (Insulin Lispro 100 Unit/Ml 3 Ml Vial) 0 unit SUBCUT QIDACHS [facility]; Protocol Last Admin: 02/17/24 20:52 Dose: 10 unit Documented By: MIKE Insulin Human Lispro (Insulin Lispro 100 Unit/Ml 3 Ml Vial) 5 unit SUBCUT QIDACHS [facility] Losartan Potassium (Losartan Potassium 50 Mg Tablet) 50 mg PO DAILY [facility]; Protocol Last Admin: 02/17/24 09:18 Dose: 50 mg Documented By: ALPHONSO Magnesium Hydroxide (Milk Of Magnesia 30 Ml Oral.Susp) 30 ml PO DAILY PRN PRN Reason: Constipation Melatonin (Melatonin 3 Mg Tablet) 6 mg PO BEDTIME PRN PRN Reason: Insomnia Morphine Sulfate (Morphine Sulfate 4 Mg/Ml Cartridge) 4 mg IVPUSH Q4H PRN; Protocol PRN Reason: Pain, Severe (Pain Scale 7-10) Last Admin: 02/18/24 02:08 Dose: 4 mg Documented By: MIKE Ondansetron HCl (Ondansetron Hcl 4 Mg/2 Ml Vial) 4 mg IVPUSH Q8H PRN PRN Reason: Nausea and Vomiting Oxycodone HCl (Oxycodone Hcl Immed Release 5 Mg Tablet) 5 mg PO Q4H PRN PRN Reason: Pain, Moderate(Pain Scale 4-6) Last Admin: 02/17/24 18:04 Dose: 5 mg Documented By: LUIS Pharmacy Consult (Consult Rx Vancomycin Dosing) 1 each MISCELLANE DAILY PRN PRN Reason: Consult order Sodium Chloride (0.9 % Sodium Chloride Flush 3 Ml Syringe) 3 ml IVFLUSH QSHIFT [facility] Last Admin: 02/17/24 20:55 Dose: 3 ml Documented By: MIKE Labs 02/18/24 05:16 02/18/24 05:16 Labs: Laboratory Results - last 24 hr 02/17/24 02/17/24 02/17/24 11:11 11:52 13:51 Hold Purple Top Estim Creat Clear Calc Estimated GFR POC Glucose 241 H 221 H Random Vancomycin 11.9 L 02/17/24 02/17/24 02/18/24 16:26 20:19 05:16 Hold Purple Top SEE NOTE Estim Creat Clear Calc 62.3 Estimated GFR 39 POC Glucose 236 H 478 H* Random Vancomycin Microbiology Microbiology Results: Microbiology 02/15/24 18:21 Blood Culture - Preliminary Blood - Venous No growth after 48 hours. 02/17/24 Unknown Gram Stain - Final Foot Right 02/15/24 18:12 Blood Culture - Final Blood - Venous Streptococcus viridans group Assessment and Plan (1) Hyperglycemia due to type 2 diabetes mellitus: Status: Acute (2) Infected ulcer of skin: Status: Acute (3) Cellulitis: Status: Acute Plan This is a 49-year-old male with pertinent history of insulin-dependent diabetes mellitus, obesity, hypertension, chronic kidney disease stage 3 presents to the emergency department for concerns of foot infection. Right diabetic foot infection with cellulitis and infected non pressure ulcers admission in october, biopsy obtained - vascular fibrinoid changes along with eosinophils but unable to determine if primary due to vasculitis or secondary/reactive changes Has been following in wound care clinic- has refused debridement per wound care notes and does not appear to be compliant with other recommended interventions per PCP notes it appears that he did not follow up with specialists he was referred to, does not appear to have been seen by rheumatology MRI right foot shows large soft tissue defect/ulceration along the dorsal lateral aspect of the forefoot at the level of the 5th metatarsal diaphysis with prominent soft tissue gas and an associated abscess formation measuring 5.0 cm in greatest dimension. There is also osteomyelitis throughout the 5th metatarsal extending to the 5th metatarsophalangeal articular surface as well as the base of the 5th proximal phalanx. There is a 5th metatarsophalangeal joint effusion with surrounding soft tissue edema consistent with septic arthritis. Mild marrow edema within the adjacent 4th metatarsal head and base of the 4th proximal phalanx possibly early osteomyelitis. There is also diffuse edema and atrophy throughout the intrinsic musculature of the foot CRP 28.09, ESR 105 Initially treated with IV vancomycin Zosyn 02/14-02/17. Change to 2g IV ctx and 100mg doxy IV 02/17 Wound Care consult pending. ID consult pending s/p debridement 02/16 per general surgery. General surgery input appreciated Poor pain control. Morphine dc'd. Added hydromorphone 0.5 mg q.4h. Will ask surgery to reevaluate # strep viridans bacteremia blood culture positive x1. Repeat pending Abx changed as above echocardiogram read pending ID consult #Acute septic arthritis R foot as above #Uncontrolled insulin-dependent diabetes mellitus with hyperglycemia: Due to noncompliance with insulin. Given IV insulin and IV fluids in the ER. Increase Lantus to 50units bidaily hold metformin SSI, POCs. Add standing 5 units Humalog q.i.d. a.c. HS ADA diet Hgb A1c >14.0 # acute on chronic micorcytic anemia Iron slightly low. Add ferrous sulfate with vitamin-C above transfusion threshold follow CBC #Pseudo hyponatremia due to hyperglycemia #Morbid Obesity: BMI 47.1 Counseled regarding diet and exercise # Hypertension: Continue home antihypertensives, losartan, Norvasc # CKD stage 3 -Creatinine at baseline DVT prophylaxis: Lovenox Full code Pt requires ongoing inpt stay due to diabetic foot infection, osteomyelitis, septic arthritis, and strep viridens bacteremia requiring iv abx, repeat blood cultures, and expert consultation Quality Stroke Does the patient have a stroke diagnosis?: No VTE Prior VTE?: No VTE Risk Level:: Medical - moderate - high VTE Device Contraindication: Treatment Not Indicated VTE Drug Contraindication: N/A - Med Ordered
[2024-02-18 07:54] VITALS: BP 113/79; PULSE 100; RESP 14; TEMP 36.6; O2SAT 97
[2024-02-18 07:54] LABS: Glucose, Whole Blood 355 mg/dL (60-115)
[2024-02-18] MEDS: Insulin Glargine,Hum.rec.anlog 100 UNIT/ML 10 ML VIAL 50 UNIT SUBCUT (08:10)
[2024-02-18] MEDS: Insulin Lispro 100 UNIT/ML 3 ML VIAL SUBCUT ×8 (08:10→21:44)
[2024-02-18] MEDS: amLODIPine Besylate 10 MG TABLET PO (08:11)
--- NOTE | 2024-02-18 08:13 | MHC.CM.PN ---
B[place]raini speaking patient, CM assessment completed w/ motor vehicle parts interpreter. Patient lives in apartment alone. Patient's mother assists w/ ADL's and sometimes stays w/ patient. Ambulates w/ cane & walker PRN. No services. Patient is unsure if he is still active w/ Jose C Campbell MD for PCP. He is also on a wait list at [facility]. Followed by [facility] wound clinic. HCP on file and verified. DP: Home, f/u with wound clinic vs home w/ new [facility]. [facility] to verify PCP. Will need [facility] shuttle or Lyft for transport home. CM will continue to follow.
[2024-02-18] MEDS: HYDROmorphone HCl 0.5 MG/0.5 ML SYRINGE IVPUSH ×2 (08:22→13:49)
[2024-02-18] MEDS: Doxycycline Hyclate 100 MG in 0.9 % Sodium Chloride 250 ML 166.67 MG IV ×2 (08:22→22:20)
[2024-02-18] MEDS: 0.9 % Sodium Chloride 1,000 ML 125 ML IVCONT (08:23)
[2024-02-18] MEDS: 0.9 % Sodium Chloride Flush 3 ML SYRINGE IVFLUSH (08:31)
[2024-02-18 08:39] LABS: MANUAL DIFF FLAG NO
[2024-02-18 08:41] LABS: Basophils Percent Auto 0.2 % (0-2); Hematocrit 31.5 % (42.0-52.0); Imm Gran Abs Auto 0.06 X10*3/uL (0.00-0.03); Imm Gran Pct Auto 0.5 % (0.0-0.4); Lymphocytes Percent Auto 7.9 % (20-40); Mean Corpuscular HGB Conc 31.7 g/dl (31.0-36.0); Mean Corpuscular Hemoglobin 25.6 pg (27.0-33.0); Mean Corpuscular Volume 80.6 fL (80.0-98.0); Mean Platelet Volume 10.5 fL (9.4-12.4); Monocytes Absolute Auto 0.7 X10*3/uL (0.1-1.2); Monocytes Percent Auto 5.9 % (2-11); Neutrophils Absolute Auto 10.5 x10*3/uL (2.0-8.3); Neutrophils Percent Auto 85.5 % (45-73); Platelet Count 337 X10*3/uL (160-400); Red Blood Count 3.91 X10*6/uL (4.60-5.80); Red Cell Distribution Width 13.6 % (11.0-16.0); White Blood Count 12.3 X10*3/uL (4.8-10.8)
[2024-02-18 08:54] LABS: Anion Gap 16 (12-20); Blood Urea Nitrogen 18 mg/dL (9-16); Calcium 8.9 mg/dL (8.4-10.2); Carbon Dioxide 26 mmol/L (22-29); Chloride 98 mmol/L (96-108); Potassium 4.8 mmol/L (3.3-5.1); Sodium 135 mmol/L (135-145)
[2024-02-18 09:15] LABS: Glucose Random 389 mg/dL (60-115)
[2024-02-18] MEDS: cefTRIAXone sodium 2 GM in 0.9 % Sodium Chloride 50 ML IV (10:04)
[2024-02-18] MEDS: Acetaminophen 325 MG TABLET 650 MG PO (10:10)
[2024-02-18] MEDS: oxyCODONE HCl Immed Release 5 MG TABLET PO (10:10)
--- NOTE | 2024-02-18 11:01 | PC.NURSE ---
PRN oxycodone 5mg and PRN acetaminophen 650mg given for 10/10 pain at pt request.
--- NOTE | 2024-02-18 11:06 | HO.POSTANES ---
Post Anesthesia Evaluation Post Anesthesia Evaluation Date of Service: 02/18/24 Vital Signs: Vital Signs Temp Pulse Resp BP Pulse Ox O2 Del Method 02/18/24 07:54 97.9 F 100 14 113/79 97 Room Air 02/18/24 07:09 97.9 F 100 14 113/79 96 Room Air 02/18/24 04:00 97.4 F 96 20 111/68 95 Room Air 02/17/24 23:33 97.3 F 114 H 20 121/77 98 Room Air Anesthesia: General Endotracheal-GETA Mental Status: Awake Pain Control: Satisfactory (complaining of a lot of pain, receiving iv opioids) Nausea/Vomiting: None Hydration: Adequate Anesthesia-Related Issues: No Anes. Related Issues
[2024-02-18 11:20] LABS: Glucose, Whole Blood 324 mg/dL (60-115)
[2024-02-18 11:52] VITALS: BP 110/73; PULSE 117; RESP 14; TEMP 36.8; O2SAT 93
--- NOTE | 2024-02-18 12:13 | PM.PNGS ---
Subjective Subjective Date of Service: 02/18/24 Interval history: Patient reports pain in the bilateral lower extremities not being helped by his current pain medication Physical Exam Vital Signs: Vital Signs: Last Vital Signs Temp 97.9 F 02/18/24 07:54 Pulse 100 02/18/24 07:54 Resp 14 02/18/24 07:54 BP 113/79 02/18/24 07:54 Pulse Ox 97 02/18/24 07:54 O2 Del Method Room Air 02/18/24 07:54 O2 Flow Rate 2 02/17/24 15:48 BMI result Body Mass Index 47.1 Cardio: Rate: tachycardic Skin: Other: Warm and dry Extrem: Other: Bilateral foot/lower ankle multiple wounds of varying sizes and degree of granulation/infection along with surrounding cellulitic changes. Moderate edema of bilateral lower extremities. Skin is warm and brisk capillary refill at the toes. Objective Data Active Medications Acetaminophen (Acetaminophen 325 Mg Tablet) 650 mg PO Q6H PRN PRN Reason: Pain, Mild (Pain Scale 1-3), fever or headache Last Admin: 02/18/24 10:10 Dose: 650 mg Documented By: IRINA Amlodipine Besylate (Amlodipine Besylate 10 Mg Tablet) 10 mg PO DAILY [facility]; Protocol Last Admin: 02/18/24 08:11 Dose: 10 mg Documented By: IRINA Benzocaine (Throat Lozenge, Medicated Lozenge) 1 lozenge MUCOUS MEM Q2H PRN PRN Reason: Sore Throat Last Admin: 02/18/24 01:00 Dose: 1 lozenge Documented By: MIKE Calcium Carbonate (Calcium Carbonate 750 Mg Tab.Chew) 750 mg PO Q4H PRN PRN Reason: Heartburn Enoxaparin Sodium (Enoxaparin Sodium 40 Mg/0.4 Ml Syringe) 40 mg SUBCUT Q24H [facility] Last Admin: 02/17/24 23:10 Dose: 40 mg Documented By: MIKE Glucose (Glucose Gel 15 Gm Gel..Gram.) 15 gm PO Q15M PRN; Protocol PRN Reason: per Hypoglycemia Standing Ord. Hydromorphone HCl (Hydromorphone Hcl 0.5 Mg/0.5 Ml Syringe) 0.5 mg IVPUSH Q4H PRN; Protocol PRN Reason: Pain, Severe (Pain Scale 7-10) Last Admin: 02/18/24 08:22 Dose: 0.5 mg Documented By: IRINA Dextrose (D10) 250 mls @ 750 mls/hr IV Q15M PRN; Protocol PRN Reason: per Hypoglycemia Standing Ord. Doxycycline Hyclate 100 mg/ (Sodium Chloride) 250 mls @ 166.67 mls/hr IV Q12H [facility] Last Infusion: 02/18/24 10:01 Dose: Infused Documented By: IRINA Ceftriaxone Sodium 2 gm/ (Sodium Chloride) 50 mls @ 100 mls/hr IV Q24H [facility] Last Infusion: 02/18/24 10:52 Dose: Infused Documented By: IRINA Sodium Chloride (Ns) 1,000 mls @ 125 mls/hr IVCONT .Q8H [facility] Stop: 02/18/24 16:14 Last Infusion: 02/18/24 10:52 Dose: 0 mls/hr Documented By: IRINA Insulin Glargine (Insulin Glargine,Hum.Rec.Anlog 100 Unit/Ml 10 Ml Vial) 50 unit SUBCUT BID [facility] Last Admin: 02/18/24 08:10 Dose: 50 unit Documented By: IRINA Insulin Human Lispro (Insulin Lispro 100 Unit/Ml 3 Ml Vial) 0 unit SUBCUT QIDACHS [facility]; Protocol Last Admin: 02/18/24 11:44 Dose: 8 unit Documented By: IRINA Insulin Human Lispro (Insulin Lispro 100 Unit/Ml 3 Ml Vial) 5 unit SUBCUT QIDACHS [facility] Last Admin: 02/18/24 11:45 Dose: 5 unit Documented By: IRINA Losartan Potassium (Losartan Potassium 50 Mg Tablet) 50 mg PO DAILY [facility]; Protocol Last Admin: 02/17/24 09:18 Dose: 50 mg Documented By: ALPHONSO Magnesium Hydroxide (Milk Of Magnesia 30 Ml Oral.Susp) 30 ml PO DAILY PRN PRN Reason: Constipation Melatonin (Melatonin 3 Mg Tablet) 6 mg PO BEDTIME PRN PRN Reason: Insomnia Ondansetron HCl (Ondansetron Hcl 4 Mg/2 Ml Vial) 4 mg IVPUSH Q8H PRN PRN Reason: Nausea and Vomiting Oxycodone HCl (Oxycodone Hcl Immed Release 5 Mg Tablet) 5 mg PO Q4H PRN PRN Reason: Pain, Moderate(Pain Scale 4-6) Last Admin: 02/18/24 10:10 Dose: 5 mg Documented By: IRINA Sodium Chloride (0.9 % Sodium Chloride Flush 3 Ml Syringe) 3 ml IVFLUSH QSHIFT [facility] Last Admin: 02/18/24 08:31 Dose: 3 ml Documented By: IRINA Labs 02/18/24 05:16 02/18/24 05:16 Labs: Laboratory Results - last 24 hr 02/17/24 02/17/24 02/17/24 11:52 13:51 16:26 MCV MCH MCHC RDW Plt Count MPV Immature Gran % (Auto) Neut % (Auto) Lymph % (Auto) Whitley % (Auto) Eos % (Auto) Baso % (Auto) Lymph # (Auto) Whitley # (Auto) Eos # (Auto) Baso # (Auto) Abs Immat Gran (auto) Absolute Neuts (auto) Absolute Nucleated RBC Nucleated RBC % (auto) Hold Purple Top Anion Gap Estim Creat Clear Calc Estimated GFR POC Glucose 221 H 236 H Random Glucose Calcium Random Vancomycin 11.9 L 02/17/24 02/18/24 02/18/24 20:19 05:16 07:40 MCV 80.6 MCH 25.6 L MCHC 31.7 RDW 13.6 Plt Count 337 MPV 10.5 Immature Gran % (Auto) 0.5 H Neut % (Auto) 85.5 H Lymph % (Auto) 7.9 L Whitley % (Auto) 5.9 Eos % (Auto) 0.0 Baso % (Auto) 0.2 Lymph # (Auto) 1.0 L Whitley # (Auto) 0.7 Eos # (Auto) 0.0 Baso # (Auto) 0.0 Abs Immat Gran (auto) 0.06 H Absolute Neuts (auto) 10.5 H Absolute Nucleated RBC 0.000 Nucleated RBC % (auto) 0.0 Hold Purple Top SEE NOTE Anion Gap 16 Estim Creat Clear Calc 62.3 Estimated GFR 39 POC Glucose 478 H* 355 H* Random Glucose 389 H* Calcium 8.9 Random Vancomycin 02/18/24 11:12 MCV MCH MCHC RDW Plt Count MPV Immature Gran % (Auto) Neut % (Auto) Lymph % (Auto) Whitley % (Auto) Eos % (Auto) Baso % (Auto) Lymph # (Auto) Whitley # (Auto) Eos # (Auto) Baso # (Auto) Abs Immat Gran (auto) Absolute Neuts (auto) Absolute Nucleated RBC Nucleated RBC % (auto) Hold Purple Top Anion Gap Estim Creat Clear Calc Estimated GFR POC Glucose 324 H Random Glucose Calcium Random Vancomycin Microbiology Microbiology Results: Microbiology 02/17/24 Unknown Gram Stain - Final Foot Right Routine Culture - Preliminary Culture in progress. 02/15/24 18:21 Blood Culture - Preliminary Blood - Venous No growth after 48 hours. 02/15/24 18:12 Blood Culture - Final Blood - Venous Streptococcus viridans group Procedures Date of Service Date of Service: 02/18/24 Progress Note: A&P Assessment and plan (1) Infected ulcer of skin: Status: Acute Plan Bilateral lower extremity skin ulceration of long duration possibly related to diabetes, peripheral vascular disease, calciphylaxis or vasculitis. No need for further debridement at this time. Continue local wound care and pain management. Time Spent With Patient Time: Total time managing care of this patient today ____ minutes. Quality Stroke Does the patient have a stroke diagnosis?: No VTE Prior VTE?: No VTE Risk Level:: Medical - moderate - high VTE Device Contraindication: Treatment Not Indicated VTE Drug Contraindication: N/A - Med Ordered
[2024-02-18 15:35] VITALS: BP 121/72; PULSE 110; RESP 14; TEMP 36.7; O2SAT 95
[2024-02-18 16:13] LABS: Glucose, Whole Blood 231 mg/dL (60-115)
[2024-02-18] MEDS: Piperacillin Sodium/Tazobactam 4.5 GM in 0.9 % Sodium Chloride 100 ML IV (16:39)
[2024-02-18] MEDS: HYDROmorphone HCl 0.5 MG/0.5 ML SYRINGE 1 MG IVPUSH ×2 (18:04→22:15)
[2024-02-18 19:27] VITALS: BP 120/72; PULSE 110; RESP 18; TEMP 36.3; O2SAT 96
[2024-02-18 21:22] LABS: Glucose, Whole Blood 286 mg/dL (60-115)
[2024-02-18] MEDS: Insulin Glargine,Hum.rec.anlog 100 UNIT/ML 10 ML VIAL 60 UNIT SUBCUT (21:44)
[2024-02-18] MEDS: Enoxaparin Sodium 40 MG/0.4 ML SYRINGE SUBCUT (22:23)
[2024-02-19] VITALS: BP 115/64; PULSE 113; RESP 16; TEMP 36.6; O2SAT 94
[2024-02-19] MEDS: Piperacillin Sodium/Tazobactam 4.5 GM in 0.9 % Sodium Chloride 100 ML IV ×5 (00:15→22:23)
--- NOTE | 2024-02-19 07:14 | P.PNIM_ITS ---
Subjective Subjective Date of Service: 02/19/24 Interval History: Seen and examined this morning Follow-up for bilateral lower extremity wounds History obtained with the assistance of a hospitality workers Patient reports pain in the right lower extremity reported 10/, was sleeping soundly upon arrival. Reports overnight nurses were ignoring his pain and he was screaming in pain. Discussed with RN, pt was sleeping and so no pain was reported. He was medicated while awake. Remains tachycardic but appears chronic. No n/v, tolearting diet. Requesting permission for bed bath. Otherwise no complaints Review of Systems Review of Systems: Yes all other systems are reviewed and are negative Constitutional Constitutional: Denies chills and Denies fever(s) Physical Exam 2 Vital Signs: Vital Signs: Last Vital Signs Temp 97.8 F 02/19/24 00:00 Pulse 113 H 02/19/24 00:00 Resp 16 02/19/24 00:00 BP 115/64 02/19/24 00:00 Pulse Ox 94 02/19/24 00:00 O2 Del Method Room Air 02/19/24 00:00 O2 Flow Rate 2 02/17/24 15:48 BMI result Body Mass Index 47.1 Constitutional - Awake and Alert, No apparent distress Eyes - PERRLA, EOMI Cardiovascular - S1S2, RRR, No edema Respiratory - Normal lung expansion, Normal respiratory effort, No respiratory distress, CTA bilaterally Gastrointestinal - NT / ND; +BS; No rebound or guarding Skin - Warm/Dry. Dressings removed, wounds appear clean with good granulation tissues and scant slough. No necrosis or active purulent drainage. See photo Neurological - Alert & oriented x3 Psychological - Appropriate affect Objective Data Active Medications Acetaminophen (Acetaminophen 325 Mg Tablet) 650 mg PO Q6H PRN PRN Reason: Pain, Mild (Pain Scale 1-3), fever or headache Last Admin: 02/18/24 10:10 Dose: 650 mg Documented By: IRINA Amlodipine Besylate (Amlodipine Besylate 10 Mg Tablet) 10 mg PO DAILY [facility]; Protocol Last Admin: 02/18/24 08:11 Dose: 10 mg Documented By: IRINA Benzocaine (Throat Lozenge, Medicated Lozenge) 1 lozenge MUCOUS MEM Q2H PRN PRN Reason: Sore Throat Last Admin: 02/18/24 01:00 Dose: 1 lozenge Documented By: MIKE Calcium Carbonate (Calcium Carbonate 750 Mg Tab.Chew) 750 mg PO Q4H PRN PRN Reason: Heartburn Enoxaparin Sodium (Enoxaparin Sodium 40 Mg/0.4 Ml Syringe) 40 mg SUBCUT Q24H [facility] Last Admin: 02/18/24 22:23 Dose: 40 mg Documented By: MIKE Glucose (Glucose Gel 15 Gm Gel..Gram.) 15 gm PO Q15M PRN; Protocol PRN Reason: per Hypoglycemia Standing Ord. Hydromorphone HCl (Hydromorphone Hcl 0.5 Mg/0.5 Ml Syringe) 1 mg IVPUSH Q4H PRN; Protocol PRN Reason: Pain, Severe (Pain Scale 7-10) Last Admin: 02/18/24 22:15 Dose: 1 mg Documented By: MIKE Dextrose (D10) 250 mls @ 750 mls/hr IV Q15M PRN; Protocol PRN Reason: per Hypoglycemia Standing Ord. Doxycycline Hyclate 100 mg/ (Sodium Chloride) 250 mls @ 166.67 mls/hr IV Q12H [facility] Last Infusion: 02/18/24 23:58 Dose: Infused Documented By: ONEYDA Piperacillin Sod/Tazobactam (Sod 4.5 gm/ Sodium Chloride) 100 mls @ 200 mls/hr IV Q6H [facility] Last Infusion: 02/19/24 05:50 Dose: Infused Documented By: ONEYDA Insulin Glargine (Insulin Glargine,Hum.Rec.Anlog 100 Unit/Ml 10 Ml Vial) 60 unit SUBCUT BID [facility] Last Admin: 02/18/24 21:44 Dose: 60 unit Documented By: MIKE Insulin Human Lispro (Insulin Lispro 100 Unit/Ml 3 Ml Vial) 0 unit SUBCUT QIDACHS [facility]; Protocol Last Admin: 02/18/24 21:44 Dose: 6 unit Documented By: MIKE Insulin Human Lispro (Insulin Lispro 100 Unit/Ml 3 Ml Vial) 5 unit SUBCUT QIDACHS [facility] Last Admin: 02/18/24 21:44 Dose: 5 unit Documented By: MIKE Losartan Potassium (Losartan Potassium 50 Mg Tablet) 50 mg PO DAILY [facility]; Protocol Last Admin: 02/17/24 09:18 Dose: 50 mg Documented By: ALPHONSO Magnesium Hydroxide (Milk Of Magnesia 30 Ml Oral.Susp) 30 ml PO DAILY PRN PRN Reason: Constipation Melatonin (Melatonin 3 Mg Tablet) 6 mg PO BEDTIME PRN PRN Reason: Insomnia Ondansetron HCl (Ondansetron Hcl 4 Mg/2 Ml Vial) 4 mg IVPUSH Q8H PRN PRN Reason: Nausea and Vomiting Oxycodone HCl (Oxycodone Hcl Immed Release 5 Mg Tablet) 5 mg PO Q4H PRN PRN Reason: Pain, Moderate(Pain Scale 4-6) Last Admin: 02/18/24 10:10 Dose: 5 mg Documented By: IRINA Sodium Chloride (0.9 % Sodium Chloride Flush 3 Ml Syringe) 3 ml IVFLUSH [facility] Last Admin: 02/19/24 00:19 Dose: Not Given Documented By: MIKE Non-Admin Reason: IV Running Labs 02/18/24 05:16 02/18/24 05:16 Labs: Laboratory Results - last 24 hr 02/18/24 02/18/24 02/18/24 05:16 07:40 11:12 MCV 80.6 MCH 25.6 L MCHC 31.7 RDW 13.6 Plt Count 337 MPV 10.5 Immature Gran % (Auto) 0.5 H Neut % (Auto) 85.5 H Lymph % (Auto) 7.9 L [place] % (Auto) 5.9 Eos % (Auto) 0.0 Baso % (Auto) 0.2 Lymph # (Auto) 1.0 L [place] # (Auto) 0.7 Eos # (Auto) 0.0 Baso # (Auto) 0.0 Abs Immat Gran (auto) 0.06 H Absolute Neuts (auto) 10.5 H Absolute Nucleated RBC 0.000 Nucleated RBC % (auto) 0.0 Anion Gap 16 Estim Creat Clear Calc 62.3 Estimated GFR 39 POC Glucose 355 H* 324 H Random Glucose 389 H* Calcium 8.9 02/18/24 02/18/24 16:09 21:18 MCV MCH MCHC RDW Plt Count MPV Immature Gran % (Auto) Neut % (Auto) Lymph % (Auto) [place] % (Auto) Eos % (Auto) Baso % (Auto) Lymph # (Auto) [place] # (Auto) Eos # (Auto) Baso # (Auto) Abs Immat Gran (auto) Absolute Neuts (auto) Absolute Nucleated RBC Nucleated RBC % (auto) Anion Gap Estim Creat Clear Calc Estimated GFR POC Glucose 231 H 286 H Random Glucose Calcium Microbiology Microbiology Results: Microbiology 02/17/24 Unknown Gram Stain - Final Foot Right Routine Culture - Preliminary Culture in progress. Assessment and Plan (1) Hyperglycemia due to type 2 diabetes mellitus: Status: Acute (2) Infected ulcer of skin: Status: Acute (3) Cellulitis: Status: Acute Plan This is a 49-year-old male with pertinent history of insulin-dependent diabetes mellitus, obesity, hypertension, chronic kidney disease stage 3 presents admitted for management of bilateral diabetic foot ulcer requiring surgical debridement also found to have septic arthritis and osteomyelitis of the right foot. Pt and mother have been accusatory stating that nurses having been lying about patient's pain, reporting discrimination, inappropriate touch. Nursing ride assembly supervisor has met with patient and patient is now on two for care due to the accusatory behaviors. Right diabetic foot infection with cellulitis and infected non pressure ulcers due to uncontrolled type 2 diabetes and possible vasculitis process vs calcipylaxis, or PVD admission in october, biopsy obtained - vascular fibrinoid changes along with eosinophils but unable to determine if primary due to vasculitis or secondary/reactive changes Has been following in wound care clinic- has refused debridement per wound care notes and does not appear to be compliant with other recommended interventions per PCP notes it appears that he did not follow up with specialists he was referred to, does not appear to have been seen by rheumatology. Has been dismissed by PCP MRI right foot shows large soft tissue defect/ulceration along the dorsal lateral aspect of the forefoot at the level of the 5th metatarsal diaphysis with prominent soft tissue gas and an associated abscess formation measuring 5.0 cm in greatest dimension. There is also osteomyelitis throughout the 5th metatarsal extending to the 5th metatarsophalangeal articular surface as well as the base of the 5th proximal phalanx. There is a 5th metatarsophalangeal joint effusion with surrounding soft tissue edema consistent with septic arthritis. Mild marrow edema within the adjacent 4th metatarsal head and base of the 4th proximal phalanx possibly early osteomyelitis. There is also diffuse edema and atrophy throughout the intrinsic musculature of the foot CRP 28.09, ESR 105 s/p debridement 8/2 per general surgery. General surgery input appreciated Initially treated with IV vancomycin Zosyn 02/14-02/17. Change to 2g IV ctx and 100mg doxy IV 02/17. However, discussed with Dr. An and zosyn resumed in place of CTX to cover for possible anaerobes until cultures final and ID consult. Continue IV zosyn and doxycycline 02/18 Wound Care per general surgery, consult pending. ID consult pending Poor pain control. Morphine dc'd. Changed to hydromorphine 1mg q4h, ok per general surgery. Pt reporting uncontrolled pain despite soundly sleeping # strep viridans bacteremia blood culture positive x1. Repeat pending x1, refused 2nd blood culture Abx changed as above echocardiogram read pending ID consult #Acute septic arthritis/osteomyelitis R foot as above #Uncontrolled insulin-dependent diabetes mellitus with hyperglycemia: Due to noncompliance with insulin. Given IV insulin and IV fluids in the ER. Increase Lantus to 60 units bidaily hold metformin SSI, POCs. Add standing 5 units Humalog q.i.d. a.c. HS ADA diet Hgb A1c >14.0 # acute on chronic micorcytic anemia Iron slightly low. Add ferrous sulfate with vitamin-C above transfusion threshold follow CBC #Pseudo hyponatremia due to hyperglycemia #Morbid Obesity: BMI 47.1 Counseled regarding diet and exercise # Hypertension: Continue home antihypertensives, losartan, Norvasc # CKD stage 3 -Creatinine at baseline DVT prophylaxis: Lovenox Full code Pt requires ongoing inpt stay due to diabetic foot infection, osteomyelitis, septic arthritis, and strep viridens bacteremia requiring iv abx, repeat blood cultures, and expert consultation Quality Stroke Does the patient have a stroke diagnosis?: No VTE Prior VTE?: No VTE Risk Level:: Medical - moderate - high VTE Device Contraindication: Treatment Not Indicated VTE Drug Contraindication: N/A - Med Ordered
[2024-02-19 08:00] VITALS: BP 117/73; PULSE 112; RESP 14; TEMP 36.4; O2SAT 97
[2024-02-19 08:11] LABS: Glucose, Whole Blood 158 mg/dL (60-115)
[2024-02-19] MEDS: amLODIPine Besylate 10 MG TABLET PO (08:13)
[2024-02-19] MEDS: Insulin Lispro 100 UNIT/ML 3 ML VIAL SUBCUT ×8 (08:13→20:48)
[2024-02-19] MEDS: Insulin Glargine,Hum.rec.anlog 100 UNIT/ML 10 ML VIAL 60 UNIT SUBCUT ×2 (08:13→20:48)
[2024-02-19] MEDS: Doxycycline Hyclate 100 MG in 0.9 % Sodium Chloride 250 ML 166.67 MG IV ×2 (08:14→20:49)
[2024-02-19] MEDS: 0.9 % Sodium Chloride Flush 3 ML SYRINGE IVFLUSH ×3 (08:14→20:47)
[2024-02-19] MEDS: HYDROmorphone HCl 0.5 MG/0.5 ML SYRINGE 1 MG IVPUSH ×4 (08:14→20:47)
--- NOTE | 2024-02-19 10:11 | PC.NURSE ---
Pt and mother asked to speak with this fha underwriter about nursing staff not medicating patient. Maryellen Trever lewis at bedside. Upon chart review he has been getting pain medication. Pt and mother accusing staff of lying to her. Pt is two for care for accusatory behaviors. Attempted to educate pt and mother about pain medication and MD orders for narcotics but are unable to understand the process. Encouraged nursing staff to write on white board when patient can have next dose. He also complained about phlebotomy having difficulty drawing his blood. Expressed personal responsibility for patients own health status as he has a history of noncompliance and poor health practices. Unfortunately patient and his mother/caregiver have poor comprehension skills when it comes to education and understanding related to health status and promotion.
[2024-02-19] MEDS: HYDROmorphone HCl 0.5 MG/0.5 ML SYRINGE 0.25 MG IVPUSH (10:25)
[2024-02-19 11:16] LABS: MANUAL DIFF FLAG NO
[2024-02-19 11:21] LABS: Glucose, Whole Blood 215 mg/dL (60-115)
[2024-02-19 11:26] LABS: Basophils Percent Auto 0.4 % (0-2); Eosinophils Absolute Auto 0.2 X10*3/uL (0.0-0.4); Eosinophils Percent Auto 1.4 % (0-4); Hematocrit 31.6 % (42.0-52.0); Hemoglobin 10.2 g/dl (14.0-18.0); Imm Gran Abs Auto 0.08 X10*3/uL (0.00-0.03); Imm Gran Pct Auto 0.8 % (0.0-0.4); Lymphocytes Absolute Auto 1.5 X10*3/uL (1.2-4.9); Lymphocytes Percent Auto 14.5 % (20-40); Mean Corpuscular HGB Conc 32.3 g/dl (31.0-36.0); Mean Corpuscular Hemoglobin 25.8 pg (27.0-33.0); Monocytes Absolute Auto 0.6 X10*3/uL (0.1-1.2); Monocytes Percent Auto 5.6 % (2-11); Neutrophils Percent Auto 77.3 % (45-73); Platelet Count 304 X10*3/uL (160-400); Red Blood Count 3.95 X10*6/uL (4.60-5.80); Red Cell Distribution Width 13.7 % (11.0-16.0); White Blood Count 10.4 X10*3/uL (4.8-10.8)
[2024-02-19 11:31] LABS: Blood Urea Nitrogen 19 mg/dL (9-16); Calcium 8.8 mg/dL (8.4-10.2); Creatinine Clr Calc Pharmacy 75.7; Estimated Glomerular Filt Rate 48; Glucose Random 240 mg/dL (60-115)
[2024-02-19 11:50] LABS: Anion Gap 14 (12-20); Carbon Dioxide 25 mmol/L (22-29); Chloride 103 mmol/L (96-108); Potassium 3.8 mmol/L (3.3-5.1); Sodium 138 mmol/L (135-145)
[2024-02-19 15:59] VITALS: BP 135/90; PULSE 121; RESP 16; TEMP 36.6; O2SAT 97
[2024-02-19 16:40] LABS: Glucose, Whole Blood 222 mg/dL (60-115)
[2024-02-19 19:28] VITALS: BP 138/87; PULSE 122; RESP 18; TEMP 37; O2SAT 94
[2024-02-19 20:43] LABS: Glucose, Whole Blood 260 mg/dL (60-115)
[2024-02-19] MEDS: oxyCODONE HCl Immed Release 5 MG TABLET PO (21:58)
[2024-02-19] MEDS: Enoxaparin Sodium 40 MG/0.4 ML SYRINGE SUBCUT (22:23)
[2024-02-19 22:58] VITALS: RESP 16
[2024-02-19 23:41] VITALS: BP 119/76; PULSE 115; RESP 20; TEMP 36.1; O2SAT 94
--- NOTE | 2024-02-20 02:13 | PC.NURSE ---
Assumed care of patient at 19:00. Pt is Faroese speaking, Cleaning Technician utilized at bedside. 20:00 patient ringing, demanding IV pain medication. Pain medication orders per MAR reviewed with patient and patient's mother present at bedside, education provided on pain medication schedule and not yet due for IV dilaudid. Scale And Skip Car Operator offered prn oxycodone and educated on synergistic effect of IV and po pain meds; pt refused po meds offered during the discussion, pt stating he would wait until IV dilaudid is due and try oxycodone later. Patient and mother were very argumentative and accusatory when attempting to discuss pain regimen; both patient and patient's mother frequently speaking over health technical writer and drum sander setter when attempting to interpret for health technical writer. Pt accused staff of lying and stated the nurses are putting water in my line instead of pain meds . Patient educated on saline flushes to assess IV to ensure it is patent and working prior to pain medication administration, though patient maintained staff is lying. Pt stated to this health technical writer with community relations rep and drum sander setter present, I need to take advantage while I am here because I don't have meds at home. They don't give me anything . Patient later did request and was agreeable to oxycodone after IV dilaudid reassessment. Patient states he is in the process of finding a PCP and does not regularly check his blood sugars at home. When attempted to educate on optimal glucose control/POC and insulins for best wound healing, patient stated They've been serving me foods that aren't even diabetic. That's why my sugars are high . Patient is on a ordered diabetic diet. Two staff present at all times during care continues due to accusatory behaviors. Handoff report given to oncoming RN at 23:00.
[2024-02-20 04:00] VITALS: BP 174/99; PULSE 63; RESP 18; TEMP 36.1; O2SAT 96
--- NOTE | 2024-02-20 04:31 | PC.NURSE ---
Addendum entered by Cindy Delgado RN 02/20/24 05:31: Patient also was asking that I give him IV dilaudid and oxycodone simultaneously. I replied with help of NAKUL Teresa as therapeutic recreation director that I cannot do that, but I can give one and he can ask for the other if pain persists. In a manner which seemed trying to convince me to give both meds, He said that the nurse previous to me did give both at same time, which she did not. They were over an hour apart. NAKUL stated that pt was insisting that she herself, had witnessed the nurse do so and she said no she did not. Original Note: Patient is reporting pain currently, and with use of NAKUL as therapeutic recreation director, the patient told MAKING MACHINE CATCHER that he was in pain four hours ago when I assessed him and checked bed alarm, but that I walked out before he could tell me. Patient sleeping when checked on approx 0200. Patient has call saavedra and mother who is ambulatory, has been at bedside all night. Patient did not ring for pain meds, mother did not walk down baez or ask staff in hallway.
[2024-02-20] MEDS: HYDROmorphone HCl 0.5 MG/0.5 ML SYRINGE 1 MG IVPUSH ×4 (04:37→19:53)
[2024-02-20] MEDS: Piperacillin Sodium/Tazobactam 4.5 GM in 0.9 % Sodium Chloride 100 ML IV ×4 (04:38→19:54)
[2024-02-20 07:05] LABS: Anion Gap 10 (12-20); Blood Urea Nitrogen 14 mg/dL (9-16); Calcium 8.7 mg/dL (8.4-10.2); Carbon Dioxide 28 mmol/L (22-29); Chloride 105 mmol/L (96-108); Creatinine Clr Calc Pharmacy 85.7; Estimated Glomerular Filt Rate 56; Glucose Random 173 mg/dL (60-115); Potassium 3.7 mmol/L (3.3-5.1); Sodium 139 mmol/L (135-145)
--- NOTE | 2024-02-20 07:35 | HO.PM.IMPN ---
Subjective Subjective Date of Service: 02/20/24 Interval History: Seen and examined this morning Follow-up for bilateral lower extremity wounds History obtained with the assistance of a truck bracer Continue to report claims that nurses are ignoring him and that he is not getting pain medication, but nursing documentation does not support this. He is on a two person. He is still reporting 8/10 pain. Otherwise no complaints. Remains tachycardic but appears chronic. No n/v, tolerating diet Review of Systems Review of Systems: Yes all other systems are reviewed and are negative Constitutional Constitutional: Denies chills and Denies fever(s) Physical Exam Vital Signs: Vital Signs: Last Vital Signs Temp 96.9 F 02/20/24 04:00 Pulse 63 02/20/24 04:00 Resp 18 02/20/24 04:00 BP 174/99 H 02/20/24 04:00 Pulse Ox 96 02/20/24 04:00 O2 Del Method Room Air 02/20/24 04:00 O2 Flow Rate 2 02/17/24 15:48 BMI result Body Mass Index 47.1 Constitutional - Awake and Alert, No apparent distress Eyes - PERRLA, EOMI Cardiovascular - S1S2, RRR, No edema Respiratory - Normal lung expansion, Normal respiratory effort, No respiratory distress, CTA bilaterally Gastrointestinal - NT / ND; +BS; No rebound or guarding Skin - Warm/Dry. Dressings removed, wounds appear clean with good granulation tissues and scant slough. No necrosis or active purulent drainage. See photo Neurological - Alert & oriented x3 Psychological - Appropriate affect Objective Data Active Medications Acetaminophen (Acetaminophen 325 Mg Tablet) 650 mg PO Q6H PRN PRN Reason: Pain, Mild (Pain Scale 1-3), fever or headache Last Admin: 02/18/24 10:10 Dose: 650 mg Documented By: IRINA Amlodipine Besylate (Amlodipine Besylate 10 Mg Tablet) 10 mg PO DAILY [facility]; Protocol Last Admin: 02/19/24 08:13 Dose: 10 mg Documented By: FARRUKH Benzocaine (Throat Lozenge, Medicated Lozenge) 1 lozenge MUCOUS MEM Q2H PRN PRN Reason: Sore Throat Last Admin: 02/18/24 01:00 Dose: 1 lozenge Documented By: MIKE Calcium Carbonate (Calcium Carbonate 750 Mg Tab.Chew) 750 mg PO Q4H PRN PRN Reason: Heartburn Enoxaparin Sodium (Enoxaparin Sodium 40 Mg/0.4 Ml Syringe) 40 mg SUBCUT Q24H [facility] Last Admin: 02/19/24 22:23 Dose: 40 mg Documented By: CHEN Glucose (Glucose Gel 15 Gm Gel..Gram.) 15 gm PO Q15M PRN; Protocol PRN Reason: per Hypoglycemia Standing Ord. Hydromorphone HCl (Hydromorphone Hcl 0.5 Mg/0.5 Ml Syringe) 1 mg IVPUSH Q4H PRN; Protocol PRN Reason: Pain, Severe (Pain Scale 7-10) Last Admin: 02/20/24 04:37 Dose: 1 mg Documented By: KAMERON Dextrose (D10) 250 mls @ 750 mls/hr IV Q15M PRN; Protocol PRN Reason: per Hypoglycemia Standing Ord. Doxycycline Hyclate 100 mg/ (Sodium Chloride) 250 mls @ 166.67 mls/hr IV Q12H [facility] Last Infusion: 02/19/24 22:19 Dose: Infused Documented By: CHEN Piperacillin Sod/Tazobactam (Sod 4.5 gm/ Sodium Chloride) 100 mls @ 200 mls/hr IV Q6H [facility] Last Infusion: 02/20/24 05:31 Dose: Infused Documented By: KAMERON Insulin Glargine (Insulin Glargine,Hum.Rec.Anlog 100 Unit/Ml 10 Ml Vial) 60 unit SUBCUT BID [facility] Last Admin: 02/19/24 20:48 Dose: 60 unit Documented By: CHEN Insulin Human Lispro (Insulin Lispro 100 Unit/Ml 3 Ml Vial) 0 unit SUBCUT QIDACHS [facility]; Protocol Last Admin: 02/19/24 20:48 Dose: 6 unit Documented By: CHEN Insulin Human Lispro (Insulin Lispro 100 Unit/Ml 3 Ml Vial) 5 unit SUBCUT QIDACHS [facility] Last Admin: 02/19/24 20:48 Dose: 5 unit Documented By: CHEN Losartan Potassium (Losartan Potassium 50 Mg Tablet) 50 mg PO DAILY [facility]; Protocol Last Admin: 02/17/24 09:18 Dose: 50 mg Documented By: HO.GREENLS Magnesium Hydroxide (Milk Of Magnesia 30 Ml Oral.Susp) 30 ml PO DAILY PRN PRN Reason: Constipation Melatonin (Melatonin 3 Mg Tablet) 6 mg PO BEDTIME PRN PRN Reason: Insomnia Ondansetron HCl (Ondansetron Hcl 4 Mg/2 Ml Vial) 4 mg IVPUSH Q8H PRN PRN Reason: Nausea and Vomiting Oxycodone HCl (Oxycodone Hcl Immed Release 5 Mg Tablet) 5 mg PO Q4H PRN PRN Reason: Pain, Moderate(Pain Scale 4-6) Last Admin: 02/19/24 21:58 Dose: 5 mg Documented By: CHEN Sodium Chloride (0.9 % Sodium Chloride Flush 3 Ml Syringe) [facility] Last Admin: 02/20/24 07:19 Dose: Not Given Documented By: MIRIAN Non-Admin Reason: Previously Administered Labs 02/19/24 11:12 02/20/24 05:33 Labs: Laboratory Results - last 24 hr 02/19/24 02/19/24 02/19/24 07:26 11:11 11:12 MCV 80.0 MCH 25.8 L MCHC 32.3 RDW 13.7 Plt Count 304 MPV 10.0 Immature Gran % (Auto) 0.8 H Neut % (Auto) 77.3 H Lymph % (Auto) 14.5 L [place] % (Auto) 5.6 Eos % (Auto) 1.4 Baso % (Auto) 0.4 Lymph # (Auto) 1.5 [place] # (Auto) 0.6 Eos # (Auto) 0.2 Baso # (Auto) 0.0 Abs Immat Gran (auto) 0.08 H Absolute Neuts (auto) 8.0 Absolute Nucleated RBC 0.000 Nucleated RBC % (auto) 0.0 Hold Purple Top Anion Gap 14 Estim Creat Clear Calc 75.7 Estimated GFR 48 POC Glucose 158 H 215 H Random Glucose 240 H Calcium 8.8 02/19/24 02/19/24 02/20/24 16:36 20:03 05:33 MCV MCH MCHC RDW Plt Count MPV Immature Gran % (Auto) Neut % (Auto) Lymph % (Auto) [place] % (Auto) Eos % (Auto) Baso % (Auto) Lymph # (Auto) [place] # (Auto) Eos # (Auto) Baso # (Auto) Abs Immat Gran (auto) Absolute Neuts (auto) Absolute Nucleated RBC Nucleated RBC % (auto) Hold Purple Top SEE NOTE Anion Gap 10 L Estim Creat Clear Calc 85.7 Estimated GFR 56 POC Glucose 222 H 260 H Random Glucose 173 H Calcium 8.7 Microbiology Microbiology Results: Microbiology 02/17/24 Unknown Gram Stain - Final Foot Right Routine Culture - Final Enterococcus faecalis 02/18/24 05:16 Blood Culture - Preliminary Blood - Venous No growth after 24 hours. Assessment and Plan (1) Hyperglycemia due to type 2 diabetes mellitus: Status: Acute (2) Infected ulcer of skin: Status: Acute (3) Cellulitis: Status: Acute Plan This is a 49-year-old male with pertinent history of insulin-dependent diabetes mellitus, obesity, hypertension, chronic kidney disease stage 3 presents admitted for management of bilateral diabetic foot ulcer requiring surgical debridement also found to have septic arthritis and osteomyelitis of the right foot. Pt and mother have been accusatory stating that nurses having been lying about patient's pain, reporting discrimination, inappropriate touch. Nursing tubing supervisor has met with patient and patient is now on two for care due to the accusatory behaviors. Right diabetic foot infection with cellulitis and infected non pressure ulcers due to uncontrolled type 2 diabetes and possible vasculitis process vs calcipylaxis, or PVD admission in october, biopsy obtained - vascular fibrinoid changes along with eosinophils but unable to determine if primary due to vasculitis or secondary/reactive changes Has been following in wound care clinic- has refused debridement per wound care notes and does not appear to be compliant with other recommended interventions per PCP notes it appears that he did not follow up with specialists he was referred to, does not appear to have been seen by rheumatology. Has been dismissed by PCP MRI right foot shows large soft tissue defect/ulceration along the dorsal lateral aspect of the forefoot at the level of the 5th metatarsal diaphysis with prominent soft tissue gas and an associated abscess formation measuring 5.0 cm in greatest dimension. There is also osteomyelitis throughout the 5th metatarsal extending to the 5th metatarsophalangeal articular surface as well as the base of the 5th proximal phalanx. There is a 5th metatarsophalangeal joint effusion with surrounding soft tissue edema consistent with septic arthritis. Mild marrow edema within the adjacent 4th metatarsal head and base of the 4th proximal phalanx possibly early osteomyelitis. There is also diffuse edema and atrophy throughout the intrinsic musculature of the foot CRP 28.09, ESR 105 s/p debridement 02/16 per general surgery. General surgery input appreciated. Wound care consult pending Initially treated with IV vancomycin Zosyn 02/14-02/17. Change to 2g IV ctx and 100mg doxy IV 02/17. However, discussed with Dr. An and zosyn resumed in place of CTX to cover for possible anaerobes until cultures final and ID consult. Final wound culture growing Enterococcus faecalis sensitive to vancomycin and ampicillin with blood culture x1 growing strep. 02/19- Continue zosyn, dc doxy ID consult pending Poor pain control. Morphine dc'd. Changed to hydromorphine 1mg q4h, ok per general surgery. Pt reporting uncontrolled pain despite soundly sleeping and reporting pain meds not being given though they are documented # strep viridans bacteremia blood culture positive x1. Repeat cultures negative thus far Abx changed as above echocardiogram read with poor eval of valves, but repeat cultures negative thus far. Defer to ID ID consult #Acute septic arthritis/osteomyelitis R foot as above #Uncontrolled insulin-dependent diabetes mellitus with hyperglycemia: Due to noncompliance with insulin. Given IV insulin and IV fluids in the ER. Increase Lantus to 60 units bidaily- glucose levels improving hold metformin SSI, POCs. Add standing 5 units Humalog q.i.d. a.c. HS ADA diet Hgb A1c >14.0 discussed the importance of glucose control with regard to wound healing # acute on chronic micorcytic anemia Iron slightly low. Add ferrous sulfate with vitamin-C above transfusion threshold follow CBC #Pseudo hyponatremia due to hyperglycemia #Morbid Obesity: BMI 47.1 Counseled regarding diet and exercise # Hypertension: Continue home antihypertensives, losartan,. Reduce norvasc to 5mg daily, add metoprolol # CKD stage 3 -Creatinine at baseline #HFrEF ef 40-45% on echo, no acute exacebation tachycardia likely r/t hf/cardiomyopathy add metoprolol 25mg ER outpt follow up DVT prophylaxis: Lovenox Full code Pt requires ongoing inpt stay due to diabetic foot infection, osteomyelitis, septic arthritis, and strep viridens bacteremia requiring iv abx, repeat blood cultures, and expert consultation Quality Stroke Does the patient have a stroke diagnosis?: No VTE Prior VTE?: No VTE Risk Level:: Medical - moderate - high VTE Device Contraindication: Treatment Not Indicated VTE Drug Contraindication: N/A - Med Ordered
[2024-02-20 07:46] LABS: Glucose, Whole Blood 123 mg/dL (60-115)
[2024-02-20 08:00] VITALS: BP 156/85; PULSE 104; RESP 20; TEMP 36.3; O2SAT 97
[2024-02-20] MEDS: Insulin Glargine,Hum.rec.anlog 100 UNIT/ML 10 ML VIAL 60 UNIT SUBCUT ×2 (08:06→19:56)
[2024-02-20] MEDS: amLODIPine Besylate 10 MG TABLET PO (08:06)
[2024-02-20] MEDS: Doxycycline Hyclate 100 MG in 0.9 % Sodium Chloride 250 ML 166.6 MG IV (08:06)
[2024-02-20] MEDS: Insulin Lispro 100 UNIT/ML 3 ML VIAL SUBCUT ×3 (08:07→19:55)
[2024-02-20 11:38] LABS: Glucose, Whole Blood 106 mg/dL (60-115)
[2024-02-20] MEDS: Metoprolol Succinate ER 25 MG TAB.ER.24H PO (11:51)
[2024-02-20 12:00] VITALS: BP 127/74; PULSE 114; RESP 20; TEMP 36.6; O2SAT 95
[2024-02-20] MEDS: oxyCODONE HCl Immed Release 5 MG TABLET PO ×2 (12:18→21:39)
--- NOTE | 2024-02-20 15:19 | W.PM.IDCN ---
History of Present Illness Data of Consult Service Date: 02/20/24 Requesting physician: Joellen Vallejo Primary Care Provider: Jose C Campbell MD HPI Reason for consult: diabetic foot infection Seen with tire sorter Jordyn. He presents with right foot discomfort for a week at least He had 02/14 strep viridans bacteremia and echo done,no endocarditis on TTE. He has OM around fifth digit right foot an enterococcus faecalilis visualized. Review of Systems Review of Systems: Yes all other systems are reviewed and are negative [facility] Past Medical History Medical History (Updated 02/20/24 @ 15:23 by Brenda Champagne MD) Osteomyelitis Chronic kidney disease (CKD), stage III (moderate) BMI 40.0-44.9, adult Morbid obesity with BMI of 40.0-44.9, adult Uncontrolled type 2 diabetes mellitus Encounter to establish care Arthritis of both hips Long-term insulin use DM type 2 (diabetes mellitus, type 2) Hypertension Family History Family history: reviewed and not pertinent Surgical History Surgical History No pertinent past surgical history Social History Social History Household Members: Other Housing: Apartment Do you presently have visiting nurse or other home services: No Alcohol intake: never Comment: 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 Patient Tobacco Use Status: Never used Tobacco e-Cigarette/Vaping Use: Never Used Second Hand Smoke Exposure: No service: No Current occupational status: disabled Current occupational exposures/hazards: No Cognitive needs: Yes (cane) Hearing needs: No Vision needs: Yes (glasses) Meds Allergies Allergy/AdvReac Type Severity Reaction Status Date / Time No Known Allergies Allergy Verified 02/15/24 17:38 [No Known Allergies*] Active Medications: Current Medications Acetaminophen (Acetaminophen 325 Mg Tablet) 650 mg PO Q6H PRN PRN Reason: Pain, Mild (Pain Scale 1-3), fever or headache Last Admin: 02/18/24 10:10 Dose: 650 mg Amlodipine Besylate (Amlodipine Besylate 5 Mg Tablet) 5 mg PO DAILY CONNIE; Protocol Benzocaine (Throat Lozenge, Medicated Lozenge) 1 lozenge MUCOUS MEM Q2H PRN PRN Reason: Sore Throat Last Admin: 02/18/24 01:00 Dose: 1 lozenge Calcium Carbonate (Calcium Carbonate 750 Mg Tab.Chew) 750 mg PO Q4H PRN PRN Reason: Heartburn Enoxaparin Sodium (Enoxaparin Sodium 40 Mg/0.4 Ml Syringe) 40 mg SUBCUT Q24H [facility] Last Admin: 02/19/24 22:23 Dose: 40 mg Glucose (Glucose Gel 15 Gm Gel..Gram.) 15 gm PO Q15M PRN; Protocol PRN Reason: per Hypoglycemia Standing Ord. Hydromorphone HCl (Hydromorphone Hcl 0.5 Mg/0.5 Ml Syringe) 1 mg IVPUSH Q4H PRN; Protocol PRN Reason: Pain, Severe (Pain Scale 7-10) Last Admin: 02/20/24 08:21 Dose: 1 mg Dextrose (D10) 250 mls @ 750 mls/hr IV Q15M PRN; Protocol PRN Reason: per Hypoglycemia Standing Ord. Piperacillin Sod/Tazobactam (Sod 4.5 gm/ Sodium Chloride) 100 mls @ 200 mls/hr IV Q6H [facility] Last Infusion: 02/20/24 10:37 Dose: Infused Insulin Glargine (Insulin Glargine,Hum.Rec.Anlog 100 Unit/Ml 10 Ml Vial) 60 unit SUBCUT BID [facility] Last Admin: 02/20/24 08:06 Dose: 60 unit Insulin Human Lispro (Insulin Lispro 100 Unit/Ml 3 Ml Vial) 0 unit SUBCUT QIDACHS [facility]; Protocol Last Admin: 02/20/24 11:39 Dose: Not Given Insulin Human Lispro (Insulin Lispro 100 Unit/Ml 3 Ml Vial) 5 unit SUBCUT QIDACHS [facility] Last Admin: 02/20/24 11:39 Dose: Not Given Losartan Potassium (Losartan Potassium 50 Mg Tablet) 50 mg PO DAILY [facility]; Protocol Last Admin: 02/17/24 09:18 Dose: 50 mg Magnesium Hydroxide (Milk Of Magnesia 30 Ml Oral.Susp) 30 ml PO DAILY PRN PRN Reason: Constipation Melatonin (Melatonin 3 Mg Tablet) 6 mg PO BEDTIME PRN PRN Reason: Insomnia Metoprolol Succinate (Metoprolol Succinate Er 25 Mg Tab.Er.24h) 25 mg PO DAILY [facility]; Protocol Last Admin: 02/20/24 11:51 Dose: 25 mg Ondansetron HCl (Ondansetron Hcl 4 Mg/2 Ml Vial) 4 mg IVPUSH Q8H PRN PRN Reason: Nausea and Vomiting Oxycodone HCl (Oxycodone Hcl Immed Release 5 Mg Tablet) 5 mg PO Q4H PRN PRN Reason: Pain, Moderate(Pain Scale 4-6) Last Admin: 02/20/24 12:18 Dose: 5 mg Sodium Chloride (0.9 % Sodium Chloride Flush 3 Ml Syringe) 3 ml [facility] Last Admin: 02/20/24 14:18 Dose: Not Given Home Medications ?Medication ?Instructions ?Recorded ?Confirmed ?Last Taken ?Type amlodipine 10 mg tablet 10 mg PO DAILY 02/16/24 02/16/24 Unknown History aspirin 81 mg tablet,delayed 81 mg PO DAILY 02/16/24 02/16/24 Unknown History release losartan 50 mg tablet 50 mg PO DAILY 02/16/24 02/16/24 Unknown History Physical Exam Vital Signs: Vital Signs: Last Vital Signs Temp 97.8 F 02/20/24 12:00 Pulse 114 H 02/20/24 12:00 Resp 20 02/20/24 12:00 BP 127/74 02/20/24 12:00 Pulse Ox 95 02/20/24 12:00 O2 Del Method Room Air 02/20/24 12:00 O2 Flow Rate 2 02/17/24 15:48 BMI result Body Mass Index 47.1 Const: General: cooperative HEENT: Head: Yes normal to inspection Face and sinus: Yes normal facial exam Mouth: Normal oral and palatal mucosa present Teeth and gingiva: dentition normal Eyes: General: appearance normal, both eyes and all related structures Pupils: Equal, round and reactive pupils present Resp: Effort & Inspection: normal respiratory effort Cardio: Rate: regular rate Rhythm: regular rhythm GI: Palpation (GI): Soft to palpation and nontender : General: Yes no CVA tenderness Back/Spine/Pelvis: Back: no CVA tenderness Skin: General skin exam: no rashes or lesions noted Neuro: General: moves all extremities Cranial nerves: Yes Equal, round and reactive pupils present Extrem: Other: area lateral right foot bleeding General: Yes normal to inspection Psych: Appearance: grossly normal Results Labs 02/19/24 11:12 02/20/24 05:33 Labs: BMP 02/20/24 05:33 Sodium 139 Potassium 3.7 Chloride 105 Carbon Dioxide 28 BUN 14 Creatinine 1.36 Calcium 8.7 Microbiology Microbiology Results: Microbiology 02/19/24 11:10 Blood - Venous Blood Culture - Preliminary No growth after 24 hours. 02/18/24 05:16 Blood - Venous Blood Culture - Preliminary No growth after 48 hours. 02/17/24 Unknown Foot Right Gram Stain - Final 02/17/24 Unknown Foot Right Routine Culture - Final Enterococcus faecalis 02/15/24 18:21 Blood - Venous Blood Culture - Preliminary No growth after 48 hours. 02/15/24 18:12 Blood - Venous Blood Culture - Final Streptococcus viridans group Assessment and Plan (1) Infected ulcer of skin: Status: Acute (2) Uncontrolled diabetes mellitus with hyperglycemia, with long-term current use of insulin: Status: Acute (3) Osteomyelitis: Status: Acute Plan OM so would treat both strep viridans as well as enterococcus faecalis Treat six weeks cover both with Daptomycin Statins can interact so hold if can. Weekly CPK and creatinine.
[2024-02-20 16:11] VITALS: BP 135/93; PULSE 118; RESP 18; TEMP 36.4; O2SAT 94
[2024-02-20 16:11] LABS: Glucose, Whole Blood 162 mg/dL (60-115)
--- NOTE | 2024-02-20 16:14 | MHC.CM.PN ---
pt agreeable to str for 6 weeks iv antibiotics dap[to he says he has no one at home that could help him with that
--- NOTE | 2024-02-20 16:22 | HO.WOUND ---
Wound Consult: Initial 49yr old?Male admitted to [facility] on 02/15/24 - See progress notes and H&P for detailed history.? Wound consult placed for Chronic bilateral lower leg wounds.? The patient is [place]i speaking and reading specialist was present and interpreting throughout visit. Patient was not agreeable to assessment and photo documentation he reports the nurse had recently changed the dressings. The patient appeared frustrated and appears agitated from initially entering his room and basic questions regarding his wounds. The patient reported not being happy with his care inpatient and outpatient - I attempted to discuss his role in wound healing for example blood glucose control, leg elevation and proper follow up. The patient became upset appeared angry - via reading specialist he stated if he was the problem why did he heal in the past - I attempted to educate the patient on the role his overall health plays in wound healing - he unkindly requested I stop talking to him. He began to cry and reported he felt we as an organization were attempted to say God does not heal. The conversation had a wide range of health topics with little correlation to the previous thought overall theme was his distrust of our health care system. He reiterated to come some other time but did apologize for his behavior. ? Will attempt to assess wounds tomorrow. Of note the patient did show me pictures he took from todays dressing change and Durafiber AG appears to be appropriate treatment plan at this time. ? Recommend continue topical dressing orders in place from General Surgery team. Inpt wound care Nurse will attempt to see at future date and time.
[2024-02-20 19:46] LABS: Glucose, Whole Blood 219 mg/dL (60-115)
[2024-02-20 19:50] VITALS: BP 131/60; PULSE 70; RESP 18; TEMP 36.4; O2SAT 95
[2024-02-20] MEDS: Melatonin 3 MG TABLET 6 MG PO (19:56)
[2024-02-20] MEDS: Enoxaparin Sodium 40 MG/0.4 ML SYRINGE SUBCUT (21:39)
[2024-02-20] MEDS: 0.9 % Sodium Chloride Flush 3 ML SYRINGE IVFLUSH (21:40)
[2024-02-21] VITALS: BP 130/62; PULSE 72; RESP 20; TEMP 36.3; O2SAT 96
[2024-02-21] MEDS: HYDROmorphone HCl 0.5 MG/0.5 ML SYRINGE 1 MG IVPUSH ×4 (00:05→21:52)
[2024-02-21] MEDS: Piperacillin Sodium/Tazobactam 4.5 GM in 0.9 % Sodium Chloride 100 ML IV (04:56)
--- NOTE | 2024-02-21 06:39 | PC.NURSE ---
pt pleasant and cooperative overnight. aerial photograph interpreter used, and witness in room at all times. patient refused vitals overnight. stable - and pain controlled with IV dilaudid prn and oxycodone prn x 1, see MAR. dressing reinforced, serosanguinous drainage. safety and comfort maintained, call saavedra in reach, bed alarm refused.
[2024-02-21 07:21] LABS: Glucose, Whole Blood 153 mg/dL (60-115)
[2024-02-21 07:57] VITALS: BP 137/89; PULSE 97; RESP 18; TEMP 36.1; O2SAT 98
[2024-02-21] MEDS: Metoprolol Succinate ER 25 MG TAB.ER.24H PO (08:28)
[2024-02-21] MEDS: Insulin Glargine,Hum.rec.anlog 100 UNIT/ML 10 ML VIAL 60 UNIT SUBCUT ×2 (08:28→21:39)
[2024-02-21] MEDS: amLODIPine Besylate 5 MG TABLET PO (08:28)
[2024-02-21] MEDS: Insulin Lispro 100 UNIT/ML 3 ML VIAL SUBCUT ×7 (08:29→21:39)
[2024-02-21] MEDS: oxyCODONE HCl Immed Release 5 MG TABLET PO ×2 (08:42→19:41)
[2024-02-21 11:07] LABS: Glucose, Whole Blood 121 mg/dL (60-115)
[2024-02-21 12:00] VITALS: BP 166/97; PULSE 110; RESP 18; TEMP 36.3; O2SAT 99
--- NOTE | 2024-02-21 12:43 | P.CONNP_ITS ---
History of Present Illness Reason for Consult Consult date: 02/21/24 Chief Complaint Chief complaint: Foot infection History of Present Illness Narrative: 49-year-old male with insulin-dependent diabetes mellitus, obesity, hypertension, chronic kidney disease stage 3 presently admitted for management of bilateral diabetic foot ulcer requiring surgical debridement. He was also found to have septic arthritis and osteomyelitis of the right foot. He was thought to have diabetic foot infection with cellulitis and infected non pressure ulcers due to uncontrolled type 2 diabetes and possible vasculitis process vs calcipylaxis, or PVD . He had an admission in october, biopsy obtained - vascular fibrinoid changes along with eosinophils but unable to determine if primary due to vasculitis or secondary/reactive changes. Has been following in wound care clinic- has refused debridement per wound care notes and does not appear to be compliant with other recommended interventions. He has been dismissed by PCP. MRI right foot shows large soft tissue defect/ulceration along the dorsal lateral aspect of the forefoot at the level of the 5th metatarsal diaphysis with prominent soft tissue gas and an associated abscess formation measuring 5.0 cm in greatest dimension. There is also osteomyelitis throughout the 5th metatarsal extending to the 5th metatarsophalangeal articular surface as well as the base of the 5th proximal phalanx. There is a 5th metatarsophalangeal joint effusion with surrounding soft tissue edema consistent with septic arthritis. Mild marrow edema within the adjacent 4th metatarsal head and base of the 4th proximal phalanx possibly early osteomyelitis. There is also diffuse edema and atrophy throughout the intrinsic musculature of the foot. He is s/p debridement 8/2 per general surgery. He has been getting intravenous antibiotics and is in need of a PICC line. He has CKD 3 at baseline and his renal functions are currently stable. Nephrology has been consulted to assist in his clinical care during his current hospital stay Review of Systems Review of Systems Yes all other systems are reviewed and are negative PMF Past Medical History Medical History (Updated 02/20/24 @ 15:23 by Brenda Champagne MD) Osteomyelitis Chronic kidney disease (CKD), stage III (moderate) BMI 40.0-44.9, adult Morbid obesity with BMI of 40.0-44.9, adult Uncontrolled type 2 diabetes mellitus Encounter to establish care Arthritis of both hips Long-term insulin use DM type 2 (diabetes mellitus, type 2) Hypertension Family History Family history: reviewed and not pertinent Surgical History Surgical History No pertinent past surgical history Social History Social History Household Members: Other Housing: Apartment Do you presently have visiting nurse or other home services: No Alcohol intake: never Comment: 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 Patient Tobacco Use Status: Never used Tobacco e-Cigarette/Vaping Use: Never Used Second Hand Smoke Exposure: No service: No Current occupational status: disabled Current occupational exposures/hazards: No Cognitive needs: Yes (cane) Hearing needs: No Vision needs: Yes (glasses) Meds Allergies Allergy/AdvReac Type Severity Reaction Status Date / Time No Known Allergies Allergy Verified 02/15/24 17:38 [No Known Allergies*] Active Medications: Current Medications Acetaminophen (Acetaminophen 325 Mg Tablet) 650 mg PO Q6H PRN PRN Reason: Pain, Mild (Pain Scale 1-3), fever or headache Last Admin: 02/18/24 10:10 Dose: 650 mg Amlodipine Besylate (Amlodipine Besylate 5 Mg Tablet) 5 mg PO DAILY CONNIE; Protocol Last Admin: 02/21/24 08:28 Dose: 5 mg Benzocaine (Throat Lozenge, Medicated Lozenge) 1 lozenge MUCOUS MEM Q2H PRN PRN Reason: Sore Throat Last Admin: 02/18/24 01:00 Dose: 1 lozenge Calcium Carbonate (Calcium Carbonate 750 Mg Tab.Chew) 750 mg PO Q4H PRN PRN Reason: Heartburn Enoxaparin Sodium (Enoxaparin Sodium 40 Mg/0.4 Ml Syringe) 40 mg SUBCUT Q24H [facility] Last Admin: 02/20/24 21:39 Dose: 40 mg Glucose (Glucose Gel 15 Gm Gel..Gram.) 15 gm PO Q15M PRN; Protocol PRN Reason: per Hypoglycemia Standing Ord. Hydromorphone HCl (Hydromorphone Hcl 0.5 Mg/0.5 Ml Syringe) 1 mg IVPUSH Q4H PRN; Protocol PRN Reason: Pain, Severe (Pain Scale 7-10) Last Admin: 02/21/24 04:57 Dose: 1 mg Dextrose (D10) 250 mls @ 750 mls/hr IV Q15M PRN; Protocol PRN Reason: per Hypoglycemia Standing Ord. Daptomycin 750 mg/ Sodium (Chloride) 65 mls @ 130 mls/hr IV Q24H [facility] Last Infusion: 02/21/24 09:00 Dose: Infused Insulin Glargine (Insulin Glargine,Hum.Rec.Anlog 100 Unit/Ml 10 Ml Vial) 60 unit SUBCUT BID [facility] Last Admin: 02/21/24 08:28 Dose: 60 unit Insulin Human Lispro (Insulin Lispro 100 Unit/Ml 3 Ml Vial) 0 unit SUBCUT QIDACHS [facility]; Protocol Last Admin: 02/21/24 11:13 Dose: Not Given Insulin Human Lispro (Insulin Lispro 100 Unit/Ml 3 Ml Vial) 5 unit SUBCUT QIDACHS [facility] Last Admin: 02/21/24 11:27 Dose: 5 unit Losartan Potassium (Losartan Potassium 50 Mg Tablet) 50 mg PO DAILY [facility]; Protocol Last Admin: 02/17/24 09:18 Dose: 50 mg Magnesium Hydroxide (Milk Of Magnesia 30 Ml Oral.Susp) 30 ml PO DAILY PRN PRN Reason: Constipation Melatonin (Melatonin 3 Mg Tablet) 6 mg PO BEDTIME PRN PRN Reason: Insomnia Last Admin: 02/20/24 19:56 Dose: 6 mg Metoprolol Succinate (Metoprolol Succinate Er 25 Mg Tab.Er.24h) 25 mg PO DAILY [facility]; Protocol Last Admin: 02/21/24 08:28 Dose: 25 mg Ondansetron HCl (Ondansetron Hcl 4 Mg/2 Ml Vial) 4 mg IVPUSH Q8H PRN PRN Reason: Nausea and Vomiting Oxycodone HCl (Oxycodone Hcl Immed Release 5 Mg Tablet) 5 mg PO Q4H PRN PRN Reason: Pain, Moderate(Pain Scale 4-6) Last Admin: 02/21/24 08:42 Dose: 5 mg Sodium Chloride (0.9 % Sodium Chloride Flush 3 Ml Syringe) [facility] Last Admin: 02/21/24 07:28 Dose: Not Given Home Medications ?Medication ?Instructions ?Recorded ?Confirmed ?Last Taken ?Type amlodipine 10 mg tablet 10 mg PO DAILY 02/16/24 02/16/24 Unknown History aspirin 81 mg tablet,delayed 81 mg PO DAILY 02/16/24 02/16/24 Unknown History release losartan 50 mg tablet 50 mg PO DAILY 02/16/24 02/16/24 Unknown History Physical Exam Vital Signs: Last Vital Signs Temp 96.9 F 02/21/24 07:57 Pulse 97 02/21/24 07:57 Resp 18 02/21/24 07:57 BP 137/89 02/21/24 07:57 Pulse Ox 98 02/21/24 07:57 O2 Del Method Room Air 02/21/24 07:57 O2 Flow Rate 2 02/20/24 19:50 BMI result Body Mass Index 47.1 Const General: no acute distress Orientation/consciousness: patient oriented x3 Eyes EOM: EOMs intact bilaterally Neck Neck: Yes supple Resp Auscultation: diminished lung sounds Cardio Rate: regular rate GI Palpation (GI): Soft to palpation Neuro General: patient oriented x3 and moves all extremities Results Lab Results 02/19/24 11:12 02/20/24 05:33 Lab results: Chemistry 02/19/24 02/20/24 11:11 05:33 Sodium 138 139 Potassium 3.8 D 3.7 Carbon Dioxide 25 28 BUN 19 H 14 Creatinine 1.54 H 1.36 Calcium 8.8 8.7 Hematology 02/19/24 11:12 WBC 10.4 Hgb 10.2 L Plt Count 304 Assessment and Plan (1) Chronic kidney disease (CKD), stage III (moderate): Qualifiers: Chronic kidney disease stage 3 subtype: stage 3a (GFR 45-59) Qualified Code(s): N18.31 - Chronic kidney disease, stage 3a Status: Acute (2) Hypertension: Qualifiers: Hypertension type: primary hypertension Qualified Code(s): I10 - Essential (primary) hypertension Status: Acute Plan Has stage III A 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 Needs optimal blood sugar control Tolerating angiotensin receptor judy. Blood pressure well controlled CAN HAVE PICC LINE. Needs close office follow-up when discharged with [facility] Procedures Date of Service Date of Service: 02/21/24
--- NOTE | 2024-02-21 14:43 | P.PNIM_ITS ---
Subjective Subjective Date of Service: 02/21/24 Interval History: bilateral lower extremity wounds Review of Systems denies new complaints. Currently waiting for PICC line and placement no fevers Physical Exam 2 Vital Signs: Vital Signs: Last Vital Signs Temp 97.4 F 02/21/24 12:00 Pulse 110 H 02/21/24 12:00 Resp 18 02/21/24 12:00 BP 166/97 H 02/21/24 12:00 Pulse Ox 99 02/21/24 12:00 O2 Del Method Room Air 02/21/24 12:00 O2 Flow Rate 2 02/20/24 19:50 BMI result Body Mass Index 47.1 Appearance: Alert.? Oriented X3.? cvs: [id number], [id number] . res: clear to auscultation ,no rhonchii or wheezing abd: no rebound or guarding ,nt, bs present. ext pulses present , no cyanosis, wounds area-wounds appear clean with good granulation tissues and scant slough. No necrosis or active purulent drainage(please see [facility] 02/20/24 note) . neuro: axo3 , nonfocal. Objective Data Active Medications Acetaminophen (Acetaminophen 325 Mg Tablet) 650 mg PO Q6H PRN PRN Reason: Pain, Mild (Pain Scale 1-3), fever or headache Last Admin: 02/18/24 10:10 Dose: 650 mg Documented By: IRINA Amlodipine Besylate (Amlodipine Besylate 5 Mg Tablet) 5 mg PO DAILY [facility]; Protocol Last Admin: 02/21/24 08:28 Dose: 5 mg Documented By: MIRIAN Benzocaine (Throat Lozenge, Medicated Lozenge) 1 lozenge MUCOUS MEM Q2H PRN PRN Reason: Sore Throat Last Admin: 02/18/24 01:00 Dose: 1 lozenge Documented By: MIKE Calcium Carbonate (Calcium Carbonate 750 Mg Tab.Chew) 750 mg PO Q4H PRN PRN Reason: Heartburn Enoxaparin Sodium (Enoxaparin Sodium 40 Mg/0.4 Ml Syringe) 40 mg SUBCUT Q24H [facility] Last Admin: 02/20/24 21:39 Dose: 40 mg Documented By: CHERELLE Comments: pt wanted medication early; going to sleep does not want to be disturbed Glucose (Glucose Gel 15 Gm Gel..Gram.) 15 gm PO Q15M PRN; Protocol PRN Reason: per Hypoglycemia Standing Ord. Hydromorphone HCl (Hydromorphone Hcl 0.5 Mg/0.5 Ml Syringe) 1 mg IVPUSH Q4H PRN; Protocol PRN Reason: Pain, Severe (Pain Scale 7-10) Last Admin: 02/21/24 04:57 Dose: 1 mg Documented By: CHERELLE Dextrose (D10) 250 mls @ 750 mls/hr IV Q15M PRN; Protocol PRN Reason: per Hypoglycemia Standing Ord. Daptomycin 750 mg/ Sodium (Chloride) 65 mls @ 130 mls/hr IV Q24H [facility] Last Infusion: 02/21/24 09:00 Dose: Infused Documented By: MIRIAN Insulin Glargine (Insulin Glargine,Hum.Rec.Anlog 100 Unit/Ml 10 Ml Vial) 60 unit SUBCUT BID [facility] Last Admin: 02/21/24 08:28 Dose: 60 unit Documented By: MIRIAN Insulin Human Lispro (Insulin Lispro 100 Unit/Ml 3 Ml Vial) 0 unit SUBCUT QIDACHS [facility]; Protocol Last Admin: 02/21/24 11:13 Dose: Not Given Documented By: MIRIAN Non-Admin Reason: poc oor Insulin Human Lispro (Insulin Lispro 100 Unit/Ml 3 Ml Vial) 5 unit SUBCUT QIDACHS [facility] Last Admin: 02/21/24 11:27 Dose: 5 unit Documented By: MIRIAN Losartan Potassium (Losartan Potassium 50 Mg Tablet) 50 mg PO DAILY [facility]; Protocol Last Admin: 02/17/24 09:18 Dose: 50 mg Documented By: ALPHONSO Magnesium Hydroxide (Milk Of Magnesia 30 Ml Oral.Susp) 30 ml PO DAILY PRN PRN Reason: Constipation Melatonin (Melatonin 3 Mg Tablet) 6 mg PO BEDTIME PRN PRN Reason: Insomnia Last Admin: 02/20/24 19:56 Dose: 6 mg Documented By: CHERELLE Metoprolol Succinate (Metoprolol Succinate Er 25 Mg Tab.Er.24h) 25 mg PO DAILY [facility]; Protocol Last Admin: 02/21/24 08:28 Dose: 25 mg Documented By: MIRIAN Ondansetron HCl (Ondansetron Hcl 4 Mg/2 Ml Vial) 4 mg IVPUSH Q8H PRN PRN Reason: Nausea and Vomiting Oxycodone HCl (Oxycodone Hcl Immed Release 5 Mg Tablet) 5 mg PO Q4H PRN PRN Reason: Pain, Moderate(Pain Scale 4-6) Last Admin: 02/21/24 08:42 Dose: 5 mg Documented By: MIRIAN Sodium Chloride (0.9 % Sodium Chloride Flush 3 Ml Syringe) 3 ml IVFLUSH QSHIFT [facility] Last Admin: 02/21/24 13:43 Dose: Not Given Documented By: MIRIAN Non-Admin Reason: Previously Administered Labs 02/19/24 11:12 02/20/24 05:33 Labs: Laboratory Results - last 24 hr 02/20/24 02/20/24 02/21/24 16:00 19:23 07:17 POC Glucose 162 H 219 H 153 H 02/21/24 11:03 POC Glucose 121 H Microbiology Microbiology Results: Microbiology 02/19/24 11:10 Blood Culture - Preliminary Blood - Venous No growth after 48 hours. 02/15/24 18:21 Blood Culture - Final Blood - Venous No growth after 5 days. Assessment and Plan (1) Hyperglycemia due to type 2 diabetes mellitus: Status: Acute (2) Infected ulcer of skin: Status: Acute (3) Cellulitis: Status: Acute Plan This is a 49-year-old male with pertinent history of insulin-dependent diabetes mellitus, obesity, hypertension, chronic kidney disease stage 3 presents admitted for management of bilateral diabetic foot ulcer requiring surgical debridement also found to have septic arthritis and osteomyelitis of the right foot. Pt and mother have been accusatory stating that nurses having been lying about patient's pain, reporting discrimination, inappropriate touch. Nursing supervisor pig machine has met with patient and patient is now on two for care due to the accusatory behaviors. Right diabetic foot infection with cellulitis and infected non pressure ulcers due to uncontrolled type 2 diabetes and possible vasculitis process vs calcipylaxis, or PVD admission in october, biopsy obtained - vascular fibrinoid changes along with eosinophils but unable to determine if primary due to vasculitis or secondary/reactive changes Has been following in wound care clinic- has refused debridement per wound care notes and does not appear to be compliant with other recommended interventions per PCP notes it appears that he did not follow up with specialists he was referred to, does not appear to have been seen by rheumatology. Has been dismissed by PCP MRI right foot shows large soft tissue defect/ulceration along the dorsal lateral aspect of the forefoot at the level of the 5th metatarsal diaphysis with prominent soft tissue gas and an associated abscess formation measuring 5.0 cm in greatest dimension. There is also osteomyelitis throughout the 5th metatarsal extending to the 5th metatarsophalangeal articular surface as well as the base of the 5th proximal phalanx. There is a 5th metatarsophalangeal joint effusion with surrounding soft tissue edema consistent with septic arthritis. Mild marrow edema within the adjacent 4th metatarsal head and base of the 4th proximal phalanx possibly early osteomyelitis. There is also diffuse edema and atrophy throughout the intrinsic musculature of the foot CRP 28.09, ESR 105 s/p debridement 02/16 per general surgery. General surgery input appreciated. Wound care consult pending Initially treated with IV vancomycin Zosyn 02/14-02/17. Change to 2g IV ctx and 100mg doxy IV 02/17. However, discussed with Dr. An and zosyn resumed in place of CTX to cover for possible anaerobes until cultures final and ID consult. Final wound culture growing Enterococcus faecalis sensitive to vancomycin and ampicillin with blood culture x1 growing strep. 02/19- Continue zosyn, dc doxy ID consult pending Poor pain control. Morphine dc'd. Changed to hydromorphine 1mg q4h, ok per general surgery. Pt reporting uncontrolled pain despite soundly sleeping and reporting pain meds not being given though they are documented # strep viridans bacteremia blood culture positive x1. Repeat cultures negative thus far Abx changed as above echocardiogram read with poor eval of valves, but repeat cultures negative thus far. Defer to ID ID consult #Acute septic arthritis/osteomyelitis R foot as above #Uncontrolled insulin-dependent diabetes mellitus with hyperglycemia: Due to noncompliance with insulin. Given IV insulin and IV fluids in the ER. Increase Lantus to 60 units bidaily- glucose levels improving hold metformin SSI, POCs. Add standing 5 units Humalog q.i.d. a.c. HS ADA diet Hgb A1c >14.0 discussed the importance of glucose control with regard to wound healing # acute on chronic micorcytic anemia Iron slightly low. Add ferrous sulfate with vitamin-C above transfusion threshold follow CBC #Pseudo hyponatremia due to hyperglycemia #Morbid Obesity: BMI 47.1 Counseled regarding diet and exercise # Hypertension: Continue home antihypertensives, losartan,. Reduce norvasc to 5mg daily, add metoprolol # CKD stage 3 -Creatinine at baseline #HFrEF ef 40-45% on echo, no acute exacebation tachycardia likely r/t hf/cardiomyopathy add metoprolol 25mg ER outpt follow up DVT prophylaxis: Lovenox Full code Pt requires ongoing inpt stay due to diabetic foot infection, osteomyelitis, septic arthritis, and patient need picc line -today refused to do procedure. Quality Stroke Does the patient have a stroke diagnosis?: No VTE Prior VTE?: No VTE Risk Level:: Medical - moderate - high VTE Device Contraindication: Treatment Not Indicated VTE Drug Contraindication: N/A - Med Ordered
[2024-02-21 15:05] VITALS: BP 144/88; PULSE 102; RESP 18; TEMP 36.1; O2SAT 99
[2024-02-21 16:27] LABS: Glucose, Whole Blood 187 mg/dL (60-115)
--- NOTE | 2024-02-21 16:41 | HO.WOUND ---
Wound Consult: Initial 49yr old? male admitted to [facility] on 02/15/24 - See progress notes and H&P for detailed history.? Sammarinese speaking - transition of care specialist present throughout. Wound consult follow up for bilateral lower leg wounds.? Patient agreeable to assessment and photo documentation.? Patient filmed me with his phone while performing assessment and dressing change. The patients behavior continues to be unusual and confrontational. He at one point reported I didn't need to ask him questions or speak to him and I should just do the dressings. Chart review reveals he is non-compliant with care recommendations. Left anterior Leg wounds Right lateral leg wounds Etiology: Unclear etiology- Chronic ulcerations treated in outpt wound clinic Wound Bed: Assaria red tissue with thin moist yellow slough noted Drainage / Odor: garcia yellow drainage noted on dressing when removed Edges: ? Irregular Tara wound: hyperpigmentation and swelling noted - ? No Induration, Fluctuance or Warmth noted Pain: patient reports excessive pain Goals of Treatment: ? Continue to use Durafiber AG and packing strip to right anterior foot per General Surgery recommendations. Patient should continue to follow up outpatient to a wound clinic due to the complexity of these wounds Recommendations: 1. Turn and Reposition every 2 hours and as needed for patient comfort.? Use pillows or wedges to support off loading positions. 2. Off Load all bony prominences with use of pillows and heel boots if needed.? Apply Preventative foams where needed. ? 3. Monitor for incontinence and moisture control, use barrier creams when needed for prevention and treatment. 4. Provide adequate and supplemental nutrition.? 5. Continue low air loss mattress. 6. When applicable maintain blood glucose levels per Providers order. 7. Right Foot - Elevate bilateral feet / heels off pf bed surface. Cleanse and irrigate with NS. Pack distal site with Iodoform packing strip. Cover with dry gauze ABD pad and WRap. Change Daily. 8. Bilateral Lower Legs - Cleanse with NS. Apply Durafiber AG to open wound beds, cover with dry gauze, ABD pad and wrap. Change every other Day. Re-consult wound care Nurse for wound deterioration or wound changes.
--- NOTE | 2024-02-21 18:27 | PC.NURSE ---
Pt went to IR for PICC placement and then refused procedure when he was down there. Primary RN notified .
[2024-02-21 19:26] VITALS: BP 170/95; PULSE 117; RESP 18; TEMP 36.4; O2SAT 98
[2024-02-21] MEDS: Acetaminophen 325 MG TABLET 650 MG PO (19:41)
--- NOTE | 2024-02-21 19:46 | PC.NURSE ---
Additional Tylenol 650 mg po given for 6/10 pain as per pt request.
[2024-02-21 19:57] LABS: Glucose, Whole Blood 212 mg/dL (60-115)
[2024-02-21] MEDS: Enoxaparin Sodium 40 MG/0.4 ML SYRINGE SUBCUT (21:40)
[2024-02-21 23:03] VITALS: BP 141/80; PULSE 116; RESP 18; TEMP 36.9; O2SAT 95
[2024-02-21] MEDS: Melatonin 3 MG TABLET 6 MG PO (23:04)
[2024-02-21] MEDS: 0.9 % Sodium Chloride Flush 3 ML SYRINGE IVFLUSH (23:05)
[2024-02-22] VITALS (10 sets, daily range): BP systolic 129–148; BP diastolic 60–93; PULSE 108–121; RESP 16–20; TEMP 36.1–36.9; O2SAT 96–98
[2024-02-22 07:26] LABS: Glucose, Whole Blood 109 mg/dL (60-115)
[2024-02-22] MEDS: Insulin Glargine,Hum.rec.anlog 100 UNIT/ML 10 ML VIAL 60 UNIT SUBCUT ×2 (08:27→22:12)
[2024-02-22] MEDS: Insulin Lispro 100 UNIT/ML 3 ML VIAL SUBCUT ×6 (08:27→22:17)
[2024-02-22] MEDS: amLODIPine Besylate 5 MG TABLET PO (08:28)
[2024-02-22] MEDS: Metoprolol Succinate ER 25 MG TAB.ER.24H PO (08:28)
[2024-02-22] MEDS: 0.9 % Sodium Chloride Flush 3 ML SYRINGE IVFLUSH ×3 (08:30→21:04)
--- NOTE | 2024-02-22 08:39 | PC.NURSE ---
Pt. very demanding and rude this morning, getting upset with this Nurse when trying to give him his meds, stating rudely you can come back, I am busy now, you are bothering me. Would choose when to communicate and sometimes will just give a blank stare, field sales representative offered but pt. stated he speaks Urdu. This Nurse left the room after trying to explain the importance of positive communication and the care he needs to promote his healing, this Nurse was accompanied by Nursing assistance.
--- NOTE | 2024-02-22 10:26 | PC.NURSE ---
Pt met with Katy JAY, Primary RN, CM and this ticket writer. Pt educated about PICC and the importance. Pt continues to bring up pain medication, Narcotic Seeking Behavior. After a long conversation pt agrees to PICC line.
[2024-02-22] MEDS: HYDROmorphone HCl 0.5 MG/0.5 ML SYRINGE 1 MG IVPUSH ×3 (10:33→20:57)
[2024-02-22 11:40] LABS: Glucose, Whole Blood 147 mg/dL (60-115)
--- NOTE | 2024-02-22 12:32 | PM.PNNEP ---
Subjective Subjective Date of Service: 02/22/24 Interval history: Events noted; All recent data reviewed Physical Exam Vital Signs: Vital Signs: Last Vital Signs Temp 97.0 F 02/22/24 11:59 Pulse 111 H 02/22/24 11:59 Resp 16 02/22/24 11:59 BP 139/84 02/22/24 11:59 Pulse Ox 96 02/22/24 11:59 O2 Del Method Room Air 02/22/24 11:59 O2 Flow Rate 2 02/20/24 19:50 BMI result Body Mass Index 47.1 Const: General: no acute distress Eyes: EOM: EOMs intact bilaterally Resp: Auscultation: diminished lung sounds Cardio: Rate: regular rate GI: Palpation (GI): Soft to palpation Neuro: General: moves all extremities Objective Data Labs 02/19/24 11:12 02/20/24 05:33 Labs: Laboratory Results - last 24 hr 02/21/24 02/21/24 02/22/24 16:24 19:27 07:22 POC Glucose 187 H 212 H 109 02/22/24 11:22 POC Glucose 147 H Microbiology Microbiology Results: Microbiology 02/19/24 11:10 Blood - Venous Blood Culture - Preliminary No growth after 48 hours. 02/15/24 18:21 Blood - Venous Blood Culture - Final No growth after 5 days. 02/18/24 05:16 Blood - Venous Blood Culture - Preliminary No growth after 48 hours. 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 Needs optimal blood sugar control Tolerating angiotensin receptor judy. Blood pressure control OK CAN HAVE PICC LINE. Needs close office follow-up when discharged with [facility] Progress Note: Quality Stroke Does the patient have a stroke diagnosis?: No
--- NOTE | 2024-02-22 14:17 | HO.PM.IMPN ---
Subjective Subjective Date of Service: 02/22/24 Interval History: bilateral lower extremity wounds Review of Systems denies new complaints. Currently waiting for PICC line and placement no fevers Physical Exam Vital Signs: Vital Signs: Last Vital Signs Temp 97.0 F 02/22/24 11:59 Pulse 111 H 02/22/24 11:59 Resp 16 02/22/24 11:59 BP 139/84 02/22/24 11:59 Pulse Ox 96 02/22/24 11:59 O2 Del Method Room Air 02/22/24 11:59 O2 Flow Rate 2 02/20/24 19:50 BMI result Body Mass Index 47.1 Appearance: Alert.? Oriented X3.? cvs: rrr, [id number] . res: clear to auscultation ,no rhonchii or wheezing abd: no rebound or guarding ,nt, bs present. ext pulses present , no cyanosis, wounds area-wounds appear clean with good granulation tissues and scant slough. No necrosis or active purulent drainage(please see [facility] 02/21/24 note) . neuro: axo3 , nonfocal. Objective Data Active Medications Acetaminophen (Acetaminophen 325 Mg Tablet) 650 mg PO Q6H PRN PRN Reason: Pain, Mild (Pain Scale 1-3), fever or headache Last Admin: 02/21/24 19:41 Dose: 650 mg Documented By: PADMAJA Amlodipine Besylate (Amlodipine Besylate 5 Mg Tablet) 5 mg PO DAILY [facility]; Protocol Last Admin: 02/22/24 08:28 Dose: 5 mg Documented By: PRIYA Benzocaine (Throat Lozenge, Medicated Lozenge) 1 lozenge MUCOUS MEM Q2H PRN PRN Reason: Sore Throat Last Admin: 02/18/24 01:00 Dose: 1 lozenge Documented By: NATALSA Calcium Carbonate (Calcium Carbonate 750 Mg Tab.Chew) 750 mg PO Q4H PRN PRN Reason: Heartburn Enoxaparin Sodium (Enoxaparin Sodium 40 Mg/0.4 Ml Syringe) 40 mg SUBCUT Q24H [facility] Last Admin: 02/21/24 21:40 Dose: 40 mg Documented By: PADMAJA Glucose (Glucose Gel 15 Gm Gel..Gram.) 15 gm PO Q15M PRN; Protocol PRN Reason: per Hypoglycemia Standing Ord. Hydromorphone HCl (Hydromorphone Hcl 0.5 Mg/0.5 Ml Syringe) 1 mg IVPUSH Q4H PRN; Protocol PRN Reason: Pain, Severe (Pain Scale 7-10) Last Admin: 02/22/24 10:33 Dose: 1 mg Documented By: PRIYA Dextrose (D10) 250 mls @ 750 mls/hr IV Q15M PRN; Protocol PRN Reason: per Hypoglycemia Standing Ord. Daptomycin 750 mg/ Sodium (Chloride) 65 mls @ 130 mls/hr IV Q24H [facility] Last Infusion: 02/22/24 11:03 Dose: Infused Documented By: PRIYA Insulin Glargine (Insulin Glargine,Hum.Rec.Anlog 100 Unit/Ml 10 Ml Vial) 60 unit SUBCUT BID [facility] Last Admin: 02/22/24 08:27 Dose: 60 unit Documented By: PRIYA Insulin Human Lispro (Insulin Lispro 100 Unit/Ml 3 Ml Vial) 0 unit SUBCUT QIDACHS [facility]; Protocol Last Admin: 02/22/24 11:58 Dose: Not Given Documented By: PRIYA Non-Admin Reason: No Insulin Coverage Insulin Human Lispro (Insulin Lispro 100 Unit/Ml 3 Ml Vial) 5 unit SUBCUT QIDACHS [facility] Last Admin: 02/22/24 11:59 Dose: 5 unit Documented By: PRIYA Losartan Potassium (Losartan Potassium 50 Mg Tablet) 50 mg PO DAILY [facility]; Protocol Last Admin: 02/17/24 09:18 Dose: 50 mg Documented By: ALPHONSO Magnesium Hydroxide (Milk Of Magnesia 30 Ml Oral.Susp) 30 ml PO DAILY PRN PRN Reason: Constipation Melatonin (Melatonin 3 Mg Tablet) 6 mg PO BEDTIME PRN PRN Reason: Insomnia Last Admin: 02/21/24 23:04 Dose: 6 mg Documented By: CASTILNu Metoprolol Succinate (Metoprolol Succinate Er 25 Mg Tab.Er.24h) 25 mg PO DAILY [facility]; Protocol Last Admin: 02/22/24 08:28 Dose: 25 mg Documented By: PRIYA Ondansetron HCl (Ondansetron Hcl 4 Mg/2 Ml Vial) 4 mg IVPUSH Q8H PRN PRN Reason: Nausea and Vomiting Oxycodone HCl (Oxycodone Hcl Immed Release 5 Mg Tablet) 5 mg PO Q4H PRN PRN Reason: Pain, Moderate(Pain Scale 4-6) Last Admin: 02/21/24 19:41 Dose: 5 mg Documented By: PADMAJA Sodium Chloride (0.9 % Sodium Chloride Flush 3 Ml Syringe) 3 ml IVFLUSH QSHIFT [facility] Last Admin: 02/22/24 08:30 Dose: 3 ml Documented By: PRIYA Labs 02/19/24 11:12 02/20/24 05:33 Labs: Laboratory Results - last 24 hr 02/21/24 02/21/24 02/22/24 16:24 19:27 07:22 POC Glucose 187 H 212 H 109 02/22/24 11:22 POC Glucose 147 H Microbiology Microbiology Results: Microbiology 02/19/24 11:10 Blood Culture - Preliminary Blood - Venous No growth after 48 hours. Assessment and Plan (1) Hyperglycemia due to type 2 diabetes mellitus: Status: Acute (2) Infected ulcer of skin: Status: Acute (3) Cellulitis: Status: Acute Plan This is a 49-year-old male with pertinent history of insulin-dependent diabetes mellitus, obesity, hypertension, chronic kidney disease stage 3 presents admitted for management of bilateral diabetic foot ulcer requiring surgical debridement also found to have septic arthritis and osteomyelitis of the right foot. Pt and mother have been accusatory stating that nurses having been lying about patient's pain, reporting discrimination, inappropriate touch. Nursing pot room supervisor has met with patient and patient is now on two for care due to the accusatory behaviors. Right diabetic foot infection with cellulitis and infected non pressure ulcers due to uncontrolled type 2 diabetes and possible vasculitis process vs calcipylaxis, or PVD admission in october, biopsy obtained - vascular fibrinoid changes along with eosinophils but unable to determine if primary due to vasculitis or secondary/reactive changes Has been following in wound care clinic- has refused debridement per wound care notes and does not appear to be compliant with other recommended interventions per PCP notes it appears that he did not follow up with specialists he was referred to, does not appear to have been seen by rheumatology. Has been dismissed by PCP MRI right foot shows large soft tissue defect/ulceration along the dorsal lateral aspect of the forefoot at the level of the 5th metatarsal diaphysis with prominent soft tissue gas and an associated abscess formation measuring 5.0 cm in greatest dimension. There is also osteomyelitis throughout the 5th metatarsal extending to the 5th metatarsophalangeal articular surface as well as the base of the 5th proximal phalanx. There is a 5th metatarsophalangeal joint effusion with surrounding soft tissue edema consistent with septic arthritis. Mild marrow edema within the adjacent 4th metatarsal head and base of the 4th proximal phalanx possibly early osteomyelitis. There is also diffuse edema and atrophy throughout the intrinsic musculature of the foot CRP 28.09, ESR 105 s/p debridement 02/16 per general surgery. General surgery input appreciated. Wound care consult pending Initially treated with IV vancomycin Zosyn 02/14-02/17. Change to 2g IV ctx and 100mg doxy IV 02/17. However, discussed with Dr. An and zosyn resumed in place of CTX to cover for possible anaerobes until cultures final and ID consult. Final wound culture growing Enterococcus faecalis sensitive to vancomycin and ampicillin with blood culture x1 growing strep. 02/19- Continue zosyn, dc doxy ID consult pending Poor pain control. Morphine dc'd. Changed to hydromorphine 1mg q4h, ok per general surgery. Pt reporting uncontrolled pain despite soundly sleeping and reporting pain meds not being given though they are documented # strep viridans bacteremia blood culture positive x1. Repeat cultures negative thus far Abx changed as above echocardiogram read with poor eval of valves, but repeat cultures negative thus far. Defer to ID ID consult #Acute septic arthritis/osteomyelitis R foot as above #Uncontrolled insulin-dependent diabetes mellitus with hyperglycemia: Due to noncompliance with insulin. Given IV insulin and IV fluids in the ER. Increase Lantus to 60 units bidaily- glucose levels improving hold metformin SSI, POCs. Add standing 5 units Humalog q.i.d. a.c. HS ADA diet Hgb A1c >14.0 discussed the importance of glucose control with regard to wound healing # acute on chronic micorcytic anemia Iron slightly low. Add ferrous sulfate with vitamin-C above transfusion threshold follow CBC #Pseudo hyponatremia due to hyperglycemia #Morbid Obesity: BMI 47.1 Counseled regarding diet and exercise # Hypertension: Continue home antihypertensives, losartan,. Reduce norvasc to 5mg daily, add metoprolol # CKD stage 3 -Creatinine at baseline #HFrEF ef 40-45% on echo, no acute exacebation tachycardia likely r/t hf/cardiomyopathy add metoprolol 25mg ER outpt follow up DVT prophylaxis: Lovenox Full code Pt requires ongoing inpt stay - s/p piccline ,awiting placement, Quality Stroke Does the patient have a stroke diagnosis?: No VTE Prior VTE?: No VTE Risk Level:: Medical - moderate - high VTE Device Contraindication: Treatment Not Indicated VTE Drug Contraindication: N/A - Med Ordered
[2024-02-22] MEDS: HYDROmorphone HCl 1 MG/ML SYRINGE IVPUSH (14:36)
--- NOTE | 2024-02-22 16:12 | HO.PICC ---
PICC Line Insertion NPICC Diagnosis: osteomylitis Indication: residential ABT Pertinent Labs: Reviewed Technique: Following informed consent including risks, benefits and alternatives and using sterile technique including cap and mask, sterile gown, glove and drape, the right arm was prepped and draped in the usual sterile fashion of full barrier technique with G. Following completion of [place] Protocol the skin and soft tissues were anesthetized with 1% Lidocaine plain. Using ultrasound guidance, right brachial vein access was obtained. Over an 0.018 wire through peel-away sheath, a 4FR single lumen PASV PICC line was positioned. Catheter length is 47cm internal length, 0cm external length, for a total trimmed length of 47cm. The procedure was performed in rm 272. Tip verification was performed by Shahram Sánchez with Sherlock 3CG. Tip located in SVC. Ultrasound was used to document vein patency and for needle entry. A formal ultrasound picture and cardiac rhythm strip was recorded. Vascular Air Brake Rigger has released the line for use and it is currently dressed with a StatLock, Tegaderm, and CHG disc. Verification has been performed for blood return and line patency. Arm Circumference: 39cm Equipment: Trusted Opinion PowerPICC SOLO catheter with Sherlock 3CG Catheter Type: 4FR single lumen PASV catheter Lot #: [id number]
[2024-02-22 17:09] LABS: Glucose, Whole Blood 219 mg/dL (60-115)
[2024-02-22] MEDS: oxyCODONE HCl Immed Release 5 MG TABLET PO ×2 (19:27→23:18)
[2024-02-22 20:56] LABS: Glucose, Whole Blood 204 mg/dL (60-115)
[2024-02-22] MEDS: 0.9 % Sodium Chloride Flush 10 ML SYRINGE 5 ML IVFLUSH (21:03)
[2024-02-22] MEDS: Enoxaparin Sodium 40 MG/0.4 ML SYRINGE SUBCUT (22:42)
[2024-02-22] MEDS: Melatonin 3 MG TABLET 6 MG PO (23:18)
--- NOTE | 2024-02-23 | ECG_ITS ---
Test Reason : tachycardia Blood Pressure : / mmHG Vent. Rate : 116 BPM Atrial Rate : 116 BPM P-R Int : 160 ms QRS Dur : 080 ms QT Int : 452 ms P-R-T Axes : 062 -19 067 degrees QTc Int : 628 ms Sinus tachycardia Nonspecific T wave abnormality Prolonged QT Abnormal ECG When compared with ECG of 16-FEB-2024 14:07, No significant change was found Referred By: Ruy Hollis Electronically Signed By:YRIS LOPZE MD
[2024-02-23] MEDS: HYDROmorphone HCl 0.5 MG/0.5 ML SYRINGE 1 MG IVPUSH ×2 (00:34→09:07)
[2024-02-23 07:46] LABS: Glucose, Whole Blood 196 mg/dL (60-115)
[2024-02-23 07:56] VITALS: BP 143/103; PULSE 227; RESP 20; TEMP 36.2; O2SAT 96
[2024-02-23 08:07] VITALS: BP 145/95; PULSE 114
[2024-02-23] MEDS: Insulin Glargine,Hum.rec.anlog 100 UNIT/ML 10 ML VIAL 60 UNIT SUBCUT (08:52)
[2024-02-23] MEDS: Insulin Lispro 100 UNIT/ML 3 ML VIAL SUBCUT ×4 (08:52→11:55)
[2024-02-23] MEDS: amLODIPine Besylate 5 MG TABLET PO (08:52)
[2024-02-23] MEDS: Metoprolol Succinate ER 25 MG TAB.ER.24H PO (08:52)
[2024-02-23] MEDS: 0.9 % Sodium Chloride Flush 10 ML SYRINGE 5 ML IVFLUSH ×2 (09:02→15:10)
[2024-02-23] MEDS: 0.9 % Sodium Chloride Flush 3 ML SYRINGE IVFLUSH (09:02)
[2024-02-23 11:11] LABS: Glucose, Whole Blood 188 mg/dL (60-115)
[2024-02-23 12:00] VITALS: BP 141/82; PULSE 112; RESP 20; TEMP 36.1; O2SAT 97
--- NOTE | 2024-02-23 12:15 | MHC.CM.PN ---
DP: PT HAS BEEN OFFERED A BED AT [facility] FOR MANAGEMENT OF IV. PT ACCEPTS BED OFFER VIA [facility]..PER SNF LIAISON, THEY WILL CHECK ON STATUS OF MDS WITH [facility] AND WILL FAX LEVEL 1. BLS TRANSPORT BOOKED FOR 1:30 PM VIA CLAU. RN/PROVIDER AWARE.
--- NOTE | 2024-02-23 12:26 | PM.DS ---
DS: Providers Provider Date of Service: 02/23/24 Date of admission: 02/15/24 22:13 Date of discharge: 02/23/24 Primary care physician: Jose C Campbell MD Consults: 02/16/24 07:29 Consult to General Surgery Routine Consulting Provider: [facility] [place] [facility] Reason for consultation: b/l leg wounds Has provider been notified: No 02/16/24 14:16 Consult to Wound Care Routine Reason for consultation: Bilateral leg wounds 02/16/24 14:47 Consult to Infectious Diseases Routine Consulting Provider: [facility] [place] [facility] Reason for consultation: b/l leg wounds; osteo Has provider been notified: No 02/20/24 10:58 Consult to Wound Care Routine Reason for consultation: diabetic foot ulcers 02/20/24 21:46 Consult to Nephrology Routine Consulting Provider: [facility] [place] [facility] Reason for consultation: ckd 3, needs nephro clearance for picc 02/22/24 05:02 Consult to Wound Care Routine Reason for consultation: bilat LE wounds Has provider been notified: No Attending physician on discharge: Ruy Hollis Discharging clinician: Ruy Hollis DS: Diagnosis Discharge Diagnosis (1) Hyperglycemia due to type 2 diabetes mellitus: Status: Acute (2) Infected ulcer of skin: Status: Acute (3) Cellulitis: Status: Acute DS: Summary Hospital Course Hospital Course: 49-year-old male with pertinent history of insulin-dependent diabetes mellitus, obesity, hypertension, chronic kidney disease stage 3 presents to the emergency department for concerns of foot infection. Patient states he has had skin ulcers for months now. He noticed increase in foul-smelling drainage from his right leg that started 2 days prior to presentation. No fever, chills, chest discomfort, palpitations, shortness of breath, abdominal pain, changes in urinary or bowel habits. Patient went to a wound clinic who sent the patient to the ER. Patient states that he has had troubles with pharmacy and has not been compliant with his insulin. The last time he took his insulin was about a week ago. In the emergency department, patient was found to be hyperglycemic and given IV fluids and IV insulin. Also initiated on broad-spectrum empiric IV antibiotics for diabetic foot infection. Hospital course: 49-year-old male with pertinent history of insulin-dependent diabetes mellitus, obesity, hypertension, chronic kidney disease stage 3 presents admitted for management of bilateral diabetic foot ulcer requiring surgical debridement also found to have septic arthritis and osteomyelitis of the right foot. Pt and mother have been accusatory stating that nurses having been lying about patient's pain, reporting discrimination, inappropriate touch. from chart reivew: Right diabetic foot infection with cellulitis and infected non pressure ulcers due to uncontrolled type 2 diabetes and possible cellulitis vs vasculitis process vs PVD ( previous admission in october, biopsy obtained - vascular fibrinoid changes along with eosinophils but unable to determine if primary due to vasculitis or secondary/reactive changes),Has been following in wound care clinic- has refused debridement per wound care notes and does not appear to be compliant with other recommended interventions, also per PCP notes it appears that he did not follow up with specialists he was referred to, does not appear to have been seen by rheumatology.Has been dismissed by PCP. 1. right foot osteomyelitis : MRI right foot shows large soft tissue defect/ulceration along the dorsal lateral aspect of the forefoot at the level of the 5th metatarsal diaphysis with prominent soft tissue gas and an associated abscess formation measuring 5.0 cm in greatest dimension. There is also osteomyelitis throughout the 5th metatarsal extending to the 5th metatarsophalangeal articular surface as well as the base of the 5th proximal phalanx. There is a 5th metatarsophalangeal joint effusion with surrounding soft tissue edema consistent with septic arthritis. Mild marrow edema within the adjacent 4th metatarsal head and base of the 4th proximal phalanx possibly early osteomyelitis. intial CRP 28.09, ESR 105. patient started on iv antibiotics, blood culture sent , General surgery also saw the patient -s/p debridement 02/16 per general surgery. Final wound culture reviewed with ID :OM so would treat both strep viridans as well as enterococcus faecalis Treat six weeks cover both with Daptomycin , wound care insruction ,please see discharge instructions section. strep viridans bacteremia blood culture positive x1. Repeat cultures negative thus far echocardiogram read with poor eval of valves, but repeat cultures negative thus far. Defer to ID d/w ID -recomended daptomycin(please see above.) Uncontrolled insulin-dependent diabetes mellitus with hyperglycemia: adjusted Lantus to 60 units bidaily- glucose levels improving units Humalog q.i.d. a.c. HS ADA diet Hgb A1c >14.0 discussed the importance of glucose control with regard to wound healing consider outpatient endocrinology eval. acute on chronic micorcytic anemia Iron and irn sats low ,but tibc and ferritin fine Added ferrous sulfate . h/h is 10-11 range moniter cbc and repeat iron panel in 1-2 week ,further workup outpatient. Pseudo hyponatremia -due to hyperglycemia,resolved. Morbid Obesity: BMI 47.1 Counseled regarding diet and exercise HFrEF/htn: ef 40-45% on echo, no acute exacebation tachycardia thoight to be likely r/t hf/cardiomyopathy added metoprolol 25mg ER consider cardiology outpt follow up plan: complete daptomycin 750 mg q24hr for 6 weeks (end date 04/02/24). consider monitering cbc ,bmp,cpk ,lfts q weekly while on antibiotics, also due to above mentioned issues. check Hba1c levels ,repeat iron panel in 1-2 week , further anemia workup outpatient . wound care -see above. follow up with pcp ,consider outpatient rheumatology eval, endocrinology evaluation, cardiology ( for above mentioned issues). Above management discussed with the patient with the help of applications engineer multiple times during this visit by multiple providers, patient understand and in agreement with the above plan, time spent 50 minute. Time Attestation Total time managing care of this patient today: 50 mintues. Discharge Coordination Time (in mins): 50 min Quality: Safe Use of Opioids Does Pt have an Active Cancer Diagnosis on the Problem List?: No Quality: Stroke Does the patient have a stroke diagnosis?: No Physical Exam Vital Signs: Vital Signs: Last Vital Signs Temp 97.1 F 02/23/24 07:56 Pulse 114 H 02/23/24 08:07 Resp 20 02/23/24 07:56 BP 145/95 H 02/23/24 08:07 Pulse Ox 96 02/23/24 07:56 O2 Del Method Room Air 02/23/24 07:56 O2 Flow Rate 2 02/20/24 19:50 BMI result Body Mass Index 47.1 Appearance: Alert.? Oriented X3.? cvs: rrr, q3f6mendn . res: clear to auscultation ,no rhonchii or wheezing abd: no rebound or guarding ,nt, bs present. ext pulses present , no cyanosis, wounds area-wounds appear clean with good granulation tissues and scant slough. No necrosis or active purulent drainage . neuro: axo3 , nonfocal DS: Data Data Completed and Pending Completed studies during hospitalization [Text1]: Procedures Excision of Right Lower Leg Skin, External Approach, Diagnostic (11/05/23) Labs on day of discharge: Laboratory Results - last 24 hr 02/22/24 02/22/24 02/23/24 16:54 20:43 07:35 POC Glucose 219 H 204 H 196 H 02/23/24 11:05 POC Glucose 188 H Preliminary micro results at discharge 02/19/24 11:10 Blood Culture - Preliminary Blood - Venous No growth after 48 hours. Imaging Chest x-ray: Radiologist's impression: ITS Impressions Ankle X-Ray 02/15/24 18:06 IMPRESSION: Multiple soft tissue defects along the lateral aspect of the right forefoot. There is a subtle lucency along the proximal aspect of the fifth proximal phalanx. Osteomyelitis cannot be excluded. No radiopaque foreign body. No acute fracture or dislocation. Soft tissue swelling about the distal calf and ankle with possible soft tissue gas anterior to the distal woody as well. Foot X-Ray 02/15/24 18:06 IMPRESSION: Multiple soft tissue defects along the lateral aspect of the right forefoot. There is a subtle lucency along the proximal aspect of the fifth proximal phalanx. Osteomyelitis cannot be excluded. No radiopaque foreign body. No acute fracture or dislocation. Soft tissue swelling about the distal calf and ankle with possible soft tissue gas anterior to the distal woody as well. Tibia/Fibula X-Ray 02/15/24 18:06 IMPRESSION: Multiple soft tissue defects along the lateral aspect of the right forefoot. There is a subtle lucency along the proximal aspect of the fifth proximal phalanx. Osteomyelitis cannot be excluded. No radiopaque foreign body. No acute fracture or dislocation. Soft tissue swelling about the distal calf and ankle with possible soft tissue gas anterior to the distal woody as well. Tibia/Fibula X-Ray 02/15/24 18:06 IMPRESSION: Multiple soft tissue defects along the lateral aspect of the right forefoot. There is a subtle lucency along the proximal aspect of the fifth proximal phalanx. Osteomyelitis cannot be excluded. No radiopaque foreign body. No acute fracture or dislocation. Soft tissue swelling about the distal calf and ankle with possible soft tissue gas anterior to the distal woody as well. Foot MRI 02/16/24 12:52 IMPRESSION: 1. Large soft tissue defect/ulceration along the dorsal lateral aspect of the forefoot at the level of the fifth metatarsal diaphysis. Prominent soft tissue gas with an associated abscess formation measuring up to 5.0 cm in greatest dimension. 2. Osteomyelitis throughout the fifth metatarsal extending to the fifth metatarsophalangeal articular surface as well as the base of the fifth proximal phalanx. Fifth metatarsophalangeal joint effusion with surrounding soft tissue edema, consistent with septic arthritis. 3. Mild marrow edema within the adjacent fourth metatarsal head and base of the fourth proximal phalanx, which may be reactive or represent very early osteomyelitis. 4. Diffuse edema and atrophy throughout the intrinsic musculature of the foot, which can be seen in diabetic patients. Prominent dorsal subcutaneous edema without additional abscess formation. right foot cultures : Ordered: Routine Cult GS Procedure Result Verified Gram stain Final 02/17/24-154 Gram stain results: 3+ polys 1+ epithelial cells 4+ red blood cells 3+ Gram-positive rods 3+ Gram-positive cocci 2+ Gram-negative rods Routine Culture Final 02/20/24-725 Organism 1 Enterococcus faecalis Quantity 3+ Result: 2+ Mixed skin emily E faecalis M.I.C. RX --------- --- Ampicillin <=2 S Vancomycin 1 S blood cultures : Organism 1 Streptococcus viridans group Susc N/A Susceptibility not routinely performed on this isolate. Results of Blood Culture gram stain called to and read back by LUIS at 1640 on 02/16/24 by DEL. END OF REPORT Discharge Plan Discharge Anticipated Discharge Date/Time: 02/23/24 12:01 Patient Disposition: Xfer [facility] Discharge Diagnosis: Right diabetic foot infection with cellulitis and infected non pressure ulcers .osteomyelitis ,strep viridans bacteremia Referrals: [facility] [Outside] - 1 Week (TRANSFER FOR SHORT TERM REHAB TO MANAGE IV) Jose C Campbell MD [Primary Care Provider] - 1 Week Discharge Medications: New hydromorphone 2 mg Tablet 1 mg PO Q6H PRN (Reason: Pain, Moderate(Pain Scale 4-6)) Qty: 20 0RF Rx Instructions: Partial Fill upon patient request. metoprolol succinate 25 mg Tablet Extended Release 24 Hr 25 mg PO DAILY Qty: 1 0RF Protocol: Hold for SBP/HR < HOLD for SBP < : 90 HOLD for HR < : 60 daptomycin 500 mg recon soln 750 mg IV Q24H Rx Instructions: administer over 30 mins docusate sodium [Colace] 100 mg capsule 100 mg PO BID PRN (Reason: constipation) Qty: 60 0RF insulin lispro [Admelog U-100 Insulin lispro] 100 unit/mL Solution 5 unit subcut QIDACHS Qty: 1 0RF polyethylene glycol 3350 [Miralax] 17 gram/dose powder 17 g PO DAILY PRN (Reason: constipation) Qty: 119 0RF ferrous sulfate [iron] 325 mg (65 mg iron) tablet 325 mg PO DAILY Qty: 30 0RF omeprazole 20 mg capsule,delayed release(DR/EC) 20 mg PO DAILY Qty: 30 0RF Continued insulin lispro [Humalog KwikPen Insulin] 100 unit/mL insulin pen 1 sliding scale dose subcut USEASDIRECTD Qty: 15 2RF aspirin 81 mg tablet,delayed release (DR/EC) 81 mg PO DAILY metformin 1,000 mg tablet 1,000 mg PO BID Qty: 180 3RF losartan 50 mg tablet 50 mg PO DAILY Qty: 1 0RF Changed amlodipine 10 mg tablet 5 mg PO DAILY Qty: 1 0RF insulin glargine [Lantus Solostar U-100 Insulin] 100 unit/mL (3 mL) insulin pen 60 unit subcut BID Qty: 15 2RF Discharge Orders: Discharge Order (Routine); Ordered 02/23/24 Ordered By: Ruy Hollis Diet: Advance to usual diet Activity on Discharge: As tolerated Stand Alone Forms: Patient Portal Discharge page Print Language: Persian Activity Restrictions/Additional Instructions: wound care instructions: Turn and Reposition every 2 hours and as needed for patient comfort.? Use pillows or wedges to support off loading positions. Off Load all bony prominences with use of pillows and heel boots if needed.? Apply Preventative foams where needed. ? Monitor for incontinence and moisture control, use barrier creams when needed for prevention and treatment. Provide adequate and supplemental nutrition.? Continue low air loss mattress. When applicable maintain blood glucose levels per Providers order. Right Foot - Elevate bilateral feet / heels off pf bed surface. Cleanse and irrigate with NS. Pack distal site with Iodoform packing strip. Cover with dry gauze ABD pad and WRap. Change Daily. Bilateral Lower Legs - Cleanse with NS. Apply Durafiber AG to open wound beds, cover with dry gauze, ABD pad and wrap. Change every other Day. Care Plan Goals: complete daptomycin 750 mg q24hr for 6 weeks (end date 04/02/24). consider monitering cbc ,bmp,cpk ,lfts q weekly while on antibiotics wound care -see above. follow up with pcp ,consider outpatient rheumatology eval. Health Concerns: as above. Plan of Treatment: as above. Assessment: as above. Patient Instructions: Pain Management (GEN), Chronic Pain (GEN), Foot Care for People with Diabetes (GEN), Narcotic Safety (GEN), Meal Planning with the Plate Method (GEN), Meal Planning with Diabetes Exchanges (GEN), Diabetic Foot Ulcers (GEN), Diabetes and Your Skin (GEN), Chronic Wounds (GEN), Diabetes and Nutrition (GEN), Diabetes and Exercise (GEN), Type 2 Diabetes Management for Adults (GEN)
[2024-02-23] MEDS: HYDROmorphone HCl 2 MG TABLET 1 MG PO (13:15)
[2024-02-23] MEDS: HYDROmorphone HCl 1 MG/ML SYRINGE IVPUSH (15:10)
[2024-02-23 15:11] VITALS: BP 145/98; PULSE 108; RESP 18; TEMP 36.1; O2SAT 95
--- NOTE | 2024-03-01 07:18 | P.CDIM_ITS ---
PROVIDER RESPONSE TEXT: To clarify, the appropriate diagnosis supported by the clinical indicators: Incision and Drainage abscess right forefoot: yes QUERY TEXT: PHYSICIAN'S DOCUMENTATION REQUEST Date of Query: 02/29/2024 12:12 PM EDT Patient Name: Miguel A Aparicio Admit Date: 02/16/2024 Dear Hernan Padilla MD, RETROSPECTIVE QUERY A review of the medical record indicates additional documentation may be needed. Please review below and update the documentation accordingly. Clinical Indicators: Operative note dated 02/17/2024 - The distal right lateral forefoot had an abscess which measured appro ximately 4 x 4 cm which was incised and drained. Cultures were obtained. Copious amounts permanent serial was retrieved. Wound was irrigated, secured for hemostasis and packed. Could you provide, in the Progress Notes, further clarification regarding the depth of the I&D: Incision and Drainage abscess right forefoot skin, subcutaneous tissue etc. Other (explain) Clinically unable to determine (explain) Thank you, Isabel Cao, CCS, CDIS Use of terms such as suspected, likely, concern for, or probable (associated with a specific diagnosi s that is being evaluated, monitored, or treated as if it exists) are acceptable and can be coded in the inpatient se tting, when documented at the time of discharge. Please use your independent medical judgment in providing your response. THIS QUERY IS PART OF THE PERMANENT MEDICAL RECORD
--- NOTE | 2024-03-01 14:31 | P.CDIM_ITS ---
PROVIDER RESPONSE TEXT: To clarify, the appropriate diagnosis supported by the clinical indicators: Excisional debridement right foot: Debridement of skin and soft tissue QUERY TEXT: PHYSICIAN'S DOCUMENTATION REQUEST Date of Query: 02/29/2024 12:46 PM EDT Patient Name: Miguel A Aparicio Admit Date: 02/16/2024 Dear Hernan Padilla MD, A review of the medical record indicates additional documentation may be needed. Please review below and update the documentation accordingly. Clinical Indicators: Op note 02/16 - The right lower extremity had its superficial wound debrided of skin and soft tissue an d then washed with a scrub brush. Patient presents with multiple bilateral lower extremity wounds. The distal right forefoot had an abs cess, Just proximal to this was another draining wound with necrotic base and this measured approximately 4x4cm. The anterior right woody had a large area ro [id number] of desquamating skin and open wound with necrotic skin and soft tissue. Could you provide, in the Progress Notes, further clarification regarding the type and nature of the debridement? Excisional debridement right foot Please also address the Type of instrument used, What was excised, Depth of debridement etc. Non-excisional debridement right foot Please also address the Depth of debridement etc. skin, subcutaneous fat and tissue, other Other (explain) Clinically unable to determine (explain) Thank you, Isabel Cao, CCS, CDIS Use of terms such as suspected, likely, concern for, or probable (associated with a specific diagnosi s that is being evaluated, monitored, or treated as if it exists) are acceptable and can be coded in the inpatient se tting, when documented at the time of discharge. Please use your independent medical judgment in providing your response. THIS QUERY IS PART OF THE PERMANENT MEDICAL RECORD
--- NOTE | 2024-03-01 14:31 | P.CDIM_ITS ---
PROVIDER RESPONSE TEXT: To clarify, the appropriate diagnosis supported by the clinical indicators: Excisional debridement left foot: Debridement of skin and soft tissue QUERY TEXT: PHYSICIAN'S DOCUMENTATION REQUEST Date of Query: 02/29/2024 12:34 PM EDT Patient Name: Miguel A Aparicio Admit Date: 02/16/2024 Dear Hernan Padilla MD, A review of the medical record indicates additional documentation may be needed. Please review below and update the documentation accordingly. Clinical Indicators: Operative note 02/17/24 - The left foot wounds were debrided of necrotic skin and soft tissue for the p roximal wound and similarly for the distal wound. Probing the distal wound demonstrated extension into the ankle area with exposed tendons. Indication for surgery: Multiple bilateral lower extremity wounds. Could you provide, in the Progress Notes, further clarification regarding the type and nature and spe cific area of the debridement performed: Excisional debridement left foot Please also address the Type of instrument used, What was excised, Depth of debridement etc. Non-excisional debridement left foot Please also address the Depth of debridement etc. Other (explain) Clinically unable to determine (explain) Thank you, Isabel Cao, CCS, CDIS Use of terms such as suspected, likely, concern for, or probable (associated with a specific diagnosi s that is being evaluated, monitored, or treated as if it exists) are acceptable and can be coded in the inpatient se tting, when documented at the time of discharge. Please use your independent medical judgment in providing your response. THIS QUERY IS PART OF THE PERMANENT MEDICAL RECORD
[2024-03-20 07:29] LABS: Glucose, Whole Blood > 600 mg/dL (60-115)
== END 2024-02-23 15:58 | disposition skilled nursing facility (03) | DRG 194 ==
LOC: HO.ED 22:10 → HO.EDOVER 22:19 → HO.S3 02-17 09:29
PROVIDERS: Physician Assistant; Physician Assistant Medical; Surgery; Admitting Provider Student in an Organized Health Care Education/Training Program; Emergency Provider Emergency Medicine; PCP Internal Medicine; Visit Provider Internal Medicine
PROC: 0JBR0ZZ Excision of Left Foot Subcutaneous Tissue and Fascia, Open Approach (ICD-10-PCS; principal; 2024-02-17 15:10)
DX: I13.0 Hypertensive heart and chronic kidney disease with heart failure and stage 1 through stage 4 chronic kidney disease, or unspecified chronic kidney disease (principal); L03.115 Cellulitis of right lower limb; R78.81 Bacteremia; M00.271 Other streptococcal arthritis, right ankle and foot; E11.22 Type 2 diabetes mellitus with diabetic chronic kidney disease; L03.116 Cellulitis of left lower limb; D63.1 Anemia in chronic kidney disease; L97.329 Non-pressure chronic ulcer of left ankle with unspecified severity; I42.9 Cardiomyopathy, unspecified; E11.628 Type 2 diabetes mellitus with other skin complications; M86.9 Osteomyelitis, unspecified; D50.9 Iron deficiency anemia, unspecified; E11.65 Type 2 diabetes mellitus with hyperglycemia; E66.01 Morbid (severe) obesity due to excess calories; E11.69 Type 2 diabetes mellitus with other specified complication; Z68.42 Body mass index [BMI] 45.0-49.9, adult; L97.528 Non-pressure chronic ulcer of other part of left foot with other specified severity; L97.518 Non-pressure chronic ulcer of other part of right foot with other specified severity; L97.819 Non-pressure chronic ulcer of other part of right lower leg with unspecified severity; B95.4 Other streptococcus as the cause of diseases classified elsewhere; N18.30 Chronic kidney disease, stage 3 unspecified; I50.22 Chronic systolic (congestive) heart failure; Z91.148 Patient's other noncompliance with medication regimen for other reason; Z91.199 Patient's noncompliance with other medical treatment and regimen due to unspecified reason; Z79.4 Long term (current) use of insulin; Z79.82 Long term (current) use of aspirin; Z79.84 Long term (current) use of oral hypoglycemic drugs; Z79.899 Other long term (current) drug therapy
CPT/HCPCS: 36415; 36573; 73590; 73610; 73630; 73718; 80048; 80053; 80202; 82010; 82565; 82728; 82803; 82947; 83036; 83540; 83605; 83735; 83930; 85025; 85027; 85652; 86140; 87040; 87070; 87077; 87147; 87186; 87205; 93005; 93306; 99285; C1751; C1894; J0330; J0696; J0878; J1100; J1170; J1650; J2250; J2270; J2405; J2543; J2704; J2795; J3010; J3370; J7120; Q9957

== ENCOUNTER 2024-02-15 22:13 | Outpatient (BNV) | payer MEDICAID, SELFPAY | END 2024-02-23 08:17 | PROVIDERS: Admitting Provider Student in an Organized Health Care Education/Training Program; Emergency Provider Emergency Medicine; PCP Internal Medicine; Visit Provider Internal Medicine Cardiovascular Disease | DX: R94.31 Abnormal electrocardiogram [ECG] [EKG] (principal) | CPT/HCPCS: 93010 ==

== ENCOUNTER 2024-02-15 22:13 | Outpatient (BNV) | payer MEDICAID, SELFPAY | END 2024-02-17 14:34 | PROVIDERS: Admitting Provider Student in an Organized Health Care Education/Training Program; Emergency Provider Emergency Medicine; PCP Internal Medicine; Visit Provider Internal Medicine Cardiovascular Disease | DX: R78.81 Bacteremia (principal); R93.1 Abnormal findings on diagnostic imaging of heart and coronary circulation | CPT/HCPCS: 93306 ==

== ENCOUNTER 2024-02-15 22:13 | Outpatient (BNV) | payer MEDICAID, SELFPAY | END 2024-02-16 14:07 | PROVIDERS: Admitting Provider Student in an Organized Health Care Education/Training Program; Emergency Provider Emergency Medicine; PCP Internal Medicine; Visit Provider Internal Medicine Cardiovascular Disease | DX: R94.31 Abnormal electrocardiogram [ECG] [EKG] (principal) | CPT/HCPCS: 93010 ==

== ENCOUNTER → 2024-02-15 22:13 | Outpatient (BNV) | payer MEDICAID, SELFPAY | PROVIDERS: Admitting Provider Student in an Organized Health Care Education/Training Program; Emergency Provider Emergency Medicine; PCP Internal Medicine; Visit Provider Student in an Organized Health Care Education/Training Program | DX: L03.115 Cellulitis of right lower limb (principal); E11.65 Type 2 diabetes mellitus with hyperglycemia; L08.9 Local infection of the skin and subcutaneous tissue, unspecified; L98.499 Non-pressure chronic ulcer of skin of other sites with unspecified severity | CPT/HCPCS: 99223; 99231; 99232; 99233; 99239 ==

== ENCOUNTER → 2024-02-15 22:13 | Outpatient (BNV) | payer MEDICAID, SELFPAY | PROVIDERS: Admitting Provider Student in an Organized Health Care Education/Training Program; Emergency Provider Emergency Medicine; PCP Internal Medicine; Visit Provider Internal Medicine | DX: L98.499 Non-pressure chronic ulcer of skin of other sites with unspecified severity (principal); L08.9 Local infection of the skin and subcutaneous tissue, unspecified; E11.65 Type 2 diabetes mellitus with hyperglycemia; Z79.4 Long term (current) use of insulin; M86.9 Osteomyelitis, unspecified | CPT/HCPCS: 99222 ==

== ENCOUNTER → 2024-02-15 22:13 | Outpatient (BNV) | payer MEDICAID, SELFPAY | PROVIDERS: Admitting Provider Student in an Organized Health Care Education/Training Program; Emergency Provider Emergency Medicine; PCP Internal Medicine; Visit Provider Surgery | DX: L98.499 Non-pressure chronic ulcer of skin of other sites with unspecified severity (principal); L08.9 Local infection of the skin and subcutaneous tissue, unspecified | CPT/HCPCS: 11042; 11045; 99222; 99231 ==

== ENCOUNTER → 2024-02-15 22:13 | Outpatient (BNV) | payer MEDICAID, SELFPAY | PROVIDERS: Admitting Provider Student in an Organized Health Care Education/Training Program; Emergency Provider Emergency Medicine; PCP Internal Medicine; Visit Provider Internal Medicine Nephrology | DX: I12.9 Hypertensive chronic kidney disease with stage 1 through stage 4 chronic kidney disease, or unspecified chronic kidney disease (principal); E11.22 Type 2 diabetes mellitus with diabetic chronic kidney disease; N18.31 Chronic kidney disease, stage 3a | CPT/HCPCS: 99223; 99232 ==

== ENCOUNTER 2024-03-03 17:07 | Inpatient (IN) | payer MEDICAID, SELFPAY ==
--- NOTE | ~2024-03-03 | XR_ITS ---
EXAMINATION: XR TIBIA AND FIBULA, RIGHT XR TIBIA AND FIBULA, LEFT CLINICAL INFORMATION: Swelling. Osteomyelitis COMPARISON: 02/15/2024 TECHNIQUE: AP and lateral views of each tibia and fibula. FINDINGS: RIGHT TIBIA AND FIBULA: Soft tissues are swollen and edematous. No fracture or malalignment. No acute osseous findings. Imaged portion of the knee is unremarkable. Mild osteoarthritis in the ankle. LEFT TIBIA AND FIBULA: Soft tissue swelling and subcutaneous edema at the left tibia and fibula most pronounced anteriorly near the ankle. No subcutaneous gas. No fracture or malalignment. No acute osseous findings. Minimal osteoarthritis at the ankle. XR/XR tibia fibula LT 2V IMPRESSION: Soft tissue swelling and subcutaneous edema in the lower legs. No acute osseous findings. No subcutaneous gas. Mild osteoarthritis in the ankles.
--- NOTE | ~2024-03-03 | XR_ITS ---
EXAMINATION: XR TIBIA AND FIBULA, RIGHT XR TIBIA AND FIBULA, LEFT CLINICAL INFORMATION: Swelling. Osteomyelitis COMPARISON: 02/15/2024 TECHNIQUE: AP and lateral views of each tibia and fibula. FINDINGS: RIGHT TIBIA AND FIBULA: Soft tissues are swollen and edematous. No fracture or malalignment. No acute osseous findings. Imaged portion of the knee is unremarkable. Mild osteoarthritis in the ankle. LEFT TIBIA AND FIBULA: Soft tissue swelling and subcutaneous edema at the left tibia and fibula most pronounced anteriorly near the ankle. No subcutaneous gas. No fracture or malalignment. No acute osseous findings. Minimal osteoarthritis at the ankle. XR/XR tibia fibula RT 2V IMPRESSION: Soft tissue swelling and subcutaneous edema in the lower legs. No acute osseous findings. No subcutaneous gas. Mild osteoarthritis in the ankles.
--- NOTE | ~2024-03-03 | XR_ITS ---
EXAMINATION: XR FOOT, RIGHT CLINICAL INFORMATION: Swelling. Recent osteo. COMPARISON: MRI dated 02/16/2024 TECHNIQUE: AP, lateral, and oblique views of the right foot. FINDINGS: Erosive changes are evident at the fifth metatarsal head and fifth toe proximal phalangeal base, consistent with septic arthritis and osteomyelitis. Osteopenia at the fourth metatarsal head may also be due to early osteomyelitis. No additional sites of osteomyelitis are identified. Soft tissues are swollen in the forefoot and midfoot. Bipartite lateral hallux sesamoid. No fractures. Small enthesopathic spurs are present at the Achilles tendon insertion and plantar fascial origin on the calcaneus. XR/XR foot RT 2V IMPRESSION: 1. Erosive changes at the fifth metatarsal head and fifth toe proximal phalangeal base, consistent with septic arthritis and osteomyelitis. 2. Possible early osteomyelitis at the fourth metatarsal head.
[2024-03-03 17:20] VITALS: BP 136/84; PULSE 122; RESP 18; TEMP 37.2; O2SAT 96; BMI 47.8
--- NOTE | 2024-03-03 17:39 | ED.WOUNDLAC ---
HPI - Wound/Laceration General Chief Complaint: Wound/Laceration Stated Complaint: right leg pain Time Seen by Provider: 03/03/24 18:31 Source: patient, family and police aide (Danna) History of Present Illness HPI narrative: 49-year-old male who has a history of poorly-controlled diabetes, hypertension, osteomyelitis of the right foot with recent hospital admission, discharged on February 22, wound culture positive for strep viridans and Enterococcus faecalis, receiving daptomycin via PICC line daily, returns to the emergency department for further evaluation and management. Apparently the patient was discharged to a rehab facility however after one-week, March 01, the patient left the facility because he was not pleased with the care he was receiving. Patient states he initially presented to [facility] however left without being seen. He returned home and has been at home since then. He has not had any antibiotics. He is managing his wounds currently with bandage changes with the assistance from his mother. He denies any fevers chills nausea or vomiting. He denies any repeat injury. He does report that the wounds are actually improving. Patient's mother reports that there was much purulent discharge when he was at the rehab facility. This has since improved. Related Data Home Medications ?Medication ?Instructions ?Recorded ?Confirmed aspirin 81 mg tablet,delayed 81 mg PO DAILY 02/16/24 02/16/24 release Previous Rx's ?Medication ?Instructions ?Recorded metformin 1,000 mg tablet 1,000 mg PO BID #180 tabs 04/01/23 insulin lispro 100 unit/mL 1 sliding scale dose subcut 11/09/23 subcutaneous pen (Humalog KwikPen USEASDIRECTD #15 mL (U-100) Insulin) amlodipine 10 mg tablet 5 mg (1/2 x 10 mg) PO DAILY #1 tab 02/23/24 daptomycin 500 mg intravenous 750 mg IV Q24H 02/23/24 solution docusate sodium 100 mg capsule 100 mg PO BID PRN constipation #60 02/23/24 (Colace) caps ferrous sulfate 325 mg (65 mg 325 mg PO DAILY #30 tabs 02/23/24 iron) tablet (iron) hydromorphone 2 mg tablet 1 mg (1/2 x 2 mg) PO Q6H PRN Pain, 02/23/24 Moderate(Pain Scale 4-6) #20 tabs insulin glargine 100 unit/mL (3 60 unit (0.6 mL) subcut BID #15 mL 02/23/24 mL) subcutaneous pen (Lantus Solostar U-100 Insulin) insulin lispro 100 unit/mL 5 unit (0.05 mL) subcut QIDACHS #1 02/23/24 subcutaneous solution (Admelog mL U-100 Insulin lispro) losartan 50 mg tablet 50 mg PO DAILY #1 tab 02/23/24 metoprolol succinate 25 mg 25 mg PO DAILY #1 tab 02/23/24 tablet,extended release 24 hr omeprazole 20 mg capsule,delayed 20 mg PO DAILY #30 caps 02/23/24 release polyethylene glycol 3350 17 17 g PO DAILY PRN constipation 02/23/24 gram/dose oral powder (Miralax) #119 grams Allergies Allergy/AdvReac Type Severity Reaction Status Date / Time No Known Allergies Allergy Verified 03/03/24 17:21 [No Known Allergies*] Review of Systems Constitutional: Constitutional: Denies chills and Denies fever(s) Cardiovascular: Cardiovascular: Denies chest pain, Denies dyspnea, Denies dyspnea on exertion and Denies orthopnea Respiratory: Respiratory: Denies cough, Denies dyspnea and Denies dyspnea on exertion Gastrointestinal: Gastrointestinal: Denies abdominal pain, Denies melena, Denies hematochezia, Denies diarrhea, Denies nausea and Denies vomiting Musculoskeletal: Musculoskeletal: Denies back pain and Denies muscle weakness Psychiatric: Psychiatric: Denies depression PMFSH Past Medical History Medical History Osteomyelitis Chronic kidney disease (CKD), stage III (moderate) BMI 40.0-44.9, adult Morbid obesity with BMI of 40.0-44.9, adult Uncontrolled type 2 diabetes mellitus Encounter to establish care Arthritis of both hips Long-term insulin use DM type 2 (diabetes mellitus, type 2) Hypertension Surgical History No pertinent past surgical history Social History Social History Household Members: Other Housing: Apartment Do you presently have visiting nurse or other home services: No Alcohol intake: never Comment: 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 Patient Tobacco Use Status: Never used Tobacco e-Cigarette/Vaping Use: Never Used Second Hand Smoke Exposure: No service: No Current occupational status: disabled Current occupational exposures/hazards: No Cognitive needs: Yes (cane) Hearing needs: No Vision needs: Yes (glasses) Physical Exam Vital Signs: Vital Signs: Last Vital Signs Temp 97.0 F 03/03/24 22:49 Pulse 114 H 03/03/24 22:49 Resp 18 03/03/24 22:49 BP 138/97 H 03/03/24 23:21 Pulse Ox 97 03/03/24 22:49 O2 Del Method Room Air 03/03/24 22:49 BMI result Body Mass Index 47.8 H&P conducted with patient's primary nurse, Carol Bernardo RN and marketing production manager present, along with patient's mother and other family members at the bedside. No acute distress Chest: Other: Lung sounds clear throughout Cardio: Rate: regular rate Rhythm: regular rhythm Skin: Other: Extrem: Other: No calf tenderness bilaterally. Soft tissue swelling to the proximal tibia bilaterally. There is no streaking. Refer to images. Course Course Course Narrative: This is a rapid medical exam. Defer additional HPI, ROS, PE to primary provider. Patient with recent admission for osteomyelitis in the lower extremity, discharged home with PICC line and IV antibiotics which he reports he has now completed. No reports increasing pain in the right and left lower leg but more in the right leg. Will need labs including blood cultures and lactic acid, x-ray -Gardenia Ndiaye APRN Reevaluation(s) Reevaluation #1: 9:[address] Champagne from it infectious disease. Recommending the patient be brought into the hospital to initiate daptomycin and assist with outpatient administration. Recommends restarting daptomycin. First dose will be ordered now. 9:[address] Bonilla for transfer of care. 9:40 p.m. reviewed plan with the patient who is in agreement. No further questions at this time. Of note, CPK is within normal ranges at this time. In addition verified with Dr. Champagne to adjust the daptomycin dose to 800 mg. Medications Administered Generic Name Dose Route Start Last Admin Trade Name Freq PRN Reason Stop Dose Admin Enoxaparin Sodium 40 mg 03/03/24 21:30 03/03/24 21:56 Enoxaparin Sodium 40 Mg/0.4 Ml Syringe SUBCUT 40 mg Q24H CONNIE Administration Discontinued Medications Generic Name Dose Route Start Last Admin Trade Name Freq PRN Reason Stop Dose Admin Daptomycin 750 mg/ Sodium 65 mls @ 100 mls/hr 03/03/24 21:22 03/03/24 23:28 Chloride IV 03/03/24 22:00 Not Given ONCE ONE Sodium Chloride 1,000 mls @ 999 mls/hr 03/03/24 21:30 03/03/24 23:04 Ns IV 03/03/24 22:30 Infused .Q1H1M CONNIE Infusion Daptomycin 800 mg/ Sodium 66 mls @ 101.538 mls/hr 03/03/24 22:30 03/03/24 23:27 Chloride IV 03/03/24 23:08 Infused ONCE ONE Infusion Insulin Glargine 48 unit 03/03/24 22:11 03/03/24 23:26 Insulin Glargine,Hum.Rec.Anlog 100 Unit/Ml 10 Ml Vial SUBCUT 03/03/24 22:12 Not Given ONCE ONE Morphine Sulfate 4 mg 03/03/24 21:26 03/03/24 21:57 Morphine Sulfate 4 Mg/Ml Cartridge IVPUSH 03/03/24 21:27 4 mg ONCE ONE Administration Protocol Medical Decision Making Medical Decision Making MDM Narrative: 49-year-old male with a history of diabetes, hypertension, osteomyelitis of the right foot, chronic nonhealing wounds amongst multiple other medical problems, return to the emergency department after not receiving his daptomycin for the past 3 days. Given that the patient has not had any antibiotics, repeat labs, imaging, blood cultures. Patient does not appear to be septic at this time. He will likely need to be brought into the hospital for repeat initiation of antibiotic therapy or case management for assistance with disposition visiting nurse set up. I have discussed this with the patient has family who is agreeable to this plan. Plain film x-ray demonstrates osteomyelitis consistent with previous MRI. Discussed with Dr. Byrne who agrees with plan. Differential Diagnosis Differential Diagnoses: The differential diagnosis associated with the presentation includes Sepsis Bacteremia Osteomyelitis Cellulitis Abscess Admission/Observation Consideration of admission/observation: Escalation of care including admission/observation considered Consult Healthcare Provider Management of the patient was discussed with: Hospitalist and Training And Quality Manager Dr. Champagne, ID Dr. Bonilla, hospitalist Lab Data MDM Lab Attestation statement: I reviewed the patient's lab results. 03/03/24 18:34 03/03/24 18:34 Labs: Lab Results 03/03/24 Range/Units 18:34 WBC 9.6 (4.8-10.8) X10*3/uL RBC 4.36 L (4.60-5.80) X10*6/uL Hgb 11.2 L (14.0-18.0) g/dl Hct 34.3 L (42.0-52.0) % MCV 78.7 L (80.0-98.0) fL MCH 25.7 L (27.0-33.0) pg MCHC 32.7 (31.0-36.0) g/dl RDW 14.3 (11.0-16.0) % Plt Count 279 (160-400) X10*3/uL MPV 10.6 (9.4-12.4) fL Immature Gran % (Auto) 0.5 H (0.0-0.4) % Neut % (Auto) 75.4 H (45-73) % Lymph % (Auto) 16.5 L (20-40) % [place] % (Auto) 4.5 (2-11) % Eos % (Auto) 2.5 (0-4) % Baso % (Auto) 0.6 (0-2) % Lymph # (Auto) 1.6 (1.2-4.9) X10*3/uL [place] # (Auto) 0.4 (0.1-1.2) X10*3/uL Eos # (Auto) 0.2 (0.0-0.4) X10*3/uL Baso # (Auto) 0.1 (0.0-0.2) X10*3/uL Abs Immat Gran (auto) 0.05 H (0.00-0.03) X10*3/uL Absolute Neuts (auto) 7.2 (2.0-8.3) x10*3/uL Absolute Nucleated RBC 0.000 (0.0-0.012) X10*3/uL Nucleated RBC % (auto) 0.0 (0.0-0.2) /100WBC ESR 87 H (0-15) MM/HR Sodium 138 (135-145) mmol/L Potassium 4.5 D (3.3-5.1) mmol/L Chloride 103 (96-108) mmol/L Carbon Dioxide 24 (22-29) mmol/L Anion Gap 16 (12-20) BUN 18 H (9-16) mg/dL Creatinine 1.35 (0.5-1.4) mg/dL Estim Creat Clear Calc 87.0 Estimated GFR 56 Random Glucose 249 H (60-115) mg/dL Lactic Acid 1.8 (0.5-2.0) mmol/L Calcium 9.5 D (8.4-10.2) mg/dL Total Bilirubin 0.1 (0.0-1.0) mg/dL AST 9 (5-37) U/L ALT 9 (0-40) U/L Alkaline Phosphatase 71 (39-117) U/L Total Creatine Kinase 25 L (38-174) U/L C-Reactive Protein 2.94 H (< or = 0.50) mg/dL Total Protein 9.3 H (6.5-8.0) g/dL Albumin 3.2 L (3.5-5.0) g/dL Radiology Impression Discussion of test interpretation with radiology: I have reviewed the radiologist's reading. Radiologist Impression: ED Tracker - [email or web address] User CLARISSE Pacheco [facility] Find Patient My List NEW To Be Seen ED EDBH E[facility]/RP/Trinidad Thakur ED Bed 02 - ED2 Abdominal Pain 22 F With Doctor 3 4h 0m REG ER Draft Bereket Byrne James Dion, Shannon vomiting x9 days Obed Jackson ED Bed 13 - ED13 Headache 40 M With Doctor 4 4h 41m REG ER Draft Bereket Byrne James Brennan, Jessica headache Victor Hugo Patterson ED Bed 17 - ED17 Allergic Reaction 55 M With Doctor 3 2h 44m REG ER Draft Bereket Byrne James Cruze, Evelyn allergic reaction bee sting epi pen x1 Markus,Miguel A ED Bed 19 - ED19 Wound/Laceration 49 M With NEW 3 3h 22m REG ER Draft Restrictive Preparation Operator Carl Hurtado Evelyn right leg pain Yoshi Howard [facility] Bed 5 - EMC5 Extremity Injury, Upper 58 M With Doctor 4 5h 13m REG ER Draft Bereket Byrne Melissa left wrist/ work inj Grecia Dupont Extremity Injury, Upper 36 F Departed 4 2h 25m DEP ER I-Signed Tyler Apple Sign Up left elbow pain X-Ray - XR foot RT 2V; XR tibia fibula LT 2V; XR tibia fibula RT 2V Miguel A Aparicio 49 M 1975 Allergy/Adv: No Known Allergies ACTIVITY DATE EXAM STATUS AUTHOR 03/03/24 18:35 Signed Pavel Sanchez 03/03/24 18:35 Signed Pavel Sanchez 03/03/24 18:35 Signed Pavel Sanchez Imaging Reports [place] [address] XRay Report Signed Patient: Miguel A Aparicio MR#: [id number] : 1975 Acct:[id number] Age/Sex: 49 / M ADM Date: 03/03/24 Loc: HO.ED Attending Dr: Ordering Physician: Generic ED Physician Date of Service: 03/03/24 Procedure(s): XR foot RT 2V Accession Number(s): [id number] cc: Generic ED Physician; [facility]~ EXAMINATION: XR FOOT, RIGHT CLINICAL INFORMATION: Swelling. Recent osteo. COMPARISON: MRI dated 02/16/2024 TECHNIQUE: AP, lateral, and oblique views of the right foot. FINDINGS: Erosive changes are evident at the fifth metatarsal head and fifth toe proximal phalangeal base, consistent with septic arthritis and osteomyelitis. Osteopenia at the fourth metatarsal head may also be due to early osteomyelitis. No additional sites of osteomyelitis are identified. Soft tissues are swollen in the forefoot and midfoot. Bipartite lateral hallux sesamoid. No fractures. Small enthesopathic spurs are present at the Achilles tendon insertion and plantar fascial origin on the calcaneus. XR/XR foot RT 2V IMPRESSION: 1. Erosive changes at the fifth metatarsal head and fifth toe proximal phalangeal base, consistent with septic arthritis and osteomyelitis. 2. Possible early osteomyelitis at the fourth metatarsal head. Dictated By: Pavel Sanchez MD Signed By: <Electronically signed by Pavel Sanchez MD in OV> 03/03/242004 DD/ 34 TD/TT: Psychiatric Security Nurse: SHAYE [address] [address] XRay Report Signed Patient: Miguel A Aparicio MR#: [id number] : 1975 Acct:[id number] Age/Sex: 49 / M ADM Date: 03/03/24 Loc: HO.ED Attending Dr: Ordering Physician: Generic ED Physician Date of Service: 03/03/24 Procedure(s): XR tibia fibula RT 2V Accession Number(s): [id number] cc: Generic ED Physician; [facility]~ EXAMINATION: XR TIBIA AND FIBULA, RIGHT XR TIBIA AND FIBULA, LEFT CLINICAL INFORMATION: Swelling. Osteomyelitis COMPARISON: 02/15/2024 TECHNIQUE: AP and lateral views of each tibia and fibula. FINDINGS: RIGHT TIBIA AND FIBULA: Soft tissues are swollen and edematous. No fracture or malalignment. No acute osseous findings. Imaged portion of the knee is unremarkable. Mild osteoarthritis in the ankle. LEFT TIBIA AND FIBULA: Soft tissue swelling and subcutaneous edema at the left tibia and fibula most pronounced anteriorly near the ankle. No subcutaneous gas. No fracture or malalignment. No acute osseous findings. Minimal osteoarthritis at the ankle. XR/XR tibia fibula RT 2V IMPRESSION: Soft tissue swelling and subcutaneous edema in the lower legs. No acute osseous findings. No subcutaneous gas. Mild osteoarthritis in the ankles. Dictated By: Pavel Sanchez MD Signed By: <Electronically signed by Pavel Sanchez MD in OV> 03/03/242001 DD/ 34 TD/TT: Psychiatric Security Nurse: SHAYE Independent Historian Clinical information obtained from an independent historian. History obtained from or confirmed by: Parent (mom) External Record Review External record reviewed: Inpatient record Tests considered The following testing was considered but not selected: Consideration for additional imaging such as MRI, not indicated at this time. Patient also underwent recent echo due to 1 positive blood culture previously. Prescription Management I considered prescription management with: Pain Medication and Antibiotic Chronic Conditions Patient?s care impacted by: Diabetes and Hypertension Social Determinants Patient?s care significantly limited by Social Determinants of Health including: Problems related to primary support group and Other Social Determinant of Health Critical Care Time Critical Care Time Critical Care Time: Yes Total Critical Care Time: 60 Attestation: Critical care time for repeat discussions, obtaining history, patient and family updates, review of diagnostics and discussions with consult. Discharge Plan Discharge Clinical Impression: Osteomyelitis Qualifiers: Osteomyelitis type: subacute Osteomyelitis location: foot Laterality: right Qualified Code(s): M86.271 - Subacute osteomyelitis, right ankle and foot Patient Disposition: Admitted As Inpatient Interventions: Admission Worksheet (ED) Last Done: 03/03/24 22:24 Discharge Date/Time: 03/03/24 23:08
[2024-03-03 18:45] LABS: MANUAL DIFF FLAG NO
[2024-03-03 18:46] LABS: Basophils Absolute Auto 0.1 X10*3/uL (0.0-0.2); Basophils Percent Auto 0.6 % (0-2); Eosinophils Absolute Auto 0.2 X10*3/uL (0.0-0.4); Eosinophils Percent Auto 2.5 % (0-4); Hematocrit 34.3 % (42.0-52.0); Hemoglobin 11.2 g/dl (14.0-18.0); Imm Gran Abs Auto 0.05 X10*3/uL (0.00-0.03); Imm Gran Pct Auto 0.5 % (0.0-0.4); Lymphocytes Absolute Auto 1.6 X10*3/uL (1.2-4.9); Lymphocytes Percent Auto 16.5 % (20-40); Mean Corpuscular HGB Conc 32.7 g/dl (31.0-36.0); Mean Corpuscular Hemoglobin 25.7 pg (27.0-33.0); Mean Corpuscular Volume 78.7 fL (80.0-98.0); Mean Platelet Volume 10.6 fL (9.4-12.4); Monocytes Absolute Auto 0.4 X10*3/uL (0.1-1.2); Monocytes Percent Auto 4.5 % (2-11); Neutrophils Absolute Auto 7.2 x10*3/uL (2.0-8.3); Neutrophils Percent Auto 75.4 % (45-73); Platelet Count 279 X10*3/uL (160-400); Red Blood Count 4.36 X10*6/uL (4.60-5.80); Red Cell Distribution Width 14.3 % (11.0-16.0); White Blood Count 9.6 X10*3/uL (4.8-10.8)
[2024-03-03 19:02] LABS: Lactic Acid 1.8 mmol/L (0.5-2.0)
[2024-03-03 19:07] LABS: Alanine Aminotransferase 9 U/L (0-40); Albumin Level 3.2 g/dL (3.5-5.0); Alkaline Phosphatase 71 U/L (39-117); Anion Gap 16 (12-20); Aspartate Amino Transferase 9 U/L (5-37); Bilirubin Total 0.1 mg/dL (0.0-1.0); Blood Urea Nitrogen 18 mg/dL (9-16); C Reactive Protein 2.94 mg/dL (< or = 0.50); Calcium 9.5 mg/dL (8.4-10.2); Carbon Dioxide 24 mmol/L (22-29); Chloride 103 mmol/L (96-108); Estimated Glomerular Filt Rate 56; Glucose Random 249 mg/dL (60-115); Potassium 4.5 mmol/L (3.3-5.1); Sodium 138 mmol/L (135-145); Total Protein 9.3 g/dL (6.5-8.0)
[2024-03-03 19:29] LABS: Erythrocyte Sedimentation Rate 87 MM/HR (0-15)
[2024-03-03 20:49] VITALS: BP 137/85; PULSE 119; RESP 16; TEMP 37.1; O2SAT 99
--- NOTE | 2024-03-03 21:30 | PM.IMHP ---
History of Present Illness Date of Service: 03/03/24 Chief Complaint: Foot infection This is a 49-year-old male with pertinent history of insulin-dependent diabetes mellitus, obesity, hypertension, chronic kidney disease stage 3 presents to the emergency department for concerns of foot infection. Of note, patient was admitted on 02/14 with right foot osteomyelitis and discharged on 02/22 to rehab facility with IV daptomycin for 6 weeks. Patient is very argumentative and defensive upon evaluation. Patient states he left rehab facility as he did not think he was getting proper care at the facility. He went to [facility] and left without being seen. Patient has been home for the last 3-4 days and has not taken any prescription medications including antibiotics. He is managing his wounds by himself by changing bandages. Is not taking insulin for diabetes. History obtained with the help of production metal sprayer. No fever, chills, chest discomfort, palpitations, shortness of breath, abdominal pain, changes in urinary or bowel habits. In the emergency department, patient was found to be hyperglycemic and imaging concerning for osteomyelitis. Infectious Disease was consulted who requested admission for IV daptomycin. Review of Systems Constitutional: Constitutional: Reports no additional constitutional complaints Cardiovascular: Cardiovascular: Reports no additional cardiovascular complaints Respiratory: Respiratory: Reports no additional respiratory complaints Gastrointestinal: Gastrointestinal: Reports no additional gastrointestinal complaints Genitourinary: Genitourinary: Reports no additional male genitourinary complaints [facility] Medical History Osteomyelitis Chronic kidney disease (CKD), stage III (moderate) BMI 40.0-44.9, adult Morbid obesity with BMI of 40.0-44.9, adult Uncontrolled type 2 diabetes mellitus Encounter to establish care Arthritis of both hips Long-term insulin use DM type 2 (diabetes mellitus, type 2) Hypertension Surgical History No pertinent past surgical history Social History Household Members: Other Housing: Apartment Do you presently have visiting nurse or other home services: No Alcohol intake: never Comment: 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 Patient Tobacco Use Status: Never used Tobacco Smoked in Last 30 Days: No e-Cigarette/Vaping Use: Never Used Second Hand Smoke Exposure: No Use of substances other than those prescribed or required for medical reasons: No Advance Directives: No Advance Directives Information Provided: No Do you have a plan to hurt others: No Plan service: No Current occupational status: disabled Current occupational exposures/hazards: No Cognitive needs: Yes (cane) Hearing needs: No Vision needs: Yes (glasses) Meds Allergies Allergy/AdvReac Type Severity Reaction Status Date / Time No Known Allergies Allergy Verified 03/03/24 17:21 [No Known Allergies*] Active Medications: Current Medications Daptomycin 750 mg/ Sodium (Chloride) 65 mls @ 100 mls/hr IV ONCE ONE Stop: 03/03/24 22:00 Sodium Chloride (Ns) 1,000 mls @ 999 mls/hr IV .Q1H1M CONNIE Stop: 03/03/24 22:30 Home Medications ?Medication ?Instructions ?Recorded ?Confirmed ?Last Taken ?Type aspirin 81 mg tablet,delayed 81 mg PO DAILY 02/16/24 02/16/24 Unknown History release Physical Exam Vital Signs and Narrative: Vital Signs: Last Vital Signs Temp 98.8 F 03/03/24 20:49 Pulse 119 H 03/03/24 20:49 Resp 16 03/03/24 20:49 BP 137/85 03/03/24 20:49 Pulse Ox 99 03/03/24 20:49 O2 Del Method Room Air 03/03/24 20:49 BMI result Body Mass Index 47.8 Middle-aged male lying in bed in no distress Neck supple, no JVD Tachycardic with regular rhythm, S1-S2 heard Regular breath sounds bilaterally, no wheezing or crackles appreciated Abdomen soft nontender, no guarding, no rigidity Patient is awake, alert and oriented to self, place, time and person ; no focal motor deficit Psych: Normal mood Right lower extremity wrapped in bandage Results Labs 03/03/24 18:34 03/03/24 18:34 Labs: Laboratory Results - last 24 hr 03/03/24 18:34 MCV 78.7 L MCH 25.7 L MCHC 32.7 RDW 14.3 Plt Count 279 MPV 10.6 Immature Gran % (Auto) 0.5 H Neut % (Auto) 75.4 H Lymph % (Auto) 16.5 L [place] % (Auto) 4.5 Eos % (Auto) 2.5 Baso % (Auto) 0.6 Lymph # (Auto) 1.6 [place] # (Auto) 0.4 Eos # (Auto) 0.2 Baso # (Auto) 0.1 Abs Immat Gran (auto) 0.05 H Absolute Neuts (auto) 7.2 Absolute Nucleated RBC 0.000 Nucleated RBC % (auto) 0.0 ESR 87 H Anion Gap 16 Estim Creat Clear Calc 87.0 Estimated GFR 56 Random Glucose 249 H Lactic Acid 1.8 Calcium 9.5 D Total Bilirubin 0.1 AST 9 ALT 9 Alkaline Phosphatase 71 C-Reactive Protein 2.94 H Total Protein 9.3 H Albumin 3.2 L Imaging Radiologist's Impressions: Impressions Foot X-Ray 03/03/24 18:35 IMPRESSION: 1. Erosive changes at the fifth metatarsal head and fifth toe proximal phalangeal base, consistent with septic arthritis and osteomyelitis. 2. Possible early osteomyelitis at the fourth metatarsal head. Tibia/Fibula X-Ray 03/03/24 18:35 IMPRESSION: Soft tissue swelling and subcutaneous edema in the lower legs. No acute osseous findings. No subcutaneous gas. Mild osteoarthritis in the ankles. Tibia/Fibula X-Ray 03/03/24 18:35 IMPRESSION: Soft tissue swelling and subcutaneous edema in the lower legs. No acute osseous findings. No subcutaneous gas. Mild osteoarthritis in the ankles. Assessment and Plan (1) Osteomyelitis: Status: Acute Plan This is a 49-year-old male with pertinent history of insulin-dependent diabetes mellitus, obesity, hypertension, chronic kidney disease stage 3 presents to the emergency department for concerns of foot infection. #. Right diabetic foot infection with osteomyelitis: Was discharged on 02/22 with 6 weeks of IV daptomycin. Left rehab facility 4-5 days ago and has not been on IV antibiotics. Infectious diseases consulted from the ER, will initiate IV daptomycin daily. #. Insulin-dependent diabetes mellitus with hyperglycemia: Due to noncompliance with insulin. Initiating basal plus insulin regimen #. Non pressure ulcers: admission in october, biopsy obtained - vascular fibrinoid changes along with eosinophils but unable to determine if primary due to vasculitis or secondary/reactive changes. Has been following in wound care clinic- has refused debridement per wound care notes and does not appear to be compliant with other recommended interventions per PCP notes it appears that he did not follow up with specialists he was referred to, does not appear to have been seen by rheumatology. Has been dismissed by PCP. Will need outpatient follow up. Consulting Wound Care #. Obesity: Counseled regarding diet and exercise #. Hypertension: Has been noncompliant. Continue home antihypertensives #. CKD stage 3: Creatinine at baseline Med rec pending DVT prophylaxis: Lovenox Full code Admit as inpatient and will require two night minimum hospital stay for IV antibiotics which is not possible in a lesser acute setting. Quality Stroke Does the patient have a stroke diagnosis?: No VTE Prior VTE?: No VTE Risk Level:: Medical - moderate - high VTE Device Contraindication: Treatment Not Indicated VTE Drug Contraindication: N/A - Med Ordered
[2024-03-03] MEDS: Enoxaparin Sodium 40 MG/0.4 ML SYRINGE SUBCUT (21:56)
[2024-03-03] MEDS: Morphine Sulfate 4 MG/ML CARTRIDGE IVPUSH (21:57)
[2024-03-03] MEDS: 0.9 % Sodium Chloride 1,000 ML 999 ML IV (21:57)
[2024-03-03] MEDS: DAPTOmycin 800 MG in 0.9 % Sodium Chloride 50 ML 101.54 MG IV (22:42)
[2024-03-03 22:49] VITALS: PULSE 114; RESP 18; TEMP 36.1; O2SAT 97
[2024-03-03 23:21] VITALS: BP 138/97
[2024-03-03 23:25] LABS: Glucose, Whole Blood 201 mg/dL (60-115)
--- NOTE | 2024-03-04 | ECG_ITS ---
Test Reason : tachycardia Blood Pressure : / mmHG Vent. Rate : 118 BPM Atrial Rate : 118 BPM P-R Int : 164 ms QRS Dur : 080 ms QT Int : 336 ms P-R-T Axes : 062 -13 087 degrees QTc Int : 470 ms Sinus tachycardia Nonspecific T wave abnormality Abnormal ECG When compared with ECG of 23-FEB-2024 08:17, QT has shortened Referred By: Dilcia Patterson Electronically Signed By:OLIVER SEXTON
[2024-03-04 03:58] VITALS: BP 133/86; PULSE 115; RESP 17; TEMP 36.1; O2SAT 96
[2024-03-04] MEDS: traMADoL HCL 50 MG TABLET 25 MG PO ×3 (05:20→20:40)
[2024-03-04 06:17] LABS: MANUAL DIFF FLAG NO
[2024-03-04 06:23] LABS: Basophils Absolute Auto 0.1 X10*3/uL (0.0-0.2); Basophils Percent Auto 0.5 % (0-2); Eosinophils Absolute Auto 0.3 X10*3/uL (0.0-0.4); Eosinophils Percent Auto 2.6 % (0-4); Hematocrit 31.4 % (42.0-52.0); Hemoglobin 9.9 g/dl (14.0-18.0); Imm Gran Abs Auto 0.04 X10*3/uL (0.00-0.03); Imm Gran Pct Auto 0.4 % (0.0-0.4); Lymphocytes Percent Auto 8.9 % (20-40); Mean Corpuscular HGB Conc 31.5 g/dl (31.0-36.0); Mean Corpuscular Hemoglobin 25.5 pg (27.0-33.0); Mean Corpuscular Volume 80.9 fL (80.0-98.0); Mean Platelet Volume 11.4 fL (9.4-12.4); Monocytes Absolute Auto 0.4 X10*3/uL (0.1-1.2); Monocytes Percent Auto 3.8 % (2-11); Neutrophils Percent Auto 83.8 % (45-73); Platelet Count 246 X10*3/uL (160-400); Red Blood Count 3.88 X10*6/uL (4.60-5.80); Red Cell Distribution Width 14.6 % (11.0-16.0); White Blood Count 10.7 X10*3/uL (4.8-10.8)
[2024-03-04 06:46] LABS: Anion Gap 11 (12-20); Blood Urea Nitrogen 17 mg/dL (9-16); Calcium 8.5 mg/dL (8.4-10.2); Carbon Dioxide 23 mmol/L (22-29); Chloride 108 mmol/L (96-108); Creatinine Clr Calc Pharmacy 85.7; Estimated Glomerular Filt Rate 55; Glucose Random 259 mg/dL (60-115); Potassium 4.2 mmol/L (3.3-5.1); Sodium 138 mmol/L (135-145)
[2024-03-04 07:22] LABS: Glucose, Whole Blood 218 mg/dL (60-115)
[2024-03-04 07:58] VITALS: BP 129/83; PULSE 100; RESP 14; TEMP 36.6; O2SAT 97
[2024-03-04] MEDS: Insulin Lispro 100 UNIT/ML 3 ML VIAL SUBCUT ×4 (08:30→20:47)
[2024-03-04] MEDS: 0.9 % Sodium Chloride Flush 3 ML SYRINGE IVFLUSH ×3 (08:31→21:32)
--- NOTE | 2024-03-04 09:14 | PHA.MEDREC ---
Addendum entered by Ursula Burkett RPh 03/04/24 09:48: [facility] reviewed. Original Note: Pharmacy Consult ? Medication Reconciliation Pharmacy has completed the medication reconciliation. Used discharge papers from 02/22. Patient said he has not taken any medications since Tuesday. Chela Serrano did not have anything on file for him for meds since he has been discharged. He reports he did not get sent home with any new medications from the hospital or the rehab facility. He was staying at his moms house and all of his medications were at his house.
--- NOTE | 2024-03-04 10:02 | HO.PM.IMPN ---
Subjective Subjective Date of Service: 03/04/24 Review of Systems Follow up osteomyeltis having some pain no fever, nausea or vomiting Physical Exam Vital Signs: Vital Signs: Last Vital Signs Temp 97.8 F 03/04/24 07:58 Pulse 100 03/04/24 07:58 Resp 14 03/04/24 07:58 BP 129/83 03/04/24 07:58 Pulse Ox 97 03/04/24 07:58 O2 Del Method Room Air 03/04/24 07:58 BMI result Body Mass Index 47.8 Appearing in no acute distress lung sounds are clear to auscultation heart regular rate rhythm, clear S1, S2 positive bowel sounds, abdomen is soft, nontender neuro patient is alert x3, no focal deficits Objective Data Active Medications Acetaminophen (Acetaminophen 325 Mg Tablet) 650 mg PO Q6H PRN PRN Reason: Pain, Mild (Pain Scale 1-3), fever or headache Calcium Carbonate (Calcium Carbonate 750 Mg Tab.Chew) 750 mg PO Q4H PRN PRN Reason: Heartburn Enoxaparin Sodium (Enoxaparin Sodium 40 Mg/0.4 Ml Syringe) 40 mg SUBCUT Q24H [facility] Last Admin: 03/03/24 21:56 Dose: 40 mg Documented By: MARTHA Glucose (Glucose Gel 15 Gm Gel..Gram.) 15 gm PO Q15M PRN; Protocol PRN Reason: per Hypoglycemia Standing Ord. Dextrose (D10) 250 mls @ 750 mls/hr IV Q15M PRN; Protocol PRN Reason: per Hypoglycemia Standing Ord. Daptomycin 800 mg/ Sodium (Chloride) 66 mls @ 101.538 mls/hr IV Q24H [facility] Insulin Human Lispro (Insulin Lispro 100 Unit/Ml 3 Ml Vial) 0 unit SUBCUT QIDACHS [facility]; Protocol Last Admin: 03/04/24 08:30 Dose: 4 unit Documented By: AMAIRANI Magnesium Hydroxide (Milk Of Magnesia 30 Ml Oral.Susp) 30 ml PO DAILY PRN PRN Reason: Constipation Melatonin (Melatonin 3 Mg Tablet) 6 mg PO BEDTIME PRN PRN Reason: Insomnia Ondansetron HCl (Ondansetron Hcl 4 Mg/2 Ml Vial) 4 mg IVPUSH Q8H PRN PRN Reason: Nausea and Vomiting Sodium Chloride (0.9 % Sodium Chloride Flush 3 Ml Syringe) 3 ml IVFLUSH QSHIFT [facility] Last Admin: 03/04/24 08:31 Dose: 3 ml Documented By: AMAIRANI Tramadol HCl (Tramadol Hcl 50 Mg Tablet) 25 mg PO Q6H PRN PRN Reason: Pain, Moderate(Pain Scale 4-6) Last Admin: 03/04/24 05:20 Dose: 25 mg Documented By: BENTON Labs 03/04/24 05:48 03/04/24 05:48 Labs: Laboratory Results - last 24 hr 03/03/24 03/03/24 03/04/24 18:34 23:11 05:48 MCV 78.7 L 80.9 MCH 25.7 L 25.5 L MCHC 32.7 31.5 RDW 14.3 14.6 Plt Count 279 246 MPV 10.6 11.4 Immature Gran % (Auto) 0.5 H 0.4 Neut % (Auto) 75.4 H 83.8 H Lymph % (Auto) 16.5 L 8.9 L Mellette % (Auto) 4.5 3.8 Eos % (Auto) 2.5 2.6 Baso % (Auto) 0.6 0.5 Lymph # (Auto) 1.6 1.0 L Mellette # (Auto) 0.4 0.4 Eos # (Auto) 0.2 0.3 Baso # (Auto) 0.1 0.1 Abs Immat Gran (auto) 0.05 H 0.04 H Absolute Neuts (auto) 7.2 9.0 H Absolute Nucleated RBC 0.000 0.000 Nucleated RBC % (auto) 0.0 0.0 ESR 87 H Anion Gap 16 11 L Estim Creat Clear Calc 87.0 85.7 Estimated GFR 56 55 POC Glucose 201 H Random Glucose 249 H 259 H Lactic Acid 1.8 Calcium 9.5 D 8.5 D Total Bilirubin 0.1 AST 9 ALT 9 Alkaline Phosphatase 71 Total Creatine Kinase 25 L C-Reactive Protein 2.94 H Total Protein 9.3 H Albumin 3.2 L 03/04/24 07:16 MCV MCH MCHC RDW Plt Count MPV Immature Gran % (Auto) Neut % (Auto) Lymph % (Auto) Mellette % (Auto) Eos % (Auto) Baso % (Auto) Lymph # (Auto) Mellette # (Auto) Eos # (Auto) Baso # (Auto) Abs Immat Gran (auto) Absolute Neuts (auto) Absolute Nucleated RBC Nucleated RBC % (auto) ESR Anion Gap Estim Creat Clear Calc Estimated GFR POC Glucose 218 H Random Glucose Lactic Acid Calcium Total Bilirubin AST ALT Alkaline Phosphatase Total Creatine Kinase C-Reactive Protein Total Protein Albumin Assessment and Plan (1) Osteomyelitis: Status: Acute Plan This is a 49-year-old male with pertinent history of insulin-dependent diabetes mellitus, obesity, hypertension, chronic kidney disease stage 3 presents to the emergency department for concerns of foot infection. Right diabetic foot infection with osteomyelitis Was discharged on 02/22 with 6 weeks of IV daptomycin. Left rehab facility 4-5 days ago and has not been on IV antibiotics. IV daptomycin daily. Declining to go back to [facility], may need medical day stay for daily Insulin-dependent diabetes mellitus with hyperglycemia ss, ada diet Non pressure ulcers admission in october, biopsy obtained - vascular fibrinoid changes along with eosinophils but unable to determine if primary due to vasculitis or secondary/reactive changes. follow in wound clinic, has declined debridement per wound care notes and does not appear to be compliant with other recommended interventions per PCP he was referred to, does not Has been dismissed by PCP. Obesity class III Discussed importance of weight management as this may be contributing to worsening of other comorbidities Hypertension Has been noncompliant. Continue home antihypertensives CKD stage 3 Creatinine at baseline DVT prophylaxis: Lovenox Attending Dr. Ba Full code Quality Stroke Does the patient have a stroke diagnosis?: No VTE Prior VTE?: No VTE Risk Level:: Medical - moderate - high VTE Device Contraindication: Treatment Not Indicated VTE Drug Contraindication: N/A - Med Ordered
[2024-03-04 11:25] LABS: Glucose, Whole Blood 212 mg/dL (60-115)
[2024-03-04 15:51] VITALS: BP 137/86; PULSE 119; RESP 16; TEMP 36.4; O2SAT 98
[2024-03-04] MEDS: oxyCODONE HCl Immed Release 5 MG TABLET PO (16:15)
[2024-03-04 16:59] LABS: Glucose, Whole Blood 308 mg/dL (60-115)
[2024-03-04 17:24] VITALS: PULSE 123
[2024-03-04 18:33] VITALS: PULSE 118
[2024-03-04 19:47] VITALS: BP 135/85; PULSE 110; RESP 16; TEMP 36.2; O2SAT 97
[2024-03-04 20:26] LABS: Glucose, Whole Blood 206 mg/dL (60-115)
[2024-03-04] MEDS: Melatonin 3 MG TABLET 6 MG PO (20:38)
[2024-03-04] MEDS: Acetaminophen 325 MG TABLET 650 MG PO (20:39)
[2024-03-04] MEDS: Enoxaparin Sodium 40 MG/0.4 ML SYRINGE SUBCUT (20:42)
[2024-03-04] MEDS: DAPTOmycin 800 MG in 0.9 % Sodium Chloride 50 ML 101.54 MG IV (21:30)
[2024-03-05 02:23] VITALS: BP 121/58; PULSE 110; RESP 14; TEMP 36.4; O2SAT 95
[2024-03-05] MEDS: Acetaminophen 325 MG TABLET 650 MG PO ×2 (07:00→13:58)
[2024-03-05] MEDS: oxyCODONE HCl Immed Release 5 MG TABLET PO ×3 (07:00→13:58)
[2024-03-05] MEDS: 0.9 % Sodium Chloride Flush 3 ML SYRINGE IVFLUSH (07:03)
--- NOTE | 2024-03-05 07:40 | MHC.CM.PN ---
CM MET WITH PT ON 03/04/24, HE REPORTS HE WENT TO A SNF LAST ADMISSION, BUT THAT WAS A MISTAKE. HE SAYS THEY DID NOT TREAT HIM WELL AND HE WANTS TO DC HOME WITH HIS IV ABX. HE NOW SAYS HE HAS HELP AND CAN MANAGE IT, HOWEVER, HE DOES NOT APPEAR TO HAVE A PCP BASED ON DR VILLAFANA'S LAST OFFICE VISIT NOTE. PT INFORMED HE MAY NOT BE ABLE TO DO ABX AT HOME DUE TO THIS. HE SAYS HE IS WILLING TO DO THEM AT HOME IF POSSIBLE, OR COME IN FOR DAILY INFUSIONS. HE WILL LIKELY BE READY TO DC ON TUESDAY ONCE CM CONFIRMS HOME VS DAILY VISITS TO [facility]. PT LIVES ALONE AND HIS MOTHER ASSISTS WITH HIS CARE NEEDED HE HAS A CANE AND A WALKER HCP ON FILE DCP TBD
[2024-03-05 08:09] VITALS: BP 139/85; PULSE 114; RESP 18; TEMP 36.1; O2SAT 94
[2024-03-05 08:10] LABS: Glucose, Whole Blood 235 mg/dL (60-115)
[2024-03-05] MEDS: Ferrous Sulfate 324 MG TABLET.DR PO (08:40)
[2024-03-05] MEDS: Losartan Potassium 50 MG TABLET PO (08:40)
[2024-03-05] MEDS: Metoprolol Succinate ER 25 MG TAB.ER.24H PO (08:41)
[2024-03-05] MEDS: amLODIPine Besylate 5 MG TABLET PO (08:41)
[2024-03-05] MEDS: Aspirin Enteric Coated 81 MG TABLET.DR PO (08:41)
[2024-03-05] MEDS: Insulin Glargine,Hum.rec.anlog 100 UNIT/ML 10 ML VIAL 60 UNIT SUBCUT (08:43)
[2024-03-05] MEDS: Insulin Lispro 100 UNIT/ML 3 ML VIAL SUBCUT ×4 (08:43→11:53)
--- NOTE | 2024-03-05 09:12 | P.CDIM_ITS ---
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 Please review below and update the documentation accordingly. Clinical Indicators: Plan: Right diabetic foot infection with osteomyelitis was discharged on 02/22 with 6 weeks daptomycin. Left rehab, has not been on IV antibiotics for 4-5 days. ID in ED recommended Admissions and IV antibiotics. Based on the above, please clarify in the Progress Notes further specificity regarding the acuity of the noted Osteomyelitis within the Plan: Acute osteomyelitis Acute on chronic osteomyelitis Chronic osteomyelitis Chronic multifocal osteomyelitis Other (explain) Clinically unable to determine (explain) Thank you, Isabel Cao, CCS, CDIS Use of terms such as suspected, likely, concern for, or probable (associated with a specific diagnosi s that is being evaluated, monitored, or treated as if it exists) are acceptable and can be coded in the inpatient se tting, when documented at the time of discharge. Please use your independent medical judgment in providing your response. THIS QUERY IS PART OF THE PERMANENT MEDICAL RECORD
[2024-03-05] MEDS: traMADoL HCL 50 MG TABLET 25 MG PO (09:39)
--- NOTE | 2024-03-05 10:52 | P.PNIM_ITS ---
Subjective Subjective Date of Service: 03/05/24 Review of Systems Follow up osteomyeltis having some pain no fever, nausea or vomiting Physical Exam 2 Vital Signs: Vital Signs: Last Vital Signs Temp 97 F 03/05/24 08:09 Pulse 114 H 03/05/24 08:09 Resp 18 03/05/24 08:09 BP 139/85 03/05/24 08:09 Pulse Ox 94 03/05/24 08:09 O2 Del Method Room Air 03/05/24 08:09 BMI result Body Mass Index 47.8 Appearing in no acute distress lung sounds are clear to auscultation heart regular rate rhythm, clear S1, S2 positive bowel sounds, abdomen is soft, nontender neuro patient is alert x3, no focal deficits Objective Data Active Medications Acetaminophen (Acetaminophen 325 Mg Tablet) 650 mg PO Q6H PRN PRN Reason: Pain, Mild (Pain Scale 1-3), fever or headache Last Admin: 03/05/24 07:00 Dose: 650 mg Documented By: SUMMER Amlodipine Besylate (Amlodipine Besylate 5 Mg Tablet) 5 mg PO DAILY [facility]; Protocol Last Admin: 03/05/24 08:41 Dose: 5 mg Documented By: SUMMER Aspirin (Aspirin Enteric Coated 81 Mg Tablet.) 81 mg PO DAILY [facility] Last Admin: 03/05/24 08:41 Dose: 81 mg Documented By: SUMMER Calcium Carbonate (Calcium Carbonate 750 Mg Tab.Chew) 750 mg PO Q4H PRN PRN Reason: Heartburn Docusate Sodium (Docusate Sodium 100 Mg Capsule) 100 mg PO BID PRN PRN Reason: Constipation Enoxaparin Sodium (Enoxaparin Sodium 40 Mg/0.4 Ml Syringe) 40 mg SUBCUT Q24H [facility] Last Admin: 03/04/24 20:42 Dose: 40 mg Documented By: MARGARITO Ferrous Sulfate (Ferrous Sulfate 324 Mg Tablet.) 324 mg PO DAILY [facility] Last Admin: 03/05/24 08:40 Dose: 324 mg Documented By: SUMMER Glucose (Glucose Gel 15 Gm Gel..Gram.) 15 gm PO Q15M PRN; Protocol PRN Reason: per Hypoglycemia Standing Ord. Dextrose (D10) 250 mls @ 750 mls/hr IV Q15M PRN; Protocol PRN Reason: per Hypoglycemia Standing Ord. Daptomycin 800 mg/ Sodium (Chloride) 66 mls @ 101.538 mls/hr IV Q24H [facility] Last Infusion: 03/04/24 22:10 Dose: Infused Documented By: MARGARITO Insulin Glargine (Insulin Glargine,Hum.Rec.Anlog 100 Unit/Ml 10 Ml Vial) 60 unit SUBCUT BID [facility] Last Admin: 03/05/24 08:43 Dose: 60 unit Documented By: SUMMER Insulin Human Lispro (Insulin Lispro 100 Unit/Ml 3 Ml Vial) 0 unit SUBCUT QIDACHS [facility]; Protocol Last Admin: 03/05/24 08:43 Dose: 4 unit Documented By: SUMMER Insulin Human Lispro (Insulin Lispro 100 Unit/Ml 3 Ml Vial) 5 unit SUBCUT QIDAS [facility] Last Admin: 03/05/24 08:44 Dose: 5 unit Documented By: SUMMER Losartan Potassium (Losartan Potassium 50 Mg Tablet) 50 mg PO DAILY [facility]; Protocol Last Admin: 03/05/24 08:40 Dose: 50 mg Documented By: SUMMER Magnesium Hydroxide (Milk Of Magnesia 30 Ml Oral.Susp) 30 ml PO DAILY PRN PRN Reason: Constipation Melatonin (Melatonin 3 Mg Tablet) 6 mg PO BEDTIME PRN PRN Reason: Insomnia Last Admin: 03/04/24 20:38 Dose: 6 mg Documented By: MARGARITO Metoprolol Succinate (Metoprolol Succinate Er 25 Mg Tab.Er.24h) 25 mg PO DAILY [facility]; Protocol Last Admin: 03/05/24 08:41 Dose: 25 mg Documented By: SUMMER Omeprazole (Omeprazole 20 Mg Capsule.Dr) 20 mg PO DAILY@0630 [facility] Ondansetron HCl (Ondansetron Hcl 4 Mg/2 Ml Vial) 4 mg IVPUSH Q8H PRN PRN Reason: Nausea and Vomiting Oxycodone HCl (Oxycodone Hcl Immed Release 5 Mg Tablet) 5 mg PO Q4H PRN PRN Reason: Pain, Moderate(Pain Scale 4-6) Last Admin: 03/05/24 10:16 Dose: 5 mg Documented By: SUMMER Polyethylene Glycol (Polyethylene Glycol 3350 17 Gm Powd.Pack) 17 gm PO DAILY PRN PRN Reason: Constipation Sodium Chloride (0.9 % Sodium Chloride Flush 3 Ml Syringe) 3 ml IVFLUSH QSHIFT [facility] Last Admin: 03/05/24 07:03 Dose: 3 ml Documented By: SUMMER Tramadol HCl (Tramadol Hcl 50 Mg Tablet) 25 mg PO Q6H PRN PRN Reason: Pain, Mild (Pain Scale 1-3) Last Admin: 03/05/24 09:39 Dose: 25 mg Documented By: SUMMER Labs 03/04/24 05:48 03/04/24 05:48 Labs: Laboratory Results - last 24 hr 03/04/24 03/04/24 03/04/24 11:20 16:56 19:51 POC Glucose 212 H 308 H 206 H 03/05/24 08:06 POC Glucose 235 H Microbiology Microbiology Results: Microbiology 03/03/24 18:36 Blood Culture - Preliminary Blood - Venous No growth after 24 hours. 03/03/24 18:34 Blood Culture - Preliminary Blood - Venous No growth after 24 hours. Assessment and Plan (1) Osteomyelitis: Status: Acute Plan This is a 49-year-old male with pertinent history of insulin-dependent diabetes mellitus, obesity, hypertension, chronic kidney disease stage 3 presents to the emergency department for concerns of foot infection. Right diabetic foot infection with osteomyelitis Was discharged on 02/22 with 6 weeks of IV daptomycin. Left rehab facility 4-5 days ago and has not been on IV antibiotics. IV daptomycin daily. Declining to go back to [facility], may need medical day stay for daily vs VNA Insulin-dependent diabetes mellitus with hyperglycemia ss, ada diet Non pressure ulcers admission in october, biopsy obtained - vascular fibrinoid changes along with eosinophils but unable to determine if primary due to vasculitis or secondary/reactive changes. follow in wound clinic, has declined debridement per wound care notes and does not appear to be compliant with other recommended interventions per PCP he was referred to, does not Has been dismissed by PCP. Obesity class III Discussed importance of weight management as this may be contributing to worsening of other comorbidities Hypertension Has been noncompliant. Continue home antihypertensives CKD stage 3 Creatinine at baseline DVT prophylaxis: Lovenox Attending Dr. Ba Full code Quality Stroke Does the patient have a stroke diagnosis?: No VTE Prior VTE?: No VTE Risk Level:: Medical - moderate - high VTE Device Contraindication: Treatment Not Indicated VTE Drug Contraindication: N/A - Med Ordered
[2024-03-05 11:27] LABS: Glucose, Whole Blood 240 mg/dL (60-115)
--- NOTE | 2024-03-05 13:05 | P.DS_ITS ---
DS: Providers Provider Date of Service: 03/05/24 Date of admission: 03/03/24 21:27 Primary care physician: [facility] Consults: 03/03/24 21:22 Consult to Infectious Diseases Routine Consulting Provider: Brenda Champagne Reason for consultation: osteomyelitis Has provider been notified: Yes 03/03/24 21:29 Consult to Infectious Diseases Routine Consulting Provider: Brenda Champagne Reason for consultation: foot osteo myelitis 03/04/24 05:38 Consult to Wound Care Routine Reason for consultation: blat. legs wounds Has provider been notified: No 03/05/24 13:01 Consult to General Surgery Routine Consulting Provider: [facility] General Surgeons Reason for consultation: right foot wound DS: Diagnosis Discharge Diagnosis (1) Osteomyelitis: Status: Acute DS: Summary Hospital Course Hospital Course: History and physical as per admitting provider. This is a 49-year-old male with pertinent history of insulin-dependent diabetes mellitus, obesity, hypertension, chronic kidney disease stage 3 presents to the emergency department for concerns of foot infection. Of note, patient was admitted on 02/14 with right foot osteomyelitis and discharged on 02/22 to rehab facility with IV daptomycin for 6 weeks. Patient is very argumentative and defensive upon evaluation. Patient states he left rehab facility as he did not think he was getting proper care at the facility. He went to [facility] and left without being seen. Patient has been home for the last 3-4 days and has not taken any prescription medications including antibiotics. He is managing his wounds by himself by changing bandages. Is not taking insulin for diabetes. History obtained with the help of lumber tripper. No fever, chills, chest discomfort, palpitations, shortness of breath, abdominal pain, changes in urinary or bowel habits. In the emergency department, patient was found to be hyperglycemic and imaging concerning for osteomyelitis. Infectious Disease was consulted who requested admission for IV daptomycin. 49-year-old man treated for right diabetic foot infection with osteomyelitis, continued on daptomycin, last dose would be 04/02/2024. Patient had initially been admitted to [facility] and transferred to rehab center for 6 weeks of daptomycin. Apparently he did not want to stay at that facility and went to [facility] and left without being seen and had been at home for about 3-4 days not taking any antibiotics. Patient has been hemodynamically stable, blood cultures negative to date. Plan is to discharge patient home with nursing care for antibiotics. Patient is in agreement with that, he will also follow up with the Wound Clinic outpatient. Diabetes mellitus type 2. Continue home medications Obesity class 3. Discussed importance of weight management as this may be contributing to worsening of other comorbidities Retention. Continue home antihypertensives CKD stage 3. Creatinine has been at baseline. Non pressure ulcers. History of vascular fibrinoid changes with eosinophils unable to determine if primary due to vasculitis or reactive changes. Followed in wound clinic. Time Attestation Discharge Coordination Time (in mins): 42 Quality: Safe Use of Opioids Does Pt have an Active Cancer Diagnosis on the Problem List?: No Quality: Stroke Does the patient have a stroke diagnosis?: No Physical Exam 2 Vital Signs: Vital Signs: Last Vital Signs Temp 97 F 03/05/24 08:09 Pulse 114 H 03/05/24 08:09 Resp 18 03/05/24 08:09 BP 139/85 03/05/24 08:09 Pulse Ox 94 03/05/24 08:09 O2 Del Method Room Air 03/05/24 08:09 BMI result Body Mass Index 47.8 Appearing in no acute distress head is normocephalic atraumatic eyes pupils are PERRLA sclera is anicteric mouth throat mucous membranes are intact and moist neck is supple no lymphadenopathy, no JVD noted lung sounds are clear to auscultation heart regular rate rhythm, clear S1, S2 positive bowel sounds, abdomen is soft, nontender neuro patient is alert x3, no focal deficits DS: Data Data Completed and Pending Completed studies during hospitalization [Text1]: Procedures Excision of Left Foot Subcutaneous Tissue and Fascia, Open Approach (02/15/24) Excision of Right Foot Subcutaneous Tissue and Fascia, Open Approach (02/15/24) Excision of Right Lower Leg Skin, External Approach, Diagnostic (11/05/23) Insertion of Infusion Device into Superior Vena Cava, Percutaneous Approach (02/15/24) Ultrasonography of Superior Vena Cava, Guidance (02/15/24) Labs on day of discharge: Laboratory Results - last 24 hr 03/04/24 03/04/24 03/05/24 16:56 19:51 08:06 POC Glucose 308 H 206 H 235 H 03/05/24 11:22 POC Glucose 240 H Preliminary micro results at discharge 03/03/24 18:36 Blood Culture - Preliminary Blood - Venous No growth after 24 hours. 03/03/24 18:34 Blood Culture - Preliminary Blood - Venous No growth after 24 hours. Discharge Plan Discharge Anticipated Discharge Date/Time: 03/05/24 13:01 Patient Disposition: Home Health Service Discharge Diagnosis: Osteomyelitis Referrals: [facility] [Other] - 1 Week (IV MANAGEMENT FOR PICC LINE DRESSINGS, MEDICATION AND SUPPLIES.) [facility] [Primary Care Provider] - 1 Week Discharge Medications: Continued insulin lispro [Humalog KwikPen Insulin] 100 unit/mL insulin pen 1 sliding scale dose subcut USEASDIRECTD Qty: 15 2RF aspirin 81 mg tablet,delayed release (DR/EC) 81 mg PO DAILY amlodipine 10 mg tablet 5 mg PO DAILY Qty: 1 0RF insulin glargine [Lantus Solostar U-100 Insulin] 100 unit/mL (3 mL) insulin pen 60 unit subcut BID Qty: 15 2RF losartan 50 mg Tablet 50 mg PO DAILY hydromorphone 2 mg Tablet 1 mg PO Q6H PRN (Reason: Pain (Scale Score 4-6)) ferrous sulfate 325 mg (65 mg iron) Tablet 325 mg PO DAILY docusate sodium 100 mg Capsule 100 mg PO BID PRN (Reason: Constipation) omeprazole 20 mg Capsule,Delayed Release(Dr/Ec) 20 mg PO DAILY@0630 metoprolol succinate 25 mg Tablet Extended Release 24 Hr 25 mg PO DAILY insulin lispro [Admelog U-100 Insulin lispro] 100 unit/mL Solution 5 unit SUBCUT QIDACHS polyethylene glycol 3350 17 gram/dose Powder 17 g PO DAILY PRN (Reason: Constipation) metformin 1,000 mg tablet 1,000 mg PO BID Qty: 180 3RF Changed daptomycin 500 mg Recon Soln 550 mg IV Q24H Qty: 1 0RF Rx Instructions: administer over 30 mins Discharge Orders: Discharge Order (Routine); Ordered 03/05/24 Ordered By: Dilcia Patterson Diet: Advance to usual diet Activity on Discharge: As tolerated Stand Alone Forms: Patient Portal Discharge page Print Language: Icelandic Care Plan Goals: Continue IV daptomycin, end date 04/02/24 Recommendations for wound care: 1. Turn and Reposition every 2 hours and as needed for patient comfort.? Use pillows or wedges to support off loading positions. 2. Off Load all bony prominences with use of pillows and heel boots if needed.? Apply Preventative foams where needed. ? 3. Monitor for incontinence and moisture control, use barrier creams when needed for prevention and treatment. 4. Provide adequate and supplemental nutrition.? 5. Continue low air loss mattress. 6. When applicable maintain blood glucose levels per Providers order. 7. Right Foot - Elevate bilateral feet / heels off pf bed surface. Cleanse and irrigate with NS. Pack distal site with Iodoform packing strip. Cover with dry gauze ABD pad and WRap. Change Daily. 8. Bilateral Lower Legs - Cleanse with NS. Apply Durafiber AG to open wound beds, cover with dry gauze, ABD pad and wrap. Change every other Day. Health Concerns: Osteomyelitis Plan of Treatment: Follow-up with primary care provider as needed Take all medications as prescribed Assessment: See discharge summary
--- NOTE | 2024-03-05 13:38 | MHC.CM.PN ---
Addendum entered by Shantell Galeana 03/05/24 14:49: PT WILL BE FOLLOWED BY DR. NICOLAS,CONFIRMED WITH MD AND APPT SCHDULED FOR 03/07 AT 3:15 PM. PT IS AWARE AND WILL ARRANGE FOR TRANSPORT. CM STRESSED THE IMPORTANCE OF PT KEEPING THIS APPT. , PT VERBALIZED UNDERSTANDING. Original Note: DP: PT HAS BEEN MEDICALLY CLEARED FOR DC HOME WITH NEW [facility] FOR IV MANAGEMENT TO INCLUDE PICC LINE DRESSINGS, MEDICATION AND SUPPLIES. [facility] LIAISON IS IN TO DO TEACH WITH PT/KENO ATTENDANT WHO IS AGREEABLE TO TEACH AND SELF ADMINISTRATION. PT WILL NEED BLS TRANSPORT HOME , BOOKED FOR 5 PM VIA [facility]. RN AWARE.
--- NOTE | 2024-03-05 14:15 | PM.CNGS ---
History of Present Illness Consult details Consult date: 03/05/24 Narrative: 49-year-old male referred to me for wound check. He has known abscesses and ulcers of the foot on the right side and on the left. He had undergone debridement I&D with Dr. Padilla earlier this month He was admitted here in the hospital 3 days ago as he felt that his wound was not being taken care of in preop institution. I had been asked to do a wound check. He denies any new complaints. He has known diabetes, morbid obesity, chronic kidney disease, and likely vasculitis Review of Systems Constitutional: Constitutional: Denies chills and Denies fever(s) Cardiovascular: Cardiovascular: Denies chest pain, Denies dyspnea and Denies dyspnea on exertion Respiratory: Respiratory: Denies cough, Denies dyspnea and Denies dyspnea on exertion Gastrointestinal: Gastrointestinal: Denies hematochezia and Denies change in bowel habits Genitourinary: Genitourinary: Denies hematuria and Denies difficulty urinating Musculoskeletal: Musculoskeletal: Denies back pain and Denies limited range of motion Neurologic: Denies focal weakness and Denies convulsions Psychiatric: Psychiatric: Denies depression and Denies mood swings [facility] Past Medical History Medical History (Updated 03/05/24 @ 14:18 by Kashmir Bloom MD) Open wound Osteomyelitis Chronic kidney disease (CKD), stage III (moderate) BMI 40.0-44.9, adult Morbid obesity with BMI of 40.0-44.9, adult Uncontrolled type 2 diabetes mellitus Encounter to establish care Arthritis of both hips Long-term insulin use DM type 2 (diabetes mellitus, type 2) Hypertension Surgical History Surgical History No pertinent past surgical history Social History Social History Household Members: Family Housing: House Alcohol intake: never Comment: 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 Patient Tobacco Use Status: Never used Tobacco e-Cigarette/Vaping Use: Never Used Second Hand Smoke Exposure: No service: No Current occupational status: disabled Current occupational exposures/hazards: No Cognitive needs: Yes (cane) Hearing needs: No Vision needs: Yes (glasses) Meds Allergies Allergy/AdvReac Type Severity Reaction Status Date / Time No Known Allergies Allergy Verified 03/03/24 17:21 [No Known Allergies*] Active Medications: Current Medications Acetaminophen (Acetaminophen 325 Mg Tablet) 650 mg PO Q6H PRN PRN Reason: Pain, Mild (Pain Scale 1-3), fever or headache Last Admin: 03/05/24 13:58 Dose: 650 mg Amlodipine Besylate (Amlodipine Besylate 5 Mg Tablet) 5 mg PO DAILY [facility]; Protocol Last Admin: 03/05/24 08:41 Dose: 5 mg Aspirin (Aspirin Enteric Coated 81 Mg Tablet.Dr) 81 mg PO DAILY [facility] Last Admin: 03/05/24 08:41 Dose: 81 mg Calcium Carbonate (Calcium Carbonate 750 Mg Tab.Chew) 750 mg PO Q4H PRN PRN Reason: Heartburn Docusate Sodium (Docusate Sodium 100 Mg Capsule) 100 mg PO BID PRN PRN Reason: Constipation Enoxaparin Sodium (Enoxaparin Sodium 40 Mg/0.4 Ml Syringe) 40 mg SUBCUT Q24H [facility] Last Admin: 03/04/24 20:42 Dose: 40 mg Ferrous Sulfate (Ferrous Sulfate 324 Mg Tablet.) 324 mg PO DAILY [facility] Last Admin: 03/05/24 08:40 Dose: 324 mg Glucose (Glucose Gel 15 Gm Gel..Gram.) 15 gm PO Q15M PRN; Protocol PRN Reason: per Hypoglycemia Standing Ord. Dextrose (D10) 250 mls @ 750 mls/hr IV Q15M PRN; Protocol PRN Reason: per Hypoglycemia Standing Ord. Insulin Glargine (Insulin Glargine,Hum.Rec.Anlog 100 Unit/Ml 10 Ml Vial) 60 unit SUBCUT BID [facility] Last Admin: 03/05/24 08:43 Dose: 60 unit Insulin Human Lispro (Insulin Lispro 100 Unit/Ml 3 Ml Vial) 0 unit SUBCUT QIDACHS [facility]; Protocol Last Admin: 03/05/24 11:53 Dose: 4 unit Insulin Human Lispro (Insulin Lispro 100 Unit/Ml 3 Ml Vial) 5 unit SUBCUT QIDACHS [facility] Last Admin: 03/05/24 11:53 Dose: 5 unit Losartan Potassium (Losartan Potassium 50 Mg Tablet) 50 mg PO DAILY [facility]; Protocol Last Admin: 03/05/24 08:40 Dose: 50 mg Magnesium Hydroxide (Milk Of Magnesia 30 Ml Oral.Susp) 30 ml PO DAILY PRN PRN Reason: Constipation Melatonin (Melatonin 3 Mg Tablet) 6 mg PO BEDTIME PRN PRN Reason: Insomnia Last Admin: 03/04/24 20:38 Dose: 6 mg Metoprolol Succinate (Metoprolol Succinate Er 25 Mg Tab.Er.24h) 25 mg PO DAILY [facility]; Protocol Last Admin: 03/05/24 08:41 Dose: 25 mg Omeprazole (Omeprazole 20 Mg Capsule.Dr) 20 mg PO DAILY@0630 [facility] Ondansetron HCl (Ondansetron Hcl 4 Mg/2 Ml Vial) 4 mg IVPUSH Q8H PRN PRN Reason: Nausea and Vomiting Oxycodone HCl (Oxycodone Hcl Immed Release 5 Mg Tablet) 5 mg PO Q4H PRN PRN Reason: Pain, Moderate(Pain Scale 4-6) Last Admin: 03/05/24 13:58 Dose: 5 mg Polyethylene Glycol (Polyethylene Glycol 3350 17 Gm Powd.Pack) 17 gm PO DAILY PRN PRN Reason: Constipation Sodium Chloride (0.9 % Sodium Chloride Flush 3 Ml Syringe) 3 ml IVFLUSH [facility] Last Admin: 03/05/24 07:03 Dose: 3 ml Tramadol HCl (Tramadol Hcl 50 Mg Tablet) 25 mg PO Q6H PRN PRN Reason: Pain, Mild (Pain Scale 1-3) Last Admin: 03/05/24 09:39 Dose: 25 mg Home Medications ?Medication ?Instructions ?Recorded ?Confirmed ?Last Taken ?Type aspirin 81 mg tablet,delayed 81 mg PO DAILY 02/16/24 03/04/24 Unknown History release docusate sodium 100 mg capsule 100 mg PO BID PRN Constipation 03/04/24 03/04/24 Unknown History ferrous sulfate 325 mg (65 mg 325 mg PO DAILY 03/04/24 03/04/24 Unknown History iron) tablet hydromorphone 2 mg tablet 1 mg PO Q6H PRN Pain (Scale Score 03/04/24 03/04/24 Unknown History 4-6) insulin lispro 100 unit/mL 5 unit subcut QIDACHS 03/04/24 03/04/24 Unknown History subcutaneous solution (Admelog U-100 Insulin lispro) losartan 50 mg tablet 50 mg PO DAILY 03/04/24 03/04/24 Unknown History metoprolol succinate 25 mg 25 mg PO DAILY 03/04/24 03/04/24 Unknown History tablet,extended release 24 hr omeprazole 20 mg capsule,delayed 20 mg PO DAILY@0630 03/04/24 03/04/24 Unknown History release polyethylene glycol 3350 17 17 g PO DAILY PRN Constipation 03/04/24 03/04/24 Unknown History gram/dose oral powder Physical Exam Vital Signs: Vital Signs: Last Vital Signs Temp 97 F 03/05/24 08:09 Pulse 114 H 03/05/24 08:09 Resp 18 03/05/24 08:09 BP 139/85 03/05/24 08:09 Pulse Ox 94 03/05/24 08:09 O2 Del Method Room Air 03/05/24 08:09 BMI result Body Mass Index 47.8 Const: Other: Morbidly obese General: comfortable and no acute distress Resp: Effort & Inspection: normal respiratory effort Cardio: Rate: regular rate GI: Palpation (GI): Soft to palpation and nontender Extrem: Other: Superficial ulcer on the anterior aspect of the right lower leg, clean, granulating well, deeper wound on the dorsum of the distal right foot about 2 cm in widest dimension, deep into the subcutaneous layer, clean with scanty discharge Results Labs 03/04/24 05:48 03/04/24 05:48 Labs: Abnormal lab results 03/04/24 03/04/24 03/05/24 Range/Units 16:56 19:51 08:06 POC Glucose 308 H 206 H 235 H (60-115) mg/dL 03/05/24 Range/Units 11:22 POC Glucose 240 H (60-115) mg/dL All other labs normal. Assessment and Plan (1) Open wound: Status: Acute He has open wounds on the right lower leg as well as the dorsum of the foot. This has been previously debrided I do not feel that he has any debridement at this time. I will continue with current dressing regimen as recommended by the wound nurse including silver alginate dressings daily. He should be followed by the Wound Clinic as well. He has been on daptomycin for this chronic infection. Procedures Date of Service Date of Service: 03/05/24
--- NOTE | 2024-03-05 15:44 | HO.WOUND ---
Wound Consult: Initial 49yr old? male admitted to [facility] [place] on 03/03/24 - See progress notes and H&P for detailed history.? Danish speaking - housekeeper manager present throughout. Wound consult for bilateral lower leg wounds.? Patient agreeable to assessment and photo documentation.? Chart review reveals patient continues to be non-compliant with care recommendations at times. Left anterior Leg wounds Right Leg Right Lateral Wound Right Foot Etiology: Unclear etiology- Chronic ulcerations treated in outpt wound clinic Wound Bed: Left Lower Leg - adherent moist yellow slough marbled with red moist tissue - moisture management needed with durafiber ag. Right Leg - Red viable tissue continue with durafiber Ag Right Foot - open wound with odor and garcia creamy drainage and macerated edges - patient reports he has been refusing packing as he felt this was counter productive to wound healing. patient was educated on the need for packing. Drainage / Odor: garcia yellow drainage noted on dressing when removed - Odor noted from right foot Edges: ? Irregular Tara wound: hyperpigmentation and swelling noted - ? No Induration or Warmth noted Pain: patient reports pain Goals of Treatment: ? Continue to use Durafiber AG and Patient should continue to follow up outpatient to a wound clinic due to the complexity of these wounds Discussed with Dilcia Patterson NP concern for right foot given the odor and moist fluctance under the skin - general surgery to assess patients foot. Prior to this note Dr. Bloom assessed patients foot and no concern no need for debridement may continue with Durafiber packing for topical treatment per his statement. Recommendations: 1. Turn and Reposition every 2 hours and as needed for patient comfort.? Use pillows or wedges to support off loading positions. 2. Off Load all bony prominences with use of pillows and heel boots if needed.? Apply Preventative foams where needed. ? 3. Monitor for incontinence and moisture control, use barrier creams when needed for prevention and treatment. 4. Provide adequate and supplemental nutrition.? 5. Continue low air loss mattress. 6. When applicable maintain blood glucose levels per Providers order. 7. Bilateral Lower Legs - Elevate Lower Legs - Cleanse with NS. Apply Durafiber AG to open wound beds, lightly pack to right foot cover with dry gauze, ABD pad and wrap. Change every other Day. Re-consult wound care Nurse for wound deterioration or wound changes.
[2024-03-05 16:00] VITALS: BP 131/78; PULSE 76; TEMP 36.2; O2SAT 95
[2024-03-05 16:29] LABS: Glucose, Whole Blood 156 mg/dL (60-115)
== END 2024-03-05 18:09 | disposition home health service (06) | DRG 344 ==
LOC: HO.ED 21:43 → HO.EDOVER 21:46 → HO.S3 22:11
PROVIDERS: Physician Assistant; Admitting Provider Student in an Organized Health Care Education/Training Program; Emergency Provider Emergency Medicine; Visit Provider Nurse Practitioner Acute Care
DX: E11.69 Type 2 diabetes mellitus with other specified complication (principal); M86.671 Other chronic osteomyelitis, right ankle and foot; E11.22 Type 2 diabetes mellitus with diabetic chronic kidney disease; L97.819 Non-pressure chronic ulcer of other part of right lower leg with unspecified severity; I12.9 Hypertensive chronic kidney disease with stage 1 through stage 4 chronic kidney disease, or unspecified chronic kidney disease; N18.30 Chronic kidney disease, stage 3 unspecified; E66.01 Morbid (severe) obesity due to excess calories; Z68.42 Body mass index [BMI] 45.0-49.9, adult; L97.829 Non-pressure chronic ulcer of other part of left lower leg with unspecified severity; I77.6 Arteritis, unspecified; E11.65 Type 2 diabetes mellitus with hyperglycemia; Z91.148 Patient's other noncompliance with medication regimen for other reason; Z91.199 Patient's noncompliance with other medical treatment and regimen due to unspecified reason; Z79.4 Long term (current) use of insulin; Z79.82 Long term (current) use of aspirin; Z79.84 Long term (current) use of oral hypoglycemic drugs; Z79.899 Other long term (current) drug therapy
CPT/HCPCS: 36415; 73590; 73620; 80048; 80053; 82550; 82947; 83605; 85025; 85652; 86140; 87040; 93005; 99285; J0878; J1650; J2270

== ENCOUNTER → 2024-03-03 21:27 | Outpatient (BNV) | payer MEDICAID, SELFPAY | PROVIDERS: Admitting Provider Student in an Organized Health Care Education/Training Program; Emergency Provider Emergency Medicine; Visit Provider Surgery | DX: T14.8XXA Other injury of unspecified body region, initial encounter (principal) | CPT/HCPCS: 99222 ==

== ENCOUNTER → 2024-03-03 21:27 | Outpatient (BNV) | payer MEDICAID, SELFPAY | PROVIDERS: Admitting Provider Student in an Organized Health Care Education/Training Program; Emergency Provider Emergency Medicine; Visit Provider Student in an Organized Health Care Education/Training Program | DX: M86.271 Subacute osteomyelitis, right ankle and foot (principal) | CPT/HCPCS: 99223; 99232; 99239 ==

== ENCOUNTER 2024-03-16 16:01 | Emergency (ER) | payer MEDICAID, SELFPAY ==
--- NOTE | 2024-03-16 16:10 | ED_ITS ---
HPI - General Adult General Chief complaint: Recheck/Abnormal Lab/Rx Stated complaint: seeking blood tests Time Seen by Provider: 03/16/24 18:59 Source: patient, family, RN notes reviewed, old records reviewed and certified court/medical interpreter Mode of arrival: ambulatory Limitations: language barrier History of Present Illness ED Provider: Mukund HPI narrative: 49-year-old male past medical history significant for morbid obesity, uncontrolled diabetes, osteomyelitis chronic kidney disease, hypertension presents for evaluation of ?a dressing change. ? Patient was here twice recently for osteomyelitis of his bilateral lower extremities. He is currently taking daptomycin for the next 6 weeks terminating in the middle of March. He reports that yesterday he ran out of the daptomycin and he called to get a refill. The infectious disease office wanted him to be evaluated for routine labs and have a dressing change for his right upper extremity PICC line The patient reports that his wounds seem to be healing well, he denies any fevers or chills. 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 and he has some at home to give himself but he has not yet done his dose for today He has no complaints or concerns at this time Related Data Home Medications ?Medication ?Instructions ?Recorded ?Confirmed aspirin 81 mg tablet,delayed 81 mg PO DAILY 02/16/24 03/04/24 release docusate sodium 100 mg capsule 100 mg PO BID PRN Constipation 03/04/24 03/04/24 ferrous sulfate 325 mg (65 mg 325 mg PO DAILY 03/04/24 03/04/24 iron) tablet hydromorphone 2 mg tablet 1 mg PO Q6H PRN Pain (Scale Score 03/04/24 03/04/24 4-6) insulin lispro 100 unit/mL 5 unit subcut QIDACHS 03/04/24 03/04/24 subcutaneous solution (Admelog U-100 Insulin lispro) losartan 50 mg tablet 50 mg PO DAILY 03/04/24 03/04/24 metoprolol succinate 25 mg 25 mg PO DAILY 03/04/24 03/04/24 tablet,extended release 24 hr omeprazole 20 mg capsule,delayed 20 mg PO DAILY@0630 03/04/24 03/04/24 release polyethylene glycol 3350 17 17 g PO DAILY PRN Constipation 03/04/24 03/04/24 gram/dose oral powder Previous Rx's ?Medication ?Instructions ?Recorded metformin 1,000 mg tablet 1,000 mg PO BID #180 tabs 04/01/23 insulin lispro 100 unit/mL 1 sliding scale dose subcut 11/09/23 subcutaneous pen (Humalog KwikPen USEASDIRECTD #15 mL (U-100) Insulin) amlodipine 10 mg tablet 5 mg (1/2 x 10 mg) PO DAILY #1 tab 02/23/24 insulin glargine 100 unit/mL (3 60 unit (0.6 mL) subcut BID #15 mL 02/23/24 mL) subcutaneous pen (Lantus Solostar U-100 Insulin) daptomycin 500 mg intravenous 550 mg IV Q24H #1 ea 03/05/24 solution oxycodone 5 mg tablet 5 mg PO Q4H PRN Pain, 03/05/24 Moderate(Pain Scale 4-6) #24 tabs oxycodone 5 mg tablet 5 mg PO Q6H PRN severe pain (scale 03/16/24 score 7-10) #20 tabs Allergies Allergy/AdvReac Type Severity Reaction Status Date / Time No Known Allergies Allergy Verified 03/16/24 16:20 [No Known Allergies*] Review of Systems 2 Constitutional: Constitutional: Denies body ache(s), Denies chills and Denies fever(s) Eyes: Eyes: Denies blurry vision ENT: Denies dizziness Cardiovascular: Cardiovascular: Denies chest pain Respiratory: Respiratory: Denies cough Integumentary/Breasts: Skin/Breast: Reports erythema, Reports skin pain, Reports skin ulcer, Reports sores and Reports wounds Neurologic: Denies dizziness [facility] Past Medical History Medical History (Updated 03/16/24 @ 19:48 by Art Duval) Open wound Osteomyelitis Chronic kidney disease (CKD), stage III (moderate) BMI 40.0-44.9, adult Morbid obesity with BMI of 40.0-44.9, adult Uncontrolled type 2 diabetes mellitus Encounter to establish care Arthritis of both hips Long-term insulin use DM type 2 (diabetes mellitus, type 2) Hypertension Surgical History No pertinent past surgical history Social History Social History Household Members: Family Housing: House Alcohol intake: former Comment: 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 Patient Tobacco Use Status: Never used Tobacco Smoked in Last 30 Days: No e-Cigarette/Vaping Use: Never Used Second Hand Smoke Exposure: No Use of substances other than those prescribed or required for medical reasons: No Advance Directives: No Advance Directives Information Provided: No service: No Current occupational status: disabled Current occupational exposures/hazards: No Cognitive needs: Yes (cane) Hearing needs: No Vision needs: Yes (glasses) Physical Exam ED Vital Signs: Vital Signs - 24 hr 03/16/24 16:12 03/16/24 17:22 03/16/24 18:58 Temperature 98.8 F 98.3 F 97.3 F Pulse Rate 125 H 100 112 H Respiratory Rate 18 20 18 Blood Pressure 137/90 H 148/95 H 132/96 H Pulse Oximetry 98 99 97 Oxygen Delivery Method Room Air Room Air Room Air 03/16/24 19:58 03/16/24 20:02 Temperature 98.7 F 98.7 F Pulse Rate 114 H 114 H Respiratory Rate 16 16 Blood Pressure 138/99 H 138/99 H Pulse Oximetry 97 97 Oxygen Delivery Method Room Air Room Air BMI result Body Mass Index 49.1 Const General: comfortable, no acute distress, alert and awake Nutritional Appearance: well nourished Orientation/consciousness: patient oriented x3 HENMT Head: Yes normocephalic and Yes atraumatic Eyes Eyelids: Yes eyelids normal Conjunctivae: conjunctivae normal Sclerae: sclerae normal Corneas: corneas normal Pupils: Equal, round and reactive pupils present EOM: EOMs intact bilaterally Neck Neck: Yes full ROM Resp Effort & Inspection: normal respiratory effort, able to speak in complete sentences and not labored Skin Other: Healing wounds to the bilateral feet as well as right lower extremity. These are dressed well, there does not appear to be any beefy red erythema extending beyond the dressings. General skin exam: elasticity normal Neuro General: patient oriented x3 Cranial nerves: Yes Equal, round and reactive pupils present and Yes Bilaterally intact EOM present Cognition (Neuro): normal cognition Course Course Course Narrative: This is a Rapid Medical Examination (RME) performed by Yaya Greene PA-C in triage. Full HPI, ROS, assessment and treatment plan per primary provider in the Main ED. 49 yo [place] speaking male w/ hx of poorly controlled DM, HTN, chronic osteomyelitis of right foot (discharged from [facility] [place] on 03/05/24) here requesting lab work. Did not make it to follow up appointment w/ Dr. Champagne as he did not have transportation. RN from Dr. Champagne's office advised him to come to ED to get PICC line checked, dressing checked. [facility] services for whatever reason has not been able to enter the home so patient has been self administering the antibiotics that they drop off. He was not had his PICC line checked or dressings changed. Doctor Ihsan requesting more lab work to be done. pt denies fever/ chills, increased drainage or pain from right foot. + foot not examined in triage Plan: labs Medications Administered Discontinued Medications Generic Name Dose Route Start Last Admin Trade Name Freq PRN Reason Stop Dose Admin Oxycodone HCl 5 mg 03/16/24 19:48 03/16/24 19:55 Oxycodone Hcl Immed Release 5 Mg Tablet PO 03/16/24 19:49 5 mg ONCE ONE Administration Medical Decision Making Medical Decision Making [facility] Narrative: 49-year-old male with past medical history as documented above presents for evaluation of routine labs as he was not able to follow up with his outpatient specialist as well as a dressing change. The patient's PICC line dressing was changed today. He denies any acute concerns, he does have continued pain to lower extremities but reports it is improving. He is requesting pain medication as he does not have a primary doctor to prescribe it. The patient is hyperglycemic, his glucose is 310 but there is no evidence of DKA as his electrolytes are within normal limits, CO2 is 26. Given that the patient has no further complaints and has an unremarkable workup thus far I do not see any indication for further emergent workup at this time. I did offer the patient IV fluids given his elevated glucose and mild tachycardia. The patient declines this and reports that he will be able to drink lots of water at home. He will administer his daptomycin dose when he gets home later today. Differential Diagnosis Differential Diagnoses: The differential diagnosis associated with the presentation includes Osteomyelitis Cellulitis Bacteremia Hyperglycemia DKA Lab Data [facility] Lab Attestation statement: I reviewed the patient's lab results. No leukocytosis. The patient does have a mild anemia consistent with his baseline. He does have a mild left shift again consistent with his recent baseline likely due to osteomyelitis. Chemistries significant for elevated inflammatory markers, elevated glucose but no evidence of DKA. Otherwise electrolytes are within normal limits 03/16/24 16:43 03/16/24 16:43 Labs: Lab Results 03/16/24 Range/Units 16:43 WBC 9.2 (4.8-10.8) X10*3/uL RBC 4.72 D (4.60-5.80) X10*6/uL Hgb 11.8 L (14.0-18.0) g/dl Hct 36.4 L (42.0-52.0) % MCV 77.1 L (80.0-98.0) fL MCH 25.0 L (27.0-33.0) pg MCHC 32.4 (31.0-36.0) g/dl RDW 14.6 (11.0-16.0) % Plt Count 259 (160-400) X10*3/uL MPV 10.6 (9.4-12.4) fL Immature Gran % (Auto) 0.5 H (0.0-0.4) % Neut % (Auto) 76.2 H (45-73) % Lymph % (Auto) 15.5 L (20-40) % [place] % (Auto) 4.8 (2-11) % Eos % (Auto) 2.6 (0-4) % Baso % (Auto) 0.4 (0-2) % Lymph # (Auto) 1.4 (1.2-4.9) X10*3/uL [place] # (Auto) 0.4 (0.1-1.2) X10*3/uL Eos # (Auto) 0.2 (0.0-0.4) X10*3/uL Baso # (Auto) 0.0 (0.0-0.2) X10*3/uL Abs Immat Gran (auto) 0.05 H (0.00-0.03) X10*3/uL Absolute Neuts (auto) 7.0 (2.0-8.3) x10*3/uL Absolute Nucleated RBC 0.000 (0.0-0.012) X10*3/uL Nucleated RBC % (auto) 0.0 (0.0-0.2) /100WBC ESR 92 H (0-15) MM/HR Sodium 135 (135-145) mmol/L Potassium 4.2 (3.3-5.1) mmol/L Chloride 101 (96-108) mmol/L Carbon Dioxide 26 (22-29) mmol/L Anion Gap 12 (12-20) BUN 10 (9-16) mg/dL Creatinine 1.34 (0.5-1.4) mg/dL Estim Creat Clear Calc 89.0 Estimated GFR 57 Random Glucose 310 H (60-115) mg/dL Lactic Acid 1.9 (0.5-2.0) mmol/L Calcium 9.6 D (8.4-10.2) mg/dL Magnesium 1.7 (1.6-2.6) mg/dL Total Bilirubin 0.2 (0.0-1.0) mg/dL AST 13 (5-37) U/L ALT 13 (0-40) U/L Alkaline Phosphatase 74 (39-117) U/L C-Reactive Protein 8.12 H (< or = 0.50) mg/dL Total Protein 9.5 H (6.5-8.0) g/dL Albumin 3.1 L (3.5-5.0) g/dL Discharge Plan Discharge Clinical Impression: Change of dressing, Osteomyelitis, Acute hyperglycemia Patient Disposition: Home, Self-Care Instructions: Bandage Change (ED) Additional Instructions: Continue your IV antibiotics as planned. You may use oxycodone every 6 hours as needed for severe breakthrough pain. It is important to follow-up with the infectious disease team when you can Return for new or worsening symptoms Prescriptions: New oxycodone 5 mg tablet 5 mg PO Q6H PRN (Reason: severe pain (scale score 7-10)) Qty: 20 0RF Rx Instructions: Partial Fill upon patient request. No Action insulin lispro [Humalog KwikPen Insulin] 100 unit/mL insulin pen 1 sliding scale dose subcut USEASDIRECTD Qty: 15 2RF aspirin 81 mg tablet,delayed release (DR/EC) 81 mg PO DAILY amlodipine 10 mg tablet 5 mg PO DAILY Qty: 1 0RF insulin glargine [Lantus Solostar U-100 Insulin] 100 unit/mL (3 mL) insulin pen 60 unit subcut BID Qty: 15 2RF losartan 50 mg Tablet 50 mg PO DAILY hydromorphone 2 mg Tablet 1 mg PO Q6H PRN (Reason: Pain (Scale Score 4-6)) ferrous sulfate 325 mg (65 mg iron) Tablet 325 mg PO DAILY docusate sodium 100 mg Capsule 100 mg PO BID PRN (Reason: Constipation) omeprazole 20 mg Capsule,Delayed Release(Dr/Ec) 20 mg PO DAILY@0630 metoprolol succinate 25 mg Tablet Extended Release 24 Hr 25 mg PO DAILY insulin lispro [Admelog U-100 Insulin lispro] 100 unit/mL Solution 5 unit SUBCUT QIDACHS polyethylene glycol 3350 17 gram/dose Powder 17 g PO DAILY PRN (Reason: Constipation) daptomycin 500 mg Recon Soln 550 mg IV Q24H Qty: 1 0RF Rx Instructions: administer over 30 mins oxycodone 5 mg Tablet 5 mg PO Q4H PRN (Reason: Pain, Moderate(Pain Scale 4-6)) Qty: 24 0RF Rx Instructions: Partial Fill upon patient request. metformin 1,000 mg tablet 1,000 mg PO BID Qty: 180 3RF Interventions: ED Discharge Assessment Last Done: 03/16/24 20:02 Discharge Date/Time: 03/16/24 20:03 Print Language: [place]
[2024-03-16 16:12] VITALS: BP 137/90; PULSE 125; RESP 18; TEMP 37.1; O2SAT 98; BMI 49.1
--- NOTE | 2024-03-16 16:22 | ECG_ITS ---
Test Reason : TACHY Blood Pressure : / mmHG Vent. Rate : 123 BPM Atrial Rate : 123 BPM P-R Int : 158 ms QRS Dur : 084 ms QT Int : 314 ms P-R-T Axes : 059 -26 074 degrees QTc Int : 449 ms Sinus tachycardia Nonspecific T wave abnormality Abnormal ECG When compared with ECG of 04-MAR-2024 17:44, No significant change was found Referred By: Sindy Greene Electronically Signed By:OLIVER SEXTON
[2024-03-16 16:50] LABS: MANUAL DIFF FLAG NO
[2024-03-16 16:55] LABS: Basophils Percent Auto 0.4 % (0-2); Eosinophils Absolute Auto 0.2 X10*3/uL (0.0-0.4); Eosinophils Percent Auto 2.6 % (0-4); Hematocrit 36.4 % (42.0-52.0); Hemoglobin 11.8 g/dl (14.0-18.0); Imm Gran Abs Auto 0.05 X10*3/uL (0.00-0.03); Imm Gran Pct Auto 0.5 % (0.0-0.4); Lymphocytes Absolute Auto 1.4 X10*3/uL (1.2-4.9); Lymphocytes Percent Auto 15.5 % (20-40); Mean Corpuscular HGB Conc 32.4 g/dl (31.0-36.0); Mean Corpuscular Volume 77.1 fL (80.0-98.0); Mean Platelet Volume 10.6 fL (9.4-12.4); Monocytes Absolute Auto 0.4 X10*3/uL (0.1-1.2); Monocytes Percent Auto 4.8 % (2-11); Neutrophils Percent Auto 76.2 % (45-73); Platelet Count 259 X10*3/uL (160-400); Red Blood Count 4.72 X10*6/uL (4.60-5.80); Red Cell Distribution Width 14.6 % (11.0-16.0); White Blood Count 9.2 X10*3/uL (4.8-10.8)
[2024-03-16 17:02] LABS: Lactic Acid 1.9 mmol/L (0.5-2.0)
[2024-03-16 17:22] VITALS: BP 148/95; PULSE 100; RESP 20; TEMP 36.8; O2SAT 99
[2024-03-16 17:24] LABS: Alanine Aminotransferase 13 U/L (0-40); Albumin Level 3.1 g/dL (3.5-5.0); Alkaline Phosphatase 74 U/L (39-117); Anion Gap 12 (12-20); Aspartate Amino Transferase 13 U/L (5-37); Bilirubin Total 0.2 mg/dL (0.0-1.0); Blood Urea Nitrogen 10 mg/dL (9-16); C Reactive Protein 8.12 mg/dL (< or = 0.50); Calcium 9.6 mg/dL (8.4-10.2); Carbon Dioxide 26 mmol/L (22-29); Chloride 101 mmol/L (96-108); Estimated Glomerular Filt Rate 57; Glucose Random 310 mg/dL (60-115); Magnesium 1.7 mg/dL (1.6-2.6); Potassium 4.2 mmol/L (3.3-5.1); Sodium 135 mmol/L (135-145); Total Protein 9.5 g/dL (6.5-8.0)
[2024-03-16 17:43] LABS: Erythrocyte Sedimentation Rate 92 MM/HR (0-15)
--- NOTE | 2024-03-16 17:48 | PC.NURSE ---
Patient arrived with picc line dressing dated 02/29/2024. Dressing dirty, not adhered to skin surrounding picc line. Picc line Dressing changed
--- NOTE | 2024-03-16 18:08 | PC.NURSE ---
2nd set of cultures drawn from patients PICC line, provider aware
--- NOTE | 2024-03-16 18:08 | PC.NURSE ---
Patient from home stating he was told by staff from an [facility] office that he needed to go to ED to have PICC line dressing changed and to have blood work drawn to determine if picc line needs to be pulled. States was supposed to need iv abt until 04/02 but office said it may be able to be stopped sooner. Patient reports is being treated for osteo in his foot. Declined for dressing to be removed at this time states he has been giving himself daily IV abt and that the wound on his foot looks good and is not infected. Denies drainage.
[2024-03-16 18:58] VITALS: BP 132/96; PULSE 112; RESP 18; TEMP 36.3; O2SAT 97
[2024-03-16] MEDS: oxyCODONE HCl Immed Release 5 MG TABLET PO (19:55)
[2024-03-16 19:58] VITALS: BP 138/99; PULSE 114; RESP 16; TEMP 37.1; O2SAT 97
[2024-03-16 20:02] VITALS: BP 138/99; PULSE 114; RESP 16; TEMP 37.1; O2SAT 97
== END 2024-03-16 20:03 | disposition home or self-care (01) ==
PROVIDERS: Physician Assistant Medical; Emergency Provider Emergency Medicine Emergency Medical Services
DX: Z45.2 Encounter for adjustment and management of vascular access device (principal); M86.9 Osteomyelitis, unspecified; E11.65 Type 2 diabetes mellitus with hyperglycemia; R00.0 Tachycardia, unspecified; Z95.828 Presence of other vascular implants and grafts; E11.22 Type 2 diabetes mellitus with diabetic chronic kidney disease; I12.9 Hypertensive chronic kidney disease with stage 1 through stage 4 chronic kidney disease, or unspecified chronic kidney disease; N18.30 Chronic kidney disease, stage 3 unspecified; Z79.82 Long term (current) use of aspirin; Z79.4 Long term (current) use of insulin; Z79.899 Other long term (current) drug therapy; Z79.84 Long term (current) use of oral hypoglycemic drugs
CPT/HCPCS: 36415; 80053; 83605; 83735; 85025; 85652; 86140; 87040; 93005; 99283; 99284

== ENCOUNTER 2024-04-11 11:49 | Outpatient (AMB) | payer MEDICAID, SELFPAY ==
[2024-04-11 11:59] VITALS: TEMP 37.7; O2SAT 98
--- NOTE | 2024-04-11 11:59 | MHC.OFFVIS ---
Vital Signs 04/11/24 11:59 Temp 99.9 F Temp Source Oral Pulse Oximetry (%) 98 Oxygen Delivery Method Room Air Intake Visit Reasons: picc line removal order needed Allergies No Known Allergies [No Known Allergies*] Allergy (Verified 03/16/24 16:20) HPI [facility] picc line removal order needed: Details: I had seen him in hospital for right foot infection. He has received IV Daptomycin supposedly for six weeks at home and has no complaints. His last date was 04/02. 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 Patient Tobacco Use Status: Never used Tobacco e-Cigarette/Vaping Use: Never Used Second Hand Smoke Exposure: No service: No Current occupational status: disabled Current occupational exposures/hazards: No Cognitive needs: Yes (cane) Hearing needs: No Vision needs: Yes (glasses) Review of Systems Const All systems reviewed & are unremarkable except as noted in HPI and below Physical Exam Vital Signs: Last Vital Signs Temp 99.9 F 04/11/24 11:59 Pulse Ox 98 04/11/24 11:59 Oxygen Delivery Method Room Air 04/11/24 11:59 Const General: cooperative Orientation/consciousness: patient oriented x3 HEENT Head: Yes normal to inspection Face and sinus: Yes normal facial exam Mouth: Normal oral and palatal mucosa present Teeth and gingiva: dentition normal Eyes General: appearance normal, both eyes and all related structures Pupils: Equal, round and reactive pupils present Resp Effort & Inspection: normal respiratory effort Cardio Rate: regular rate Rhythm: regular rhythm GI Palpation (GI): Soft to palpation and nontender General: Yes no CVA tenderness Back/Spine/Pelvis Back: no CVA tenderness Skin General skin exam: no rashes or lesions noted Neuro General: patient oriented x3 and moves all extremities Cranial nerves: Yes Equal, round and reactive pupils present Extrem Other: General: Yes other (right foot with purulence lateral dorsal surface) Psych Appearance: grossly normal Assessment & Plan Assessment & Plan (1) Osteomyelitis: Comment: He has had not much if any improvement since given IV antibiotics. Code(s): M86.9 - Osteomyelitis, unspecified Category: Medical Qualifiers: Laterality: right Osteomyelitis location: foot Osteomyelitis type: subacute Qualified Code(s): M86.271 - Subacute osteomyelitis, right ankle and foot Plan Would give po Doxycycline for a month. Needs to see [facility] and appt with Dr Arevalo was made. See in one month. Orders: Orders IR cvc remove any age Today M86.271 - Subacute osteomyelitis, right ankle and foot Medications: New doxycycline hyclate 100 mg PO BID 30 days 60 caps 0RF Coding Level of Care Code Est Pt Level 3 (33807) Diagnoses Osteomyelitis M86.271 Laterality: right Osteomyelitis location: foot Osteomyelitis type: subacute
== END 2024-04-11 14:35 | disposition home or self-care (01) ==
LOC: HO.HID 11:49
PROVIDERS: PCP Internal Medicine; Visit Provider Internal Medicine
DX: M86.271 Subacute osteomyelitis, right ankle and foot (principal)
CPT/HCPCS: 99213

== ENCOUNTER → 2024-04-11 11:49 | Outpatient (BNVA) | payer MEDICAID, SELFPAY | PROVIDERS: Visit Provider Internal Medicine ==

== ENCOUNTER 2024-04-11 12:41 | Outpatient (REF) | payer MEDICAID, SELFPAY | END 2024-04-11 12:42 | disposition home or self-care (01) | LOC: HO.RADIR 12:41 | PROVIDERS: PCP Internal Medicine; Visit Provider Internal Medicine | DX: M86.271 Subacute osteomyelitis, right ankle and foot (principal) | CPT/HCPCS: 99212 ==